=== PATIENT | female | born 1935 | race Caucasian/White ===

== ENCOUNTER → 2017-04-30 | Outpatient (CLI) | payer OTHER, BC ==
[~2017-04-30] MED LIST: ALBUAER19 INH; ASPEC81; CALC500C70; CARV3.122 PO; FURO-85 PO; LOSA100T65 PO; MELO7.5T5 PO; MESA800T6 PO; MULT-506; POTA-335
== END | disposition home or self-care (01) ==
LOC: C.PATHSPEC 10:22
PROVIDERS: ATTEND Plastic Surgery
DX: C44.612 Basal cell carcinoma of skin of right upper limb, including shoulder (principal)

== ENCOUNTER 2018-11-16 15:08 | Inpatient (IN) ==
[2018-11-16] MEDS ORDERED: DEXTROSE 50% 50 ML SYRINGE IV ONE (15:21)
[2018-11-16] MEDS ORDERED: SODIUM CHLORIDE 0.9% 1000ML 1,000 ML IV ONE ×2 (15:21→15:27)
[2018-11-16] MEDS ORDERED: SODI CHLOR 2.5MEQ/ML 14.6% 77 MEQ in DEXTROSE 10% 1,000 ML IV SCH (15:30)
[2018-11-16] MEDS ORDERED: GLUCOSE 40% GEL 15 GM TUBE PO ONE (15:48)
[2018-11-16 16:13] LABS: INR 1.1 (0.9-1.1); Partial Thromboplastin Ratio 0.9; Partial Thromboplastin Time 23.4 Seconds (21.0-31.0); Prothrombin Time 11.2 Seconds (9.0-12.0)
[2018-11-16 16:21] LABS: BUN Creatinine Ratio 37.2 (10-20); Calcium 8.3 mg/dl (8.5-10.1); Creatinine Clr Calc Pharmacy 37.2 ml/min; Est GFR (Non-African American) 46.6; Magnesium 2.5 mg/dl (1.8-2.4); Potassium 3.5 mmol/L (3.5-5.1)
[2018-11-16 16:31] LABS: Albumin Globulin Ratio 0.4 (0.9-2); Bilirubin,Total 0.4 mg/dl (0.2-1); Globulin 5.3 gm/dl (2.5-4.0); Total Protein 7.3 gm/dl (6.4-8.2); Troponin I 0.025 ng/ml (0-0.045)
[2018-11-16 16:42] LABS: Basophils # (auto) 0.03 K/uL (0-0.2); Basophils % (auto) 0.2 %; Hematocrit (blood only) 35.9 % (37-47); Hemoglobin 11.8 g/dL (12.0-16.0); Immature Granulocytes # (auto) 0.14 K/uL (0.00-0.02); Immature Granulocytes % (auto) 0.9 %; Lymphocytes # (auto) 0.44 K/uL (1.2-3.4); Lymphocytes % (auto) 2.8 %; Mean Corpuscular Hgb Conc 32.9 g/dL (32-36); Mean Corpuscular Volume 84.9 fL (80-100); Mean Platelet Volume 9.5 fL (7.4-10.4); Monocytes # (auto) 0.82 K/uL (0.11-0.59); Monocytes % (auto) 5.1 %; Neutrophils # (auto) 14.56 K/uL (1.4-6.5); Platelet Count 205 K/uL (130-400); RDW Coefficient of Variation 15.1 % (11.5-14.5); RDW Standard Deviation 46.8 fL (36.4-46.3); Red Blood Count 4.23 M/uL (4.2-5.4); White Blood Count 15.99 K/uL (4.8-10.8)
--- NOTE | 2018-11-16 16:52 | CT Scan Report ---
CT head/brain wo con CT DOSE: 537.48 mGy.cm HISTORY: Mental status change fall ams TECHNIQUE: Multiaxial CT images of the head were performed without the use of intravenous contrast. A dose lowering technique was utilized adhering to the principles of ALARA. Comparison: None. Findings: The paranasal sinuses and mastoid air cells are clear. The calvarium and skull base are int act. The ventricles and sulci are within normal limits. There is no mass, hematoma, midline shift, or acute infarct. Impression: No acute intracranial abnormality. Age-related chronic small vessel change The above report was generated using voice recognition software. It may contain grammatical, syntax or spelling errors. Electronically signed by: Lonnie Parrish M.D. 11/16/2018 4:50 PM
--- NOTE | 2018-11-16 16:55 | XRay Report ---
XR pelvis 1-2V routine CLINICAL HISTORY: ams mental status change COMPARISON: None. DISCUSSION: The bones and joint spaces appear intact. There is no evidence of fracture, dislocation o r bony disease. There is no evidence for soft tissue swelling. IMPRESSION: Negative study. Mild degenerative change. The above report was generated using voice recognition software. It may contain grammatical, syntax or spelling errors. Electronically signed by: Lonnie Parrish M.D. 11/16/2018 4:54 PM
--- NOTE | 2018-11-16 16:55 | XRay Report ---
SINGLE VIEW CHEST CLINICAL HISTORY: Change in mental status. FINDINGS: An AP, portable, upright chest radiograph is obtained. No prior studies are available for c omparison at the time of dictation. The examination is degraded by portable technique and patient rot ation. The heart is mildly enlarged, and there is atherosclerotic calcification of the thoracic aort a. The pulmonary vasculature is noncongested. Nonspecific interstitial thickening is likely chronic. No airspace consolidation or large pleural effusion is identified. No pneumothorax is seen. The skele jermaine structures are osteopenic. The bony thorax is grossly intact. Arthritic change is noted in the sh oulders. IMPRESSION: Mild cardiac enlargement with no acute cardiopulmonary abnormality. Electronically signed by: Graeme Enriquez M.D. 11/16/2018 4:54 PM
--- NOTE | 2018-11-16 17:45 | Emergency Department Note ---
Entered by Sindy Waters acting as a scribe for Flakito Miller DO History of Present Illness General Chief complaint: Fall Stated complaint: HYPOGLYCEMIA, Source: patient and EMS History of Present Illness Provider complaint: fall Onset (ago): day(s) 3 Location: left and right Quality: + other (fall) Associated symptoms: + denies other symptoms (denies diarrhea) and + other (low blood sugar glucose); no chest pain, no headaches (head pain) and no nausea/ vomiting The patient is an 82 year old female who presents to the Emergency Room with complaints of a fall occurring 3 days ago. The patient states that she fell 3 days ago and has been on the floor since then. She states that her cleaning lady found her today. She denies having chest pain, head pain, nausea, vomiting , and diarrhea. She reports a history of colitis but states that she is not diabetic. Per nursing staff, the patient was found in the bathroom with feces everywhere. Nursing staff states that the patient's blood sugar glucose was 48 and reports that the patient was confused. Per nursing staff, the patient also fell 3 days ago. History is limited. Home Medications Home Medications Medication Instructions Recorded Confirmed Type aspirin 81 mg PO DAILY 11/16/18 11/16/18 History carvedilol 3.125 mg PO BID 11/16/18 11/16/18 History furosemide 20 mg PO DAILY 11/16/18 11/16/18 History losartan 50 mg PO DAILY 11/16/18 11/16/18 History mesalamine 800 mg PO TID 11/16/18 11/16/18 History potassium chloride 20 meq PO DAILY 11/16/18 11/16/18 History Allergies Allergy/AdvReac Type Severity Reaction Status Date / Time erythromycin base Allergy Intermediate RASH Verified 11/16/18 16:33 Penicillins Allergy Intermediate HIVES Verified 11/16/18 16:33 tetracycline Allergy Intermediate HIVES Verified 11/16/18 16:33 Past Med/Surg History Medical History Colitis (Chronic) Social History Current Living Situation: Alone Feels Safe at Home: Yes Smoking Status: Former smoker Preferred Language: [place] Review of Systems See HPI for pertinent positives & negatives. and A total of 10 systems reviewed and were otherwise negative Physical Exam Vital Signs Vital Signs - 24 hr 11/16/18 15:13 11/16/18 15:18 11/16/18 15:20 Temperature 34.5 C L Temperature Source Rectal Sepsis Recent Fever Within 48 Hours No Sepsis New/Unexplained Change in Mental Status Yes Sepsis Action Taken by Nursing No Action Required Pulse Rate 83 88 86 Pulse Rhythm Regular Pulse Strength Normal Respiratory Rate 28 H 20 21 Respiratory Effort / Characteristics Non-Labored Spontaneous Respiratory Depth Normal Respiratory Pattern Regular Blood Pressure 149/68 H 149/68 H Blood Pressure Mean 95 95 Blood Pressure Position Lying Pulse Oximetry 100 97 98 Oxygen Delivery Method Room Air 11/16/18 15:30 11/16/18 15:45 11/16/18 16:00 Temperature Temperature Source Sepsis Recent Fever Within 48 Hours Sepsis New/Unexplained Change in Mental Status Sepsis Action Taken by Nursing Pulse Rate 86 82 81 Pulse Rhythm Pulse Strength Respiratory Rate 19 16 18 Respiratory Effort / Characteristics Respiratory Depth Respiratory Pattern Blood Pressure Blood Pressure Mean Blood Pressure Position Pulse Oximetry 100 98 Oxygen Delivery Method 11/16/18 16:15 11/16/18 16:30 11/16/18 16:37 Temperature Temperature Source Sepsis Recent Fever Within 48 Hours Sepsis New/Unexplained Change in Mental Status Sepsis Action Taken by Nursing Pulse Rate 90 89 90 Pulse Rhythm Pulse Strength Respiratory Rate 25 H 17 21 Respiratory Effort / Characteristics Respiratory Depth Respiratory Pattern Blood Pressure 121/56 L Blood Pressure Mean 77 Blood Pressure Position Pulse Oximetry 97 Oxygen Delivery Method GENERAL: Sitting up in bed, disheveled, slightly ill-appearing HEAD: Normocephalic, atraumatic EYE EXAM: normal conjunctiva. PERRL and EOM's grossly intact. OROPHARYNX: no exudate, no erythema, lips, buccal mucosa, and tongue normal and mucous membranes are moist NECK: supple, no nuchal rigidity, no adenopathy, non-tender LUNGS: Clear to auscultation. Normal chest wall mechanics HEART: no murmurs, S1 normal and S2 normal ABDOMEN: abdomen soft, non-tender, normo-active bowel, sounds, no masses, no rebound or guarding. BACK: Back is symmetrical on inspection and there is no deformity, no midline tenderness, no CVA tenderness. SKIN: Skin breakdown of the right heel, excoriation on the buttocks with skin breakdown on the left gluteus UPPER EXTREMITIES: upper extremities are grossly normal. LOWER EXTREMITIES: No pitting edema. NEURO EXAM: Normal sensorium, cranial nerves II-XII grossly intact, normal speech, no gross weakness of arms, no gross weakness of legs. Course ED COURSE: Vital signs were reviewed and showed hypothermia. The patients medical record was reviewed The above diagnostic studies were performed and reviewed. ED treatments and interventions as stated above. 1512: Past medical records reviewed. The patient was evaluated in room A3, and a complete history and physical examination were performed. 1613: I checked on the patient. Her BSG dropped back down to the 60s and she was given more glucose. We just got an IV and blood work and are sending her out for the CT. 1703: I updated the patient who verbalized agreement and understanding of the treatment plan. 1704: I discussed the patient's case with Kim Alvarez who will evaluate the patient for further management. Consultations Consultation #1: Kim Alvarez Time: 17:04 Administered Medications Sodium Chloride 77 meq/ (Dextrose) 1,030.8 mls @ 100 mls/hr IV .[id number] JEVON Stop: 12/16/18 15:29 Last Admin: 11/16/18 16:02 Dose: 100 mls/hr Discontinued Medications Dextrose (Dextrose 50%) 50 ml IV NOW ONE Stop: 11/16/18 15:22 Last Admin: 11/16/18 16:02 Dose: 50 ml Glucose (Glucose 40%) Confirm Administered Dose 15 gm PO .STK-MED ONE Stop: 11/16/18 15:49 Last Admin: 11/16/18 15:50 Dose: 15 gm Sodium Chloride (Nss 1000ml) 1,000 mls @ 999 mls/hr IV .[id number] ONE Stop: 11/16/18 16:21 Last Admin: 11/16/18 16:02 Dose: 999 mls/hr Medical Decision Making Differential Diagnosis Differential diagnoses includes but is not limited to toxic, metabolic, infectious, traumatic, cardiac, neurologic, hematologic, psychiatric and inflammatory etiologies. Medical Records Attestation: I reviewed the patient's medical records. Home Medications Current Medication List: was personally reviewed by me Laboratory Data Attestation: I reviewed the patient's lab results. Result diagrams: 11/16/18 16:24 11/16/18 15:45 Lab Results 11/16/18 11/16/18 11/16/18 Range/Units 15:17 15:20 15:42 WBC (4.8-10.8) K/uL RBC (4.2-5.4) M/uL Hgb (12.0-16.0) g/dL Hct (37-47) % MCV (80-100) fL MCH (25-34) pg MCHC (32-36) g/dL RDW Std Deviation (36.4-46.3) fL RDW Coeff of Ellen (11.5-14.5) % Plt Count (130-400) K/uL MPV (7.4-10.4) fL Immature Gran % (Auto) % Neut % (Auto) % Lymph % (Auto) % [place] % (Auto) % Eos % (Auto) % Baso % (Auto) % Immature Gran # (Auto) (0.00-0.02) K/uL Neut # (Auto) (1.4-6.5) K/uL Lymph # (Auto) (1.2-3.4) K/uL [place] # (Auto) (0.11-0.59) K/uL Eos # (Auto) (0-0.5) K/uL Baso # (Auto) (0-0.2) K/uL PT (9.0-12.0) Seconds INR (0.9-1.1) APTT (21.0-31.0) Seconds PTT Ratio Sodium (136-145) mmol/L Potassium (3.5-5.1) mmol/L Chloride (98-107) mmol/L Carbon Dioxide (21-32) mmol/L Anion Gap (3-11) BUN (7-18) mg/dl Creatinine (0.6-1.2) mg/dl Est Cr Clr Drug Dosing ml/min Est GFR ( Amer) Est GFR (Non-Af Amer) BUN/Creatinine Ratio (10-20) Glucose (70-99) mg/dl POC Glucose 62 L* 64 L* 71 (70-99) Calcium (8.5-10.1) mg/dl Magnesium (1.8-2.4) mg/dl Total Bilirubin (0.2-1) mg/dl AST (15-37) U/L ALT (12-78) U/L Alkaline Phosphatase (45-117) U/L Total Creatine Kinase (26-192) U/L Troponin I (0-0.045) ng/ml Total Protein (6.4-8.2) gm/dl Albumin (3.4-5.0) gm/dl Globulin (2.5-4.0) gm/dl Albumin/Globulin Ratio (0.9-2) TSH (0.300-4.500) uIu/ml Ethyl Alcohol mg/dL (0-3) mg/dl 11/16/18 11/16/18 11/16/18 Range/Units 15:45 15:45 15:59 WBC (4.8-10.8) K/uL RBC (4.2-5.4) M/uL Hgb (12.0-16.0) g/dL Hct (37-47) % MCV (80-100) fL MCH (25-34) pg MCHC (32-36) g/dL RDW Std Deviation (36.4-46.3) fL RDW Coeff of Ellen (11.5-14.5) % Plt Count (130-400) K/uL MPV (7.4-10.4) fL Immature Gran % (Auto) % Neut % (Auto) % Lymph % (Auto) % [place] % (Auto) % Eos % (Auto) % Baso % (Auto) % Immature Gran # (Auto) (0.00-0.02) K/uL Neut # (Auto) (1.4-6.5) K/uL Lymph # (Auto) (1.2-3.4) K/uL [place] # (Auto) (0.11-0.59) K/uL Eos # (Auto) (0-0.5) K/uL Baso # (Auto) (0-0.2) K/uL PT 11.2 (9.0-12.0) Seconds INR 1.1 (0.9-1.1) APTT 23.4 (21.0-31.0) Seconds PTT Ratio 0.9 Sodium 135 L (136-145) mmol/L Potassium 3.5 (3.5-5.1) mmol/L Chloride 98 (98-107) mmol/L Carbon Dioxide 24 (21-32) mmol/L Anion Gap 13.0 H (3-11) BUN 41 H (7-18) mg/dl Creatinine 1.09 (0.6-1.2) mg/dl Est Cr Clr Drug Dosing 37.2 ml/min Est GFR ( Amer) 54.0 Est GFR (Non-Af Amer) 46.6 BUN/Creatinine Ratio 37.2 H (10-20) Glucose 81 (70-99) mg/dl POC Glucose 70 (70-99) Calcium 8.3 L (8.5-10.1) mg/dl Magnesium 2.5 H (1.8-2.4) mg/dl Total Bilirubin 0.4 (0.2-1) mg/dl AST 178 H (15-37) U/L ALT 116 H (12-78) U/L Alkaline Phosphatase 117 (45-117) U/L Total Creatine Kinase 629 H (26-192) U/L Troponin I 0.025 (0-0.045) ng/ml Total Protein 7.3 (6.4-8.2) gm/dl Albumin 2.0 L (3.4-5.0) gm/dl Globulin 5.3 H (2.5-4.0) gm/dl Albumin/Globulin Ratio 0.4 L (0.9-2) TSH 0.807 (0.300-4.500) uIu/ml Ethyl Alcohol mg/dL (0-3) mg/dl 11/16/18 11/16/18 11/16/18 Range/Units 16:09 16:24 16:24 WBC 15.99 H (4.8-10.8) K/uL RBC 4.23 (4.2-5.4) M/uL Hgb 11.8 L (12.0-16.0) g/dL Hct 35.9 L (37-47) % MCV 84.9 (80-100) fL MCH 27.9 (25-34) pg MCHC 32.9 (32-36) g/dL RDW Std Deviation 46.8 H (36.4-46.3) fL RDW Coeff of Ellen 15.1 H (11.5-14.5) % Plt Count 205 (130-400) K/uL MPV 9.5 (7.4-10.4) fL Immature Gran % (Auto) 0.9 % Neut % (Auto) 91.0 % Lymph % (Auto) 2.8 % [place] % (Auto) 5.1 % Eos % (Auto) 0.0 % Baso % (Auto) 0.2 % Immature Gran # (Auto) 0.14 H (0.00-0.02) K/uL Neut # (Auto) 14.56 H (1.4-6.5) K/uL Lymph # (Auto) 0.44 L (1.2-3.4) K/uL [place] # (Auto) 0.82 H (0.11-0.59) K/uL Eos # (Auto) 0.00 (0-0.5) K/uL Baso # (Auto) 0.03 (0-0.2) K/uL PT (9.0-12.0) Seconds INR (0.9-1.1) APTT (21.0-31.0) Seconds PTT Ratio Sodium (136-145) mmol/L Potassium (3.5-5.1) mmol/L Chloride (98-107) mmol/L Carbon Dioxide (21-32) mmol/L Anion Gap (3-11) BUN (7-18) mg/dl Creatinine (0.6-1.2) mg/dl Est Cr Clr Drug Dosing ml/min Est GFR ( Amer) Est GFR (Non-Af Amer) BUN/Creatinine Ratio (10-20) Glucose (70-99) mg/dl POC Glucose 223 H (70-99) Calcium (8.5-10.1) mg/dl Magnesium (1.8-2.4) mg/dl Total Bilirubin (0.2-1) mg/dl AST (15-37) U/L ALT (12-78) U/L Alkaline Phosphatase (45-117) U/L Total Creatine Kinase (26-192) U/L Troponin I (0-0.045) ng/ml Total Protein (6.4-8.2) gm/dl Albumin (3.4-5.0) gm/dl Globulin (2.5-4.0) gm/dl Albumin/Globulin Ratio (0.9-2) TSH (0.300-4.500) uIu/ml Ethyl Alcohol mg/dL < 3.0 (0-3) mg/dl Imaging Data Radiologist's Impression: Radiology results as stated below per my review and the radiologist's interpretation: SINGLE VIEW CHEST CLINICAL HISTORY: Change in mental status. FINDINGS: An AP, portable, upright chest radiograph is obtained. No prior studies are available for comparison at the time of dictation. The examination is degraded by portable technique and patient rotation. The heart is mildly enlarged, and there is atherosclerotic calcification of the thoracic aorta. The pulmonary vasculature is noncongested. Nonspecific interstitial thickening is likely chronic. No airspace consolidation or large pleural effusion is identified. No pneumothorax is seen. The skeletal structures are osteopenic. The bony thorax is grossly intact. Arthritic change is noted in the shoulders. IMPRESSION: Mild cardiac enlargement with no acute cardiopulmonary abnormality. Electronically signed by: Graeme Enriquez M.D. 11/16/2018 4:54 PM XR pelvis 1-2V routine CLINICAL HISTORY: ams mental status change COMPARISON: None. DISCUSSION: The bones and joint spaces appear intact. There is no evidence of fracture, dislocation or bony disease. There is no evidence for soft tissue swelling. IMPRESSION: Negative study. Mild degenerative change. The above report was generated using voice recognition software. It may contain grammatical, syntax or spelling errors. Electronically signed by: Lonnie Parrish M.D. 11/16/2018 4:[address] head/brain wo con CT DOSE: 537.48 mGy.cm HISTORY: Mental status change fall ams TECHNIQUE: Multiaxial CT images of the head were performed without the use of intravenous contrast. A dose lowering technique was utilized adhering to the principles of ALARA. Comparison: None. Findings: The paranasal sinuses and mastoid air cells are clear. The calvarium and skull base are intact. The ventricles and sulci are within normal limits. There is no mass, hematoma, midline shift, or acute infarct. Impression: No acute intracranial abnormality. Age-related chronic small vessel change The above report was generated using voice recognition software. It may contain grammatical, syntax or spelling errors. Electronically signed by: Lonnie Parrish M.D. 11/16/2018 4:50 PM ECG Data Attestation: I personally reviewed and interpreted this ECG as follows: Indication: altered mental status Rate (beats per minute): 82 Rhythm: sinus rhythm Findings: + LBBB, + ST depression (high lateral leads) and + left axis deviation Blood Pressure Blood Pressure Findings: Normal blood pressure MDM Narrative Patient is an 82-year-old female who presents the ER following being found down on the floor. She notes that she thinks she fell Thursday but is uncertain and has been able to really get up since then. She is hypothermic with a temperature of 34 5. She is otherwise slightly ill-appearing. Labs were obtained and showed a leukocytosis of 16,000. No significant anemia. INR was normal. BMP was fairly unremarkable. LFTs with a mild transaminitis in the low 100s. CK was only 630. Troponin was detectable but not positive. Alcohol was negative. Blood sugar dropped several times while in the ER and patient was given amp of D50 and then placed on a D10 drip to correct the hypoglycemia. I do believe that this is likely secondary to hypothermia but cannot be certain. Patient was also given IV fluids. Chest x-ray and pelvis x-ray were unremarkable. CT head was negative. EKG was unremarkable. Patient was updated bedside and was admitted to the hospitalist for further workup on a D10 half normal saline drip. Impression & Plan Hypothermia, Weakness, Hypoglycemia, Fall Critical Care Time I have personally spent 35 minutes of critical care time in the direct management of this patient. This includes bedside care, interpretation of diagnostic studies, and testing, discussion with consultants, patient, and family members, and other required patient management activities. This 35 minutes is in excess of all separately billable procedures. Critical Care Time: Yes Total Critical Care Time: 35 Discharge Plan Visit Data Chief Complaint: Fall Stated Complaint: HYPOGLYCEMIA, ED Provider: Flakito Miller Discharge Problem: Hypothermia, Weakness, Hypoglycemia, Fall Forms Stand Alone Forms: My [facility] Prescriptions Prescriptions: No Action losartan 50 mg tablet 50 mg PO DAILY RF: 0 aspirin 81 mg Tablet,Delayed Release (Dr/Ec) 81 mg PO DAILY RF: 0 carvedilol 3.125 mg tablet 3.125 mg PO BID RF: 0 potassium chloride 20 mEq tablet,ER particles/crystals 20 meq PO DAILY RF: 0 furosemide 20 mg tablet 20 mg PO DAILY RF: 0 mesalamine 800 mg tablet,delayed release (DR/EC) 800 mg PO TID RF: 0 Referrals Referrals: PCP,FAVIOLA [Primary Care Provider] - The scribe's documentation has been prepared under my direction and personally reviewed by me in its entirety. I confirm that the note above accurately reflects all work, treatment, procedures, and medical decision making performed by me.
[2018-11-16 17:56] LABS: Appearance Urine Clear (Clear); Bacteria Urine Automated 2+ (Negative); Color Urine Dark Yellow; Epithelial Cell Urine Auto 20-30 /lpf (0-5); Glucose Urine UA Negative (Negative); Ketones Urine 1+ (Negative); Leukocyte Esterase Urine Negative (Negative); Nitrite Urine Positive (Negative); Protein Urine 1+ (Negative); Specific Gravity Urine 1.023 (1.000-1.030); Urobilinogen Urine Negative (Negative)
[2018-11-16 17:58] LABS: Bilirubin Urine Negative (Negative); Ictotest Urine Negative (Negative)
[2018-11-16 18:20] LABS: Amphetamines+Metham, Urine Neg (Neg); Barbiturates, Urine Neg (Neg); Benzodiazepine, Urine Neg (Neg); Cocaine, Urine Neg (Neg); MDMA (Ecstacy), Urine Neg (Neg); Methadone, Urine Neg (Neg); Opiate, Urine Neg (Neg); Phencyclidine, Urine Neg (Neg)
[2018-11-16] MEDS ORDERED: ALUMINUM/MAGNESIUM SUSP 30 ML UDC PO PRN (19:13)
[2018-11-16] MEDS ORDERED: ONDANSETRON INJ 2 MG/ML 2 ML VIAL IV PRN (19:13)
[2018-11-16] MEDS ORDERED: ACETAMINOPHEN 325 MG TAB PO PRN (19:13)
--- NOTE | 2018-11-16 19:29 | History & Physical Report ---
Date of Service November 16, 2018 Assessment & Plan (1) Rhabdomyolysis: (2) Fall: -Admit to telemetry -Patient presenting after a fall she experienced 4 days ago and was unable to get off the floor -In the ED, patient found to be hypothermic, hypoglycemic, total CK 629 -Body temperature improved with bear hugger -Creatinine 1.09 (baseline ~ 0.7) -Continue supportive care with IVF -Recheck CK in the morning -PT/OT, case management consults; patient may need short-term rehab stay post discharge (3) Hypoglycemia: -Likely secondary to minimal p.o. intake over the past few days -Glucose 62 on arrival, patient received glucose gel, amp of D50, placed on D10 drip with improvement in blood sugar -Continue to monitor BSGs (4) Abnormal urinalysis: -UA suggest possible UTI -will place on empiric ceftriaxone, adjust per culture results (5) Elevated LFTs: -Possible stress response -AST 178, ALT 116, normal total bili and alk phos; no abdominal complaints -Follow LFTs (6) Mild tricuspid regurgitation: (7) Moderate mitral regurgitation: (8) Nonischemic cardiomyopathy: (9) Diastolic CHF: -Holding diuretic due to rhabdomyolysis (10) Hypertension: -BP controlled, continue carvedilol and hold losartan for now (11) Ulcerative colitis: -Continue mesalamine (12) DVT prophylaxis: -SQ heparin History of Present Illness Chief Complaint: Fall Primary Care Provider: Heladio Larsen DO 82 year old female who presents to the ED for a fall. Patient thinks she fell Thursday morning (4 days ago) and has been unable to get up. She was found by her diamond die driller today. Patient reports she was bending over to pick something up when her leg gave out from under her and fell to the ground. She denies striking her head or loss of consciousness. No chest pain or shortness of breath. She denies abdominal pain, nausea, vomiting. She has chronic loose stools which are unchanged from baseline. She was incontinent of urine and stool due to inability of getting off of the floor. No fever or chills. She denies any urinary symptoms. In the ED, patient was hypothermic at 34.5. This improved with bear hugger. WBC 15K, creat 1.09, CK 629, glucose 62. For the hypoglycemia, patient received glucose gel, amp of D50, and then started on D10 drip with improvement in blood sugar. Allergies Allergy/AdvReac Type Severity Reaction Status Date / Time erythromycin base Allergy Intermediate RASH Verified 11/16/18 16:33 Penicillins Allergy Intermediate HIVES Verified 11/16/18 16:33 tetracycline Allergy Intermediate HIVES Verified 11/16/18 16:33 Home Medications Home Medications Medication Instructions Recorded Confirmed Type aspirin 81 mg PO DAILY 11/16/18 11/16/18 History carvedilol 3.125 mg PO BID 11/16/18 11/16/18 History furosemide 20 mg PO DAILY 11/16/18 11/16/18 History losartan 50 mg PO DAILY 11/16/18 11/16/18 History mesalamine 800 mg PO TID 11/16/18 11/16/18 History potassium chloride 20 meq PO DAILY 11/16/18 11/16/18 History Past Med/Surg History Medical History Mild tricuspid regurgitation (Chronic) Moderate mitral regurgitation (Chronic) Nonischemic cardiomyopathy (Chronic) Diastolic CHF (Chronic) Ulcerative colitis (Chronic) Left bundle branch block (Chronic) Venous insufficiency (Chronic) COPD, mild (Chronic) Hypertension (Chronic) Colitis (Chronic) Surgical History S/P right knee arthroscopy (Chronic) S/p bilateral carpal tunnel release (Chronic) Family History Other Family history non-contributory Social History Current Living Situation: Alone Other Information That Helps Us Care for You: No Feels Safe at Home: Yes Safety Concerns: Feels Safe At This Time Smoking Status: Former smoker Do You Dip or Chew Tobacco: No Second Hand Exposure: No Tobacco Cessation Education Requested by Patient: No Hx Alcohol Use: No Hx Substance Use: No Beliefs That Will Affect Care: None Preferred Language: Maltese Communication Ability: Effective Communication Ability Comment: Confusion Investment Associate Required: No Review of Systems ROS per HPI, all other systems reviewed and negative Physical Exam 2 Vital Signs (Past 24 Hours): Last Vital Signs Temp 37 C 11/16/18 19:02 Pulse 92 H 11/16/18 19:02 Resp 20 11/16/18 19:02 BP 108/57 L 11/16/18 19:02 Pulse Ox 97 11/16/18 19:02 Physical Exam: Please refer to Dr. Youngblood's addendum for physical exam Results & Data Laboratory Results Laboratory Last Values WBC 15.99 K/uL (4.8-10.8) H 11/16/18 16:24 RBC 4.23 M/uL (4.2-5.4) 11/16/18 16:24 Hgb 11.8 g/dL (12.0-16.0) L 11/16/18 16:24 Hct 35.9 % (37-47) L 11/16/18 16:24 MCV 84.9 fL (80-100) 11/16/18 16:24 MCH 27.9 pg (25-34) 11/16/18 16:24 MCHC 32.9 g/dL (32-36) 11/16/18 16:24 RDW Std Deviation 46.8 fL (36.4-46.3) H 11/16/18 16:24 RDW Coeff of Ellen 15.1 % (11.5-14.5) H 11/16/18 16:24 Plt Count 205 K/uL (130-400) 11/16/18 16:24 MPV 9.5 fL (7.4-10.4) 11/16/18 16:24 Immature Gran % (Auto) 0.9 % 11/16/18 16:24 Neut % (Auto) 91.0 % 11/16/18 16:24 Lymph % (Auto) 2.8 % 11/16/18 16:24 [place] % (Auto) 5.1 % 11/16/18 16:24 Eos % (Auto) 0.0 % 11/16/18 16:24 Baso % (Auto) 0.2 % 11/16/18 16:24 Immature Gran # (Auto) 0.14 K/uL (0.00-0.02) H 11/16/18 16:24 Neut # (Auto) 14.56 K/uL (1.4-6.5) H 11/16/18 16:24 Lymph # (Auto) 0.44 K/uL (1.2-3.4) L 11/16/18 16:24 [place] # (Auto) 0.82 K/uL (0.11-0.59) H 11/16/18 16:24 Eos # (Auto) 0.00 K/uL (0-0.5) 11/16/18 16:24 Baso # (Auto) 0.03 K/uL (0-0.2) 11/16/18 16:24 PT 11.2 Seconds (9.0-12.0) 11/16/18 15:45 INR 1.1 (0.9-1.1) 11/16/18 15:45 APTT 23.4 Seconds (21.0-31.0) 11/16/18 15:45 PTT Ratio 0.9 11/16/18 15:45 Sodium 135 mmol/L (136-145) L 11/16/18 15:45 Potassium 3.5 mmol/L (3.5-5.1) 11/16/18 15:45 Chloride 98 mmol/L (98-107) 11/16/18 15:45 Carbon Dioxide 24 mmol/L (21-32) 11/16/18 15:45 Anion Gap 13.0 (3-11) H 11/16/18 15:45 BUN 41 mg/dl (7-18) H 11/16/18 15:45 Creatinine 1.09 mg/dl (0.6-1.2) 11/16/18 15:45 Est Cr Clr Drug Dosing 37.2 ml/min 11/16/18 15:45 Est GFR ( Amer) 54.0 11/16/18 15:45 Est GFR (Non-Af Amer) 46.6 11/16/18 15:45 BUN/Creatinine Ratio 37.2 (10-20) H 11/16/18 15:45 Glucose 81 mg/dl (70-99) 11/16/18 15:45 POC Glucose 223 (70-99) H 11/16/18 16:24 Calcium 8.3 mg/dl (8.5-10.1) L 11/16/18 15:45 Magnesium 2.5 mg/dl (1.8-2.4) H 11/16/18 15:45 Total Bilirubin 0.4 mg/dl (0.2-1) 11/16/18 15:45 AST 178 U/L (15-37) H 11/16/18 15:45 ALT 116 U/L (12-78) H 11/16/18 15:45 Alkaline Phosphatase 117 U/L (45-117) 11/16/18 15:45 Total Creatine Kinase 629 U/L (26-192) H 11/16/18 15:45 Troponin I 0.025 ng/ml (0-0.045) 11/16/18 15:45 Total Protein 7.3 gm/dl (6.4-8.2) 11/16/18 15:45 Albumin 2.0 gm/dl (3.4-5.0) L 11/16/18 15:45 Globulin 5.3 gm/dl (2.5-4.0) H 11/16/18 15:45 Albumin/Globulin Ratio 0.4 (0.9-2) L 11/16/18 15:45 TSH 0.807 uIu/ml (0.300-4.500) 11/16/18 15:45 Urine Color Dark Yellow 11/16/18 17:24 Urine Appearance Clear (Clear) 11/16/18 17:24 Urine pH 5.0 (4.5-7.5) 11/16/18 17:24 Ur Specific [place] 1.023 (1.000-1.030) 11/16/18 17:24 Urine Protein 1+ (Negative) H 11/16/18 17:24 Urine Glucose (UA) Negative (Negative) 11/16/18 17:24 Urine Ketones 1+ (Negative) H 11/16/18 17:24 Urine Blood Negative (Negative) 11/16/18 17:24 Urine Nitrite Positive (Negative) H 11/16/18 17:24 Urine Bilirubin Negative (Negative) 11/16/18 17:24 Urine Urobilinogen Negative (Negative) 11/16/18 17:24 Ur Leukocyte Esterase Negative (Negative) 11/16/18 17:24 Urine WBC (Auto) 5-10 /hpf (0-5) H 11/16/18 17:24 Urine RBC (Auto) 0-4 /hpf (0-4) 11/16/18 17:24 U Hyaline Cast (Auto) 1-5 /lpf (0-5) 11/16/18 17:24 U Epithel Cells (Auto) 20-30 /lpf (0-5) H 11/16/18 17:24 Urine Bacteria (Auto) 2+ (Negative) H 11/16/18 17:24 Urine Opiates Screen Neg (Neg) 11/16/18 17:24 Ur Methadone, Qual Neg (Neg) 11/16/18 17:24 Urine Barbiturates Neg (Neg) 11/16/18 17:24 Ur Phencyclidine (PCP) Neg (Neg) 11/16/18 17:24 U Amphetamin/Meth Scrn Neg (Neg) 11/16/18 17:24 MDMA (Ecstasy) Screen Neg (Neg) 11/16/18 17:24 U Benzodiazepines Scrn Neg (Neg) 11/16/18 17:24 Ur Cocaine Metabolite Neg (Neg) 11/16/18 17:24 U Marijuana (THC) Screen Neg (Neg) 11/16/18 17:24 Ethyl Alcohol mg/dL < 3.0 mg/dl (0-3) 11/16/18 16:[address] Impression: No acute intracranial abnormality. Age-related chronic small vessel change PELVIS XR IMPRESSION: Negative study. Mild degenerative change. CXR IMPRESSION: Mild cardiac enlargement with no acute cardiopulmonary abnormality. Code Status & VTE Plan Code Status Patient is a full code as per my discussion with her. VTE Prophylaxis Plan VTE Prophylaxis will be ordered: Yes Supervising Physician Co-Signing Physician Notes I saw this patient with the Nurse Practioner, I participated in the history, physical, review of systems, and physical exam. I reviewed the medications with the patient and the Nurse Practioner and helped reconcile the medications. I helped take a detailed family and social history as well. I formulated the assessment and plan personally with the Nurse Practioner went over it with the patient.
[2018-11-16] MEDS: POTASSIUM CHLORIDE 40 MEQ in SODIUM CHLORIDE 0.9% 1000ML 1,000 ML IV SCH (19:32)
[2018-11-16] MEDS: cefTRIAXone SODIUM 1,000 MG in DEXTROSE 5% 50 ML IV SCH (20:06)
[2018-11-16] MEDS: CARVEDILOL 3.125 MG TAB PO SCH (21:44)
[2018-11-16] MEDS: HEPARIN SOD 5,000 UNIT/0.5 ML VIAL SQ SCH (21:45)
[2018-11-17] MEDS: POTASSIUM CHLORIDE 40 MEQ in SODIUM CHLORIDE 0.9% 1000ML 1,000 ML IV SCH ×2 (05:53→18:09)
[2018-11-17 07:02] LABS: Albumin Level 1.5 gm/dl (3.4-5.0); BUN Creatinine Ratio 40.9 (10-20); Calcium 7.4 mg/dl (8.5-10.1); Creatinine Clr Calc Pharmacy 51.9 ml/min; Est GFR (African American) 79.7; Est GFR (Non-African American) 68.7; Potassium 4.1 mmol/L (3.5-5.1)
[2018-11-17 07:05] LABS: Albumin Globulin Ratio 0.4 (0.9-2); Bilirubin,Total 0.3 mg/dl (0.2-1); Globulin 4.1 gm/dl (2.5-4.0); Total Protein 5.6 gm/dl (6.4-8.2)
--- NOTE | 2018-11-17 08:05 | Hospitalist Progress Note ---
Date of Service November 17, 2018 Assessment & Plan (1) Rhabdomyolysis: (2) Fall: -Patient presenting after a fall she experienced 4 days ago and was unable to get off the floor -In the ED, patient found to be hypothermic, hypoglycemic, total CK 629, now 129 -Body temperature improved with bear hugger -Creatinine 1.09 (baseline ~ 0.7), Now at baseline -Continue supportive care with IVF -PT/OT, case management consults; patient may need short-term rehab stay post discharge (3) Hypoglycemia: -Likely secondary to minimal p.o. intake over the past few days -Glucose 62 on arrival, patient received glucose gel, amp of D50, placed on D10 drip with improvement in blood sugar -Continue to monitor BSGs (4) Abnormal urinalysis: -UA suggest possible UTI -empiric ceftriaxone, adjust per culture results (5) Elevated LFTs: -Possible stress response -AST 178, ALT 116, normal total bili and alk phos; no abdominal complaints -Follow LFTs (6) Mild tricuspid regurgitation: (7) Moderate mitral regurgitation: (8) Nonischemic cardiomyopathy: (9) Diastolic CHF: -Holding diuretic, restart 11/18 (10) Hypertension: -BP controlled, continue carvedilol and hold losartan for now (11) Ulcerative colitis: -Continue mesalamine (12) DVT prophylaxis: -SQ heparin Subjective ROS-No Headache, No Visual Changes, No Nausea, No Vomiting, No Fever, No Chills , No Neck Pain or Stiffness, No Chest Pain, No Palpitations, No SOB, No BRAVO, No Cough, No Sputum, No Wheezing, No Abdominal Pain, No Diarrhea, No Hematemesis, No Hemoptysis, No Unexpected Weight Loss, No Flank pain, No Melena, No Hematochezia, No Frequency, No Urgency, No Burning, No Hematuria, No Rashes, No Diaphoresis. Appetite is Normal, Sore all over Physical Exam Gen-AAO x 3, NAD, Afebrile Head-NCAT, EOMI, PERRLA, Anicteric Sclera, No Posterior Pharyngeal Erythema Neck-Supple, No JVD, No Thyromegaly, No Masses, No LAD, No Bruits Lungs-Clear to Auscultation Bilaterally, No Rales, No Rhonchi, No Wheezing, No Crepitus Chest-No S4, +S1, +S2, No S3, No Murmurs, No Rubs, No Gallops, No Ectopy Abdomen-Soft, Bowel Sounds Present, Non Tender, Non Distended, No Hepatomegaly, No Splenomegaly, No Palpable Masses, No Rebound, No Rigidity, No Guarding Musculoskeletal-Full Range of Motion Bilaterally, No CVAT, Mult wound-Heel, Elbow, Butt Extremities-No Cyanosis, No Clubbing, No Edema Nuero-Cranial Nerves II-XII grossly intact, Motor WNL, DTRs WNL, Strength WNL, Non Focal Psych-Normal Mood Physical Exam 2 Vital Signs (Past 24 Hours): Last Vital Signs Temp 37.1 C 11/17/18 07:39 Pulse 78 11/17/18 07:39 Resp 20 11/17/18 07:39 BP 132/70 11/17/18 07:39 Pulse Ox 94 11/17/18 07:39 Results & Data Laboratory Results Current Diagnoses Hypoglycemia, unspecified (11/16/18) 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) Essential (primary) hypertension (11/16/18) Nonrheumatic mitral (valve) insufficiency (11/16/18) Other cardiomyopathies (11/16/18) Unspecified diastolic (congestive) heart failure (11/16/18) Ulcerative colitis, unspecified, without complications (11/16/18) Rhabdomyolysis (11/16/18) Unspecified abnormal findings in urine (11/16/18) Abnormal results of liver function studies (11/16/18) Unspecified fall, initial encounter (11/16/18) Allergies erythromycin base Allergy (Intermediate, Verified 11/16/18 16:33) RASH Penicillins Allergy (Intermediate, Verified 11/16/18 16:33) HIVES tetracycline Allergy (Intermediate, Verified 11/16/18 16:33) HIVES Height/Weight/Isolation Height 5 ft 3 in Weight 76.5 kg Chemistry 11/16/18 11/17/18 15:45 05:48 Sodium 135 L 137 Potassium 3.5 4.1 D Chloride 98 105 Carbon Dioxide 24 25 Anion Gap 13.0 H 7.0 BUN 41 H 32 H Creatinine 1.09 0.79 D Glucose 81 136 H Urinalysis 11/16/18 17:24 Urine Color Dark Yellow Urine Appearance Clear Urine pH 5.0 Ur Specific [place] 1.023 Urine Protein 1+ H Urine Glucose (UA) Negative Urine Ketones 1+ H Urine Blood Negative Urine Nitrite Positive H Urine Bilirubin Negative Microbiology 11/16/18 17:24 Urine,Indwelling Cath Urine Culture - Pending 11/16/18 16:09 Blood Blood Culture - Pending 11/16/18 15:45 Blood Blood Culture - Pending
[2018-11-17] MEDS: ASPIRIN 81 MG ECTAB PO SCH (09:27)
[2018-11-17] MEDS: CARVEDILOL 3.125 MG TAB PO SCH ×2 (09:27→22:49)
[2018-11-17] MEDS: HEPARIN SOD 5,000 UNIT/0.5 ML VIAL SQ SCH ×2 (09:28→22:49)
[2018-11-17] MEDS: cefTRIAXone SODIUM 1,000 MG in DEXTROSE 5% 50 ML IV SCH (20:51)
[2018-11-17 22:11] LABS: Appearance Urine Clear (Clear); Bacteria Urine Automated Negative (Negative); Bilirubin Urine Negative (Negative); Color Urine Yellow; Epithelial Cell Urine Auto >30 /lpf (0-5); Glucose Urine UA Negative (Negative); Ketones Urine Trace (Negative); Leukocyte Esterase Urine Trace (Negative); Nitrite Urine Positive (Negative); Protein Urine Negative (Negative); Specific Gravity Urine 1.024 (1.000-1.030); Urobilinogen Urine Negative (Negative)
[2018-11-18] MEDS: POTASSIUM CHLORIDE 40 MEQ in SODIUM CHLORIDE 0.9% 1000ML 1,000 ML IV SCH ×2 (04:44→14:29)
[2018-11-18 06:32] LABS: Hematocrit (blood only) 31.5 % (37-47); Mean Corpuscular Hgb Conc 31.7 g/dL (32-36); Mean Corpuscular Volume 86.3 fL (80-100); Mean Platelet Volume 9.6 fL (7.4-10.4); Platelet Count 195 K/uL (130-400); RDW Coefficient of Variation 15.2 % (11.5-14.5); RDW Standard Deviation 47.8 fL (36.4-46.3); Red Blood Count 3.65 M/uL (4.2-5.4); White Blood Count 9.15 K/uL (4.8-10.8)
[2018-11-18 07:09] LABS: Albumin Level 1.5 gm/dl (3.4-5.0); Calcium 7.3 mg/dl (8.5-10.1); Creatinine Clr Calc Pharmacy 65.7 ml/min; Est GFR (Non-African American) 82.8; Potassium 4.2 mmol/L (3.5-5.1)
[2018-11-18 07:12] LABS: Albumin Globulin Ratio 0.4 (0.9-2); Bilirubin,Total 0.2 mg/dl (0.2-1); Total Protein 5.5 gm/dl (6.4-8.2)
[2018-11-18] MEDS: ASPIRIN 81 MG ECTAB PO SCH (08:03)
[2018-11-18] MEDS: CARVEDILOL 3.125 MG TAB PO SCH ×2 (08:03→20:59)
[2018-11-18] MEDS: HEPARIN SOD 5,000 UNIT/0.5 ML VIAL SQ SCH ×2 (08:03→20:59)
--- NOTE | 2018-11-18 15:21 | Hospitalist Progress Note ---
Date of Service November 18, 2018 Assessment & Plan (1) Rhabdomyolysis: (2) Fall: Traumatic Rhabdo from a fall and not being able to get x 4 days, Kidneys back to Normal c IVFs, Resume Lasix, Push diet, +UTI c Pansensitive E Coli. -Patient presenting after a fall she experienced 4 days ago and was unable to get off the floor -In the ED, patient found to be hypothermic, hypoglycemic, total CK 629, and c AYAD -Body temperature resolved with bear hugger -Creatinine 1.09 (baseline ~ 0.7), Now at baseline -Continue supportive care with IVF -PT/OT, case management consults; patient may need short-term rehab stay post discharge (3) Hypoglycemia: -Likely secondary to minimal p.o. intake over the past few days -Glucose 62 on arrival, patient received glucose gel, amp of D50, placed on D10 drip with improvement in blood sugar -DC monitor BSGs (4) Abnormal urinalysis: -Continue Ceftriaxone, Urine Cx Pansensitive E Coli (5) Elevated LFTs: Resolving (6) Mild tricuspid regurgitation: Monitor (7) Moderate mitral regurgitation: Monitor (8) Nonischemic cardiomyopathy: Monitor (9) Diastolic CHF: -Chronic DCHF, Holding diuretic, restart today (10) Hypertension: -BP controlled, continue carvedilol and hold losartan for now (11) Ulcerative colitis: -Continue mesalamine (12) DVT prophylaxis: -SQ heparin Subjective ROS-No Headache, No Visual Changes, No Nausea, No Vomiting, No Fever, No Chills , No Neck Pain or Stiffness, No Chest Pain, No Palpitations, No SOB, No BRAVO, No Cough, No Sputum, No Wheezing, No Abdominal Pain, No Diarrhea, No Hematemesis, No Hemoptysis, No Unexpected Weight Loss, No Flank pain, No Melena, No Hematochezia, No Frequency, No Urgency, No Burning, No Hematuria, No Rashes, No Diaphoresis. Appetite is Normal, Still Sore all over, getting stronger. Physical Exam Gen-AAO x 3, NAD, Afebrile, eating breakfast, appetite great Head-NCAT, EOMI, PERRLA, Anicteric Sclera, No Posterior Pharyngeal Erythema Neck-Supple, No JVD, No Thyromegaly, No Masses, No LAD, No Bruits Lungs-Clear to Auscultation Bilaterally, No Rales, No Rhonchi, No Wheezing, No Crepitus Chest-No S4, +S1, +S2, No S3, No Murmurs, No Rubs, No Gallops, No Ectopy Abdomen-Soft, Bowel Sounds Present, Non Tender, Non Distended, No Hepatomegaly, No Splenomegaly, No Palpable Masses, No Rebound, No Rigidity, No Guarding Musculoskeletal-Full Range of Motion Bilaterally, No CVAT, Mult wound-Heel, Elbow, Butt Extremities-No Cyanosis, No Clubbing, No Edema Nuero-Cranial Nerves II-XII grossly intact, Motor WNL, DTRs WNL, Strength WNL, Non Focal Psych-Normal Mood Physical Exam 2 Vital Signs (Past 24 Hours): Last Vital Signs Temp 36.9 C 11/18/18 15:11 Pulse 70 11/18/18 15:11 Resp 16 11/18/18 15:11 BP 124/73 11/18/18 15:11 Pulse Ox 97 11/18/18 15:11 Results & Data Laboratory Results Current Diagnoses Hypoglycemia, unspecified (11/16/18) 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) Essential (primary) hypertension (11/16/18) Nonrheumatic mitral (valve) insufficiency (11/16/18) Other cardiomyopathies (11/16/18) Unspecified diastolic (congestive) heart failure (11/16/18) Ulcerative colitis, unspecified, without complications (11/16/18) Rhabdomyolysis (11/16/18) Unspecified abnormal findings in urine (11/16/18) Abnormal results of liver function studies (11/16/18) Unspecified fall, initial encounter (11/16/18) Allergies erythromycin base Allergy (Intermediate, Verified 11/16/18 16:33) RASH Penicillins Allergy (Intermediate, Verified 11/16/18 16:33) HIVES tetracycline Allergy (Intermediate, Verified 11/16/18 16:33) HIVES Height/Weight/Isolation Height 5 ft 3 in Weight 75.4 kg Chemistry 11/16/18 11/17/18 11/18/18 15:45 05:48 06:07 Sodium 135 L 137 139 Potassium 3.5 4.1 D 4.2 Chloride 98 105 108 H Carbon Dioxide 24 25 26 Anion Gap 13.0 H 7.0 5.0 BUN 41 H 32 H 24 H Creatinine 1.09 0.79 D 0.62 Glucose 81 136 H 104 H Urinalysis 11/16/18 11/17/18 17:24 21:30 Urine Color Dark Yellow Yellow Urine Appearance Clear Clear Urine pH 5.0 6.0 Ur Specific [place] 1.023 1.024 Urine Protein 1+ H Negative Urine Glucose (UA) Negative Negative Urine Ketones 1+ H Trace H Urine Blood Negative Negative Urine Nitrite Positive H Positive H Urine Bilirubin Negative Negative Microbiology 11/16/18 17:24 Urine,Indwelling Cath Urine Culture - Final Escherichia coli 11/16/18 16:09 Blood Blood Culture - Preliminary No growth to date. 11/16/18 15:45 Blood Blood Culture - Preliminary No growth to date.
[2018-11-18] MEDS: cefTRIAXone SODIUM 1,000 MG in DEXTROSE 5% 50 ML IV SCH (20:58)
[2018-11-19] MEDS: POTASSIUM CHLORIDE 40 MEQ in SODIUM CHLORIDE 0.9% 1000ML 1,000 ML IV SCH ×2 (00:42→08:42)
[2018-11-19 05:45] LABS: Hematocrit (blood only) 31.8 % (37-47); Hemoglobin 10.2 g/dL (12.0-16.0); Mean Corpuscular Hgb Conc 32.1 g/dL (32-36); Mean Corpuscular Volume 86.2 fL (80-100); Mean Platelet Volume 10.3 fL (7.4-10.4); Platelet Count 203 K/uL (130-400); RDW Coefficient of Variation 15.6 % (11.5-14.5); RDW Standard Deviation 49.2 fL (36.4-46.3); Red Blood Count 3.69 M/uL (4.2-5.4); White Blood Count 7.82 K/uL (4.8-10.8)
[2018-11-19 06:24] LABS: BUN Creatinine Ratio 25.4 (10-20); Calcium 7.1 mg/dl (8.5-10.1); Creatinine Clr Calc Pharmacy 79.9 ml/min; Est GFR (African American) 102.3; Est GFR (Non-African American) 88.3; Potassium 4.1 mmol/L (3.5-5.1)
[2018-11-19] MEDS: HEPARIN SOD 5,000 UNIT/0.5 ML VIAL SQ SCH ×2 (08:42→20:13)
[2018-11-19] MEDS: CARVEDILOL 3.125 MG TAB PO SCH ×2 (08:42→20:12)
[2018-11-19] MEDS: ASPIRIN 81 MG ECTAB PO SCH (08:42)
--- NOTE | 2018-11-19 10:36 | Hospitalist Progress Note ---
Date of Service November 19, 2018 Subjective (1) Rhabdomyolysis: (2) Fall: Traumatic Rhabdo from a fall and not being able to get x 4 days, Kidneys back to Normal c IVFs, Resume Lasix, Push diet, +UTI c Pansensitive E Coli. -Patient presenting after a fall she experienced 4 days ago and was unable to get off the floor -In the ED, patient found to be hypothermic, hypoglycemic, total CK 629, and c AYAD -Body temperature resolved with bear hugger -Creatinine 1.09 (baseline ~ 0.7), Now at baseline -PT/OT, case management consults; patient may need short-term rehab stay post discharge (3) Hypoglycemia: -Resolved (4) Abnormal urinalysis: -Continue Ceftriaxone, Urine Cx Pansensitive E Coli (5) Elevated LFTs: Resolving (6) Mild tricuspid regurgitation: Monitor (7) Moderate mitral regurgitation: Monitor (8) Nonischemic cardiomyopathy: Monitor (9) Diastolic CHF: -Chronic DCHF, Holding diuretic, restart today, stop IV fluids (10) Hypertension: -BP controlled, continue carvedilol and hold losartan for now (11) Ulcerative colitis: -Continue mesalamine (12) DVT prophylaxis: -SQ heparin ROS-No Headache, No Visual Changes, No Nausea, No Vomiting, No Fever, No Chills , No Neck Pain or Stiffness, No Chest Pain, No Palpitations, No SOB, No BRAVO, No Cough, No Sputum, No Wheezing, No Abdominal Pain, No Diarrhea, No Hematemesis, No Hemoptysis, No Unexpected Weight Loss, No Flank pain, No Melena, No Hematochezia, No Frequency, No Urgency, No Burning, No Hematuria, No Rashes, No Diaphoresis. Appetite is Normal, Still Sore all over, getting stronger. Physical Exam Gen-AAO x 3, NAD, Afebrile, eating breakfast, appetite great Head-NCAT, EOMI, PERRLA, Anicteric Sclera, No Posterior Pharyngeal Erythema Neck-Supple, No JVD, No Thyromegaly, No Masses, No LAD, No Bruits Lungs-Clear to Auscultation Bilaterally, No Rales, No Rhonchi, No Wheezing, No Crepitus Chest-No S4, +S1, +S2, No S3, No Murmurs, No Rubs, No Gallops, No Ectopy Abdomen-Soft, Bowel Sounds Present, Non Tender, Non Distended, No Hepatomegaly, No Splenomegaly, No Palpable Masses, No Rebound, No Rigidity, No Guarding Musculoskeletal-Full Range of Motion Bilaterally, No CVAT, Mult wound-Heel, Elbow, Butt, improving Extremities-No Cyanosis, No Clubbing, No Edema Nuero-Cranial Nerves II-XII grossly intact, Motor WNL, DTRs WNL, Strength WNL, Non Focal Psych-Normal Mood Physical Exam 2 Vital Signs (Past 24 Hours): Last Vital Signs Temp 37 C 11/19/18 08:04 Pulse 82 11/19/18 08:04 Resp 18 11/19/18 08:04 BP 171/78 H 11/19/18 08:04 Pulse Ox 97 11/19/18 08:04 Results & Data Laboratory Results Current Diagnoses Hypoglycemia, unspecified (11/16/18) 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) Essential (primary) hypertension (11/16/18) Nonrheumatic mitral (valve) insufficiency (11/16/18) Other cardiomyopathies (11/16/18) Unspecified diastolic (congestive) heart failure (11/16/18) Ulcerative colitis, unspecified, without complications (11/16/18) Rhabdomyolysis (11/16/18) Unspecified abnormal findings in urine (11/16/18) Abnormal results of liver function studies (11/16/18) Unspecified fall, initial encounter (11/16/18) Allergies erythromycin base Allergy (Intermediate, Verified 11/16/18 16:33) RASH Penicillins Allergy (Intermediate, Verified 11/16/18 16:33) HIVES tetracycline Allergy (Intermediate, Verified 11/16/18 16:33) HIVES Height/Weight/Isolation Height 5 ft 3 in Weight 76.7 kg CBC 11/16/18 11/16/18 11/16/18 15:17 15:20 15:42 WBC RBC Hgb Hct MCV MCH MCHC RDW Std Deviation RDW Coeff of Ellen Plt Count MPV Immature Gran % (Auto) Neut % (Auto) Lymph % (Auto) [place] % (Auto) Eos % (Auto) Baso % (Auto) Immature Gran # (Auto) Neut # (Auto) Lymph # (Auto) [place] # (Auto) Eos # (Auto) Baso # (Auto) PT INR APTT PTT Ratio Sodium Potassium Chloride Carbon Dioxide Anion Gap BUN Creatinine Est Cr Clr Drug Dosing Est GFR ( Amer) Est GFR (Non-Af Amer) BUN/Creatinine Ratio Glucose POC Glucose 62 L* 64 L* 71 Calcium Magnesium Total Bilirubin AST ALT Alkaline Phosphatase Total Creatine Kinase Troponin I Total Protein Albumin Globulin Albumin/Globulin Ratio TSH Specimen Hemolysis Urine Color Urine Appearance Urine pH Ur Specific [place] Urine Protein Urine Glucose (UA) Urine Ketones Urine Blood Urine Nitrite Urine Bilirubin Urine Urobilinogen Ur Leukocyte Esterase Urine WBC (Auto) Urine RBC (Auto) U Hyaline Cast (Auto) U Epithel Cells (Auto) Urine Bacteria (Auto) Ur Renal Epithelial Cell Urine Yeast Urine Opiates Screen Ur Methadone, Qual Urine Barbiturates Ur Phencyclidine (PCP) U Amphetamin/Meth Scrn MDMA (Ecstasy) Screen U Benzodiazepines Scrn Ur Cocaine Metabolite U Marijuana (THC) Screen Ethyl Alcohol mg/dL 11/16/18 11/16/18 11/16/18 15:45 15:45 15:59 WBC RBC Hgb Hct MCV MCH MCHC RDW Std Deviation RDW Coeff of Ellen Plt Count MPV Immature Gran % (Auto) Neut % (Auto) Lymph % (Auto) [place] % (Auto) Eos % (Auto) Baso % (Auto) Immature Gran # (Auto) Neut # (Auto) Lymph # (Auto) [place] # (Auto) Eos # (Auto) Baso # (Auto) PT 11.2 INR 1.1 APTT 23.4 PTT Ratio 0.9 Sodium 135 L Potassium 3.5 Chloride 98 Carbon Dioxide 24 Anion Gap 13.0 H BUN 41 H Creatinine 1.09 Est Cr Clr Drug Dosing 37.2 Est GFR ( Amer) 54.0 Est GFR (Non-Af Amer) 46.6 BUN/Creatinine Ratio 37.2 H Glucose 81 POC Glucose 70 Calcium 8.3 L Magnesium 2.5 H Total Bilirubin 0.4 AST 178 H ALT 116 H Alkaline Phosphatase 117 Total Creatine Kinase 629 H Troponin I 0.025 Total Protein 7.3 Albumin 2.0 L Globulin 5.3 H Albumin/Globulin Ratio 0.4 L TSH 0.807 Specimen Hemolysis Urine Color Urine Appearance Urine pH Ur Specific [place] Urine Protein Urine Glucose (UA) Urine Ketones Urine Blood Urine Nitrite Urine Bilirubin Urine Urobilinogen Ur Leukocyte Esterase Urine WBC (Auto) Urine RBC (Auto) U Hyaline Cast (Auto) U Epithel Cells (Auto) Urine Bacteria (Auto) Ur Renal Epithelial Cell Urine Yeast Urine Opiates Screen Ur Methadone, Qual Urine Barbiturates Ur Phencyclidine (PCP) U Amphetamin/Meth Scrn MDMA (Ecstasy) Screen U Benzodiazepines Scrn Ur Cocaine Metabolite U Marijuana (THC) Screen Ethyl Alcohol mg/dL 11/16/18 11/16/18 11/16/18 16:09 16:24 16:24 WBC 15.99 H RBC 4.23 Hgb 11.8 L Hct 35.9 L MCV 84.9 MCH 27.9 MCHC 32.9 RDW Std Deviation 46.8 H RDW Coeff of Ellen 15.1 H Plt Count 205 MPV 9.5 Immature Gran % (Auto) 0.9 Neut % (Auto) 91.0 Lymph % (Auto) 2.8 [place] % (Auto) 5.1 Eos % (Auto) 0.0 Baso % (Auto) 0.2 Immature Gran # (Auto) 0.14 H Neut # (Auto) 14.56 H Lymph # (Auto) 0.44 L [place] # (Auto) 0.82 H Eos # (Auto) 0.00 Baso # (Auto) 0.03 PT INR APTT PTT Ratio Sodium Potassium Chloride Carbon Dioxide Anion Gap BUN Creatinine Est Cr Clr Drug Dosing Est GFR ( Amer) Est GFR (Non-Af Amer) BUN/Creatinine Ratio Glucose POC Glucose 223 H Calcium Magnesium Total Bilirubin AST ALT Alkaline Phosphatase Total Creatine Kinase Troponin I Total Protein Albumin Globulin Albumin/Globulin Ratio TSH Specimen Hemolysis Urine Color Urine Appearance Urine pH Ur Specific [place] Urine Protein Urine Glucose (UA) Urine Ketones Urine Blood Urine Nitrite Urine Bilirubin Urine Urobilinogen Ur Leukocyte Esterase Urine WBC (Auto) Urine RBC (Auto) U Hyaline Cast (Auto) U Epithel Cells (Auto) Urine Bacteria (Auto) Ur Renal Epithelial Cell Urine Yeast Urine Opiates Screen Ur Methadone, Qual Urine Barbiturates Ur Phencyclidine (PCP) U Amphetamin/Meth Scrn MDMA (Ecstasy) Screen U Benzodiazepines Scrn Ur Cocaine Metabolite U Marijuana (THC) Screen Ethyl Alcohol mg/dL < 3.0 11/16/18 11/16/18 11/16/18 17:24 17:24 18:07 WBC RBC Hgb Hct MCV MCH MCHC RDW Std Deviation RDW Coeff of Ellen Plt Count MPV Immature Gran % (Auto) Neut % (Auto) Lymph % (Auto) [place] % (Auto) Eos % (Auto) Baso % (Auto) Immature Gran # (Auto) Neut # (Auto) Lymph # (Auto) [place] # (Auto) Eos # (Auto) Baso # (Auto) PT INR APTT PTT Ratio Sodium Potassium Chloride Carbon Dioxide Anion Gap BUN Creatinine Est Cr Clr Drug Dosing Est GFR ( Amer) Est GFR (Non-Af Amer) BUN/Creatinine Ratio Glucose POC Glucose 265 H Calcium Magnesium Total Bilirubin AST ALT Alkaline Phosphatase Total Creatine Kinase Troponin I Total Protein Albumin Globulin Albumin/Globulin Ratio TSH Specimen Hemolysis Urine Color Dark Yellow Urine Appearance Clear Urine pH 5.0 Ur Specific [place] 1.023 Urine Protein 1+ H Urine Glucose (UA) Negative Urine Ketones 1+ H Urine Blood Negative Urine Nitrite Positive H Urine Bilirubin Negative Urine Urobilinogen Negative Ur Leukocyte Esterase Negative Urine WBC (Auto) 5-10 H Urine RBC (Auto) 0-4 U Hyaline Cast (Auto) 1-5 U Epithel Cells (Auto) 20-30 H Urine Bacteria (Auto) 2+ H Ur Renal Epithelial Cell Urine Yeast Urine Opiates Screen Neg Ur Methadone, Qual Neg Urine Barbiturates Neg Ur Phencyclidine (PCP) Neg U Amphetamin/Meth Scrn Neg MDMA (Ecstasy) Screen Neg U Benzodiazepines Scrn Neg Ur Cocaine Metabolite Neg U Marijuana (THC) Screen Neg Ethyl Alcohol mg/dL 11/16/18 11/17/18 11/17/18 22:29 05:48 07:09 WBC RBC Hgb Hct MCV MCH MCHC RDW Std Deviation RDW Coeff of Ellen Plt Count MPV Immature Gran % (Auto) Neut % (Auto) Lymph % (Auto) [place] % (Auto) Eos % (Auto) Baso % (Auto) Immature Gran # (Auto) Neut # (Auto) Lymph # (Auto) [place] # (Auto) Eos # (Auto) Baso # (Auto) PT INR APTT PTT Ratio Sodium 137 Potassium 4.1 D Chloride 105 Carbon Dioxide 25 Anion Gap 7.0 BUN 32 H Creatinine 0.79 D Est Cr Clr Drug Dosing 51.9 Est GFR ( Amer) 79.7 Est GFR (Non-Af Amer) 68.7 BUN/Creatinine Ratio 40.9 H Glucose 136 H POC Glucose 255 H 175 H Calcium 7.4 L Magnesium Total Bilirubin 0.3 AST 88 H ALT 77 Alkaline Phosphatase 80 Total Creatine Kinase 183 Troponin I Total Protein 5.6 L D Albumin 1.5 L Globulin 4.1 H Albumin/Globulin Ratio 0.4 L TSH Specimen Hemolysis Urine Color Urine Appearance Urine pH Ur Specific [place] Urine Protein Urine Glucose (UA) Urine Ketones Urine Blood Urine Nitrite Urine Bilirubin Urine Urobilinogen Ur Leukocyte Esterase Urine WBC (Auto) Urine RBC (Auto) U Hyaline Cast (Auto) U Epithel Cells (Auto) Urine Bacteria (Auto) Ur Renal Epithelial Cell Urine Yeast Urine Opiates Screen Ur Methadone, Qual Urine Barbiturates Ur Phencyclidine (PCP) U Amphetamin/Meth Scrn MDMA (Ecstasy) Screen U Benzodiazepines Scrn Ur Cocaine Metabolite U Marijuana (THC) Screen Ethyl Alcohol mg/dL 11/17/18 11/17/18 11/17/18 11:37 16:21 20:53 WBC RBC Hgb Hct MCV MCH MCHC RDW Std Deviation RDW Coeff of Ellen Plt Count MPV Immature Gran % (Auto) Neut % (Auto) Lymph % (Auto) [place] % (Auto) Eos % (Auto) Baso % (Auto) Immature Gran # (Auto) Neut # (Auto) Lymph # (Auto) [place] # (Auto) Eos # (Auto) Baso # (Auto) PT INR APTT PTT Ratio Sodium Potassium Chloride Carbon Dioxide Anion Gap BUN Creatinine Est Cr Clr Drug Dosing Est GFR ( Amer) Est GFR (Non-Af Amer) BUN/Creatinine Ratio Glucose POC Glucose 159 H 169 H 159 H Calcium Magnesium Total Bilirubin AST ALT Alkaline Phosphatase Total Creatine Kinase Troponin I Total Protein Albumin Globulin Albumin/Globulin Ratio TSH Specimen Hemolysis Urine Color Urine Appearance Urine pH Ur Specific [place] Urine Protein Urine Glucose (UA) Urine Ketones Urine Blood Urine Nitrite Urine Bilirubin Urine Urobilinogen Ur Leukocyte Esterase Urine WBC (Auto) Urine RBC (Auto) U Hyaline Cast (Auto) U Epithel Cells (Auto) Urine Bacteria (Auto) Ur Renal Epithelial Cell Urine Yeast Urine Opiates Screen Ur Methadone, Qual Urine Barbiturates Ur Phencyclidine (PCP) U Amphetamin/Meth Scrn MDMA (Ecstasy) Screen U Benzodiazepines Scrn Ur Cocaine Metabolite U Marijuana (THC) Screen Ethyl Alcohol mg/dL 11/17/18 11/18/18 11/18/18 21:30 06:07 06:07 WBC 9.15 RBC 3.65 L Hgb 10.0 L Hct 31.5 L MCV 86.3 MCH 27.4 MCHC 31.7 L RDW Std Deviation 47.8 H RDW Coeff of Ellen 15.2 H Plt Count 195 MPV 9.6 Immature Gran % (Auto) Neut % (Auto) Lymph % (Auto) [place] % (Auto) Eos % (Auto) Baso % (Auto) Immature Gran # (Auto) Neut # (Auto) Lymph # (Auto) [place] # (Auto) Eos # (Auto) Baso # (Auto) PT INR APTT PTT Ratio Sodium 139 Potassium 4.2 Chloride 108 H Carbon Dioxide 26 Anion Gap 5.0 BUN 24 H Creatinine 0.62 Est Cr Clr Drug Dosing 65.7 Est GFR ( Amer) 96.0 Est GFR (Non-Af Amer) 82.8 BUN/Creatinine Ratio 38.0 H Glucose 104 H POC Glucose Calcium 7.3 L Magnesium Total Bilirubin 0.2 AST 48 H ALT 63 Alkaline Phosphatase 84 Total Creatine Kinase Troponin I Total Protein 5.5 L Albumin 1.5 L Globulin 4.0 Albumin/Globulin Ratio 0.4 L TSH Specimen Hemolysis Urine Color Yellow Urine Appearance Clear Urine pH 6.0 Ur Specific [place] 1.024 Urine Protein Negative Urine Glucose (UA) Negative Urine Ketones Trace H Urine Blood Negative Urine Nitrite Positive H Urine Bilirubin Negative Urine Urobilinogen Negative Ur Leukocyte Esterase Trace H Urine WBC (Auto) 10-30 H Urine RBC (Auto) 0-4 U Hyaline Cast (Auto) 5-10 H U Epithel Cells (Auto) >30 H Urine Bacteria (Auto) Negative Ur Renal Epithelial Cell Not Reportable Urine Yeast Not Reportable Urine Opiates Screen Ur Methadone, Qual Urine Barbiturates Ur Phencyclidine (PCP) U Amphetamin/Meth Scrn MDMA (Ecstasy) Screen U Benzodiazepines Scrn Ur Cocaine Metabolite U Marijuana (THC) Screen Ethyl Alcohol mg/dL 11/18/18 11/19/18 11/19/18 07:25 05:22 05:22 WBC 7.82 RBC 3.69 L Hgb 10.2 L Hct 31.8 L MCV 86.2 MCH 27.6 MCHC 32.1 RDW Std Deviation 49.2 H RDW Coeff of Ellen 15.6 H Plt Count 203 MPV 10.3 Immature Gran % (Auto) Neut % (Auto) Lymph % (Auto) [place] % (Auto) Eos % (Auto) Baso % (Auto) Immature Gran # (Auto) Neut # (Auto) Lymph # (Auto) [place] # (Auto) Eos # (Auto) Baso # (Auto) PT INR APTT PTT Ratio Sodium 138 Potassium 4.1 Chloride 108 H Carbon Dioxide 29 Anion Gap 1.0 L BUN 13 Creatinine 0.51 L Est Cr Clr Drug Dosing 79.9 Est GFR ( Amer) 102.3 Est GFR (Non-Af Amer) 88.3 BUN/Creatinine Ratio 25.4 H Glucose 87 POC Glucose 95 Calcium 7.1 L Magnesium Total Bilirubin AST ALT Alkaline Phosphatase Total Creatine Kinase Troponin I Total Protein Albumin Globulin Albumin/Globulin Ratio TSH Specimen Hemolysis Urine Color Urine Appearance Urine pH Ur Specific [place] Urine Protein Urine Glucose (UA) Urine Ketones Urine Blood Urine Nitrite Urine Bilirubin Urine Urobilinogen Ur Leukocyte Esterase Urine WBC (Auto) Urine RBC (Auto) U Hyaline Cast (Auto) U Epithel Cells (Auto) Urine Bacteria (Auto) Ur Renal Epithelial Cell Urine Yeast Urine Opiates Screen Ur Methadone, Qual Urine Barbiturates Ur Phencyclidine (PCP) U Amphetamin/Meth Scrn MDMA (Ecstasy) Screen U Benzodiazepines Scrn Ur Cocaine Metabolite U Marijuana (THC) Screen Ethyl Alcohol mg/dL Chemistry 11/18/18 11/19/18 06:07 05:22 Sodium 139 138 Potassium 4.2 4.1 Chloride 108 H 108 H Carbon Dioxide 26 29 Anion Gap 5.0 1.0 L BUN 24 H 13 Creatinine 0.62 0.51 L Glucose 104 H 87 Urinalysis 11/17/18 21:30 Urine Color Yellow Urine Appearance Clear Urine pH 6.0 Ur Specific [place] 1.024 Urine Protein Negative Urine Glucose (UA) Negative Urine Ketones Trace H Urine Blood Negative Urine Nitrite Positive H Urine Bilirubin Negative Microbiology 11/16/18 17:24 Urine,Indwelling Cath Urine Culture - Final Escherichia coli 11/16/18 16:09 Blood Blood Culture - Preliminary No growth to date. 11/16/18 15:45 Blood Blood Culture - Preliminary No growth to date.
--- NOTE | 2018-11-19 10:40 | Discharge Summary ---
Date of Service November 19, 2018 Admission HPI Per Admitting Provider 82 year old female who presents to the ED for a fall. Patient thinks she fell Saturday morning (4 days ago) and has been unable to get up. She was found by her commercial counsel today. Patient reports she was bending over to pick something up when her leg gave out from under her and fell to the ground. She denies striking her head or loss of consciousness. No chest pain or shortness of breath. She denies abdominal pain, nausea, vomiting. She has chronic loose stools which are unchanged from baseline. She was incontinent of urine and stool due to inability of getting off of the floor. No fever or chills. She denies any urinary symptoms. In the ED, patient was hypothermic at 34.5. This improved with bear hugger. WBC 15K, creat 1.09, CK 629, glucose 62. For the hypoglycemia, patient received glucose gel, amp of D50, and then started on D10 drip with improvement in blood sugar. Admission Exam Per Admitting Provider ROS-No Headache, No Visual Changes, No Nausea, No Vomiting, No Fever, No Chills , No Neck Pain or Stiffness, No Chest Pain, No Palpitations, No SOB, No BRAVO, No Cough, No Sputum, No Wheezing, No Abdominal Pain, No Diarrhea, No Hematemesis, No Hemoptysis, No Unexpected Weight Loss, No Flank pain, No Melena, No Hematochezia, No Frequency, No Urgency, No Burning, No Hematuria, No Rashes, No Diaphoresis. Appetite is Normal, Still Sore all over, getting stronger. Physical Exam Gen-AAO x 3, NAD, Afebrile, eating breakfast, appetite great Head-NCAT, EOMI, PERRLA, Anicteric Sclera, No Posterior Pharyngeal Erythema Neck-Supple, No JVD, No Thyromegaly, No Masses, No LAD, No Bruits Lungs-Clear to Auscultation Bilaterally, No Rales, No Rhonchi, No Wheezing, No Crepitus Chest-No S4, +S1, +S2, No S3, No Murmurs, No Rubs, No Gallops, No Ectopy Abdomen-Soft, Bowel Sounds Present, Non Tender, Non Distended, No Hepatomegaly, No Splenomegaly, No Palpable Masses, No Rebound, No Rigidity, No Guarding Musculoskeletal-Full Range of Motion Bilaterally, No CVAT, Mult wound-Heel, Elbow, Butt Extremities-No Cyanosis, No Clubbing, No Edema Nuero-Cranial Nerves II-XII grossly intact, Motor WNL, DTRs WNL, Strength WNL, Non Focal Psych-Normal Mood Principal Diagnosis (1) Rhabdomyolysis: (2) Fall: Traumatic Rhabdo from a fall and not being able to get x 4 days, Kidneys back to Normal c IVFs, Resume Lasix, Push diet, +UTI c Pansensitive E Coli. -Patient presenting after a fall she experienced 4 days ago and was unable to get off the floor -In the ED, patient found to be hypothermic, hypoglycemic, total CK 629, and c AYAD -Body temperature resolved with bear hugger -Creatinine 1.09 (baseline ~ 0.7), Now at baseline -PT/OT, case management consults; patient may need short-term rehab stay post discharge (3) Hypoglycemia: -Resolved (4) Abnormal urinalysis: -Continue Ceftriaxone, Urine Cx Pansensitive E Coli (5) Elevated LFTs: Resolving (6) Mild tricuspid regurgitation: Monitor (7) Moderate mitral regurgitation: Monitor (8) Nonischemic cardiomyopathy: Monitor (9) Diastolic CHF: -Chronic DCHF, Holding diuretic, restart today, stop IV fluids (10) Hypertension: -BP controlled, continue carvedilol and hold losartan for now (11) Ulcerative colitis: -Continue mesalamine Discharge Exam ROS-No Headache, No Visual Changes, No Nausea, No Vomiting, No Fever, No Chills , No Neck Pain or Stiffness, No Chest Pain, No Palpitations, No SOB, No BRAVO, No Cough, No Sputum, No Wheezing, No Abdominal Pain, No Diarrhea, No Hematemesis, No Hemoptysis, No Unexpected Weight Loss, No Flank pain, No Melena, No Hematochezia, No Frequency, No Urgency, No Burning, No Hematuria, No Rashes, No Diaphoresis. Appetite is Normal, Still Sore all over, getting stronger. Physical Exam Gen-AAO x 3, NAD, Afebrile, eating breakfast, appetite great Head-NCAT, EOMI, PERRLA, Anicteric Sclera, No Posterior Pharyngeal Erythema Neck-Supple, No JVD, No Thyromegaly, No Masses, No LAD, No Bruits Lungs-Clear to Auscultation Bilaterally, No Rales, No Rhonchi, No Wheezing, No Crepitus Chest-No S4, +S1, +S2, No S3, No Murmurs, No Rubs, No Gallops, No Ectopy Abdomen-Soft, Bowel Sounds Present, Non Tender, Non Distended, No Hepatomegaly, No Splenomegaly, No Palpable Masses, No Rebound, No Rigidity, No Guarding Musculoskeletal-Full Range of Motion Bilaterally, No CVAT, Mult wound-Heel, Elbow, Butt, improving Extremities-No Cyanosis, No Clubbing, No Edema Nuero-Cranial Nerves II-XII grossly intact, Motor WNL, DTRs WNL, Strength WNL, Non Focal Psych-Normal Mood Discharge Data Allergies Allergy/AdvReac Type Severity Reaction Status Date / Time erythromycin base Allergy Intermediate RASH Verified 11/16/18 16:33 Penicillins Allergy Intermediate HIVES Verified 11/16/18 16:33 tetracycline Allergy Intermediate HIVES Verified 11/16/18 16:33 Consultations 11/16/18 17:14 ED Decision to Admit Stat 11/16/18 17:41 Consult Case Management - Discharge Planning Routine Ordered Studies 11/16/18 15:19 CT head/brain wo con Stat Current Diagnoses Hypoglycemia, unspecified (11/16/18) 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) Essential (primary) hypertension (11/16/18) Nonrheumatic mitral (valve) insufficiency (11/16/18) Other cardiomyopathies (11/16/18) Unspecified diastolic (congestive) heart failure (11/16/18) Ulcerative colitis, unspecified, without complications (11/16/18) Rhabdomyolysis (11/16/18) Unspecified abnormal findings in urine (11/16/18) Abnormal results of liver function studies (11/16/18) Unspecified fall, initial encounter (11/16/18) Allergies erythromycin base Allergy (Intermediate, Verified 11/16/18 16:33) RASH Penicillins Allergy (Intermediate, Verified 11/16/18 16:33) HIVES tetracycline Allergy (Intermediate, Verified 11/16/18 16:33) HIVES Height/Weight/Isolation Height 5 ft 3 in Weight 76.7 kg Chemistry 11/18/18 11/19/18 06:07 05:22 Sodium 139 138 Potassium 4.2 4.1 Chloride 108 H 108 H Carbon Dioxide 26 29 Anion Gap 5.0 1.0 L BUN 24 H 13 Creatinine 0.62 0.51 L Glucose 104 H 87 Urinalysis 11/17/18 21:30 Urine Color Yellow Urine Appearance Clear Urine pH 6.0 Ur Specific [place] 1.024 Urine Protein Negative Urine Glucose (UA) Negative Urine Ketones Trace H Urine Blood Negative Urine Nitrite Positive H Urine Bilirubin Negative Microbiology 11/16/18 17:24 Urine,Indwelling Cath Urine Culture - Final Escherichia coli 11/16/18 16:09 Blood Blood Culture - Preliminary No growth to date. 11/16/18 15:45 Blood Blood Culture - Preliminary No growth to date. Hospital Course (1) Rhabdomyolysis: (2) Fall: Traumatic Rhabdo from a fall and not being able to get x 4 days, Kidneys back to Normal c IVFs, Resume Lasix, Push diet, +UTI c Pansensitive E Coli. -Patient presenting after a fall she experienced 4 days ago and was unable to get off the floor -In the ED, patient found to be hypothermic, hypoglycemic, total CK 629, and c AYAD -Body temperature resolved with bear hugger -Creatinine 1.09 (baseline ~ 0.7), Now at baseline (3) Hypoglycemia: Resolved (4) Abnormal urinalysis: -Ceftin on discharge (5) Elevated LFTs: Resolved (6) Mild tricuspid regurgitation: Monitor (7) Moderate mitral regurgitation: Monitor (8) Nonischemic cardiomyopathy: Monitor (9) Diastolic CHF: -Chronic DCHF, lasix restarted today (10) Hypertension: -BP controlled, continue carvedilol and losartan for now (11) Ulcerative colitis: -Continue mesalamine (12) DVT prophylaxis: na SNF today Total Time Total Time Spent Total Time Spent (In Minutes): 45 mins Total Time Includes: Examination of the Patient, Discharge Planning, Medication Reconciliation and Communication With Other Providers Discharge Plan Discharge Items Patient Disposition: Transfer Snf Fac Reason For Visit: FA,RHABDO,UTI Discharge Diagnosis: (1) Rhabdomyolysis: (2) Fall: Traumatic Rhabdo from a fall and not being able to get x 4 days, Kidneys back to Normal c IVFs, Resume Lasix, Push diet, +UTI c Pansensitive E Coli. -Patient presenting after a fall she experienced 4 days ago and was unable to get off the floor -In the ED, patient found to be hypothermic, hypoglycemic, total CK 629, and c AYAD -Body temperature resolved with bear hugger -Creatinine 1.09 (baseline ~ 0.7), Now at baseline -PT/OT, case management consults; patient may need short-term rehab stay post discharge (3) Hypoglycemia: -Resolved (4) Abnormal urinalysis: -Continue Ceftriaxone, Urine Cx Pansensitive E Coli (5) Elevated LFTs: Resolving (6) Mild tricuspid regurgitation: Monitor (7) Moderate mitral regurgitation: Monitor (8) Nonischemic cardiomyopathy: Monitor (9) Diastolic CHF: -Chronic DCHF, Holding diuretic, restart today, stop IV fluids (10) Hypertension: -BP controlled, continue carvedilol and hold losartan for now (11) Ulcerative colitis: -Continue mesalamine Discharge Goals: Decrease discomfort, Improve function and Improve nutritional status Activity: Resume your previous activity Lifting: Gradually increase as tolerated Bathing: No limitations Exercise/Sports: Gradually increase as tolerated Weightbearing: Left weightbearing and Right weightbearing Non-emergency contact: Primary Care Provider Call non-emergency contact if: you have any medication questions, your symptoms worsen and your pain is worsening Diet: Regular Addtl Provider Instructions: Wound monitoring Prescriptions: New acetaminophen [Mapap (acetaminophen)] 325 mg Tablet 650 mg PO Q4H PRN (Reason: fever or pain) Qty: 20 RF: 0 cefuroxime axetil 500 mg tablet 500 mg PO BID 5 Days Qty: 10 RF: 0 Continue losartan 50 mg tablet 50 mg PO DAILY RF: 0 aspirin 81 mg Tablet,Delayed Release (Dr/Ec) 81 mg PO DAILY RF: 0 carvedilol 3.125 mg tablet 3.125 mg PO BID RF: 0 potassium chloride 20 mEq tablet,ER particles/crystals 20 meq PO DAILY RF: 0 furosemide 20 mg tablet 20 mg PO DAILY RF: 0 mesalamine 800 mg tablet,delayed release (DR/EC) 800 mg PO TID RF: 0 Stand-Alone Forms: [facility] Discharge Orders: Discharge Order (Routine); Ordered 11/19/18 Ordered By: Simón Youngblood Skilled Items Patient informed of condition?: Yes DNR: No Discharge Level of Care: Skilled Communicable Disease: No Discharge Prognosis: Improving Admission Data Admit Date/Time: 11/16/18 17:33 Attending Provider: Simón Youngblood Admit Provider: Simón Youngblood Primary Care Provider: Heladio Larsen Other Providers: Simón Youngblood Service: Telemetry Other Pending Studies at Discharge: No
[2018-11-19] MEDS ORDERED: FUROSEMIDE 40 MG in SYRINGE 0 ML IV ONE (11:00)
[2018-11-19] MEDS: cefTRIAXone SODIUM 1,000 MG in DEXTROSE 5% 50 ML IV SCH (20:11)
[2018-11-20 06:58] LABS: Hematocrit (blood only) 30.5 % (37-47); Hemoglobin 9.8 g/dL (12.0-16.0); Mean Corpuscular Hgb Conc 32.1 g/dL (32-36); Mean Corpuscular Volume 85.7 fL (80-100); Mean Platelet Volume 10.5 fL (7.4-10.4); Platelet Count 278 K/uL (130-400); RDW Coefficient of Variation 15.5 % (11.5-14.5); RDW Standard Deviation 48.6 fL (36.4-46.3); Red Blood Count 3.56 M/uL (4.2-5.4)
[2018-11-20 07:32] LABS: BUN Creatinine Ratio 24.7 (10-20); Calcium 7.4 mg/dl (8.5-10.1); Creatinine Clr Calc Pharmacy 84.6 ml/min; Est GFR (African American) 104.4; Est GFR (Non-African American) 90.1; Potassium 3.2 mmol/L (3.5-5.1)
[2018-11-20] MEDS: CARVEDILOL 3.125 MG TAB PO SCH ×2 (09:26→20:16)
[2018-11-20] MEDS: ASPIRIN 81 MG ECTAB PO SCH (09:27)
[2018-11-20] MEDS: POTASSIUM CHLORIDE 20 MEQ TABCR PO SCH ×2 (09:27→20:16)
[2018-11-20] MEDS: HEPARIN SOD 5,000 UNIT/0.5 ML VIAL SQ SCH ×2 (09:27→20:17)
[2018-11-20] MEDS: cefTRIAXone SODIUM 1,000 MG in DEXTROSE 5% 50 ML IV SCH (19:52)
[2018-11-21 06:20] LABS: Hematocrit (blood only) 31.1 % (37-47); Mean Corpuscular Hgb Conc 32.2 g/dL (32-36); Mean Corpuscular Volume 86.9 fL (80-100); Platelet Count 330 K/uL (130-400); RDW Coefficient of Variation 15.5 % (11.5-14.5); RDW Standard Deviation 49.7 fL (36.4-46.3); Red Blood Count 3.58 M/uL (4.2-5.4); White Blood Count 6.49 K/uL (4.8-10.8)
[2018-11-21 06:56] LABS: Calcium 7.4 mg/dl (8.5-10.1); Creatinine Clr Calc Pharmacy 96.7 ml/min; Est GFR (African American) 109.1; Est GFR (Non-African American) 94.1; Potassium 3.8 mmol/L (3.5-5.1)
[2018-11-21] MEDS: ASPIRIN 81 MG ECTAB PO SCH (08:48)
[2018-11-21] MEDS: CARVEDILOL 3.125 MG TAB PO SCH (08:49)
[2018-11-21] MEDS: POTASSIUM CHLORIDE 20 MEQ TABCR PO SCH (08:49)
[2018-11-21] MEDS: HEPARIN SOD 5,000 UNIT/0.5 ML VIAL SQ SCH (08:51)
== END 2018-11-21 12:31 | DRG 565 ==
LOC: ED 15:08 → 2S 17:33 → 4W 11-20 15:01

== ENCOUNTER 2019-06-21 19:17 | Inpatient (IN) ==
[2019-06-21] MEDS ORDERED: VANCOMYCIN CONSULT ACTIVE PRN (19:30)
[2019-06-21] MEDS ORDERED: VANCOMYCIN HCL 1,500 MG in SODIUM CHLORIDE 0.9% 500 ML IV ONE (19:30)
[2019-06-21] MEDS ORDERED: SODIUM CHLORIDE 0.9% 1000ML 500 ML IV ONE (19:34)
[2019-06-21 19:57] LABS: Hematocrit (blood only) 26.3 % (37-47); Hemoglobin 8.5 g/dL (12.0-16.0); Mean Corpuscular Hemoglobin 26.6 pg (25-34); Mean Corpuscular Hgb Conc 32.3 g/dL (32-36); Mean Corpuscular Volume 82.2 fL (80-100); Mean Platelet Volume 8.9 fL (7.4-10.4); Platelet Count 351 K/uL (130-400); RDW Coefficient of Variation 20.2 % (11.5-14.5); RDW Standard Deviation 60.8 fL (36.4-46.3); White Blood Count 26.61 K/uL (4.8-10.8)
[2019-06-21 20:10] LABS: INR 1.1 (0.9-1.1); Partial Thromboplastin Ratio 0.9; Partial Thromboplastin Time 23.9 Seconds (21.0-31.0); Prothrombin Time 11.5 Seconds (9.0-12.0)
--- NOTE | 2019-06-21 20:14 | XRay Report ---
XR chest 1V portable CLINICAL HISTORY: Sepsis dyspnea COMPARISON STUDY: 11/16/2018 FINDINGS: The bones soft tissues and hemidiaphragms are normal. The cardiomediastinal silhouette is n ormal. The lungs are clear. The pulmonary vasculature is normal. IMPRESSION: Negative chest. The above report was generated using voice recognition software. It may contain grammatical, syntax or spelling errors. Electronically signed by: Lonnie Parrish M.D. 06/21/2019 8:13 PM
[2019-06-21 20:16] LABS: Albumin Level 1.4 gm/dl (3.4-5.0); BUN Creatinine Ratio 19.3 (10-20); Calcium 7.7 mg/dl (8.5-10.1); Est GFR (African American) 68.5; Est GFR (Non-African American) 59.1; Potassium 3.3 mmol/L (3.5-5.1)
[2019-06-21 20:19] LABS: Albumin Globulin Ratio 0.3 (0.9-2); Bilirubin,Total 0.5 mg/dl (0.2-1); Globulin 4.4 gm/dl (2.5-4.0); Total Protein 5.9 gm/dl (6.4-8.2)
[2019-06-21 20:32] LABS: Anisocytosis Present; Basophils # (auto) 0.02 K/uL (0-0.2); Basophils % (auto) 0.1 %; Echinocytes 1+; Immature Granulocytes # (auto) 0.13 K/uL (0.00-0.02); Immature Granulocytes % (auto) 0.5 %; Lymphocytes # (auto) 0.43 K/uL (1.2-3.4); Lymphocytes % (auto) 1.6 %; Monocytes # (auto) 0.51 K/uL (0.11-0.59); Monocytes % (auto) 1.9 %; Neutrophils # (auto) 25.52 K/uL (1.4-6.5); Neutrophils % (auto) 95.9 %
[2019-06-21] MEDS ORDERED: POTASSIUM CHLORIDE 20 MEQ TABCR PO STA (20:41)
[2019-06-21] MEDS ORDERED: ACETAMINOPHEN 325 MG TAB PO STA (20:42)
[2019-06-21 21:07] LABS: Reticulocyte % 2.4 % (0.5-2.0); Reticulocytes # 0.08 10^6/uL (0.02-0.10)
[2019-06-21] MEDS ORDERED: CEFEPIME 2,000 MG/20 ML VIAL IV STA (21:09)
[2019-06-21 21:35] LABS: Ferritin 98.5 ng/ml (8-388); Thyroid Stimulating Hormone 0.516 uIu/ml (0.300-4.500)
[2019-06-21 22:04] LABS: Folate (Folic Acid) 14.53 ng/ml (>5.38)
--- NOTE | 2019-06-21 22:09 | XRay Report ---
XR tibia fibula RT 2V CLINICAL HISTORY: RLE swelling pain. Edema. COMPARISON: None. DISCUSSION: The bones and joint spaces appear intact. There is no evidence of fracture, dislocation o r bony disease. Generalized soft tissue edema. Heel spur. IMPRESSION: Generalized soft tissue edema. No acute bony abnormality. The above report was generated using voice recognition software. It may contain grammatical, syntax or spelling errors. Electronically signed by: Lonnie Parrish M.D. 06/21/2019 10:08 PM
--- NOTE | 2019-06-21 22:29 | History & Physical Report ---
Date of Service June 21, 2019 Assessment & Plan (1) Sepsis: Secondary to RLE cellulitis hx venous insufficiency on chronic diuretic Rx hx Pseudomonas, Enterococcus growth on past wound cultures Rule out osteomyelitis given long-standing leg swelling/wound issues Worsening diarrhea symptoms in the last few months hx ulcerative colitis Rule out recurrent C. difficile Patient unable to follow-up with GI outpatient due to ambulatory dysfunction. Increased LE swelling secondary to chronic venous insufficiency rule out DVT chronic systolic heart failure EF 44%, TTE 2013, patient euvolemic to dry chronic LBBB COPD as per records, past tobacco abuse, pulmonary status at baseline Acute on chronic anemia, hemoglobin drop from baseline hypokalemia secondary to diuretic Rx Hyperglycemia rule out DM history skin cancer status post surgery Medical telemetry Cultures, Cefepime, Daptomycin MRI of the right lower leg RE rule out osteomyelitis Wound care nurse consult leg wounds ID consultation at some point Stool C. difficile GI consult RE worsening diarrhea, hx IBD LE venous Dopplers rule out DVT Replace potassium, hold home diuretic for now until hydration status improved Anemia work-up, transfuse PRBC if hemoglobin less than 7 and/or for symptomatic anemia Check hemoglobin A1c PT OT eval DVT prophylaxis. Lovenox subcu Full code Patient's niece requesting updates from providers. Ms. Patsy Yañez, contact #[phone]. History of Present Illness Chief Complaint: Increased leg swelling, drainage Primary Care Provider: Heladio Larsen, History obtained from patient, family, and records. Medical history significant for chronic systolic heart failure EF 44%, TTE 2013, mitral regurgitation as per records, chronic LBBB, COPD as per records, past tobacco abuse, chronic venous insufficiency on diuretic Rx, history of ulcerative colitis, chronic anemia baseline hemoglobin of 10, history skin cancer status post surgery Recent confinement November 2018 for rhabdomyolysis secondary to traumatic fall. Last few weeks patient noted worsening leg swelling more on the right, no chest pain, no S OB. Foul-smelling drainage from wound on the right leg noted the last 2 weeks. Patient denies chest pain, S OB. Worsening nonbloody diarrhea from colitis as per patient without abdominal pain the last few months. Unable to follow-up with grooving machine operator given ambulatory dysfunction. At the ER, patient given IV vancomycin for sepsis. 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 Allergies Allergy/AdvReac Type Severity Reaction Status Date / Time erythromycin base Allergy Intermediate RASH Verified 06/21/19 20:19 Penicillins Allergy Intermediate HIVES Verified 06/21/19 20:19 tetracycline Allergy Intermediate HIVES Verified 06/21/19 20:19 Home Medications Home Medications Medication Instructions Recorded Confirmed Type aspirin 81 mg PO DAILY 11/16/18 06/21/19 History carvedilol 3.125 mg PO BID 11/16/18 06/21/19 History furosemide 20 mg PO DAILY 11/16/18 06/21/19 History losartan 50 mg PO QAM 11/16/18 06/21/19 History mesalamine 800 mg PO TID 11/16/18 06/21/19 History potassium chloride 20 meq PO DAILY 11/16/18 06/21/19 History acetaminophen [Mapap 650 mg PO Q4H PRN #20 tab 11/19/18 06/21/19 Rx (acetaminophen)] glucos sul [id number] 1 cap PO BID 05/23/19 06/21/19 History [Glucosamine Chondroitin] multivitamin 1 tab PO DAILY 05/23/19 06/21/19 History albuterol sulfate [Proventil HFA] 2 puff INHALATION Q6H PRN 06/21/19 06/21/19 History Past Med/Surg History Medical History Mild tricuspid regurgitation (Chronic) Moderate mitral regurgitation (Chronic) Nonischemic cardiomyopathy (Chronic) Diastolic CHF (Chronic) Ulcerative colitis (Chronic) Left bundle branch block (Chronic) Venous insufficiency (Chronic) COPD, mild (Chronic) Hypertension (Chronic) Colitis (Chronic) Surgical History S/P right knee arthroscopy (Chronic) S/p bilateral carpal tunnel release (Chronic) Family History Other Family history non-contributory Social History Preferred Language: Bulgarian Communication Ability: Effective Manager Of Internal Audit Required: No Beliefs That Will Affect Care: None Current Living Situation: Alone Feels Safe at Home: Yes Smoking Status: Never smoker Second Hand Exposure: No ; Hx Alcohol Use: No Hx Substance Use: No Review of Systems Review of Systems: As per HPI, all 10 systems reviewed, all other ROS negative Physical Exam Physical Exam: GENERAL: Comfortable, pleasant, no respiratory distress SKIN: Pallor , warm HEENT: Pale palpebral conjunctivae, no ptosis, dry buccal mucosa NECK : Supple, no tenderness CHEST : CTA, no tenderness HEART : Tachycardic, systolic murmur ABDOMEN: Some distention, nontender EXTREMITIES : Bilateral LE swelling and erythema, R > L, fluctuance on right calf, open wound right calf with dried yellow drainage, minimal LE tenderness NEUROLOGIC : Coherent, no facial asymmetry, slightly hard of hearing, gait and stance not assessed, no other gross focality Results & Data Vital Signs (Past 12 Hours) Vital Signs Temp Pulse Pulse Resp BP BP Pulse Ox 06/21/19 21:42 102 H 16 100/63 98 06/21/19 20:58 82 20 100/63 96 06/21/19 20:21 67 16 99/51 L 96 06/21/19 19:27 37.8 C H 86 22 99/60 L 86 L Laboratory Results Laboratory Results WBC 26.61 K/uL (4.8-10.8) H 06/21/19 19:40 RBC 3.20 M/uL (4.2-5.4) L 06/21/19 19:40 Hgb 8.5 g/dL (12.0-16.0) L 06/21/19 19:40 Hct 26.3 % (37-47) L 06/21/19 19:40 MCV 82.2 fL (80-100) 06/21/19 19:40 MCH 26.6 pg (25-34) 06/21/19 19:40 MCHC 32.3 g/dL (32-36) 06/21/19 19:40 RDW Std Deviation 60.8 fL (36.4-46.3) H 06/21/19 19:40 RDW Coeff of Ellen 20.2 % (11.5-14.5) H 06/21/19 19:40 Plt Count 351 K/uL (130-400) 06/21/19 19:40 MPV 8.9 fL (7.4-10.4) 06/21/19 19:40 Immature Gran % (Auto) 0.5 % 06/21/19 19:40 Neut % (Auto) 95.9 % 06/21/19 19:40 Lymph % (Auto) 1.6 % 06/21/19 19:40 [place] % (Auto) 1.9 % 06/21/19 19:40 Eos % (Auto) 0.0 % 06/21/19 19:40 Baso % (Auto) 0.1 % 06/21/19 19:40 Reticulocyte % (Auto) 2.4 % (0.5-2.0) H 06/21/19 19:40 Immature Gran # (Auto) 0.13 K/uL (0.00-0.02) H 06/21/19 19:40 Neut # (Auto) 25.52 K/uL (1.4-6.5) H 06/21/19 19:40 Lymph # (Auto) 0.43 K/uL (1.2-3.4) L 06/21/19 19:40 [place] # (Auto) 0.51 K/uL (0.11-0.59) 06/21/19 19:40 Eos # (Auto) 0.00 K/uL (0-0.5) 06/21/19 19:40 Baso # (Auto) 0.02 K/uL (0-0.2) 06/21/19 19:40 Reticulocyte # 0.08 10^6/uL (0.02-0.10) 06/21/19 19:40 Absolute Nucleated RBC 0.00 K/uL (0-0) 06/21/19 19:40 Nucleated RBC % (auto) 0.0 % 06/21/19 19:40 Anisocytosis Present 06/21/19 19:40 Echinocytes 1+ 06/21/19 19:40 PT 11.5 Seconds (9.0-12.0) 06/21/19 19:40 INR 1.1 (0.9-1.1) 06/21/19 19:40 APTT 23.9 Seconds (21.0-31.0) 06/21/19 19:40 PTT Ratio 0.9 06/21/19 19:40 Sodium 136 mmol/L (136-145) 06/21/19 19:40 Potassium 3.3 mmol/L (3.5-5.1) L 06/21/19 19:40 Chloride 103 mmol/L (98-107) 06/21/19 19:40 Carbon Dioxide 24 mmol/L (21-32) 06/21/19 19:40 Anion Gap 9.0 (3-11) 06/21/19 19:40 BUN 17 mg/dl (7-18) 06/21/19 19:40 Creatinine 0.89 mg/dl (0.6-1.2) 06/21/19 19:40 Est Cr Clr Drug Dosing 47.0 ml/min 06/21/19 19:40 Est GFR ( Amer) 68.5 06/21/19 19:40 Est GFR (Non-Af Amer) 59.1 06/21/19 19:40 BUN/Creatinine Ratio 19.3 (10-20) 06/21/19 19:40 Glucose 132 mg/dl (70-99) H 06/21/19 19:40 Lactate 1.8 mmol/L (0.4-2.0) 06/21/19 20:06 Calcium 7.7 mg/dl (8.5-10.1) L 06/21/19 19:40 Magnesium 1.9 mg/dl (1.8-2.4) 06/21/19 19:40 Iron 11 mcg/dl (35-150) L 06/21/19 19:40 TIBC 175 mcg/dl (250-450) L 06/21/19 19:40 Transferrin 105 mg/dl (200-360) L 06/21/19 19:40 Ferritin 98.5 ng/ml (8-388) 06/21/19 19:40 Total Bilirubin 0.5 mg/dl (0.2-1) 06/21/19 19:40 AST 16 U/L (15-37) 06/21/19 19:40 ALT 17 U/L (12-78) 06/21/19 19:40 Alkaline Phosphatase 116 U/L (45-117) 06/21/19 19:40 Ammonia 26.0 umol/L (11-32) 06/21/19 21:19 Total Protein 5.9 gm/dl (6.4-8.2) L 06/21/19 19:40 Albumin 1.4 gm/dl (3.4-5.0) L 06/21/19 19:40 Globulin 4.4 gm/dl (2.5-4.0) H 06/21/19 19:40 Albumin/Globulin Ratio 0.3 (0.9-2) L 06/21/19 19:40 Vitamin B12 524 pg/ml (211-911) 06/21/19 21:19 Folate 14.53 ng/ml (>5.38) 06/21/19 21:19 TSH 0.516 uIu/ml (0.300-4.500) 06/21/19 19:40 Stool Hemoccult was negative Diagnostic Findings Chest x-ray : Negative EKG as per my interpretation : Rate 85, NSR, LAD, LAFB, left bundle branch block Tibia-fibula x-ray: Generalized soft tissue edema. No acute bony abnormality. Code Status & VTE Plan VTE Prophylaxis Plan VTE Prophylaxis will be ordered: Yes (1) Sepsis Sepsis acute organ dysfunction status: unspecified Sepsis type: sepsis due to unspecified organism Qualified Code(s): A41.9 - Sepsis, unspecified organism
--- NOTE | 2019-06-21 22:45 | Emergency Department Note ---
Entered by Tyra Salguero acting as a scribe for History of Present Illness General Chief complaint: Confusion Stated complaint: CONFUSION, R RIB PAIN, EDEMA & SEEPING LEGS Source: patient and family (niece) Limitations: no limitations History of Present Illness Onset (ago): week(s) (a few weeks) Location: lower extremity (bilateral) Pain Consistency: + other (worsening ) Quality: + other (edema, pain, and draining) Exacerbated By: + movement Associated symptoms: + chest pain and + fever/chills; no cough and no shortness of breath The patient is a 83 year old female who presents to the Emergency Room with complaints of bilateral lower extremity edema, pain, and drainage. She notes that the symptoms began a few weeks ago and have worsened over the past few days. The patient reports that movement worsens her lower extremity pain. The patient's niece, at bedside, complains that the patient has been confused over the past few days. She complains of a fever. She denies chest pain but states that when she takes a deep breath she feels a little discomfort in her lower chest. She complains of a fall that occurred a few days ago, but notes that she didn't hit her head. The patient denies any cough, SOB, and urinary symptoms. She notes a history of lymphedema and colitis. Home Medications Home Medications Medication Instructions Recorded Confirmed Type aspirin 81 mg PO DAILY 11/16/18 06/21/19 History carvedilol 3.125 mg PO BID 11/16/18 06/21/19 History furosemide 20 mg PO DAILY 11/16/18 06/21/19 History losartan 50 mg PO QAM 11/16/18 06/21/19 History mesalamine 800 mg PO TID 11/16/18 06/21/19 History potassium chloride 20 meq PO DAILY 11/16/18 06/21/19 History acetaminophen [Mapap 650 mg PO Q4H PRN #20 tab 11/19/18 06/21/19 Rx (acetaminophen)] glucos sul [id number] 1 cap PO BID 05/23/19 06/21/19 History [Glucosamine Chondroitin] multivitamin 1 tab PO DAILY 05/23/19 06/21/19 History albuterol sulfate [Proventil HFA] 2 puff INHALATION Q6H PRN 06/21/19 06/21/19 History Allergies Allergy/AdvReac Type Severity Reaction Status Date / Time erythromycin base Allergy Intermediate RASH Verified 06/21/19 20:19 Penicillins Allergy Intermediate HIVES Verified 06/21/19 20:19 tetracycline Allergy Intermediate HIVES Verified 06/21/19 20:19 Past Med/Surg History Medical History Mild tricuspid regurgitation (Chronic) Moderate mitral regurgitation (Chronic) Nonischemic cardiomyopathy (Chronic) Diastolic CHF (Chronic) Ulcerative colitis (Chronic) Left bundle branch block (Chronic) Venous insufficiency (Chronic) COPD, mild (Chronic) Hypertension (Chronic) Colitis (Chronic) Surgical History S/P right knee arthroscopy (Chronic) S/p bilateral carpal tunnel release (Chronic) Family History Other Family history non-contributory Social History Preferred Language: Azeri Communication Ability: Effective 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 and A total of 10 systems reviewed and were otherwise negative Physical Exam Vital Signs Vital Signs - 24 hr 06/21/19 19:27 06/21/19 20:21 06/21/19 20:58 Temperature 37.8 C H Temperature Source Oral Sepsis Recent Fever Within 48 Hours No Sepsis New/Unexplained Change in Mental Status No Sepsis Action Taken by Nursing No Action Required Pulse Rate 86 67 Pulse Rate [Right Finger] 82 Pulse Rhythm Regular Regular Pulse Strength Normal Respiratory Rate 22 16 20 Respiratory Effort / Characteristics Non-Labored Spontaneous Respiratory Depth Normal Normal Respiratory Pattern Regular Blood Pressure 99/60 L Blood Pressure [Right Arm] 99/51 L 100/63 Blood Pressure Mean 73 Blood Pressure Mean [Right Arm] 67 75 Blood Pressure Position Sitting Pulse Oximetry 86 L 96 96 Oxygen Delivery Method Room Air Room Air Room Air 06/21/19 21:42 Temperature Temperature Source Sepsis Recent Fever Within 48 Hours Sepsis New/Unexplained Change in Mental Status Sepsis Action Taken by Nursing Pulse Rate Pulse Rate [Right Finger] 102 H Pulse Rhythm Pulse Strength Respiratory Rate 16 Respiratory Effort / Characteristics Non-Labored Respiratory Depth Normal Respiratory Pattern Blood Pressure Blood Pressure [Right Arm] 100/63 Blood Pressure Mean Blood Pressure Mean [Right Arm] 75 Blood Pressure Position Pulse Oximetry 98 Oxygen Delivery Method Room Air Constitutional: Vital signs reviewed. Eyes: Pupils are equal round reactive to light. Conjunctiva are noninjected. ENT: Pharynx is clear without erythema or exudate. Mucous membranes are moist. Neck supple without meningeal signs. Respiratory: Clear to auscultation bilaterally. Breath sounds are equal bilaterally. Cardiovascular: Regular rate and rhythm. No rubs or gallops. GI: Soft, nondistended and nontender. Bowel sounds are present. Musculoskeletal: No peripheral edema. No lower extremity tenderness. Integumentary: No cyanosis. Lymphedema to the bilateral lower extremities with erythema and increased warmth below the knee on the right side, including the foot. Increased warmth and erythema mostly on the anterior pina of the left lower extremity. Clear drainage from both legs, no pus. Neurological: The patient is awake and alert. No focal deficits. Psychiatric: Normal affect. Course 1922: The patient was evaluated in room B10. A complete history and physical exam was performed. 2032: I spoke with Dr. Young, [facility], about the patients case. He will further evaluate the patient. 2050: I reassessed the patient, and her blood pressure was 99/51. She said she felt fine. Consultations Consultation #1: I spoke with Dr. Young, [facility], about the patients case. He will further evaluate the patient. Time: 20:33 Administered Medications Discontinued Medications Acetaminophen (Tylenol) 650 mg PO NOW STA Stop: 06/21/19 20:43 Last Admin: 06/21/19 20:52 Dose: 650 mg Documented by: [id number] Vancomycin HCl 1,500 mg/ (Sodium Chloride) 530 mls @ 200 mls/hr IV NOW ONE Stop: 06/21/19 22:08 Last Admin: 06/21/19 20:20 Dose: 200 mls/hr Documented by: [id number] Sodium Chloride (Nss 1000ml) 500 mls @ 999 mls/hr IV .Q31M ONE Stop: 06/21/19 20:04 Last Infusion: 06/21/19 21:15 Dose: 0 mls/hr Documented by: [id number] Admin: 06/21/19 20:20 Dose: 999 mls/hr Documented by: [id number] Cefepime HCl (Maxipime) 2,000 mg in 20 mls @ 5 mls/min IV NOW STA; Protocol Stop: 06/21/19 21:12 Last Admin: 06/21/19 22:28 Dose: 5 mls/min Documented by: [id number] Potassium Chloride (Klor-Con M20) 40 meq PO NOW STA Stop: 06/21/19 20:42 Last Admin: 06/21/19 20:53 Dose: 40 meq Documented by: [id number] Medical Decision Making Differential Diagnosis The differential diagnosis includes: Cellulitis, sepsis, bacteremia, MRSA, pneumonia, and UTI. Medical Records Attestation: I reviewed the patient's medical records. I did perform a limited focused review of portions of the patient's old chart on the electronic medical record. The patient was seen on May 23 after she fell at home. She was discharged after assessment and treatment. Home Medications Current Medication List: was personally reviewed by me Laboratory Data Attestation: I reviewed the patient's lab results. Result diagrams: 06/21/19 19:40 06/21/19 19:40 Lab Results 06/21/19 06/21/19 06/21/19 Range/Units 19:40 19:40 19:40 WBC 26.61 H (4.8-10.8) K/uL RBC 3.20 L (4.2-5.4) M/uL Hgb 8.5 L (12.0-16.0) g/dL Hct 26.3 L (37-47) % MCV 82.2 (80-100) fL MCH 26.6 (25-34) pg MCHC 32.3 (32-36) g/dL RDW Std Deviation 60.8 H (36.4-46.3) fL RDW Coeff of Ellen 20.2 H (11.5-14.5) % Plt Count 351 (130-400) K/uL MPV 8.9 (7.4-10.4) fL Immature Gran % (Auto) 0.5 % Neut % (Auto) 95.9 % Lymph % (Auto) 1.6 % Gosper % (Auto) 1.9 % Eos % (Auto) 0.0 % Baso % (Auto) 0.1 % Reticulocyte % (Auto) 2.4 H (0.5-2.0) % Immature Gran # (Auto) 0.13 H (0.00-0.02) K/uL Neut # (Auto) 25.52 H (1.4-6.5) K/uL Lymph # (Auto) 0.43 L (1.2-3.4) K/uL Gosper # (Auto) 0.51 (0.11-0.59) K/uL Eos # (Auto) 0.00 (0-0.5) K/uL Baso # (Auto) 0.02 (0-0.2) K/uL Reticulocyte # 0.08 (0.02-0.10) 10^6/uL Absolute Nucleated RBC 0.00 (0-0) K/uL Nucleated RBC % (auto) 0.0 % Anisocytosis Present Echinocytes 1+ PT 11.5 (9.0-12.0) Seconds INR 1.1 (0.9-1.1) APTT 23.9 (21.0-31.0) Seconds PTT Ratio 0.9 Sodium 136 (136-145) mmol/L Potassium 3.3 L (3.5-5.1) mmol/L Chloride 103 (98-107) mmol/L Carbon Dioxide 24 (21-32) mmol/L Anion Gap 9.0 (3-11) BUN 17 (7-18) mg/dl Creatinine 0.89 (0.6-1.2) mg/dl Est Cr Clr Drug Dosing 47.0 ml/min Est GFR ( Amer) 68.5 Est GFR (Non-Af Amer) 59.1 BUN/Creatinine Ratio 19.3 (10-20) Glucose 132 H (70-99) mg/dl Lactate (0.4-2.0) mmol/L Calcium 7.7 L (8.5-10.1) mg/dl Magnesium (1.8-2.4) mg/dl Iron (35-150) mcg/dl TIBC (250-450) mcg/dl Transferrin (200-360) mg/dl Ferritin (8-388) ng/ml Total Bilirubin 0.5 (0.2-1) mg/dl AST 16 (15-37) U/L ALT 17 (12-78) U/L Alkaline Phosphatase 116 (45-117) U/L Ammonia (11-32) umol/L Total Protein 5.9 L (6.4-8.2) gm/dl Albumin 1.4 L (3.4-5.0) gm/dl Globulin 4.4 H (2.5-4.0) gm/dl Albumin/Globulin Ratio 0.3 L (0.9-2) Vitamin B12 (211-911) pg/ml Folate (>5.38) ng/ml TSH (0.300-4.500) uIu/ml Blood Type Antibody Screen 06/21/19 06/21/19 06/21/19 Range/Units 19:40 19:40 20:06 WBC (4.8-10.8) K/uL RBC (4.2-5.4) M/uL Hgb (12.0-16.0) g/dL Hct (37-47) % MCV (80-100) fL MCH (25-34) pg MCHC (32-36) g/dL RDW Std Deviation (36.4-46.3) fL RDW Coeff of Ellen (11.5-14.5) % Plt Count (130-400) K/uL MPV (7.4-10.4) fL Immature Gran % (Auto) % Neut % (Auto) % Lymph % (Auto) % Gosper % (Auto) % Eos % (Auto) % Baso % (Auto) % Reticulocyte % (Auto) (0.5-2.0) % Immature Gran # (Auto) (0.00-0.02) K/uL Neut # (Auto) (1.4-6.5) K/uL Lymph # (Auto) (1.2-3.4) K/uL Gosper # (Auto) (0.11-0.59) K/uL Eos # (Auto) (0-0.5) K/uL Baso # (Auto) (0-0.2) K/uL Reticulocyte # (0.02-0.10) 10^6/uL Absolute Nucleated RBC (0-0) K/uL Nucleated RBC % (auto) % Anisocytosis Echinocytes PT (9.0-12.0) Seconds INR (0.9-1.1) APTT (21.0-31.0) Seconds PTT Ratio Sodium (136-145) mmol/L Potassium (3.5-5.1) mmol/L Chloride (98-107) mmol/L Carbon Dioxide (21-32) mmol/L Anion Gap (3-11) BUN (7-18) mg/dl Creatinine (0.6-1.2) mg/dl Est Cr Clr Drug Dosing ml/min Est GFR ( Amer) Est GFR (Non-Af Amer) BUN/Creatinine Ratio (10-20) Glucose (70-99) mg/dl Lactate 1.8 (0.4-2.0) mmol/L Calcium (8.5-10.1) mg/dl Magnesium 1.9 (1.8-2.4) mg/dl Iron 11 L (35-150) mcg/dl TIBC 175 L (250-450) mcg/dl Transferrin 105 L (200-360) mg/dl Ferritin 98.5 (8-388) ng/ml Total Bilirubin (0.2-1) mg/dl AST (15-37) U/L ALT (12-78) U/L Alkaline Phosphatase (45-117) U/L Ammonia (11-32) umol/L Total Protein (6.4-8.2) gm/dl Albumin (3.4-5.0) gm/dl Globulin (2.5-4.0) gm/dl Albumin/Globulin Ratio (0.9-2) Vitamin B12 (211-911) pg/ml Folate (>5.38) ng/ml TSH 0.516 (0.300-4.500) uIu/ml Blood Type Antibody Screen 06/21/19 06/21/19 06/21/19 Range/Units 21:19 21:19 21:19 WBC (4.8-10.8) K/uL RBC (4.2-5.4) M/uL Hgb (12.0-16.0) g/dL Hct (37-47) % MCV (80-100) fL MCH (25-34) pg MCHC (32-36) g/dL RDW Std Deviation (36.4-46.3) fL RDW Coeff of Ellen (11.5-14.5) % Plt Count (130-400) K/uL MPV (7.4-10.4) fL Immature Gran % (Auto) % Neut % (Auto) % Lymph % (Auto) % Gosper % (Auto) % Eos % (Auto) % Baso % (Auto) % Reticulocyte % (Auto) (0.5-2.0) % Immature Gran # (Auto) (0.00-0.02) K/uL Neut # (Auto) (1.4-6.5) K/uL Lymph # (Auto) (1.2-3.4) K/uL Gosper # (Auto) (0.11-0.59) K/uL Eos # (Auto) (0-0.5) K/uL Baso # (Auto) (0-0.2) K/uL Reticulocyte # (0.02-0.10) 10^6/uL Absolute Nucleated RBC (0-0) K/uL Nucleated RBC % (auto) % Anisocytosis Echinocytes PT (9.0-12.0) Seconds INR (0.9-1.1) APTT (21.0-31.0) Seconds PTT Ratio Sodium (136-145) mmol/L Potassium (3.5-5.1) mmol/L Chloride (98-107) mmol/L Carbon Dioxide (21-32) mmol/L Anion Gap (3-11) BUN (7-18) mg/dl Creatinine (0.6-1.2) mg/dl Est Cr Clr Drug Dosing ml/min Est GFR ( Amer) Est GFR (Non-Af Amer) BUN/Creatinine Ratio (10-20) Glucose (70-99) mg/dl Lactate (0.4-2.0) mmol/L Calcium (8.5-10.1) mg/dl Magnesium (1.8-2.4) mg/dl Iron (35-150) mcg/dl TIBC (250-450) mcg/dl Transferrin (200-360) mg/dl Ferritin (8-388) ng/ml Total Bilirubin (0.2-1) mg/dl AST (15-37) U/L ALT (12-78) U/L Alkaline Phosphatase (45-117) U/L Ammonia 26.0 (11-32) umol/L Total Protein (6.4-8.2) gm/dl Albumin (3.4-5.0) gm/dl Globulin (2.5-4.0) gm/dl Albumin/Globulin Ratio (0.9-2) Vitamin B12 524 (211-911) pg/ml Folate 14.53 (>5.38) ng/ml TSH (0.300-4.500) uIu/ml Blood Type O Positive Antibody Screen NEGATIVE Imaging Data Radiologist's Impression: Radiology results as stated below per my review and the radiologist's interpretation: XR chest 1V portable CLINICAL HISTORY: Sepsis dyspnea COMPARISON STUDY: 11/16/2018 FINDINGS: The bones soft tissues and hemidiaphragms are normal. The cardiomediastinal silhouette is normal. The lungs are clear. The pulmonary vasculature is normal. IMPRESSION: Negative chest. The above report was generated using voice recognition software. It may contain grammatical, syntax or spelling errors. Electronically signed by: Lonnie Parrish M.D. 06/21/2019 8:13 PM ECG Data Attestation: I personally reviewed and interpreted this ECG as follows: Indication: other (confusion) Rate (beats per minute): 86 Rhythm: sinus rhythm Findings: + LBBB; no PVC Comparison ECG Date: from (11/16/2018) Change: no significant change Blood Pressure Blood Pressure Findings: Low blood pressure Blood Pressure Disposition: further management by hospitalist IDA Narrative I did evaluate the patient as noted above. The patient is presenting with fever, mild hypotension and lower extremity cellulitis. IV access was established. The patient was placed on a continuous electronic device monitor. I did order and personally review the patient's 12-lead EKG as described above. Twelve-lead EKG shows an old left bundle branch block. I did order and personally reviewed the images of the patient's chest x-ray as described above. There is no evidence of pneumonia. I did order a urine analysis. I did order and review the patient's blood work as noted in the electronic medical record. Her white blood cell count is over 26,000. Lactate is not elevated. I did treat the patient with IV vancomycin. She was also given normal saline IV. On reassessment her blood pressure is improved. She continues to state that she feels well. She denies feeling lightheaded. I did recommend hospitalization and discussed case with the hospitalist and assistant case manager. Impression & Plan Sepsis, Cellulitis of both lower extremities, Hypotension, Lymphedema Discharge Plan Visit Data Chief Complaint: Confusion Stated Complaint: CONFUSION, R RIB PAIN, EDEMA & SEEPING LEGS ED Provider: Smooth Tellez Discharge Problem: Sepsis, Cellulitis of both lower extremities, Hypotension, Lymphedema Patient Disposition: Being Evaluated by Hospitalist Discharge Instructions Interventions: ED Discharge Assessment Last Done: 06/21/19 22:26 Forms Stand Alone Forms: My [facility] Prescriptions Prescriptions: No Action losartan 50 mg tablet 50 mg PO QAM RF: 0 aspirin 81 mg Tablet,Delayed Release (Dr/Ec) 81 mg PO DAILY RF: 0 carvedilol 3.125 mg tablet 3.125 mg PO BID RF: 0 potassium chloride 20 mEq tablet,ER particles/crystals 20 meq PO DAILY RF: 0 furosemide 20 mg tablet 20 mg PO DAILY RF: 0 mesalamine 800 mg tablet,delayed release (DR/EC) 800 mg PO TID RF: 0 acetaminophen [Mapap (acetaminophen)] 325 mg Tablet 650 mg PO Q4H PRN (Reason: fever or pain) Qty: 20 RF: 0 albuterol sulfate [Proventil HFA] 90 mcg/actuation Hfa Aerosol Inhaler 2 puff INHALATION Q6H PRN (Reason: Wheezing) RF: 0 multivitamin Tablet 1 tab PO DAILY RF: 0 Glucosamine Chondroitin 550-30-1 mg Capsule 1 cap PO BID RF: 0 Referrals Referrals: Heladio Larsen DO [Primary Care Provider] - Discharge Problem: Sepsis Qualifiers: Sepsis type: sepsis due to unspecified organism Sepsis acute organ dysfunction status: unspecified Qualified Code(s): A41.9 - Sepsis, unspecified organism Hypotension Qualifiers: Hypotension type: unspecified hypotension type Qualified Code(s): I95.9 - Hypotension, unspecified The scribe's documentation has been prepared under my direction and personally reviewed by me in its entirety. I confirm that the note above accurately reflects all work, treatment, procedures, and medical decision making performed by me.
[2019-06-21] MEDS ORDERED: POTASSIUM CHLORIDE 40 MEQ in SODIUM CHLORIDE 0.9% 1000ML 1,000 ML IV STA (22:58)
[2019-06-21] MEDS ORDERED: NITROGLYCERIN SL 0.4 MG/TAB TAB SL PRN (22:58)
[2019-06-21] MEDS ORDERED: ACETAMINOPHEN 325 MG TAB PO PRN (22:58)
[2019-06-21] MEDS ORDERED: PROMETHAZINE HCL 12.5 MG in SODIUM CHLORIDE 0.9% 50 ML IV PRN (22:58)
[2019-06-21] MEDS ORDERED: TRAMADOL HCL 50 MG TABLET PO PRN (22:58)
[2019-06-21] MEDS ORDERED: MAGNESIUM SULFATE / D5W 1 GM/100 ML BAG IV ONE (23:03)
[2019-06-21] MEDS ORDERED: DAPTOMYCIN CONSULT ACTIVE PRN (23:07)
[2019-06-22] MEDS ORDERED: GADOBUTROL 65ML VIAL IV PRN (00:48)
[2019-06-22] MEDS: DAPTOmycin 250 MG in SYRINGE 0 ML IV SCH (01:56)
[2019-06-22] MEDS ORDERED: HEPARIN SODIUM/DEXTROSE 25,000 UNITS/500 ML BAG IV SCH (02:30)
[2019-06-22 03:18] LABS: Appearance Urine Clear (Clear); Bacteria Urine Automated Negative (Negative); Bilirubin Urine Negative (Negative); Blood Urine Negative (Negative); Color Urine Yellow; Glucose Urine UA Negative (Negative); Ketones Urine Negative (Negative); Leukocyte Esterase Urine Trace (Negative); Nitrite Urine Negative (Negative); Protein Urine Negative (Negative); Specific Gravity Urine 1.014 (1.000-1.030); Urobilinogen Urine Negative (Negative)
[2019-06-22 03:37] LABS: RBC Urine Automated 0-4 /hpf (0-4)
[2019-06-22 06:04] LABS: Estimated Average Glucose 137 mg/dl; Hemoglobin A1C 6.4 % (4.5-5.6)
--- NOTE | 2019-06-22 06:48 | Magnetic Resonance Report ---
MR lower leg RT wo/w con CLINICAL HISTORY: Right leg pain and swelling. Open wound. Possible osteomyelitis. COMPARISON STUDY: X-ray study dated 06/21/2019 FINDINGS: Imaging was performed in the axial sagittal and coronal planes, before and after the admini stration of 7.5 cc of intravenous Gadavist There is diffuse right leg edema. There are no areas of marrow edema to indicate acute osteomyelitis. 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 There is muscular fatty atrophy. There is mild diffuse intramuscular edema. There are no fluid collections to indicate a focal abscess. IMPRESSION: 1. Diffuse cutaneous and subcutaneous edema 2. Muscular atrophy and mild intramuscular edema 3. No evidence of focal abscess 4. No evidence of osteomyelitis. Electronically signed by: Maximiliano Stahl M.D. 06/22/2019 6:47 AM
--- NOTE | 2019-06-22 07:17 | Ultrasound Report ---
US venous doppler LE CLINICAL HISTORY: 83 years-old Female presenting with bilateral lower extremity pain and swelling. TECHNIQUE: Real-time grayscale and color and spectral Doppler ultrasound imaging of the veins of the bilateral lower extremities was performed. Compression and augmentation were also utilized. COMPARISON: 06/15/2015. FINDINGS: RIGHT: Common femoral vein: Nonocclusive thrombus in the distal common femoral vein immediately below the co nfluence of the greater saphenous vein. Greater saphenous vein (superficial): Patent. Deep femoral vein: Patent. Femoral vein: Occlusive thrombus. Popliteal vein: Occlusive thrombus. Calf veins: Occlusive thrombus in the anterior and posterior tibial veins and peroneal vein. LEFT: Common femoral vein: Nonocclusive thrombus. Greater saphenous vein (superficial): Patent. Deep femoral vein: Patent. Femoral vein: Nonocclusive thrombus. Popliteal vein: Nonocclusive thrombus. Calf veins: Occlusive thrombus in the anterior and posterior tibial veins and peroneal vein. Other: Enlarged bilateral inguinal lymph nodes measuring 4.6 x 1.5 x 2.4 cm on the right and 3.7 x 0. 9 x 2.4 cm on the left. Subcutaneous edema noted in the bilateral lower extremities. IMPRESSION: 1. Bilateral extensive deep venous thrombosis from the calf veins to the common femoral veins, parti ally occlusive on the right and occlusive in the lower leg on the left. 2. Suspected reactive lymphadenopathy in the bilateral inguinal regions. These findings were discussed with nurse shuttle preparation supervisor Jennie by Dr. Monk on 06/22/2019 2:13 AM. Electronically signed by: Slim Cline M.D. 06/22/2019 7:16 AM
[2019-06-22] MEDS: carvediloL 3.125 MG TAB PO SCH ×2 (07:28→20:55)
[2019-06-22] MEDS: MULTIVITAMIN TAB PO SCH (07:29)
[2019-06-22] MEDS: ASPIRIN 81 MG ECTAB PO SCH (07:29)
[2019-06-22] MEDS: LOSARTAN POTASSIUM 25 MG TAB PO SCH (07:36)
[2019-06-22] MEDS ORDERED: CEFEPIME CONSULT ACTIVE PRN (09:00)
[2019-06-22] MEDS ORDERED: LOSARTAN POTASSIUM 50 MG TAB PO SCH (09:00)
[2019-06-22] MEDS ORDERED: ENOXAPARIN INJ 30 MG/0.3 ML SYR SQ SCH (09:00)
[2019-06-22] MEDS ORDERED: POTASSIUM CHLORIDE 20 MEQ TABCR PO SCH (09:00)
[2019-06-22 10:01] LABS: Hematocrit (blood only) 27.6 % (37-47); Hemoglobin 8.8 g/dL (12.0-16.0); Mean Corpuscular Hemoglobin 26.7 pg (25-34); Mean Corpuscular Hgb Conc 31.9 g/dL (32-36); Mean Corpuscular Volume 83.6 fL (80-100); Mean Platelet Volume 9.1 fL (7.4-10.4); Platelet Count 302 K/uL (130-400); RDW Coefficient of Variation 20.8 % (11.5-14.5); RDW Standard Deviation 63.5 fL (36.4-46.3); White Blood Count 11.89 K/uL (4.8-10.8)
[2019-06-22 10:11] LABS: BUN Creatinine Ratio 21.7 (10-20); C Reactive Protein 13.6 mg/dl (0-0.29); Calcium 7.6 mg/dl (8.5-10.1); Creatinine Clr Calc Pharmacy 47.5 ml/min; Est GFR (African American) 75.6; Est GFR (Non-African American) 65.3; Potassium 3.9 mmol/L (3.5-5.1)
[2019-06-22 10:18] LABS: Anisocytosis Present; Basophils # (auto) 0.01 K/uL (0-0.2); Basophils % (auto) 0.1 %; Echinocytes 2+; Eosinophils # (auto) 0.02 K/uL (0-0.5); Eosinophils % (auto) 0.2 %; Immature Granulocytes # (auto) 0.04 K/uL (0.00-0.02); Immature Granulocytes % (auto) 0.3 %; Lymphocytes # (auto) 0.43 K/uL (1.2-3.4); Lymphocytes % (auto) 3.6 %; Monocytes # (auto) 0.52 K/uL (0.11-0.59); Monocytes % (auto) 4.4 %; Neutrophils # (auto) 10.87 K/uL (1.4-6.5); Neutrophils % (auto) 91.4 %
[2019-06-22 10:35] LABS: INR 1.2 (0.9-1.1); Partial Thromboplastin Ratio 1.2; Partial Thromboplastin Time 32.1 Seconds (21.0-31.0); Prothrombin Time 11.7 Seconds (9.0-12.0)
--- NOTE | 2019-06-22 10:43 | Gastrointestinal Consultation ---
Date of Consultation June 22, 2019 Assessment & Plan (1) Sepsis: (2) Cellulitis of both lower extremities: (3) Ulcerative colitis: Pt is a 83 y/o female admitted w sepsis likely secondary to bilateral LE cellulitis, DVT. She has hx of L sided, rectal sparing UC, Cdiff and GI consulted for increased diarrhea symptoms. However per pt's report stools have been pasty, and she has some incontinence for over a year now. Denies rectal bleeding. - Infectious workup & antibx management per primary hospitalist - Check stool cx and Cdiff - Check ESR, CRP - KUB to r/o constipation which may cause overflow diarrhea - Restart Mesalamine at increased dose 1600mg TID. Upon her DC may convert to Lialda 4.8g daily - Would consider cautious use of bile binder, fiber or anti diarrheal if stools become too loose - At her age and given her refusal, would defer repeat colonoscopy Supervising Physician Co-Signing Physician Notes I saw and evaluated the patient. We are consulted for evaluation of this patient who follows with Dr. Arteaga for left-sided ulcerative colitis. The patient notes that she has had intermittent continence of stool for many years. This is been managed by my partner with a number of different strategies without success. The patient notes that she had a colonoscopy over 2 years ago and is presently not repeating this. Examination Pleasant appearing female, no obvious distress Abdomen: Soft Impression: Patient with a history of left-sided ulcerative colitis mated with bilateral lower extremity edema found to have DVTs. At this point I would recommend transition from mesalamine 800 mg/day to Lialda 4.8 gm per day. In addition we would suggest use of Rowasa enema at bedtime. This appears to be a chronic problem which we are unlikely to solve during this admission. We can certainly have the patient try alternate medications to see if this improves her symptomology. I would highly recommend that she follow-up with my partner in 6 to 8 weeks as an outpatient so that we can reassess her symptoms and further guide therapy for her. I did discuss the role of colonoscopy, the patient is presently not interested in pursuing this. Recommendations Lialda 4.8 gm per day Rowasa enema qhs Screen for C diff History of Present Illness Reason for Consultation: Increased diarrhea Requesting Physician: Dr. Luis Enrique Young Attending Physician: Dr. Alfa Galindo History of Present Illness Pt is a 83 y/o female presented w swelling on bilateral LE R>L ,associated w pain, drainage. Labs showed significant leukocytosis WBC >22K. U/S doppler showed bilateral LE DVT, suspect also LE cellulitis currently being treated w IV antibx and Heparin gtt. GI consulted for increased diarrhea. Pt w hx of L sided, rectum sparing Ulcerative Colitis, hx of Cdiff. Usually followed by Dr. Zhou but hasn't been to f/u visit due to transportation issues. She reports UC was previously in remission on Mesalamine 800mg TID. However in last year or so she noticed stools are a bit looser "pasty" and she is incontinent. Denies nocturnal awakening w diarrhea. Denies any fever, chills, abd pain, n/v, rectal bleeding or dark tarry stools. Per pt's report been tried on Miralax and Imodium to help regulate her bowel pattern, stool consistency but so far not very helpful Last colonoscopy in 2017 - active rectal sparing L colitis, diverticulosis Allergies Allergy/AdvReac Type Severity Reaction Status Date / Time erythromycin base Allergy Intermediate RASH Verified 06/21/19 20:19 Penicillins Allergy Intermediate HIVES Verified 06/21/19 20:19 tetracycline Allergy Intermediate HIVES Verified 06/21/19 20:19 Home Medications Home Medications Medication Instructions Recorded Confirmed Type aspirin 81 mg PO DAILY 11/16/18 06/21/19 History carvedilol 3.125 mg PO BID 11/16/18 06/21/19 History furosemide 20 mg PO DAILY 11/16/18 06/21/19 History losartan 50 mg PO QAM 11/16/18 06/21/19 History mesalamine 800 mg PO TID 11/16/18 06/21/19 History potassium chloride 20 meq PO DAILY 11/16/18 06/21/19 History acetaminophen [Mapap 650 mg PO Q4H PRN #20 tab 11/19/18 06/21/19 Rx (acetaminophen)] glucos sul [id number] 1 cap PO BID 05/23/19 06/21/19 History [Glucosamine Chondroitin] multivitamin 1 tab PO DAILY 05/23/19 06/21/19 History albuterol sulfate [Proventil HFA] 2 puff INHALATION Q6H PRN 06/21/19 06/21/19 History rivaroxaban [Xarelto] 1 ea PO BID 30 Days #51 ea 06/22/19 Rx Patient History Medical History Mild tricuspid regurgitation (Chronic) Moderate mitral regurgitation (Chronic) Nonischemic cardiomyopathy (Chronic) Diastolic CHF (Chronic) Ulcerative colitis (Chronic) Left bundle branch block (Chronic) Venous insufficiency (Chronic) COPD, mild (Chronic) Hypertension (Chronic) Colitis (Chronic) Surgical History S/P right knee arthroscopy (Chronic) S/p bilateral carpal tunnel release (Chronic) Family History Other Family history non-contributory Social History Preferred Language: Wolof Communication Ability: Effective Service Support Representative Required: Yes Beliefs That Will Affect Care: None Current Living Situation: Alone Other Information That Helps Us Care for You: No Feels Safe at Home: Yes Safety Concerns: Feels Safe At This Time Smoking Status: Former smoker Tobacco Type: cigarettes ; Do You Dip or Chew Tobacco: No ; Second Hand Exposure: No ; Tobacco Cessation Education Requested by Patient: No Hx Alcohol Use: Yes Hx Substance Use: No Review of Systems Review of Systems: All systems reviewed & are unremarkable except as noted in HPI & below Physical Exam Constitutional: WD/WN, vitals as above well groomed, cooperative and comfortable Eyes: PERRL, conjunctivae normal, anicteric sclerae ENMT: external ear and nose normal, oropharynx normal Respiratory: normal respiratory effort, lungs clear to auscultation Cardiovascular: RRR, no murmur, no edema Gastrointestinal (Abdomen): normal bowel sounds, soft, nontender, no hepatosplenomegaly Skin: no rashes, warm and dry no jaundice Neurologic: Motor/Sensory: no asterixis Psychiatric: A+Ox3, euthymic affect Lymphatic: Bilateral LE swelling R>L w erythema and clear drainage Results & Data Vital Signs (Past 12 Hours) Vital Signs Temp Pulse Pulse Resp BP BP Pulse Ox 06/22/19 07:43 81 06/22/19 07:34 36.6 C 73 16 128/64 97 06/22/19 04:13 36.4 C L 81 20 100/53 L 93 06/22/19 01:00 36.7 C 78 18 91/45 L 95 06/21/19 23:02 72 (1) Sepsis Sepsis acute organ dysfunction status: unspecified Sepsis type: sepsis due to unspecified organism Qualified Code(s): A41.9 - Sepsis, unspecified organism
--- NOTE | 2019-06-22 10:59 | XRay Report ---
KUB HISTORY: hx of UC; incontinent w diarrhea; r/o constipation COMPARISON: None. FINDINGS: The bowel gas pattern is unremarkable. There are no dilated loops of small bowel to suggest an obstruction. No renal calculi. No ureteral calculi. No pneumoperitoneum or pneumatosis. Small to moderate amount of well-formed stool within the colon. IMPRESSION: 1. Small to moderate amount of well-formed stool within the colon. 2. No evidence for bowel obstruction. Electronically signed by: Servando Sarkar M.D. 06/22/2019 10:57 AM
[2019-06-22] MEDS ORDERED: HEPARIN IV BOLUS 5,000 UNITS in SYRINGE 0 ML IV ONE (11:00)
[2019-06-22] MEDS ORDERED: RIVAROXABAN 15 MG TAB PO STA (12:42)
[2019-06-22] MEDS ORDERED: FUROSEMIDE 20 MG in SYRINGE 0 ML IV ONE (18:15)
[2019-06-22 18:26] LABS: Partial Thromboplastin Ratio 1.9
[2019-06-22 18:29] LABS: Partial Thromboplastin Time 50.7 Seconds (21.0-31.0)
--- NOTE | 2019-06-22 18:35 | Hospitalist Progress Note ---
Date of Service June 22, 2019 Assessment & Plan (1) Sepsis: -admission hospitalist diagnosis of sepsis secondary to right lower extremity cellulitis -wound care -PT/OT evaluations -continue cefepime and daptomycin empirically and follow blood cultures -Lower extremity MRI 1. Diffuse cutaneous and subcutaneous edema 2. Muscular atrophy and mild intramuscular edema 3. No evidence of focal abscess 4. No evidence of osteomyelitis. -ultrasound: Enlarged bilateral inguinal lymph nodes measuring 4.6 x 1.5 x 2.4 cm on the right and 3.7 x 0.9 x 2.4 cm on the left. Subcutaneous edema noted in the bilateral lower extremities; Suspected reactive lymphadenopathy in the bilateral inguinal regions. Acute Deep Vein Thrombosis of bilateral lower extremities Anticoagulated by anticoagulation Therapy -ultrasound: Bilateral extensive deep venous thrombosis from the calf veins to the common femoral veins, partially occlusive on the right and occlusive in the lower leg on the left. -heparin drip IV was transitioned to Xarelto starting on 06/22/19 day time with plans of Xarelto 15 mg twice a day for 21 days and then 20 mg daily -will need anticoagulation for at least 3 months Acute on chronic anemia -admission Hgb 8.5 and follow up as 8.8 -monitor blood counts while on systemic anticoagulation Ulcerative colitis -reports diarrhea in recent months -Gastroenterology evaluated the patient on 06/22/19 -Rowasa (mesalamine) Rectal Suspension Enema qhs -gastroenterology recommended transition from home Mesalamine to Lialda 4.8g daily and outpatient follow up -C.difficile negative chronic systolic heart failure EF 44%, TTE 2013, chronic Left bundle branch block -IV Lasix 20 mg x 1 given on 06/22/19 to prevent possibility of fluid overload because of recent IV medications -can resume 20 mg Lasix oral starting on 06/23/19 Hypokalemia, mild -serum potassium 3.3 and patient got potassium supplements -monitor while on diuretics COPD as per records, past tobacco use -breathing on room air -prn nebulizers if needed Pre-Diabetes -HbA1c 6.4 -place on diabetic diet history skin cancer status post surgery in the past DVT prophylaxis. Xarelto Full code Patient's niece Ms. Patsy Yañez, contact #[phone]. Subjective Patient able to tolerate the meals. no vomiting. breathing on room air. no chest pain. no acute shortness of breath. no headache. no dizziness. we discussed extensively about anticoagulation strategies today Physical Exam Constitutional: comfortable Eyes: PERRL, conjunctivae normal, anicteric sclerae EOM intact bilaterally ENMT: external ear and nose normal, oropharynx normal Respiratory: normal respiratory effort, lungs clear to auscultation Cardiovascular: Rate/Rhythm: regular rate and regular rhythm Gastrointestinal (Abdomen): normal bowel sounds, soft, nontender, no he patosplenomegaly Musculoskeletal: bilateral lower extremity swelling, some skin redness versus petechiae rash of right thigh,no gross drainage noted at time of exam Neurologic: PERRL, EOMI, accommodation nl, no face palsy, no dysarthria Psychiatric: A+Ox3, euthymic affect Results & Data Vital Signs (Past 12 Hours) Vital Signs Temp Pulse Pulse Resp BP Pulse Ox 06/22/19 15:21 74 06/22/19 15:10 36.3 C L 77 20 110/62 97 06/22/19 11:13 36.9 C 86 16 119/64 100 06/22/19 07:43 81 06/22/19 07:34 36.6 C 73 16 128/64 97 (1) Sepsis Sepsis acute organ dysfunction status: unspecified Sepsis type: sepsis due to unspecified organism Qualified Code(s): A41.9 - Sepsis, unspecified organism
[2019-06-22] MEDS: RIVAROXABAN 15 MG TAB PO SCH (20:55)
[2019-06-22] MEDS: MESALAMINE 4 GM/60 ML ENEMA PR SCH (20:56)
[2019-06-22] MEDS: CEFEPIME 2,000 MG in SYRINGE 7.5 ML IV SCH (21:43)
[2019-06-23] MEDS: DAPTOmycin 250 MG in SYRINGE 0 ML IV SCH ×3 (00:16→23:22)
[2019-06-23] MEDS: carvediloL 3.125 MG TAB PO SCH ×2 (07:43→20:54)
[2019-06-23] MEDS: ASPIRIN 81 MG ECTAB PO SCH (07:44)
[2019-06-23] MEDS: RIVAROXABAN 15 MG TAB PO SCH ×2 (07:44→20:54)
[2019-06-23] MEDS: MULTIVITAMIN TAB PO SCH (07:44)
[2019-06-23] MEDS: LOSARTAN POTASSIUM 25 MG TAB PO SCH (07:44)
[2019-06-23 08:06] LABS: Basophils # (auto) 0.01 K/uL (0-0.2); Basophils % (auto) 0.1 %; Eosinophils # (auto) 0.11 K/uL (0-0.5); Eosinophils % (auto) 1.3 %; Hematocrit (blood only) 26.3 % (37-47); Hemoglobin 8.6 g/dL (12.0-16.0); Immature Granulocytes # (auto) 0.03 K/uL (0.00-0.02); Immature Granulocytes % (auto) 0.4 %; Lymphocytes # (auto) 0.68 K/uL (1.2-3.4); Mean Corpuscular Hemoglobin 27.1 pg (25-34); Mean Corpuscular Hgb Conc 32.7 g/dL (32-36); Mean Platelet Volume 9.4 fL (7.4-10.4); Monocytes # (auto) 0.61 K/uL (0.11-0.59); Monocytes % (auto) 7.2 %; Neutrophils # (auto) 7.01 K/uL (1.4-6.5); Platelet Count 360 K/uL (130-400); RDW Coefficient of Variation 20.5 % (11.5-14.5); RDW Standard Deviation 61.9 fL (36.4-46.3); Red Blood Count 3.17 M/uL (4.2-5.4); White Blood Count 8.45 K/uL (4.8-10.8)
[2019-06-23 08:18] LABS: Albumin Level 1.3 gm/dl (3.4-5.0); BUN Creatinine Ratio 20.8 (10-20); Calcium 7.8 mg/dl (8.5-10.1); Creatinine Clr Calc Pharmacy 60.6 ml/min; Est GFR (African American) 94.3; Est GFR (Non-African American) 81.4; Potassium 3.5 mmol/L (3.5-5.1)
[2019-06-23 08:21] LABS: Albumin Globulin Ratio 0.3 (0.9-2); Bilirubin,Total 0.3 mg/dl (0.2-1); Globulin 4.2 gm/dl (2.5-4.0); Total Protein 5.5 gm/dl (6.4-8.2)
[2019-06-23 08:38] LABS: Anisocytosis Present; Echinocytes 1+; Schistocytes Occasional; Target Cells 1+
[2019-06-23] MEDS ORDERED: FUROSEMIDE 20 MG TAB PO SCH (09:00)
[2019-06-23] MEDS ORDERED: POTASSIUM CHLORIDE 20 MEQ TABCR PO STA (09:20)
--- NOTE | 2019-06-23 10:47 | Gastroenterology Progress Note ---
Date of Service June 23, 2019 Assessment & Plan (1) Sepsis: (2) Cellulitis of both lower extremities: (3) Ulcerative colitis: Pt is a 83 y/o female admitted w sepsis likely secondary to bilateral LE cellulitis, DVT. She has hx of L sided, rectal sparing UC, Cdiff and GI consulted for increased diarrhea symptoms.Passing 1-3 loose brown Bms/day since admission so not clinically significant diarrhea during this admission. - Review stool cx and Cdiff results when available. - Continue po Mesalamine at increased dose 1600mg TID. Upon her DC may convert to Lialda 4.8g daily - Would consider cautious use of bile binder, fiber or anti diarrheal if stools become too loose - At her age and given her refusal, would defer repeat colonoscopy - Recommend nightly mesalamine enema but pt refuses, doesn't want the messiness. - GI will s/o. Recommend that pt f/u with Dr. Zhou for UC Q 6-12 months. Supervising Physician Co-Signing Physician Notes I saw and evaluated the patient. Presently she is not interested in using a Rowasa enema as she believes this was used in the distant past. The patient does have a history of ulcerative colitis and is followed by an outpatient. She has not followed in our office in a number of years as she has chronic problems does not improve despite multiple different regimens. For the present time we would recommend increasing her mesalamine dose to 1600 mg 3 times daily. I would typically recommend use of a Rowasa enema as her disease is mostly in the left colon however the patient is not interested in this. Given this we would suggest use of mesalamine suppository Recommendations Mesalamine 1600 mg 3 times daily Canasa suppository at bedtime Please call with any questions or concerns Outpatient follow-up with Dr. Alvarez in 6 to 8 weeks. Subjective Ms. Valery Alvarez is an 83 yr old female with left sided UC admitted on 06/21 for cellulitis/sepsis. GI consulted for diarrhea. Pt reports BMs, "same as they have been, some incontinence." Nursing reports thick, loose, pasty brown BMs, one on 06/21, 3 on 06/22, non thus far today. Pt denies blood in BM or abdominal pain. Refuses mesalamine enemas. Does not want colonoscopy. Review of Systems Review of Systems: ROS: Gen: Denies weakness, fevers, weight loss Eyes: No eye redness, or pain, no recent vision changes Resp: No SOB, no cough Cardio: No palpitations/irregular beats, no chest pain GI: No abdominal pain, no nausea/vomiting/melena or hematochezia : Denies pain on urination Skin: No jaundice, itching or new rashes Physical Exam Constitutional: WD/WN, vitals as above Eyes: PERRL, conjunctivae normal, anicteric sclerae ENMT: external ear and nose normal, oropharynx normal Neck: trachea midline, no thyromegaly Respiratory: normal respiratory effort, lungs clear to auscultation Cardiovascular: RRR, no murmur, no edema Gastrointestinal (Abdomen): normal bowel sounds, soft, nontender, no hepatosplenomegaly Musculoskeletal: no cyanosis or clubbing, extremities motor strength 5/5 Skin: lower leg edema, dressings dry and intact over cellulitis sites. Neurologic: PERRL, EOMI, accommodation nl, no face palsy, no dysarthria Psychiatric: A+Ox3, euthymic affect Lymphatic: no cervical or axillary lymphadenopathy Results & Data Vital Signs (Past 12 Hours) Vital Signs Temp Pulse Resp BP Pulse Ox 06/23/19 07:00 36.3 C L 72 18 121/72 97 06/23/19 04:00 36.7 C 67 20 116/64 94 06/22/19 23:58 36.3 C L 70 20 130/76 98 Laboratory Results Hb 8.6/Hct 26.3, BUN 13, Cr 0.6, K 3.5. Stools for culture pending. Stool for C-diff not yet collected - I spoke with her nurse, asking her to obtain and send. (1) Sepsis Sepsis acute organ dysfunction status: unspecified Sepsis type: sepsis due to unspecified organism Qualified Code(s): A41.9 - Sepsis, unspecified organism
[2019-06-23] MEDS: Heparin IV Standard *NO* Bolus IV SCH ×2 (11:12→12:22)
--- NOTE | 2019-06-23 11:28 | Hospitalist Progress Note ---
Date of Service June 23, 2019 Assessment & Plan (1) Sepsis: -admission hospitalist diagnosis of sepsis secondary to right lower extremity cellulitis -wound care -PT/OT evaluations appears to be recommending short stay after hospitalization to a SNF or inpatient rehabilitation center -was started on cefepime and daptomycin empirically - blood cultures no growth to date, Wound culture with Staphylococcus aureus Corynebacterium species, white blood cells downtrended from admission 26,000 to under 10,000 by 06/23/19 while on IV antibiotics, continue cefepime and daptomycin for now -Lower extremity MRI 1. Diffuse cutaneous and subcutaneous edema 2. Muscular atrophy and mild intramuscular edema 3. No evidence of focal abscess 4. No evidence of osteomyelitis. -ultrasound: Enlarged bilateral inguinal lymph nodes measuring 4.6 x 1.5 x 2.4 cm on the right and 3.7 x 0.9 x 2.4 cm on the left. Subcutaneous edema noted in the bilateral lower extremities; Suspected reactive lymphadenopathy in the bilateral inguinal regions. Acute Deep Vein Thrombosis of bilateral lower extremities Anticoagulated by anticoagulation Therapy -ultrasound: Bilateral extensive deep venous thrombosis from the calf veins to the common femoral veins, partially occlusive on the right and occlusive in the lower leg on the left. -heparin drip IV was transitioned to Xarelto starting on 06/22/19 day time with plans of Xarelto 15 mg twice a day for 21 days and then 20 mg daily -will need anticoagulation for at least 3 months Acute on chronic anemia -admission Hgb 8.5 and follow up as 8.8 -monitor blood counts while on systemic anticoagulation Ulcerative colitis -reports diarrhea in recent months -Gastroenterology evaluated the patient on 06/22/19 -Rowasa (mesalamine) Rectal Suspension Enema qhs -would continue to hold oral mesalamine while on IV antibiotic for right leg cellulitis for now -gastroenterology recommended transition from home Mesalamine to Lialda 4.8g daily and outpatient follow up -C.difficile negative chronic systolic heart failure EF 44%, TTE 2013, chronic Left bundle branch block -IV Lasix 20 mg x 1 given on 06/22/19 to prevent possibility of fluid overload because of recent IV medications -resume 20 mg Lasix oral starting on 06/23/19 Hypokalemia, mild -replete as needed to maintain serum potassium of 3.5 to 4 COPD as per records, past tobacco use -breathing on room air -prn nebulizers if needed Pre-Diabetes -HbA1c 6.4 -on diabetic diet history skin cancer status post surgery in the past DVT prophylaxis. [place] Full code Patient's niece Ms. Patsy Yañez, contact #[phone]. Subjective patient reported she had did some ambulation with therapy since last seen by medical doctor. denies shortness of breath. denies chest pain pain. no lightheadedness. no dizziness. no vomiting. Physical Exam Constitutional: comfortable Eyes: PERRL, conjunctivae normal, anicteric sclerae EOM intact bilaterally ENMT: external ear and nose normal, oropharynx normal Neck: normal visual inspection Respiratory: normal respiratory effort, lungs clear to auscultation Cardiovascular: Rate/Rhythm: regular rate and regular rhythm Gastrointestinal (Abdomen): normal bowel sounds, soft, nontender, no hepatosplenomegaly Musculoskeletal: bilateral lower extremity swelling, there is redness of the calf that patients believes as improved slightly, here is slight fluctuance of the posterior right leg, there is dressing over healed left leg ulcer Neurologic: PERRL, EOMI, accommodation nl, no face palsy, no dysarthria Psychiatric: A+Ox3, euthymic affect Results & Data Vital Signs (Past 12 Hours) Vital Signs Temp Pulse Resp BP Pulse Ox 06/23/19 07:00 36.3 C L 72 18 121/72 97 06/23/19 04:00 36.7 C 67 20 116/64 94 06/22/19 23:58 36.3 C L 70 20 130/76 98 (1) Sepsis Sepsis acute organ dysfunction status: unspecified Sepsis type: sepsis due to unspecified organism Qualified Code(s): A41.9 - Sepsis, unspecified organism
[2019-06-23] MEDS: MESALAMINE 400 MG CAPDR PO SCH (20:54)
[2019-06-23] MEDS: MESALAMINE 4 GM/60 ML ENEMA PR SCH (20:55)
[2019-06-23] MEDS: CEFEPIME 2,000 MG in SYRINGE 7.5 ML IV SCH (21:00)
[2019-06-24 01:29] LABS: Hematocrit (blood only) 22.4 % (37-47); Hemoglobin 7.3 g/dL (12.0-16.0); Mean Corpuscular Hemoglobin 26.9 pg (25-34); Mean Corpuscular Hgb Conc 32.6 g/dL (32-36); Mean Corpuscular Volume 82.7 fL (80-100); Nucleated RBC # (auto) 0.02 K/uL (0-0); Nucleated RBC % (auto) 0.1 %; Platelet Count 346 K/uL (130-400); RDW Coefficient of Variation 20.3 % (11.5-14.5); RDW Standard Deviation 61.3 fL (36.4-46.3); Red Blood Count 2.71 M/uL (4.2-5.4); White Blood Count 15.78 K/uL (4.8-10.8)
[2019-06-24] MEDS ORDERED: SODIUM CHLORIDE 0.9% 500 ML IV SCH (01:30)
[2019-06-24 01:47] LABS: Albumin Level 1.3 gm/dl (3.4-5.0); BUN Creatinine Ratio 15.8 (10-20); Calcium 7.2 mg/dl (8.5-10.1); Creatinine Clr Calc Pharmacy 34.9 ml/min; Est GFR (African American) 52.4; Est GFR (Non-African American) 45.2; Magnesium 1.7 mg/dl (1.8-2.4)
[2019-06-24 01:49] LABS: Anisocytosis Present; Dohle Bodies 1+; Echinocytes 1+; Eosinophils # (auto) 0.01 K/uL (0-0.5); Eosinophils % (auto) 0.1 %; Immature Granulocytes # (auto) 0.06 K/uL (0.00-0.02); Immature Granulocytes % (auto) 0.4 %; Lymphocytes # (auto) 0.29 K/uL (1.2-3.4); Lymphocytes % (auto) 1.8 %; Monocytes # (auto) 0.48 K/uL (0.11-0.59); Neutrophils # (auto) 14.94 K/uL (1.4-6.5); Neutrophils % (auto) 94.7 %; Target Cells 1+
[2019-06-24 01:50] LABS: Albumin Globulin Ratio 0.3 (0.9-2); Bilirubin,Total 0.3 mg/dl (0.2-1); Globulin 4.1 gm/dl (2.5-4.0); Phosphorus 1.6 mg/dl (2.5-4.9); Total Protein 5.4 gm/dl (6.4-8.2)
[2019-06-24] MEDS ORDERED: SODIUM CHLORIDE 0.9% 250 ML IV PRN (02:08)
[2019-06-24] MEDS ORDERED: ACETAMINOPHEN 500 MG TAB PO STA (02:08)
[2019-06-24] MEDS ORDERED: MAGNESIUM SULFATE / D5W 1 GM/100 ML BAG IV ONE (02:10)
[2019-06-24] MEDS ORDERED: SODIUM PHOSPHATE 3 MMOL/1 ML INFUSION IV STA ×2 (02:10→08:33)
[2019-06-24] MEDS ORDERED: SODIUM CHLORIDE 0.9% 1000ML 1,000 ML IV SCH ×2 (02:15→06:00)
[2019-06-24] MEDS ORDERED: SODIUM PHOSPHATE 24 MMOL in SODIUM CHLORIDE 0.9% 500 ML IV ONE (02:15)
--- NOTE | 2019-06-24 03:42 | Critical Care Consultation ---
Date of Consultation June 24, 2019 Assessment & Plan (1) Admitted to intensive care unit: Reason Critically Ill: 83-year-old female presenting with acute blood loss anemia from suspected lower GI bleed source complicated by recent treatment for bilateral extensive lower extremity DVT on Xarelto. Currently treated for sepsis from skin source. NEURO - * CAM ICU: NEGATIVE CARDIAC/VASCULAR - * Hypotension: * Worrisome for acute blood loss in the setting of presumed lower GIB. * Initially received 1L NSS with minimal improvement in BP. * Plan to transfuse PRBCs. * Caution w/ transfusion in the setting of diastolic dysfunction. * Will hold on Lasix dosing until BP tolerates. * Pressors if needed. * Mentating well at this time. * Will place Bird catheter for evaluation of urine output to demonstrate adequate perfusion. * Hold HTN Rx at present. * Consider possibility of thromboembolic event resulting in massive pulmonary embolus, however patient is without any other sequela of such (i.e. hypoxia, tachycardia, elevated troponin, elevated lactate, etc.). * While the patient may benefit from PE study in the near future given her likelihood of underlying PEs given extent of DVTs, I would hold at present until patient has been resuscitated further w/ PRBCs. * Consider addition of Echo w/ acute change in BP, but again, would appreciate seeing how her hemodynamics respond to resuscitation efforts currently. * Extensive Bilateral Lower Extremity DVTs: * This certainly will be difficult to treat in the setting of Lower GIB. * Will hold on Xarelto at this time. * Consider starting agent w/ correction capabilities given her poor tolerance to Xarelto (i.e. GIB). * EKG: SR w/ LBBB, QTc 442ms. * Monitor on telemetry. RESPIRATORY - * h/o COPD: * Does not regularly use her albuterol inhaler at home. * Monitor closely for s/s of worsening Dz. GI/NUTRITION - * Gastrointestinal Bleed: * Complicated by recent Xarelto dosing. * Resuscitate w/ blood products. * Monitor for worsening bleeding. * Lactate negative and w/o significant abdominal pain to suggest significant bowel ischemia. * Consider CT Abd/Pelvis w/ IVC for thorough assessment, particularly in the UC patient. * Ulcerative Colitis: * Not regularly managed in the outpatient setting s/s patient non-compliance. * Currently on Mesalamine per GI recommendations. * Appreciate continued GI guidance. * Prophylaxis: Famotidine RENAL/LYTES - * AYAD: * Dramatic drop in GFR w/ rise in Cr in less than 24 hours. * May be 2/2 recent hypotension w/ hypoperfusion. * Received 1L IVF prior to arrival. * Continue to address blood losses w/ transfusion. * IVF once PRBCs complete. * IVF: NSS@100mL/hr - * No concerns at this time. * Bird in place - Strict I&Os. ENDO - * No h/o DM or Thyroid Dz * BSGs per unit protocol. ISS --> gtt per unit policy. HEME - * Acute Blood Loss Anemia on Chronic Anemia: * GI Losses. * Complicated by Xarelto use. * Transfuse PRBCs. * Hold on PCCs at this time. Consider administration if bleeding persists. * Extensive Bilateral DVTs: * May consider Heme consult given complexity and need for close outpatient monitoring after addition of new anticoagulation regime. * Will hold on anticoagulation at this time in the setting of lower GIB. ID - * Sepsis: * Bilateral Lower Extremity Cellulitis. * Currently on Cefepime/Daptomycin. * Will check CPK - could certainly contribute to AYAD if elevated, particularly in the patient w/ h/o Rhabdomyolysis. * Will repeat blood cultures from presentation w/ return of fever w/ hypotension. * Check ProCal. * Repeat CRP. LINES/IV ACCESS - * PIVs x2 * LEFT Brachial Endurance Catheter. DVT PROPHYLAXIS - * Hold 2/2 Lower GIB. * SCDs I have personally spent 45 minutes of critical care time in the direct management of this patient. This is a life/limb threatening event. This includes time spent evaluating patient, direct bedside care, chart review, placing orders, interpretation of diagnostic studies, discussion with consultants, patient, and family members, as well as other required patient management activities. This time is exclusive of all separately billable procedures, and teaching time and separate from and in addition to any other critical care service time. Thank you for allowing us to participate in the care of this patient. Please refer to my attending physician's documentation for any further recommendations. (2) BRBPR (bright red blood per rectum): (3) Anticoagulated by anticoagulation treatment: (4) Hypotension: (5) Cellulitis of both lower extremities: (6) Sepsis: (7) DVT prophylaxis: (8) Lymphedema: (9) Acute blood loss anemia: (10) Fall: (11) Diastolic CHF: (12) Ulcerative colitis: (13) Left bundle branch block: (14) Venous insufficiency: (15) COPD, mild: History of Present Illness Attending Physician: Simón Salinas MD History of Present Illness Patient is an 83-year-old female with a significant past medical history of ulcerative colitis, hypertension, chronic diastolic heart failure, bilateral lower extremity lymphedema, COPD, and chronic anemia who initially presented to the emergency department with concerns for sepsis stemming from bilateral lower extremity cellulitis with wounds. Upon presentation to the emergency department she had reported periods of confusion. She underwent extensive evaluation during hospitalization including MRI of the lower extremities which ruled out osteomyelitis, but findings were concerning for bilateral lower extremity extensive DVTs. She was initially started on heparin drip and subsequently started on Xarelto. She was having multiple loose stools which have been C. difficile negative. She has been taking mesalamine since being admitted. She had been doing quite well and her white blood cell count as well as inflammatory markers have been improving. She been placed on daptomycin and cefepime pending formal cultures. Last evening and into this morning, the patient developed bright red blood per rectum with multiple clots after bowel movement. She became hypotensive with systolic blood pressures in the 70s. Repeat laboratory assessment demonstrates drop in H&H. Remaining lab assessment is otherwise unremarkable. She received a liter of IV fluid and was ordered 2 units PRBCs. With concern for persistent hypotension, the patient was transferred to the ICU for further evaluation and management. Upon arrival in the ICU, the patient is awake, alert, and oriented. She reports that her abdomen feels "funny", but is unable to describe any pain or other symptoms. She reports that she had not noticed any blood in her stool and previously her stools at home and then dark brown, but without blood. She reports feeling tired, but otherwise offers no complaints, specifically, the patient denies any complaints of headaches, dizziness, lightheadedness, visual disturbances, chest pain, palpitations, pleuritic pain, nausea, vomiting, abdominal pain, hematuria, dysuria, or numbness/weakness to her extremities. Allergies Allergy/AdvReac Type Severity Reaction Status Date / Time erythromycin base Allergy Intermediate RASH Verified 06/21/19 20:19 Penicillins Allergy Intermediate HIVES Verified 06/21/19 20:19 tetracycline Allergy Intermediate HIVES Verified 06/21/19 20:19 Home Medications Home Medications Medication Instructions Recorded Confirmed Type aspirin 81 mg PO DAILY 11/16/18 06/21/19 History carvedilol 3.125 mg PO BID 11/16/18 06/21/19 History furosemide 20 mg PO DAILY 11/16/18 06/21/19 History losartan 50 mg PO QAM 11/16/18 06/21/19 History mesalamine 800 mg PO TID 11/16/18 06/21/19 History potassium chloride 20 meq PO DAILY 11/16/18 06/21/19 History acetaminophen [Mapap 650 mg PO Q4H PRN #20 tab 11/19/18 06/21/19 Rx (acetaminophen)] glucos sul [id number]-Mn 1 cap PO BID 05/23/19 06/21/19 History [Glucosamine Chondroitin] multivitamin 1 tab PO DAILY 05/23/19 06/21/19 History albuterol sulfate [Proventil HFA] 2 puff INHALATION Q6H PRN 06/21/19 06/21/19 History rivaroxaban [Xarelto] 1 ea PO BID 30 Days #51 ea 06/22/19 Rx Patient History Medical History Mild tricuspid regurgitation (Chronic) Moderate mitral regurgitation (Chronic) Nonischemic cardiomyopathy (Chronic) Diastolic CHF (Chronic) Ulcerative colitis (Chronic) Left bundle branch block (Chronic) Venous insufficiency (Chronic) COPD, mild (Chronic) Hypertension (Chronic) Colitis (Chronic) Surgical History S/P right knee arthroscopy (Chronic) S/p bilateral carpal tunnel release (Chronic) Family History Other Family history non-contributory Social History Preferred Language: Yi Communication Ability: Effective Bronc Breaker Required: Yes Beliefs That Will Affect Care: None Current Living Situation: Alone Other Information That Helps Us Care for You: No Feels Safe at Home: Yes Safety Concerns: Feels Safe At This Time Smoking Status: Former smoker Tobacco Type: cigarettes ; Do You Dip or Chew Tobacco: No ; Second Hand Exposure: No ; Tobacco Cessation Education Requested by Patient: No Hx Alcohol Use: Yes Hx Substance Use: No Review of Systems Review of Systems: A complete 10 point review of systems was reviewed with the patient with pertinent positives and negatives as per history of present illness. All else were negative. Physical Exam Physical Exam: VITAL SIGNS - Vital signs and nursing notes were reviewed. GENERAL - 83-year-old female appearing her stated age who is in no acute distress. Communicates well with provider and answers questions appropriately. SKIN - Pale appearing. Multiple areas of ecchymosis to the bilateral upper extremities. Multiple superficial ulcerative wounds noted to the bilateral lower extremities. HEAD - NC/AT. EYES - PERRL with EOMI bilaterally. Sclera anicteric. Palpebral conjunctiva pale and moist with no injection noted. EARS - No deformities of external structures noted on gross examination bilaterally. NOSE - Midline and without cyanosis. No epistaxis or purulent drainage noted. MOUTH/OROPHARYNX - Without perioral cyanosis. Buccal mucosa pink and moist and without leukoplakia. Tongue midline with equal elevation of palate bilaterally. NECK - Neck with FROM. Supple to palpation. No nuchal rigidity. LUNGS - Chest wall symmetric without accessory muscle use, intercostals retractions, or central cyanosis. Normal vesicular breath sounds CTA B/L. No wheezes, rales, or rhonchi appreciated. CARDIAC - RRR with S1/S2. No murmur, rubs, or gallops appreciated. ABDOMEN - Abdominal contour obese without pulsations or visible masses. BS nor moactive all four quadrants. Mild tenderness to palpation throughout. No palpable masses, hepatosplenomegaly, or ascites noted. EXTREMITIES - No clubbing or peripheral cyanosis. Wounds as above. Moderate bilateral lower extremity edema extending from the groin to the feet. +3/5 radial and dorsalis pedis pulses palpated throughout. +5/5 strength noted in UE/LE bilaterally. NEUROLOGIC - Cranial nerves II through XII grossly intact. Sensory intact to light touch throughout. PSYCH - A&Ox3 and cooperates fully with examiner. Pt is very pleasant and interacts well with examiner. Results & Data Vital Signs (Past 12 Hours) Vital Signs Temp Pulse Pulse Resp BP BP Pulse Ox 06/24/19 03:23 37.2 C 89 20 89/37 L 97 06/24/19 02:44 90 72/28 L 06/24/19 02:32 75/35 L 06/24/19 01:24 78/58 L 06/24/19 01:16 99 H 87/47 L 97 06/24/19 01:15 38.2 C H 94/52 L 06/23/19 23:07 38.9 C H 111 H 20 131/75 94 06/23/19 19:29 36.7 C 72 20 112/70 96 06/23/19 16:15 36.5 C 74 18 108/62 99 06/23/19 15:55 69 PG Care Time/CCT Total # of Minutes Spent Total Time Spent with Patient: Total time spent is greater than 50% in coordi nation of care (as documented) at patient's floor/unit and/or counseling patient: Critical Care Time: Yes Total Critical Care Time: 45 (1) Hypotension Hypotension type: unspecified hypotension type Qualified Code(s): I95.9 - Hypotension, unspecified (2) Sepsis Sepsis acute organ dysfunction status: unspecified Sepsis type: sepsis due to unspecified organism Qualified Code(s): A41.9 - Sepsis, unspecified organism
[2019-06-24 04:02] LABS: Hematocrit (blood only) 18.2 % (37-47)
[2019-06-24 04:17] LABS: C Reactive Protein 7.91 mg/dl (0-0.29)
[2019-06-24 04:30] LABS: Troponin I 0.024 ng/ml (0-0.045)
--- NOTE | 2019-06-24 06:23 | Procedure Note ---
Procedure Note Date of Service June 24, 2019 Procedure: Adult Day Care Worker Indwelling Peripherally Inserted IV Catheter Placement Attending: Dr. Saucedo APC: Bal Azar PA-C Indication: Need for IV Access, Poor Vascular Access Anesthesia: None Verbal consent was obtained from patient prior to performing the procedure. A time-out was completed verifying correct patient, procedure, site, positioning, and implant(s) or special equipment if applicable. Utilizing bedside ultrasound, vascularity of the LEFT upper extremity was assessed. Vessel size was noted for appropriate catheter selection and skin was marked with gentle pressure. Patients LEFT upper extremity was prepped and draped in the usual sterile fashion utilizing chlorhexidine. Ultrasound guidance was used to aid needle placement. An 18 g Endurance Catheter was introduced into the LEFT Brachial vein under direct ultrasound guidance. Guide wire was easily deployed without resistance. Catheter was threaded over the guide wire without resistance and the entire apparatus was removed intact. Good venous blood return was noted in the catheter. The IV catheter was easily flushed with sterile saline flush. Sterile clave was attached to the end of the catheter and good blood return was again noted. Tourniquet was released. StatLock device and sterile dressing were applied. The patient tolerated the procedure well. Blood Loss: Minimal Complications: None Procedural Ultrasound Guidance: Procedure Date: 06/24/2019 Indication: Poor Vascular Access Attending: Dr. Saucedo APC: Bal Azar PA-C Artery/Veins Identified: YES Access confirmed in Vein with ultrasound: YES Complications: NONE Patient tolerated procedure: WELL Coding
[2019-06-24] MEDS ORDERED: ACETAMINOPHEN 65 ML IV PRN (08:15)
--- NOTE | 2019-06-24 08:22 | Hospitalist Progress Note ---
Date of Service June 24, 2019 Assessment & Plan (1) Sepsis: -admission hospitalist diagnosis of sepsis secondary to right lower extremity cellulitis -admission leukocytosis of 26,000 -wound care -PT/OT evaluations appears to be recommending short stay after hospitalization to a SNF or inpatient rehabilitation center -Lower extremity MRI 1. Diffuse cutaneous and subcutaneous edema 2. Muscular atrophy and mild intramuscular edema 3. No evidence of focal abscess 4. No evidence of osteomyelitis. -ultrasound: Enlarged bilateral inguinal lymph nodes measuring 4.6 x 1.5 x 2.4 cm on the right and 3.7 x 0.9 x 2.4 cm on the left. Subcutaneous edema noted in the bilateral lower extremities; Suspected reactive lymphadenopathy in the bilateral inguinal regions. -was started on cefepime and daptomycin empirically on admission - blood cultures no growth to date, Wound culture with Staphylococcus aureus with results returned as MSSA and wound culture Corynebacterium species -stop daptomycin on 06/24/19, continue cefepime for now Acute Deep Vein Thrombosis of bilateral lower extremities Anticoagulated by anticoagulation Therapy -ultrasound: Bilateral extensive deep venous thrombosis from the calf veins to the common femoral veins, partially occlusive on the right and occlusive in the lower leg on the left. -heparin drip IV was transitioned to Xarelto starting on 06/22/19 day time with plans of Xarelto 15 mg twice a day for 21 days and then 20 mg daily -last dose of Xarelto was 06/23/19 evening then subsequently patient had GI bleed -discussed with patient and misti Yañez ([phone]) about obtaining vascular surgery service to evaluate for possibility of IVC filter Acute on chronic anemia acute blood loss anemia secondary to Gastrointestinal bleed -patient had stable hemoglobin above 8 on from 06/21/19 to 06/23/19 while on systemic anticoagulation -GI bleed with Hgb declined to 6 on 06/24/19 and to get total of 2 units of PRBC while in the Intensive Care Unit -Gastroenterology service recalled to re-evaluate Ulcerative colitis -Gastroenterology service was initially consulted for assistance with patient's chronic Ulcerative colitis with which symptoms were chronic diarrhea/loose stools -while being evaluated for acute GI bleed, will hold off oral and rectal enema mesalamine chronic systolic heart failure EF 44%, TTE 2013, chronic Left bundle branch block -IV Lasix 20 mg x 1 given on 06/22/19 to prevent possibility of fluid overload because of recent IV medications -was resumed 20 mg Lasix oral starting on 06/23/19 -hold further diuretic while being evaluated for acute GI bleed Electrolytes -Hypokalemia resolved -Hypomagnesemia: serum magnesium 1.7 on 06/24/19, given IV magnesium -Hypophosphatemia: serum phosphate 1.6 on 06/24/19, give IV sodium phosphate -recheck electrolytes COPD as per records, past tobacco use -breathing on room air -prn nebulizers if needed Pre-Diabetes -HbA1c 6.4 -currently NPO history skin cancer status post surgery in the past DVT prophylaxis: holding off pharmacological blood thinners due to GI bleed, avoid SCDs due to bilateral DVTs Full code Patient's niece Ms. Patsy Yañez, contact #[phone]. Subjective Overnight, patient's blood pressure declined secondary to GI bleed. patient reported recently of dark brown stools. Patient transferred to ICU level of care. Patient receiving PRBC transfusion. awake and alert. mental baseline. patient denies shortness of breath or chest pain. when palpating the abdomen, she feels like she needs to urinate. Physical Exam Constitutional: comfortable Eyes: PERRL, conjunctivae normal, anicteric sclerae EOM intact bilaterally ENMT: external ear and nose normal, oropharynx normal Neck: normal visual inspection Respiratory: normal respiratory effort, lungs clear to auscultation Cardiovascular: Rate/Rhythm: regular rate and regular rhythm Gastrointestinal (Abdomen): normal bowel sounds, soft, nontender, no hepatosplenomegaly Musculoskeletal: bilateral lower extremity swelling Neurologic: PERRL, EOMI, accommodation nl, no face palsy, no dysarthria Psychiatric: A+Ox3, euthymic affect Results & Data Vital Signs (Past 12 Hours) Vital Signs Temp Pulse Pulse Resp BP BP BP 06/24/19 07:28 36.7 C 86 20 100/56 L 06/24/19 06:58 36.6 C 80 18 99/40 L 06/24/19 06:43 36.9 C 83 18 90/51 L 06/24/19 06:26 36.6 C 80 21 95/43 L 06/24/19 06:15 36.9 C 82 18 92/47 L 06/24/19 06:12 37.2 C 82 18 92/47 L 06/24/19 05:12 36.9 C 80 17 85/37 L 06/24/19 04:42 36.9 C 85 21 91/43 L 06/24/19 04:27 36.9 C 84 20 88/42 L 06/24/19 04:15 37.3 C 83 14 93/41 L 06/24/19 04:09 36.9 C 86 20 78/43 L 06/24/19 03:23 37.2 C 89 20 89/37 L 06/24/19 02:44 90 72/28 L 06/24/19 02:32 75/35 L 06/24/19 01:24 78/58 L 06/24/19 01:16 99 H 87/47 L 06/24/19 01:15 38.2 C H 94/52 L 06/23/19 23:07 38.9 C H 111 H 20 131/75 Pulse Ox 06/24/19 07:28 97 06/24/19 06:58 98 06/24/19 06:43 97 06/24/19 06:26 99 06/24/19 06:15 98 06/24/19 06:12 98 06/24/19 05:12 97 06/24/19 04:42 98 06/24/19 04:27 98 06/24/19 04:15 98 06/24/19 04:09 98 06/24/19 03:23 97 06/24/19 02:44 06/24/19 02:32 06/24/19 01:24 06/24/19 01:16 97 06/24/19 01:15 06/23/19 23:07 94 (1) Sepsis Sepsis acute organ dysfunction status: unspecified Sepsis type: sepsis due to unspecified organism Qualified Code(s): A41.9 - Sepsis, unspecified organism
[2019-06-24] MEDS ORDERED: SODIUM PHOSPHATE 21 MMOL in SODIUM CHLORIDE 0.9% 500 ML IV ONE (08:45)
--- NOTE | 2019-06-24 08:55 | Anesthesiology Consultation ---
Date of Service June 24, 2019 The patient has a DVT and will undergo IVC filter placement this AM. She has what is thought to be a lower GI bleed due to a large amount of bright red blood in her stool. Her hgb was 6 early in the AM. She has since recieved two units of PRBC. Consent was obtained for anesthesia for and EGD later today. Assessment & Plan (1) Encounter for pre-operative examination: Chart Review Chart Review: Acceptable Risk for Surgery and Patient NOT seen in Pre Admission Testing Consults Requested none the patient is in the ICU History Surgery Operation Date: 06/24/19 08:30 Proposed Procedures p Esophagogastroduodenoscopy Dr Mateo Galindo Operation Date: 06/24/19 09:40 Proposed Procedures p Inferior Vena Cava Filter Placement - Warren Urbina MD Height/Weight Height: 5 ft 2 in Weight: 77.9 kg Allergies Allergy/AdvReac Type Severity Reaction Status Date / Time erythromycin base Allergy Intermediate RASH Verified 06/21/19 20:19 Penicillins Allergy Intermediate HIVES Verified 06/21/19 20:19 tetracycline Allergy Intermediate HIVES Verified 06/21/19 20:19 Medications Home Medications Medication Instructions Recorded Confirmed Last Taken aspirin 81 mg PO DAILY 11/16/18 06/21/19 Unknown carvedilol 3.125 mg PO BID 11/16/18 06/21/19 05/22/19 furosemide 20 mg PO DAILY 11/16/18 06/21/19 Unknown losartan 50 mg PO QAM 11/16/18 06/21/19 05/22/19 mesalamine 800 mg PO TID 11/16/18 06/21/19 05/22/19 potassium chloride 20 meq PO DAILY 11/16/18 06/21/19 05/22/19 acetaminophen [Mapap 650 mg PO Q4H PRN #20 tab 11/19/18 06/21/19 Unknown (acetaminophen)] glucos sul [id number] 1 cap PO BID 05/23/19 06/21/19 Unknown [Glucosamine Chondroitin] multivitamin 1 tab PO DAILY 05/23/19 06/21/19 Unknown albuterol sulfate [Proventil HFA] 2 puff INHALATION Q6H PRN 06/21/19 06/21/19 Unknown rivaroxaban [Xarelto] 1 ea PO BID 30 Days #51 ea 06/22/19 Unknown Active Medications Generic Name Dose Route Start Last Admin Trade Name Dave PRN Reason Stop Dose Admin Cefepime HCl 2,000 mg/ Syringe 20 mls @ 5 mls/min 06/22/19 22:00 06/23/19 21:00 IV 06/30/19 22:03 5 mls/min Q24H JEVON Administration Protocol Sodium Chloride 1,000 mls @ 100 mls/hr 06/24/19 06:00 06/24/19 08:35 Nss 1000ml IV 07/24/19 05:59 100 mls/hr .Q10H JEVON Administration Mesalamine 4 gm 06/22/19 21:00 06/23/19 20:55 Rowasa CA 07/22/19 20:59 Not Given HS JEVON Mesalamine 1,600 mg 06/23/19 21:00 06/23/19 20:54 Delzicol PO 07/23/19 20:59 1,600 mg TID JEVON Administration Past Medical History Medical History Mild tricuspid regurgitation (Chronic) Moderate mitral regurgitation (Chronic) Nonischemic cardiomyopathy (Chronic) Diastolic CHF (Chronic) Ulcerative colitis (Chronic) Left bundle branch block (Chronic) Venous insufficiency (Chronic) COPD, mild (Chronic) Hypertension (Chronic) Colitis (Chronic) Past Family History Family History Other Family history non-contributory Past Surgical History Surgical History S/P right knee arthroscopy (Chronic) S/p bilateral carpal tunnel release (Chronic) Social History Smoking Status: Former smoker tobacco type: cigarettes Do You Dip or Chew Tobacco: No Hx Alcohol Use: Yes alcohol intake frequency: holidays/special occasions only Hx Substance Use: No Physical Exam Vital Signs Last Vital Signs Temp 37 C 06/24/19 08:28 Pulse 86 06/24/19 08:28 Resp 20 06/24/19 07:28 BP 118/58 L 06/24/19 08:28 Pulse Ox 98 06/24/19 08:28 Testing Laboratory Results 06/24/19 03:43 06/24/19 01:20 PT 11.7 Seconds (9.0-12.0) 06/22/19 10:10 INR 1.2 (0.9-1.1) H 06/22/19 10:10 APTT 50.7 Seconds (21.0-31.0) H* 06/22/19 17:59 Hemoglobin A1c 6.4 % (4.5-5.6) H 06/21/19 19:40 Urine Color Yellow 06/22/19 02:45 Urine Appearance Clear (Clear) 06/22/19 02:45 Urine pH 6.0 (4.5-7.5) 06/22/19 02:45 Ur Specific [place] 1.014 (1.000-1.030) 06/22/19 02:45 Urine Protein Negative (Negative) 06/22/19 02:45 Urine Glucose (UA) Negative (Negative) 06/22/19 02:45 Urine Ketones Negative (Negative) 06/22/19 02:45 Urine Nitrite Negative (Negative) 06/22/19 02:45 Ur Leukocyte Esterase Trace (Negative) H 06/22/19 02:45 Urine WBC (Auto) 1-5 /hpf (0-5) 06/22/19 02:45 Urine RBC (Auto) 0-4 /hpf (0-4) 06/22/19 02:45 U Hyaline Cast (Auto) 1-5 /lpf (0-5) 06/22/19 02:45 U Epithel Cells (Auto) 10-20 /lpf (0-5) H 06/22/19 02:45 Urine Bacteria (Auto) Negative (Negative) 06/22/19 02:45 Blood Type O Positive 06/21/19 21:19 Antibody Screen NEGATIVE 06/21/19 21:19 06/22/19 03:15 Gram Stain - Final Leg,Right Wound Culture - Preliminary Staphylococcus aureus Corynebacterium species Staphylococcus species 06/21/19 19:40 Aerobic Blood Culture - Preliminary Blood No growth in Aerobic bottle after 48 hours. Anaerobic Blood Culture - Preliminary No growth in Anaerobic bottle after 48 hours. 06/21/19 20:06 Aerobic Blood Culture - Preliminary Blood No growth in Aerobic bottle after 48 hours. Anaerobic Blood Culture - Preliminary No growth in Anaerobic bottle after 48 hours. 06/22/19 02:45 Urine Culture - Preliminary Urine,Clean Catch No growth - Less than 1,000 colonies/mL, Final report to follow. 06/22/19 13:00 Escherichia coli Shiga Toxins Test - Preliminary Stool Stool Culture - Preliminary No Salmonella isolated to date, No Shigella isolated to date, No Campylobacter jejuni isolated to date. 06/24/19 06:45 POC Glucose 117 H Electrocardiogram Date: 06/24/19 Findings: + LBBB SR with PACs rate 86 Chest X-Ray Date: 06/21/19 XR chest 1V portable CLINICAL HISTORY: Sepsis dyspnea COMPARISON STUDY: 11/16/2018 FINDINGS: The bones soft tissues and hemidiaphragms are normal. The cardiomediastinal silhouette is normal. The lungs are clear. The pulmonary vasculature is normal. IMPRESSION: Negative chest. The above report was generated using voice recognition software. It may contain grammatical, syntax or spelling errors. Electronically signed by: Lonnie Parrish M.D. 06/21/2019 8:13 PM
--- NOTE | 2019-06-24 09:07 | Consultation ---
Date of Consultation June 24, 2019 Assessment & Plan (1) Deep vein thrombosis (DVT) of both lower extremities: Pt with acute-appearing BLE DVT and severe anemia from presumed GI bleed. Pt discussed with Dr Urbina, recommends IVC filter insertion later this morning. Procedure discussed at length with patient. She is agreeable. Patient for filter placement today. I have discussed the risks options and benefits of the procedure with the patient. The patient understands the risks options and benefits and agrees to the procedure. History of Present Illness Reason for Consultation: DVT/GI bleed Attending Physician: Simón Salinas MD History of Present Illness 83 yo f with hx of UC, chronic lymphedema, CHF, HTN, and nonischemic cardiomyopathy, admitted for BLE weeping ulcers and infection and found to have BLE DVT, now with GI bleed requiring transfusion, seen in consultation today for IVC filter insertion. Pt admits chronic edema of BLE, but states she noted worsening edema and weeping from her legs, which she does not usually experience. Was started on xarelto after venous doppler revealed BL DVT, however, this was stopped d/t severe anemia from presumed GI bleeding. Hgb 6 this AM and AC was stopped. Admits feeling fatigued today. Denies JAMIL, fever, chest pain, SOB, abd pain, N/V, rest pain, claudication, other complaints. Pt denies any hx of DVT in past. Venous doppler with RLE DVT from common fem to calf vessels, and LLE in comm fem v. Allergies Allergy/AdvReac Type Severity Reaction Status Date / Time erythromycin base Allergy Intermediate RASH Verified 06/21/19 20:19 Penicillins Allergy Intermediate HIVES Verified 06/21/19 20:19 tetracycline Allergy Intermediate HIVES Verified 06/21/19 20:19 Home Medications Home Medications Medication Instructions Recorded Confirmed Type aspirin 81 mg PO DAILY 11/16/18 06/21/19 History carvedilol 3.125 mg PO BID 11/16/18 06/21/19 History furosemide 20 mg PO DAILY 11/16/18 06/21/19 History losartan 50 mg PO QAM 11/16/18 06/21/19 History mesalamine 800 mg PO TID 11/16/18 06/21/19 History potassium chloride 20 meq PO DAILY 11/16/18 06/21/19 History acetaminophen [Mapap 650 mg PO Q4H PRN #20 tab 11/19/18 06/21/19 Rx (acetaminophen)] glucos sul [id number]-Mn 1 cap PO BID 05/23/19 06/21/19 History [Glucosamine Chondroitin] multivitamin 1 tab PO DAILY 05/23/19 06/21/19 History albuterol sulfate [Proventil HFA] 2 puff INHALATION Q6H PRN 06/21/19 06/21/19 History rivaroxaban [Xarelto] 1 ea PO BID 30 Days #51 ea 06/22/19 Rx Patient History Medical History Mild tricuspid regurgitation (Chronic) Moderate mitral regurgitation (Chronic) Nonischemic cardiomyopathy (Chronic) Diastolic CHF (Chronic) Ulcerative colitis (Chronic) Left bundle branch block (Chronic) Venous insufficiency (Chronic) COPD, mild (Chronic) Hypertension (Chronic) Colitis (Chronic) Surgical History S/P right knee arthroscopy (Chronic) S/p bilateral carpal tunnel release (Chronic) Family History Other Family history non-contributory Social History Preferred Language: Tajik Communication Ability: Effective 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 Beliefs That Will Affect Care: None Current Living Situation: Alone Other Information That Helps Us Care for You: No Feels Safe at Home: Yes Safety Concerns: Feels Safe At This Time Smoking Status: Former smoker Tobacco Type: cigarettes ; Do You Dip or Chew Tobacco: No ; Second Hand Exposure: No ; Tobacco Cessation Education Requested by Patient: No Hx Alcohol Use: Yes Hx Substance Use: No Review of Systems Review of Systems: All systems reviewed & are unremarkable except as noted in HPI & below Physical Exam Constitutional: WD/WN, vitals as above well developed, well nourished, + ill appearing (mildly. Pale), well groomed, cooperative and comfortable; not in distress and not combative Eyes: PERRL, conjunctivae normal, anicteric sclerae EOM intact bilaterally ENMT: external ear and nose normal, oropharynx normal Ears: no hearing impairment Nose: no nasal discharge Neck: trachea midline Respiratory: normal respiratory effort, lungs clear to auscultation able to speak in complete sentences; does not use accessory muscles, no cough and no audible wheezes Auscultation: lungs clear to auscultation bilaterally and + diminished lung sounds; no rhonchi and no wheezes Cardiovascular: Rate/Rhythm: regular rate and regular rhythm Heart Sounds: + murmur; no gallop Vessels: femoral pulses present, posterior tibial pulses present, dorsalis pedis pulses present, brachial pulses present and radial pulses present; no carotid bruit, no abdominal aortic bruit, no femoral bruit and + abnormal peripheral pulses Extremities: normal capillary refill and + edema Gastrointestinal (Abdomen): Inspection/Auscultation: abdomen normal to inspection and normal bowel sounds; abdomen not distended and no abdominal edema Percussion/Palpation: abdomen soft; abdomen nontender, no guarding, abdomen not rigid and no pulsatile mass Musculoskeletal: no cyanosis or clubbing, extremities motor strength 5/5 Head/Neck/Chest: normocephalic, head atraumatic and neck supple Extremities: extremities normal to inspection, strength 5/5 throughout and + lower leg abnormality; full ROM of extremities and no clubbing Skin: no rashes, warm and dry normal turgor, + wound (Multiple small shallow wounds with clear serous weeping noted BLE, R>L) and + erythema; no rashes, no lesions, no ulcers, no induration, no eschar, no excoriations and no mottling Neurologic: moves all extremities and awake; no focal motor deficits and not confused Speech / Cognition: no expressive aphasia and no receptive aphasia Motor/Sensory: no tremor and no sensory deficit Cranial Nerves: EOM intact bilaterally and normal facial strength Psychiatric: Orientation: alert, oriented x 3 and cooperative Apperance: appropriately dressed, appropriately groomed and appeared stated age Affect: euthymic affect Thought Process: goal directed thought process, linear/logical thought process and clear/coherent thought process Cognition: recent memory grossly intact, remote memory grossly intact, attention grossly intact and language grossly intact Estimated Intelligence: average estimated intelligence Lymphatic: + lymphedema (BLE) Results & Data Vital Signs (Past 12 Hours) Vital Signs Temp Pulse Pulse Resp BP BP BP 06/24/19 08:28 37 C 86 118/58 L 06/24/19 07:28 36.7 C 86 20 100/56 L 06/24/19 06:58 36.6 C 80 18 99/40 L 06/24/19 06:43 36.9 C 83 18 90/51 L 06/24/19 06:26 36.6 C 80 21 95/43 L 06/24/19 06:15 36.9 C 82 18 92/47 L 06/24/19 06:12 37.2 C 82 18 92/47 L 06/24/19 05:12 36.9 C 80 17 85/37 L 06/24/19 04:42 36.9 C 85 21 91/43 L 06/24/19 04:27 36.9 C 84 20 88/42 L 06/24/19 04:15 37.3 C 83 14 93/41 L 06/24/19 04:09 36.9 C 86 20 78/43 L 06/24/19 03:23 37.2 C 89 20 89/37 L 06/24/19 02:44 90 72/28 L 06/24/19 02:32 75/35 L 06/24/19 01:24 78/58 L 06/24/19 01:16 99 H 87/47 L 06/24/19 01:15 38.2 C H 94/52 L 06/23/19 23:07 38.9 C H 111 H 20 131/75 Pulse Ox 06/24/19 08:28 98 06/24/19 07:28 97 06/24/19 06:58 98 06/24/19 06:43 97 06/24/19 06:26 99 06/24/19 06:15 98 06/24/19 06:12 98 06/24/19 05:12 97 06/24/19 04:42 98 06/24/19 04:27 98 06/24/19 04:15 98 06/24/19 04:09 98 06/24/19 03:23 97 06/24/19 02:44 06/24/19 02:32 06/24/19 01:24 06/24/19 01:16 97 06/24/19 01:15 06/23/19 23:07 94
[2019-06-24] MEDS: FAMOTIDINE 20 MG in SYRINGE 3 ML IV SCH ×2 (09:24→21:00)
[2019-06-24] MEDS ORDERED: LIDOCAINE HCL 1% 20 ML VIAL ONE (09:30)
[2019-06-24] MEDS: LACTATED RINGER'S 1,000 ML IV SCH ×2 (09:35→23:27)
[2019-06-24 09:41] LABS: Basophils # (auto) 0.01 K/uL (0-0.2); Basophils % (auto) 0.1 %; Eosinophils # (auto) 0.02 K/uL (0-0.5); Eosinophils % (auto) 0.2 %; Hemoglobin 9.1 g/dL (12.0-16.0); Immature Granulocytes # (auto) 0.05 K/uL (0.00-0.02); Immature Granulocytes % (auto) 0.5 %; Lymphocytes # (auto) 0.41 K/uL (1.2-3.4); Lymphocytes % (auto) 3.9 %; Mean Corpuscular Hemoglobin 28.3 pg (25-34); Mean Corpuscular Hgb Conc 33.7 g/dL (32-36); Mean Corpuscular Volume 84.1 fL (80-100); Mean Platelet Volume 9.3 fL (7.4-10.4); Monocytes # (auto) 0.33 K/uL (0.11-0.59); Monocytes % (auto) 3.1 %; Neutrophils # (auto) 9.69 K/uL (1.4-6.5); Neutrophils % (auto) 92.2 %; Platelet Count 293 K/uL (130-400); RDW Coefficient of Variation 18.1 % (11.5-14.5); RDW Standard Deviation 56.2 fL (36.4-46.3); Red Blood Count 3.21 M/uL (4.2-5.4); White Blood Count 10.51 K/uL (4.8-10.8)
[2019-06-24] MEDS ORDERED: SOD PHOSPHATE/SOD BIPHOSPHATE ENEMA 132 ML BTL PR ONE (10:00)
--- NOTE | 2019-06-24 10:07 | Pre Anesthesia Assessment ---
Date of Service June 24, 2019 Pre Sedation Assessment Vital Signs Temp Pulse Pulse Resp BP BP BP 06/24/19 09:47 36.9 C 80 20 144/50 H 06/24/19 09:01 84 20 144/50 H 06/24/19 08:28 37 C 86 118/58 L 06/24/19 08:00 79 06/24/19 07:28 36.7 C 86 20 100/56 L 06/24/19 06:58 36.6 C 80 18 99/40 L 06/24/19 06:43 36.9 C 83 18 90/51 L 06/24/19 06:26 36.6 C 80 21 95/43 L 06/24/19 06:15 36.9 C 82 18 92/47 L 06/24/19 06:12 37.2 C 82 18 92/47 L 06/24/19 05:12 36.9 C 80 17 85/37 L 06/24/19 04:42 36.9 C 85 21 91/43 L 06/24/19 04:27 36.9 C 84 20 88/42 L 06/24/19 04:15 37.3 C 83 14 93/41 L 06/24/19 04:09 36.9 C 86 20 78/43 L 06/24/19 03:23 37.2 C 89 20 89/37 L 06/24/19 02:44 90 72/28 L 06/24/19 02:32 75/35 L 06/24/19 01:24 78/58 L 06/24/19 01:16 99 H 87/47 L 06/24/19 01:15 38.2 C H 94/52 L 06/23/19 23:07 38.9 C H 111 H 20 131/75 06/23/19 19:29 36.7 C 72 20 112/70 06/23/19 16:15 36.5 C 74 18 108/62 06/23/19 15:55 69 06/23/19 11:31 36.4 C L 69 18 112/64 Pulse Ox 06/24/19 09:47 98 06/24/19 09:01 94 06/24/19 08:28 98 06/24/19 08:00 06/24/19 07:28 97 06/24/19 06:58 98 06/24/19 06:43 97 06/24/19 06:26 99 06/24/19 06:15 98 06/24/19 06:12 98 06/24/19 05:12 97 06/24/19 04:42 98 06/24/19 04:27 98 06/24/19 04:15 98 06/24/19 04:09 98 06/24/19 03:23 97 06/24/19 02:44 06/24/19 02:32 06/24/19 01:24 06/24/19 01:16 97 06/24/19 01:15 06/23/19 23:07 94 06/23/19 19:29 96 06/23/19 16:15 99 06/23/19 15:55 06/23/19 11:31 99 Cardiovascular RRR, no murmur, no edema Respiratory normal respiratory effort, lungs clear to auscultation Pre-Sedation Airway Assessment Smoking Status: Former smoker Hx Sleep Apnea: No Short, Thick Neck: No Thyromental Distance: > or= 3.5 Finger Breadths Oral Cavity: + WNL Mallampati Class: I ASA: ASA3 NPO Status Date of Last Intake of Fluids: 06/23/19 Time of Last Intake of Fluids: 21:00 Date of Last Intake of Solid Food: 06/23/19 Time of Last Intake of Solid Foods: 21:00 Procedure Planning Contraindications for Sedation: none Current Medications Reviewed: Yes Notes The planned sedation has been discussed with the patient. Informed Consent was obtained. I have identified the patient, determined the appropriateness of sedation and have assessed the patient immediately prior to the procedure. All medicine(s) and interventions are by my order.
[2019-06-24] MEDS ORDERED: fentaNYL citrate 100 MCG/2 ML VIAL ONE (10:08)
[2019-06-24] MEDS ORDERED: MIDAZOLAM HCL 1 MG/ML 2ML VIAL ONE (10:08)
[2019-06-24 10:12] LABS: BUN Creatinine Ratio 21.6 (10-20); Calcium 6.7 mg/dl (8.5-10.1); Creatinine Clr Calc Pharmacy 55.2 ml/min; Est GFR (African American) 88.5; Est GFR (Non-African American) 76.4; Magnesium 1.9 mg/dl (1.8-2.4); Potassium 3.4 mmol/L (3.5-5.1)
[2019-06-24] MEDS ORDERED: VISIPAQUE IV ONE (10:29)
--- NOTE | 2019-06-24 10:31 | Procedure Note ---
Post Operative Report Pre & Post Diagnosis Operation Date: 06/24/19 08:30 <No data on this case meets the specified criteria> Operation Date: 06/24/19 09:40 Pre-Op Diagnosis: acute deep vein thrombosis, gastrointestinal bleed Post-Op Diagnosis: acute deep vein thrombosis, gastrointestinal bleed Procedure Operation Date: 06/24/19 08:30 <No data on this case meets the specified criteria> Operation Date: 06/24/19 09:40 Actual Procedures p Insertion Of Inferior Vena Cava Filter, Right Femoral Approach, Ultrasound Localization Of Right Internal Femoral Vein, Fluoroscopy For Positioning, Moderate Concious Sedation 1015 to 1032(Right) - Warren Urbina MD Surgeon Warren Urbina MD Accounts Payable Manager Jeffry Mary MD Estimated Blood Loss 0 Findings Consistent with Post-Op Diagnosis Specimens None Anesthesia Type RN Sedation Complications none Disposition Disposition: Recovery Room Indications Valery Grubbs is a 83yo women with a large bilateral DVT burden who has developed a GI bleed. She can not be anticoagulated at this time and requires a IVC filter. The risks and benefits of the procedure were discussed and the patient was consented. Description of Procedure The patient was brought to the angio suite and placed in the supine position. The right groin was prepped and draped in the usual fashion. The common femoral vein was located with ultrasound. It was patent, compressed easily, and had no filling defects. The patient was identified and a timeout performed. The vein was then punctured under ultrasound visualization. A guidewire was then passed centrally into the inferior vena cava under fluoroscopic guidance. The puncture site was then dilated and the filter sheath inserted. It was passed to the infra renal vena cava. A venacavagram was done which showed no cava clot and an acceptable size. The renal veins were identified. The filter was then passed through the sheath and deployed in the infra renal vena cava in an upright position. Satisfied with the positioning of the filter, the sheath was removed. Pressure was applied to the puncture site. Adequate hemostasis was obtained and a sterile dressing was applied. The patient left the angio suite in good condition and tolerated the procedure well. Dr. Urbina was present and scrubbed for the entire procedure. I attest to the content of the Intraoperative Record and any orders documented therein. Any exceptions are noted below.
--- NOTE | 2019-06-24 10:36 | Post Anesthesia Assessment ---
Date of Service June 24, 2019 Post Sedation Assessment Vital Signs Temp Pulse Pulse Resp BP BP BP 06/24/19 10:32 79 17 114/54 L 06/24/19 10:27 82 16 114/54 L 06/24/19 10:25 80 22 114/54 L 06/24/19 10:20 89 18 117/63 06/24/19 10:15 82 16 124/74 06/24/19 10:12 87 18 126/88 06/24/19 09:47 36.9 C 80 20 144/50 H 06/24/19 09:01 84 20 144/50 H 06/24/19 08:28 37 C 86 118/58 L 06/24/19 08:00 79 06/24/19 07:28 36.7 C 86 20 100/56 L 06/24/19 06:58 36.6 C 80 18 99/40 L 06/24/19 06:43 36.9 C 83 18 90/51 L 06/24/19 06:26 36.6 C 80 21 95/43 L 06/24/19 06:15 36.9 C 82 18 92/47 L 06/24/19 06:12 37.2 C 82 18 92/47 L 06/24/19 05:12 36.9 C 80 17 85/37 L 06/24/19 04:42 36.9 C 85 21 91/43 L 06/24/19 04:27 36.9 C 84 20 88/42 L 06/24/19 04:15 37.3 C 83 14 93/41 L 06/24/19 04:09 36.9 C 86 20 78/43 L 06/24/19 03:23 37.2 C 89 20 89/37 L 06/24/19 02:44 90 72/28 L 06/24/19 02:32 75/35 L 06/24/19 01:24 78/58 L 06/24/19 01:16 99 H 87/47 L 06/24/19 01:15 38.2 C H 94/52 L 06/23/19 23:07 38.9 C H 111 H 20 131/75 06/23/19 19:29 36.7 C 72 20 112/70 06/23/19 16:15 36.5 C 74 18 108/62 06/23/19 15:55 69 06/23/19 11:31 36.4 C L 69 18 112/64 Pulse Ox 06/24/19 10:32 95 06/24/19 10:27 98 06/24/19 10:25 98 06/24/19 10:20 98 06/24/19 10:15 98 06/24/19 10:12 96 06/24/19 09:47 98 06/24/19 09:01 94 06/24/19 08:28 98 06/24/19 08:00 06/24/19 07:28 97 06/24/19 06:58 98 06/24/19 06:43 97 06/24/19 06:26 99 06/24/19 06:15 98 06/24/19 06:12 98 06/24/19 05:12 97 06/24/19 04:42 98 06/24/19 04:27 98 06/24/19 04:15 98 06/24/19 04:09 98 06/24/19 03:23 97 06/24/19 02:44 06/24/19 02:32 06/24/19 01:24 06/24/19 01:16 97 06/24/19 01:15 06/23/19 23:07 94 06/23/19 19:29 96 06/23/19 16:15 99 06/23/19 15:55 06/23/19 11:31 99 Recovery Score Activity: Moves 4 extremities Respiration: Deep Breath/Cough Circulation: +/-20% PreAnes Value Consciousness: Arouseable (by name) Oxygen Saturation: O2 needed for >90% Post Anesthesia Score: 8 Discharge Sedation Level of Care: Fast Track Phase II Post Sedation Plan On clinical assessment, the patient appears to have tolerated the sedation without complications. Patient is recovering as anticipated. Patient will continue to be monitored by nursing and may be discharged when sedation discharge criteria are met per below protocol. Upon Completions of procedure and additional 15 minutes continue every 5 minute vital signs and the P.A.R. score; then discharge to a Phase I or Fast Track to Phase II per the following guidelines: * Discharge Patient to appropriate Phase II area if PAR is 8 or greater or return to pre- procedure baseline. The post - procedure orders will be as directed. * If PAR score is less than 8 or not return to pre-procedure baseline then patient will follow Phase I monitoring till PAR is reached for Phase II. The Phase I may be done in procedure room or may call to secure a Phase I area. * If naloxone or flumazenil are used for reversal, hold in Phase I for continued monitoring from when last reversal dose was given for a minimum of 60 minutes or longer pending the nurse and/or physician discretion of patient condition before discharge to Phase II. Please call the Sedation Physician to re-evaluate and complete post-note for discharge to Phase II area. Do NOT discharge from procedure sedation or Phase 1 until post- sedation evaluation note is complete by procedure /sedation MD Sedation Discharge Instructions to be given to the patient at discharge to home.
--- NOTE | 2019-06-24 10:37 | Gastroenterology Progress Note ---
Date of Service June 24, 2019 Assessment & Plan (1) Sepsis: (2) Cellulitis of both lower extremities: (3) Ulcerative colitis: Pt is a 83 y/o female with a hx of UC is admitted w sepsis likely secondary to bilateral LE cellulitis, DVT. She has hx of L sided, rectal sparing UC, Cdiff and GI consulted for increased diarrhea symptoms.Passing 1-3 loose brown Bms/day since admission so not clinically significant diarrhea during this admission. - Review stool cx and Cdiff results when available. - Continue po Mesalamine at increased dose 1600mg TID. Upon her DC may convert to Lialda 4.8g daily - Would consider cautious use of bile binder, fiber or anti diarrheal if stools become too loose - At her age and given her refusal, would defer repeat colonoscopy - Recommend nightly mesalamine enema but pt refuses, doesn't want the messiness. (4) Acute blood loss anemia: Pt is a 83 y/o female with a hx of left sided UC is admitted w sepsis likely secondary to bilateral LE cellulitis, DVT. Now with acute blood loss anemia from a rectal bleed. likely the Xarelto potentiated mucosa bleeding caused by the UC. 1. Plan for EGD and fleg sig or possibly even full unprepped colonoscopy this afternoon. 2. Fleets enema x 1 prior to endoscopy. 3. NPO. 4. Agree with stopping Xarelto and getting an IVC. Appreciate management of fluids/blood resuscitation by primary and acupuncturist. 5. Pt has been hesitant to agree to maximum medical tx for UC. Will talk with her about changing/adding UC meds dependent on results of endoscopy. Supervising Physician Co-Signing Physician Notes I saw and evaluated the patient. We are asked to see the patient this morning as she developed significant hematochezia overnight after starting anticoagulation. Given the degree of her drop in hemoglobin and hematocrit we would recommend upper endoscopy to rule out an upper gastrointestinal source. We will also have the patient have an enema to attempt a sigmoidoscopy for f urther evaluation of the hematochezia. Patient and I have discussed the risks of the procedures to include need for follow-up studies Subjective Ms. Valery Alvarez is an 83 yr old female with left sided UC admitted on 06/21 for cellulitis/sepsis. GI was consulted for diarrhea which has not been significant. Xarelto was initiated on 06/22 for DVT However, last night, she passed a large red bowel movement with clots. This morning she also passed a small amt of bright red blood and small clot. Hemogram hemoglobin is dropped from 10 in February to 8.5 on arrival to 6 this morning. BUN remains normal. She denies any abdominal pain other than suprapubic area after insertion of Bird catheter, however she is tender on the exam in the epigastric area. She was mildly hypotensive last evening but today is normotensive and remains awake, alert, oriented. Review of Systems Review of Systems: ROS: Gen: Denies weakness, fevers, weight loss Eyes: No eye redness, or pain, no recent vision changes Resp: No SOB, no cough Cardio: No palpitations/irregular beats, no chest pain GI: +Rectal bleeding, see HPI; Denies abdominal pain, no nausea/vomiting : Denies pain on urination Skin: No jaundice, itching or new rashes Physical Exam Constitutional: WD/WN, vitals as above Eyes: PERRL, conjunctivae normal, anicteric sclerae ENMT: external ear and nose normal, oropharynx normal Neck: trachea midline, no thyromegaly Respiratory: normal respiratory effort, lungs clear to auscultation Cardiovascular: RRR, no murmur, no edema Gastrointestinal (Abdomen): Inspection/Auscultation: abdomen normal to inspection and normal bowel sounds (hypoactive); abdomen not distended Percussion/Palpation: + abdomen tender (in the epigastric and suprapubic areas) and abdomen soft; no hepatosplenomegaly Musculoskeletal: no cyanosis or clubbing, extremities motor strength 5/5 Neurologic: PERRL, EOMI, accommodation nl, no face palsy, no dysarthria Psychiatric: A+Ox3, euthymic affect Lymphatic: no cervical or axillary lymphadenopathy Results & Data Vital Signs (Past 12 Hours) Vital Signs Temp Pulse Pulse Resp BP BP BP 06/24/19 10:15 82 16 124/74 06/24/19 10:12 87 18 126/88 06/24/19 09:47 36.9 C 80 20 144/50 H 06/24/19 09:01 84 20 144/50 H 06/24/19 08:28 37 C 86 118/58 L 06/24/19 08:00 79 06/24/19 07:28 36.7 C 86 20 100/56 L 06/24/19 06:58 36.6 C 80 18 99/40 L 06/24/19 06:43 36.9 C 83 18 90/51 L 06/24/19 06:26 36.6 C 80 21 95/43 L 06/24/19 06:15 36.9 C 82 18 92/47 L 06/24/19 06:12 37.2 C 82 18 92/47 L 06/24/19 05:12 36.9 C 80 17 85/37 L 06/24/19 04:42 36.9 C 85 21 91/43 L 06/24/19 04:27 36.9 C 84 20 88/42 L 06/24/19 04:15 37.3 C 83 14 93/41 L 06/24/19 04:09 36.9 C 86 20 78/43 L 06/24/19 03:23 37.2 C 89 20 89/37 L 06/24/19 02:44 90 72/28 L 06/24/19 02:32 75/35 L 06/24/19 01:24 78/58 L 06/24/19 01:16 99 H 87/47 L 06/24/19 01:15 38.2 C H 94/52 L 06/23/19 23:07 38.9 C H 111 H 20 131/75 Pulse Ox 06/24/19 10:15 98 06/24/19 10:12 96 06/24/19 09:47 98 06/24/19 09:01 94 06/24/19 08:28 98 06/24/19 08:00 06/24/19 07:28 97 06/24/19 06:58 98 06/24/19 06:43 97 06/24/19 06:26 99 06/24/19 06:15 98 06/24/19 06:12 98 06/24/19 05:12 97 06/24/19 04:42 98 06/24/19 04:27 98 06/24/19 04:15 98 06/24/19 04:09 98 06/24/19 03:23 97 06/24/19 02:44 06/24/19 02:32 06/24/19 01:24 06/24/19 01:16 97 06/24/19 01:15 06/23/19 23:07 94 Laboratory Results Hb 8.5 on arrival ->6.0 ->9.1 after transfusion of 2 units of RBCs. (1) Sepsis Sepsis acute organ dysfunction status: unspecified Sepsis type: sepsis due to unspecified organism Qualified Code(s): A41.9 - Sepsis, unspecified organism
[2019-06-24] MEDS: cefTRIAXone SODIUM 1,000 MG in DEXTROSE 5% 50 ML IV SCH (10:50)
[2019-06-24] MEDS ORDERED: PROPOFOL IV EMULSION 10 MG/ML 20 ML VIAL IV ONE (12:59)
[2019-06-24] MEDS ORDERED: LIDOCAINE HCL 2% 2 ML VIAL/AMP(20MG/ML) INFIL ONE (12:59)
--- NOTE | 2019-06-24 14:40 | Anesthesiology Progress Note ---
Date of Service June 24, 2019 Anesthesia Post Procedure Vital Signs Vital Signs: Temp Pulse Pulse Resp BP BP BP 06/24/19 13:09 36.9 C 83 19 114/74 06/24/19 12:31 86 22 113/52 L 06/24/19 12:15 78 20 104/49 L 06/24/19 12:00 37.3 C 82 31 H 116/54 L 06/24/19 11:45 80 21 118/54 L 06/24/19 11:30 81 20 97/47 L 06/24/19 11:15 77 17 95/37 L 06/24/19 11:00 37.1 C 77 18 105/45 L 06/24/19 10:48 86 24 104/49 L 06/24/19 10:32 79 17 114/54 L 06/24/19 10:27 82 16 114/54 L 06/24/19 10:25 80 22 114/54 L 06/24/19 10:20 89 18 117/63 06/24/19 10:15 82 16 124/74 06/24/19 10:12 87 18 126/88 06/24/19 09:47 36.9 C 80 20 144/50 H 06/24/19 09:01 84 20 144/50 H 06/24/19 08:28 37 C 86 118/58 L 06/24/19 08:00 79 06/24/19 07:28 36.7 C 86 20 100/56 L 06/24/19 06:58 36.6 C 80 18 99/40 L 06/24/19 06:43 36.9 C 83 18 90/51 L 06/24/19 06:26 36.6 C 80 21 95/43 L 06/24/19 06:15 36.9 C 82 18 92/47 L 06/24/19 06:12 37.2 C 82 18 92/47 L 06/24/19 05:12 36.9 C 80 17 85/37 L 06/24/19 04:42 36.9 C 85 21 91/43 L 06/24/19 04:27 36.9 C 84 20 88/42 L 06/24/19 04:15 37.3 C 83 14 93/41 L 06/24/19 04:09 36.9 C 86 20 78/43 L 06/24/19 03:23 37.2 C 89 20 89/37 L 06/24/19 02:44 90 72/28 L 06/24/19 02:32 75/35 L 06/24/19 01:24 78/58 L 06/24/19 01:16 99 H 87/47 L 06/24/19 01:15 38.2 C H 94/52 L 06/23/19 23:07 38.9 C H 111 H 20 131/75 06/23/19 19:29 36.7 C 72 20 112/70 06/23/19 16:15 36.5 C 74 18 108/62 06/23/19 15:55 69 Pulse Ox 06/24/19 13:09 100 06/24/19 12:31 06/24/19 12:15 06/24/19 12:00 96 06/24/19 11:45 06/24/19 11:30 95 06/24/19 11:15 96 06/24/19 11:00 97 06/24/19 10:48 06/24/19 10:32 95 06/24/19 10:27 98 06/24/19 10:25 98 06/24/19 10:20 98 06/24/19 10:15 98 06/24/19 10:12 96 06/24/19 09:47 98 06/24/19 09:01 94 06/24/19 08:28 98 06/24/19 08:00 06/24/19 07:28 97 06/24/19 06:58 98 06/24/19 06:43 97 06/24/19 06:26 99 06/24/19 06:15 98 06/24/19 06:12 98 06/24/19 05:12 97 06/24/19 04:42 98 06/24/19 04:27 98 06/24/19 04:15 98 06/24/19 04:09 98 06/24/19 03:23 97 06/24/19 02:44 06/24/19 02:32 06/24/19 01:24 06/24/19 01:16 97 06/24/19 01:15 06/23/19 23:07 94 06/23/19 19:29 96 06/23/19 16:15 99 06/23/19 15:55 Transfer of Care Handoff Completed per policy Notes Mental Status: alert / awake / arousable Patient Amnestic to Procedure: Yes Nausea / Vomiting: adequately controlled Pain: adequately controlled Airway Patency, RR, SpO2: stable & adequate BP & HR: stable & adequate Hydration State: stable & adequate Anesthetic Complications: no major complications apparent and Pt Satisfied with anesthetic care Notes: The patient is back in her ICU room. She is awake and stable.
[2019-06-24] MEDS ORDERED: PHENYLEPHRINE 100MCG/ML 5ML SYR ONE ×2 (14:45)
--- NOTE | 2019-06-24 14:47 | GI REPORT ---
Patient Name: Valery Alvarez Procedure Date: 06/24/2019 1:17 PM Date of : 1935 Admit Type: Inpatient Age: 83 Gender: Female Attending MD: Alfa Galindo DO Procedure: Upper GI endoscopy Providers: Alfa Galindo DO Referring MD: Simón Salinas M.d., Marialuisa Zhou MD Indications: Hematochezia Medicines: Monitored Anesthesia Care Complications: No immediate complications. Estimated blood loss: Minimal. Estimated Blood Loss: Estimated blood loss was minimal. Procedure: Pre-Anesthesia Assessment: - Prior to the procedure, a History and Physical was performed, and patient medications, allergies and sensitivities were reviewed. The patient's tolerance of previous anesthesia was reviewed. - The risks and benefits of the procedure and the sedation options and risks were discussed with the patient. All questions were answered and informed consent was obtained. - Patient identification and proposed procedure were verified prior to the procedure by the physician, the nurse and the salon assistant. The procedure was verified in the procedure room. - Pre-procedure physical examination revealed no contraindications to sedation. - ASA Grade Assessment: IV - A patient with severe systemic disease that is a constant threat to life. - After reviewing the risks and benefits, the patient was deemed in satisfactory condition to undergo the procedure. - The anesthesia plan was to use monitored anesthesia care (MAC). - Immediately prior to administration of medications, the patient was re-assessed for adequacy to receive sedatives. - The heart rate, respiratory rate, oxygen saturations, blood pressure, adequacy of pulmonary ventilation, and response to care were monitored throughout the procedure. - The physical status of the patient was re-assessed after the procedure. After obtaining informed consent, the endoscope was passed under direct vision. Throughout the procedure, the patient's blood pressure, pulse, and oxygen saturations were monitored continuously. The Endoscope was introduced through the mouth, and advanced to the third part of duodenum. The upper GI endoscopy was accomplished without difficulty. The patient tolerated the procedure well. Findings: The examined esophagus was normal. The entire examined stomach was normal. A 20 mm non-bleeding diverticulum was found in the area of the papilla. The examined duodenum was normal. Impression: - Normal esophagus. - Normal stomach. - Non-bleeding duodenal diverticulum. - Normal examined duodenum. - No specimens collected. Recommendation: - Perform a colonoscopy today. Alfa Galindo D.O. Alfa Galindo, 06/24/2019 2:47:13 PM This report has been signed electronically. Note Initiated On: 06/24/2019 1:17 PM Number of Addenda: 0 I attest to the content of the Intraoperative Record and orders documented therein, exceptions below {[id number]}
--- NOTE | 2019-06-24 15:54 | Communication Note ---
Date of Service: June 24, 2019 EGD w/o abnormalities Colon with large amt of blood, unable to advance past the splenic flexure due to severe inflammation. Bleeding appears to be diffuse related to IBD. NM bleeding scan and CT ordered. If significant bleeding on bleeding scan, then consider transfer to [place] for interventional radiology procedure to stop bleeding. Will order Solumedrol 20mg IV Q 8 hrs for tx of IBD - though pt will need to be watched carefully because of admitting dx of sepsis. Hold diet for now.
--- NOTE | 2019-06-24 16:04 | GI REPORT ---
Patient Name: Valery Alvarez Procedure Date: 06/24/2019 1:41 PM Date of : 1935 Admit Type: Inpatient Age: 83 Gender: Female Attending MD: Alfa Galindo DO Procedure: Flexible Sigmoidoscopy Providers: Alfa Galindo DO Referring MD: Simón Salinas M.d., Marialuisa Zhou MD Indications: Hematochezia Medicines: Monitored Anesthesia Care Complications: No immediate complications. Estimated blood loss: Minimal. Estimated Blood Loss: Estimated blood loss was minimal. Procedure: Pre-Anesthesia Assessment: - Prior to the procedure, a History and Physical was performed, and patient medications, allergies and sensitivities were reviewed. The patient's tolerance of previous anesthesia was reviewed. - The risks and benefits of the procedure and the sedation options and risks were discussed with the patient. All questions were answered and informed consent was obtained. - Patient identification and proposed procedure were verified prior to the procedure by the physician, the nurse and the boot turner. The procedure was verified in the procedure room. - Pre-procedure physical examination revealed no contraindications to sedation. - ASA Grade Assessment: IV - A patient with severe systemic disease that is a constant threat to life. - After reviewing the risks and benefits, the patient was deemed in satisfactory condition to undergo the procedure. - The anesthesia plan was to use monitored anesthesia care (MAC). - Immediately prior to administration of medications, the patient was re-assessed for adequacy to receive sedatives. - The heart rate, respiratory rate, oxygen saturations, blood pressure, adequacy of pulmonary ventilation, and response to care were monitored throughout the procedure. - The physical status of the patient was re-assessed after the procedure. After obtaining informed consent, the endoscope was passed under direct vision. Throughout the procedure, the patient's blood pressure, pulse, and oxygen saturations were monitored continuously. The Endoscope was introduced through the anus and advanced to the splenic flexure for evaluation. This was the intended extent. The scope was introduced through the anus and advanced to the splenic flexure for evaluation. This was the intended extent. The colonoscopy was performed with difficulty due to poor bowel prep. Successful completion of the procedure was aided by lavage. After obtaining informed consent, the endoscope was passed under direct vision. Throughout the procedure, the patient's blood pressure, pulse, and oxygen saturations were monitored continuously. Findings: The perianal and digital rectal examinations were normal. Pertinent negatives include normal sphincter tone. Internal hemorrhoids were found during retroflexion. The hemorrhoids were moderate. Clotted blood was found in the sigmoid colon and in the descending colon. Patchy areas of moderately friable (with spontaneous bleeding), granular and plaque covered mucosa was found in the sigmoid colon and in the descending colon. Biopsies were taken with a cold forceps for histology. The pathology specimen was placed into Bottle A. Estimated blood loss was minimal. Impression: - Internal hemorrhoids. - Blood in the sigmoid colon and in the descending colon. - Friable (with spontaneous bleeding), granular and plaque covered mucosa in the sigmoid colon and in the descending colon. Biopsied. Recommendation: - Return to ICU for ongoing care. - Begin Solumedrol (empiric therapy for her history of IBD) - Perform CT scan (computed tomography) of the abdomen with contrast today. - Do a GI bleeding (tagged RBC) scan today. Alfa Galindo DO 06/24/2019 4:04:16 PM Note Initiated On: 06/24/2019 1:41 PM Number of Addenda: 0 I attest to the content of the Intraoperative Record and orders documented therein, exceptions below {[id number]}
[2019-06-24 16:05] LABS: Hematocrit (blood only) 28.1 % (37-47); Hemoglobin 9.2 g/dL (12.0-16.0)
--- NOTE | 2019-06-24 16:05 | Communication Note ---
Date of Service: June 24, 2019 The patient underwent both upper endoscopy and sigmoidoscopy this afternoon for hematochezia. Upper endoscopy findings Normal upper digestive tract to the third portion of the duodenum Colonoscopy findings Blood in the lumen Inflammatory changes in the left colon consistent with underlying inflammatory bowel disease Recommendations Begin Solu-Medrol 3 times daily Tagged RBC study, if significant bleeding occurring with a definitive site patient may need surgical referral or transfer to a tertiary center for IR support. CT scan of the abdomen
--- NOTE | 2019-06-24 18:21 | Nuclear Medicine Report ---
NM GI bleeding CLINICAL HISTORY: 83 years-old Female presenting with rectal bleeding, acute blood loss anemia. TECHNIQUE: Following the IV administration of 25 mCi of technetium 99m UltraTag labeled red blood keyshawn ls, nuclear bleeding scan was performed. Anterior flow images were obtained every 2 seconds for a tot al 48 seconds. Anterior static images were obtained every 5 minutes for a total of 60 minutes. COMPARISON: None. FINDINGS: Initial angiographic phase demonstrates expected distribution of radiotracer within the vasculature a nd cardiac blood pool. There is also expected enhancement of liver parenchyma. No abnormal blush of r adiotracer avidity. Delayed static phases also demonstrate expected blood pool distribution of radiotracer. The portal ve nous system and the liver are prominently displayed. Urinary bladder progressively demonstrates accum ulation of radiotracer. No convincing evidence of an unexpected focus of radiotracer avidity or anteg rade or retrograde movement of radiotracer to suggest an intraluminal peristaltic motion. IMPRESSION: No evidence of gastrointestinal bleed. Electronically signed by: Slim Cline M.D. 06/24/2019 6:20 PM
[2019-06-24] MEDS: methylPREDNISolone 20 MG in SYRINGE 0 ML IV SCH (20:59)
[2019-06-24 21:31] LABS: Hematocrit (blood only) 25.6 % (37-47); Hemoglobin 8.4 g/dL (12.0-16.0)
[2019-06-25 03:29] LABS: Hematocrit (blood only) 24.8 % (37-47); Hemoglobin 8.3 g/dL (12.0-16.0); Mean Corpuscular Hemoglobin 28.1 pg (25-34); Mean Corpuscular Hgb Conc 33.5 g/dL (32-36); Mean Corpuscular Volume 84.1 fL (80-100); Mean Platelet Volume 9.2 fL (7.4-10.4); Platelet Count 288 K/uL (130-400); RDW Coefficient of Variation 18.4 % (11.5-14.5); RDW Standard Deviation 56.5 fL (36.4-46.3); Red Blood Count 2.95 M/uL (4.2-5.4); White Blood Count 9.66 K/uL (4.8-10.8)
[2019-06-25 03:52] LABS: Dohle Bodies 1+; Immature Granulocytes # (auto) 0.03 K/uL (0.00-0.02); Immature Granulocytes % (auto) 0.3 %; Lymphocytes % (auto) 4.1 %; Monocytes # (auto) 0.17 K/uL (0.11-0.59); Monocytes % (auto) 1.8 %; Neutrophils # (auto) 9.06 K/uL (1.4-6.5); Neutrophils % (auto) 93.8 %
[2019-06-25 03:55] LABS: Albumin Level 1.1 gm/dl (3.4-5.0); BUN Creatinine Ratio 28.2 (10-20); Calcium 7.2 mg/dl (8.5-10.1); Creatinine Clr Calc Pharmacy 68.5 ml/min; Est GFR (African American) 97.4; Magnesium 2.1 mg/dl (1.8-2.4); Potassium 3.5 mmol/L (3.5-5.1)
[2019-06-25 04:06] LABS: Albumin Globulin Ratio 0.3 (0.9-2); Bilirubin,Total 0.2 mg/dl (0.2-1); Globulin 3.6 gm/dl (2.5-4.0); Phosphorus 4.1 mg/dl (2.5-4.9); Total Protein 4.7 gm/dl (6.4-8.2)
[2019-06-25] MEDS: methylPREDNISolone 20 MG in SYRINGE 0 ML IV SCH ×3 (06:10→21:40)
[2019-06-25] MEDS: POTASSIUM CHLORIDE / WTR 10 MEQ/100 ML PLCT IV SCH ×5 (08:25→12:55)
--- NOTE | 2019-06-25 08:33 | Critical Care Progress Note ---
Date of Service June 25, 2019 Assessment & Plan (1) Admitted to intensive care unit: This patient was discussed on multidisciplinary rounds. I personally evaluated and examined this patient and I agree with the assessment and plan of [] aside for any additions/exceptions noted below: Assessment and Plan: -Acute blood loss anemia likely secondary to lower GI bleed -History is ulcerative colitis -Large bilateral DVTs -Intermittent hypotension Neurologic: No issues at present. Continue delirium precautions. Pulmonary: No issues Cardiovascular: Holding her home furosemide and carvedilol at this time. Continue to hold her losartan as well. Blood pressure has been stable. Gastrointestinal: She needs a CT abdomen/pelvis with IV and p.o. contrast. Hopefully this will help delineate the etiology of her bleeding. Flex Sig yesterday did not demonstrate any overt signs of bleeding. There was friable mucosa seen per gastroenterology. EGD was normal. I suspect likely her source of bleeding is related to the ulcerative colitis in the setting of anticoagulant use. Continue H2 jenny prophylaxis. N.p.o. for now. Renal: No issues. Continue IV fluids while n.p.o. Infectious disease: Continue ceftriaxone for total of 7 days for presumptive cellulitis of the lower extremity. Hematologic: CBC every 8. She has not required any blood transfusions overnight or yester day. Endocrine: F/E/N: Continue fluids as above. Electrolytes with mild hypokalemia. Replete potassium. N.p.o. for now. Lines and tubes: IV lines in place VTE prophylaxis: None. She does have a IVC filter in place CODE STATUS: Full code Family at bedside: None at bedside Disposition: If her 9:00 CBC looks stable, she can be transferred to floor with telemetry. I have personally spent 40 minutes of critical care time in the direct management of this patient. This is a life/limb threatening event. This includes time spent evaluating patient, direct bedside care, chart review, placing orders, interpretation of diagnostic studies, discussion with consultants, patient, and family members, as well as other required patient management activities. This time is exclusive of all separately billable procedures, and teaching time and separate from and in addition to any other critical care service time. Thank you for allowing us to participate in the care of this patient. (2) Acute blood loss anemia: (3) Deep vein thrombosis (DVT) of both lower extremities: (4) Elevated LFTs: (5) Hypotension: (6) Cellulitis of both lower extremities: (7) Diastolic CHF: Subjective Patient is feeling well this morning. She is a little sleepy. She denies any bloody bowel movements overnight. She has mild abdominal tenderness when you press on her belly. She denies any nausea. She denies any night sweats. She denies any chest pain shortness of breath. Review of Systems Review of Systems: All systems reviewed & are unremarkable except as noted in HPI & below Physical Exam Constitutional: Elderly appearing. Frail. No acute distress Eyes: PERRL, conjunctivae normal, anicteric sclerae normal visual dodson by confrontation ENMT: external ear and nose normal, oropharynx normal Ears: + hearing impairment Neck: trachea midline, no thyromegaly normal visual inspection Respiratory: normal respiratory effort, lungs clear to auscultation normal respiratory effort; no labored breathing Cardiovascular: RRR, no murmur, no edema 3-4+ pitting edema in the lower extremities. Gastrointestinal (Abdomen): normal bowel sounds, soft, nontender, no hep atosplenomegaly Inspection/Auscultation: no abdominal edema Musculoskeletal: no cyanosis or clubbing, extremities motor strength 5/5 Neurologic: PERRL, EOMI, accommodation nl, no face palsy, no dysarthria CN's II-XI intact bilaterally Psychiatric: A+Ox3, euthymic affect Apperance: appeared stated age Lymphatic: no cervical or axillary lymphadenopathy Results & Data Vital Signs (Past 12 Hours) Vital Signs Temp Pulse Resp BP Pulse Ox 06/25/19 06:02 97.7 F 81 18 113/49 L 98 06/25/19 05:00 64 15 94/51 L 99 06/25/19 04:30 67 15 92/50 L 98 06/25/19 04:00 70 11 L 104/50 L 99 06/25/19 03:30 65 13 104/58 L 99 06/25/19 03:00 71 12 101/51 L 95 06/25/19 02:30 75 12 96/48 L 95 06/25/19 03:23 06/25/19 03:23 06/25/19 02:00 75 15 92/46 L 97 06/25/19 01:30 78 16 100/51 L 98 06/25/19 01:00 79 12 100/55 L 98 06/25/19 00:30 78 14 96/50 L 99 06/25/19 00:00 99.5 F 82 16 110/60 96 06/24/19 23:30 84 15 104/50 L 98 06/24/19 23:00 91 H 22 98/51 L 92 06/24/19 22:30 86 10 L 99/46 L 95 06/24/19 22:00 88 16 97/42 L 93 06/24/19 21:46 98 H 06/24/19 21:30 93 H 19 102/46 L 94 06/24/19 21:00 92 H 22 99/49 L 95 06/24/19 20:31 101 H 21 108/41 L 80 L 06/24/19 20:30 98 H 28 H 96 CBC and chemistries were reviewed. Ultrasound lower extremities reviewed with large bilateral DVTs. Tagged RBC scan reviewed which did not reveal any signs of bleeding. PG Care Time/CCT Total # of Minutes Spent Total Time Spent with Patient: Total time spent is greater than 50% in coordination of care (as documented) at patient's floor/unit and/or counseling patient: Critical Care Time: Yes Total Critical Care Time: 40 (1) Hypotension Hypotension type: unspecified hypotension type Qualified Code(s): I95.9 - Hypotension, unspecified
[2019-06-25] MEDS: FAMOTIDINE 20 MG in SYRINGE 3 ML IV SCH ×2 (08:38→21:40)
[2019-06-25] MEDS: cefTRIAXone SODIUM 1,000 MG in DEXTROSE 5% 50 ML IV SCH (09:32)
[2019-06-25] MEDS ORDERED: IOVERSOL 100ml IV PRN (10:38)
--- NOTE | 2019-06-25 10:59 | CT Scan Report ---
CT OF THE ABDOMEN AND PELVIS WITH CONTRAST CLINICAL HISTORY: rectal bleeding, UC vs. Crohn's colitis, r/o mass COMPARISON STUDY: KUB June 22, 2019. Nuclear medicine bleeding scan June 24, 2019. TECHNIQUE: Following IV administration of 94 mL of Optiray-320, axial images of the abdomen and pelvi s were obtained from the lung bases to the proximal femurs. Images were reviewed in the axial, sagitt al, and coronal planes. IV contrast was administered without complication. Automated exposure contro l was utilized for the study. A dose lowering technique was utilized adhering to the principles of A COLE. CT DOSE: 478.27 mGy.cm FINDINGS: Imaged portions of the lower chest demonstrate possible pulmonary emboli within segmental b ranches of the right lower lobe. Small right and trace left pleural effusions are noted. There is sofi sarca. The gallbladder is moderately distended. There are suspected adenomyomatosis of the gallbladde r fundus. No pneumatosis, free air or portal venous gas is present. There is a small amount of abdomi nal and pelvic ascites. A 4.1 cm hypoenhancing focus within the upper pole of the spleen suggests an infarct. The spleen is diminutive and irregular. The adrenal glands and pancreas are unremarkable. IV C filters in place. There is no biliary or pancreatic ductal dilatation. Multifocal scarring within t he left kidney is noted. There is no hydronephrosis. There is no evidence for a bowel obstruction. Mo derate wall thickening of the descending colon is noted with adjacent infiltration and evidence for h yperemia. No mass is identified although sensitivity is significantly diminished given CT technique. There is also mild wall thickening of the remainder of the colon. Prominent bilateral inguinal and il iac lymph nodes are noted. There is extensive deep venous thrombus within visualized portions of the bilateral femoral veins. Bird balloon is present within the bladder. There are no suspicious osseous lesions. IMPRESSION: 1. Moderate wall thickening of the descending colon and mild wall thickening of the remainder of the colon which represents a nonspecific colitis. No free air or abscess. Sensitivity for detection mucos al lesions significantly diminished given CT technique but none identified. 2. Extensive deep venous thrombus within visualized portions of the bilateral femoral veins as shown on previous lower extremity Doppler. Possible right lower lobe segmental pulmonary emboli. 3. 4.1 cm hypoenhancing splenic focus which favors an infarct. 4. Evidence for volume overload with anasarca, small right and trace left pleural effusions and trace ascites. 5. Prominent bilateral inguinal and external lymph nodes which are probably reactive. 6. Moderate gallbladder distention without adjacent infiltration. Suspected adenomyomatosis of the ga llbladder fundus. Electronically signed by: Masood Urbano M.D. 06/25/2019 10:57 AM
[2019-06-25 11:26] LABS: Hematocrit (blood only) 24.8 % (37-47); Hemoglobin 8.1 g/dL (12.0-16.0); Mean Corpuscular Hemoglobin 27.5 pg (25-34); Mean Corpuscular Hgb Conc 32.7 g/dL (32-36); Mean Corpuscular Volume 84.1 fL (80-100); Mean Platelet Volume 9.4 fL (7.4-10.4); Platelet Count 284 K/uL (130-400); RDW Coefficient of Variation 18.5 % (11.5-14.5); RDW Standard Deviation 57.5 fL (36.4-46.3); Red Blood Count 2.95 M/uL (4.2-5.4); White Blood Count 8.53 K/uL (4.8-10.8)
--- NOTE | 2019-06-25 12:08 | Hospitalist Progress Note ---
Date of Service June 25, 2019 Assessment & Plan (1) Sepsis: -admission hospitalist diagnosis of sepsis secondary to right lower extremity cellulitis -admission leukocytosis of 26,000 -wound care -PT/OT evaluations appears to be recommending short stay after hospitalization to a SNF or inpatient rehabilitation center -Lower extremity MRI 1. Diffuse cutaneous and subcutaneous edema 2. Muscular atrophy and mild intramuscular edema 3. No evidence of focal abscess 4. No evidence of osteomyelitis. -ultrasound: Enlarged bilateral inguinal lymph nodes measuring 4.6 x 1.5 x 2.4 cm on the right and 3.7 x 0.9 x 2.4 cm on the left. Subcutaneous edema noted in the bilateral lower extremities; Suspected reactive lymphadenopathy in the bilateral inguinal regions. -was started on cefepime and daptomycin empirically on admission - blood cultures no growth to date, Wound culture with Staphylococcus aureus with results returned as MSSA and wound culture Corynebacterium species -daptomycin and cefepime stopped on 06/24/19, continue ceftriaxone as started by ICU physician on 06/24/19 Acute Deep Vein Thrombosis of bilateral lower extremities Anticoagulated by anticoagulation Therapy Possible right lower lobe segmental pulmonary embol -ultrasound: Bilateral extensive deep venous thrombosis from the calf veins to the common femoral veins, partially occlusive on the right and occlusive in the lower leg on the left. -heparin drip IV was transitioned to Xarelto starting on 06/22/19 day time -last dose of Xarelto was 06/23/19 evening then subsequently patient had GI bleed -s/p Insertion Of Inferior Vena Cava Filter, Right Femoral Approach, by Dr. Urbina on 06/24/19 -Possible right lower lobe segmental pulmonary emboli on CT abdomen on 06/25/19; at this point in time the patient is a bleed risk from systemic anticoagulation, can consider further review with CTA of the lungs when clinically more improved and blood counts more stable Acute on chronic anemia acute blood loss anemia secondary to Gastrointestinal bleed -patient had stable hemoglobin above 8 on from 06/21/19 to 06/23/19 while on systemic anticoagulation -GI bleed with Hgb declined to 6 on 06/24/19 and to get total of 2 units of PRBC while in the Intensive Care Unit -s/p upper endoscopy on 06/24/[address] Galindo: normal esophagus, normal stomach, non-bleeding duodenal diverticulum, normal examined duodenum, no specimens collected -s/p flexible sigmoidoscopy on 06/24/[address] Galindo: Internal hemorrhoids, blood in the sigmoid colon and descending colon, friable (with spontaneous bleeding), granular and plaque covered mucosa in the sigmoid colon and in the descending colon and biopsies were taken -Gastroenterology service ordered methylprednisone 20 mg IV q8 hours to treat the Inflammatory Bowel Disease on 06/24/19 and tagged RBC scan did not find a active source of GI bleed -trending CBC Ulcerative colitis (Inflammatory Bowel Disease) -Gastroenterology service was initially consulted for assistance with patient's chronic Ulcerative colitis with which symptoms were chronic diarrhea/loose sto ols -methylprednisone 20 mg IV q8 hours to treat the Inflammatory Bowel Disease on 06/24/19 -holding mesalamine for now CT scan of the abdomen with contrast performed on 06/25/19 with following results 1. Moderate wall thickening of the descending colon and mild wall thickening of the remainder of the colon which represents a nonspecific colitis. No free air or abscess. Sensitivity for detection mucosal lesions significantly diminished given CT technique but none identified. 2. Extensive deep venous thrombus within visualized portions of the bilateral femoral veins as shown on previous lower extremity Doppler. Possible right lower lobe segmental pulmonary emboli. 3. 4.1 cm hypoenhancing splenic focus which favors an infarct. 4. Evidence for volume overload with anasarca, small right and trace left pleural effusions and trace ascites. 5. Prominent bilateral inguinal and external lymph nodes which are probably reactive. 6. Moderate gallbladder distention without adjacent infiltration. 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 Green to discuss findings 06/25/19 CT scan and he does not believe there is need for surgery for these issues regarding the spleen or gallbladder. General surgery to perform formal consultation chronic systolic heart failure EF 44%, TTE 2013, chronic Left bundle branch block -IV Lasix 20 mg x 1 given on 06/22/19 to prevent possibility of fluid overload because of recent IV medications -was resumed 20 mg Lasix oral starting on 06/23/19 -hold further diuretic while being evaluated for acute GI bleed Electrolytes -Hypokalemia resolved -Hypomagnesemia: serum magnesium 1.7 on 06/24/19, given IV magnesium, hypomagnesemia corrected -Hypophosphatemia: serum phosphate 1.6 on 06/24/19, give IV sodium phosphate, hypophosphatemia corrected -recheck electrolytes COPD as per records, past tobacco use -breathing on room air -prn nebulizers if needed Pre-Diabetes -HbA1c 6.4 -currently NPO, may start to advance to liquid diet if blood counts stable and no acute surgical interventions today history skin cancer status post surgery in the past DVT prophylaxis: holding off pharmacological blood thinners due to GI bleed, avoid SCDs due to bilateral DVTs Full code will try to transfer patient from ICU to telemetry on 06/25/19 Patient's niece Ms. Patsy Yañez, contact #[phone]. Subjective Patient seen and examined in the ICU. No reported gross bleeding. Hgb is trending down slight to the 8s. Patient denies acute abdomen pain. but when discussed the splenic infract noted on the CT abdomen scan today she reports she could have fell and landed on the right side of the abdomen prior to this hospitalization. no vomiting. we discussed the IVC filter and the upper endoscopy and colonoscopy yesterday and those results. Patient reports she feels much better today since the anesthesia. Patient denies chest pain or shortness of breath. breathing on room air. no dizziness reported. no headache Physical Exam Constitutional: comfortable Eyes: PERRL, conjunctivae normal, anicteric sclerae EOM intact bilaterally ENMT: external ear and nose normal, oropharynx normal Neck: normal visual inspection Respiratory: normal respiratory effort, lungs clear to auscultation Cardiovascular: Rate/Rhythm: regular rate and regular rhythm Gastrointestinal (Abdomen): normal bowel sounds, soft, nontender, no hepatosplenomegaly Musculoskeletal: bilateral enlarged legs Neurologic: PERRL, EOMI, accommodation nl, no face palsy, no dysarthria Psychiatric: A+Ox3, euthymic affect Results & Data Vital Signs (Past 12 Hours) Vital Signs Temp Pulse Resp BP Pulse Ox 06/25/19 10:00 69 22 123/61 99 06/25/19 09:00 71 17 96/49 L 97 06/25/19 08:11 36.4 C L 70 20 116/64 98 06/25/19 08:00 66 13 84/52 L 99 06/25/19 07:30 64 18 111/51 L 100 06/25/19 07:01 66 4 L 97/46 L 98 06/25/19 06:02 36.5 C 81 18 113/49 L 98 06/25/19 05:00 64 15 94/51 L 99 06/25/19 04:30 67 15 92/50 L 98 06/25/19 04:00 70 11 L 104/50 L 99 06/25/19 03:30 65 13 104/58 L 99 06/25/19 03:00 71 12 101/51 L 95 06/25/19 02:30 75 12 96/48 L 95 06/25/19 02:00 75 15 92/46 L 97 06/25/19 01:30 78 16 100/51 L 98 06/25/19 01:00 79 12 100/55 L 98 06/25/19 00:30 78 14 96/50 L 99 (1) Sepsis Sepsis acute organ dysfunction status: unspecified Sepsis type: sepsis due to unspecified organism Qualified Code(s): A41.9 - Sepsis, unspecified organism
[2019-06-25] MEDS: LACTATED RINGER'S 1,000 ML IV SCH (12:23)
--- NOTE | 2019-06-25 17:24 | Surgery Consultation ---
Date of Consultation June 25, 2019 Assessment & Plan (1) Abnormal abdominal CT scan: The patient underwent a CT scan of the abdomen and pelvis to evaluate for GI issue that may have been related to the GI blood loss. Hypoechoic area of the spleen was identified most consistent with a splenic infarct. This is asymptomatic. There is no surgical intervention indicated. Her gallbladder was mildly dilated but she has been n.p.o. for a prolonged period of time and denies right upper quadrant abdominal pain and has not had any previous history of gallbladder issues. I do not feel any further work-up or surgical intervention is necessary for that either. We will continue to follow. History of Present Illness Reason for Consultation: Splenic infarct Requesting Physician: Simón Salinas MD Attending Physician: Simón Salinas MD History of Present Illness I been asked by Dr. Salinas to see this 83-year-old female who presented to the emergency room with sepsis felt due to cellulitis. During her work-up she was found to have bilateral deep venous thrombosis and possible pulmonary embolus. She also has a history of ulcerative colitis and developed what was felt to be lower GI bleeding. She underwent an EGD that did not demonstrate an etiology. On sigmoidoscopy she was found to have some friable mucosa but there was no clearly identifiable etiology for the bleeding. She then had a CAT scan of the abdomen and pelvis. It demonstrated a hypoechoic area in the spleen most likely consistent with infarct. She also had a distended gallbladder. She denies abdominal pain. She has no nausea or vomiting. She has no intolerance to fatty foods. There is no history of cholelithiasis. She slid out of bed onto the floor a few weeks ago. She does not remember striking her abdomen. Her bowel habits recently have been very loose felt to be due to the ulcerative colitis. She has been seeing a customer relations representative however she stated that her ulcerative colitis has been difficult to control. Allergies Allergy/AdvReac Type Severity Reaction Status Date / Time erythromycin base Allergy Intermediate RASH Verified 06/21/19 20:19 Penicillins Allergy Intermediate HIVES Verified 06/21/19 20:19 tetracycline Allergy Intermediate HIVES Verified 06/21/19 20:19 Home Medications Home Medications Medication Instructions Recorded Confirmed Type aspirin 81 mg PO DAILY 11/16/18 06/21/19 History carvedilol 3.125 mg PO BID 11/16/18 06/21/19 History furosemide 20 mg PO DAILY 11/16/18 06/21/19 History losartan 50 mg PO QAM 11/16/18 06/21/19 History mesalamine 800 mg PO TID 11/16/18 06/21/19 History potassium chloride 20 meq PO DAILY 11/16/18 06/21/19 History acetaminophen [Mapap 650 mg PO Q4H PRN #20 tab 11/19/18 06/21/19 Rx (acetaminophen)] glucos sul 1TJj-lby-scpes-C-Mn 1 cap PO BID 05/23/19 06/21/19 History [Glucosamine Chondroitin] multivitamin 1 tab PO DAILY 05/23/19 06/21/19 History albuterol sulfate [Proventil HFA] 2 puff INHALATION Q6H PRN 06/21/19 06/21/19 History Patient History Medical History Mild tricuspid regurgitation (Chronic) Moderate mitral regurgitation (Chronic) Nonischemic cardiomyopathy (Chronic) Diastolic CHF (Chronic) Ulcerative colitis (Chronic) Left bundle branch block (Chronic) Venous insufficiency (Chronic) COPD, mild (Chronic) Hypertension (Chronic) Colitis (Chronic) Surgical History S/P right knee arthroscopy (Chronic) S/p bilateral carpal tunnel release (Chronic) Family History Other Family history non-contributory Social History Preferred Language: Czech Communication Ability: Effective Escapement Maker Required: Yes Beliefs That Will Affect Care: None Current Living Situation: Alone Other Information That Helps Us Care for You: No Feels Safe at Home: Yes Safety Concerns: Feels Safe At This Time Smoking Status: Former smoker Tobacco Type: cigarettes ; Do You Dip or Chew Tobacco: No ; Second Hand Exposure: No ; Tobacco Cessation Education Requested by Patient: No Hx Alcohol Use: Yes Hx Substance Use: No Physical Exam Constitutional: no acute distress Neck: trachea midline Respiratory: normal respiratory effort, lungs clear to auscultation Cardiovascular: Rate/Rhythm: regular rate and regular rhythm Gastrointestinal (Abdomen): Inspection/Auscultation: abdomen normal to inspection and normal bowel sounds; abdomen not distended Percussion/Palpation: abdomen soft; abdomen nontender Skin: no rashes, warm and dry Results & Data Vital Signs (Past 12 Hours) Vital Signs Temp Pulse Resp BP Pulse Ox 06/25/19 15:25 64 06/25/19 12:00 36.6 C 60 16 106/57 L 98 06/25/19 10:00 69 22 123/61 99 06/25/19 09:00 71 17 96/49 L 97 06/25/19 08:11 36.4 C L 70 20 116/64 98 06/25/19 08:00 66 13 84/52 L 99 06/25/19 07:30 64 18 111/51 L 100 06/25/19 07:01 66 4 L 97/46 L 98 06/25/19 06:02 36.5 C 81 18 113/49 L 98 Laboratory Results 06/25/19 06/25/19 06/25/19 Range/Units 16:33 11:16 11:13 WBC 8.53 (4.8-10.8) K/uL RBC 2.95 L (4.2-5.4) M/uL Hgb 8.1 L (12.0-16.0) g/dL Hct 24.8 L (37-47) % MCV 84.1 (80-100) fL MCH 27.5 (25-34) pg MCHC 32.7 (32-36) g/dL RDW Std Deviation 57.5 H (36.4-46.3) fL RDW Coeff of Ellen 18.5 H (11.5-14.5) % Plt Count 284 (130-400) K/uL MPV 9.4 (7.4-10.4) fL Immature Gran % (Auto) % Neut % (Auto) % Lymph % (Auto) % [place] % (Auto) % Eos % (Auto) % Baso % (Auto) % Immature Gran # (Auto) (0.00-0.02) K/uL Neut # (Auto) (1.4-6.5) K/uL Lymph # (Auto) (1.2-3.4) K/uL [place] # (Auto) (0.11-0.59) K/uL Eos # (Auto) (0-0.5) K/uL Baso # (Auto) (0-0.2) K/uL Dohle Bodies Sodium (136-145) mmol/L Potassium (3.5-5.1) mmol/L Chloride (98-107) mmol/L Carbon Dioxide (21-32) mmol/L Anion Gap (3-11) BUN (7-18) mg/dl Creatinine (0.6-1.2) mg/dl Est Cr Clr Drug Dosing ml/min Est GFR ( Amer) Est GFR (Non-Af Amer) BUN/Creatinine Ratio (10-20) Glucose (70-99) mg/dl POC Glucose 90 149 H (70-99) Calcium (8.5-10.1) mg/dl Phosphorus (2.5-4.9) mg/dl Magnesium (1.8-2.4) mg/dl Total Bilirubin (0.2-1) mg/dl AST (15-37) U/L ALT (12-78) U/L Alkaline Phosphatase (45-117) U/L Total Protein (6.4-8.2) gm/dl Albumin (3.4-5.0) gm/dl Globulin (2.5-4.0) gm/dl Albumin/Globulin Ratio (0.9-2) 06/25/19 06/25/19 06/24/19 Range/Units 03:23 03:23 21:19 WBC 9.66 (4.8-10.8) K/uL RBC 2.95 L (4.2-5.4) M/uL Hgb 8.3 L (12.0-16.0) g/dL Hct 24.8 L (37-47) % MCV 84.1 (80-100) fL MCH 28.1 (25-34) pg MCHC 33.5 (32-36) g/dL RDW Std Deviation 56.5 H (36.4-46.3) fL RDW Coeff of Ellen 18.4 H (11.5-14.5) % Plt Count 288 (130-400) K/uL MPV 9.2 (7.4-10.4) fL Immature Gran % (Auto) 0.3 % Neut % (Auto) 93.8 % Lymph % (Auto) 4.1 % [place] % (Auto) 1.8 % Eos % (Auto) 0.0 % Baso % (Auto) 0.0 % Immature Gran # (Auto) 0.03 H (0.00-0.02) K/uL Neut # (Auto) 9.06 H (1.4-6.5) K/uL Lymph # (Auto) 0.40 L (1.2-3.4) K/uL [place] # (Auto) 0.17 (0.11-0.59) K/uL Eos # (Auto) 0.00 (0-0.5) K/uL Baso # (Auto) 0.00 (0-0.2) K/uL Dohle Bodies 1+ Sodium 140 (136-145) mmol/L Potassium 3.5 (3.5-5.1) mmol/L Chloride 107 (98-107) mmol/L Carbon Dioxide 29 (21-32) mmol/L Anion Gap 4.0 (3-11) BUN 16 (7-18) mg/dl Creatinine 0.58 L (0.6-1.2) mg/dl Est Cr Clr Drug Dosing 68.5 ml/min Est GFR ( Amer) 97.4 Est GFR (Non-Af Amer) 84.0 BUN/Creatinine Ratio 28.2 H (10-20) Glucose 91 (70-99) mg/dl POC Glucose 88 (70-99) Calcium 7.2 L (8.5-10.1) mg/dl Phosphorus 4.1 D (2.5-4.9) mg/dl Magnesium 2.1 (1.8-2.4) mg/dl Total Bilirubin 0.2 (0.2-1) mg/dl AST 14 L (15-37) U/L ALT 13 (12-78) U/L Alkaline Phosphatase 83 (45-117) U/L Total Protein 4.7 L (6.4-8.2) gm/dl Albumin 1.1 L (3.4-5.0) gm/dl Globulin 3.6 (2.5-4.0) gm/dl Albumin/Globulin Ratio 0.3 L (0.9-2) 06/24/19 Range/Units 21:16 WBC (4.8-10.8) K/uL RBC (4.2-5.4) M/uL Hgb 8.4 L (12.0-16.0) g/dL Hct 25.6 L (37-47) % MCV (80-100) fL MCH (25-34) pg MCHC (32-36) g/dL RDW Std Deviation (36.4-46.3) fL RDW Coeff of Ellen (11.5-14.5) % Plt Count (130-400) K/uL MPV (7.4-10.4) fL Immature Gran % (Auto) % Neut % (Auto) % Lymph % (Auto) % [place] % (Auto) % Eos % (Auto) % Baso % (Auto) % Immature Gran # (Auto) (0.00-0.02) K/uL Neut # (Auto) (1.4-6.5) K/uL Lymph # (Auto) (1.2-3.4) K/uL [place] # (Auto) (0.11-0.59) K/uL Eos # (Auto) (0-0.5) K/uL Baso # (Auto) (0-0.2) K/uL Dohle Bodies Sodium (136-145) mmol/L Potassium (3.5-5.1) mmol/L Chloride (98-107) mmol/L Carbon Dioxide (21-32) mmol/L Anion Gap (3-11) BUN (7-18) mg/dl Creatinine (0.6-1.2) mg/dl Est Cr Clr Drug Dosing ml/min Est GFR ( Amer) Est GFR (Non-Af Amer) BUN/Creatinine Ratio (10-20) Glucose (70-99) mg/dl POC Glucose (70-99) Calcium (8.5-10.1) mg/dl Phosphorus (2.5-4.9) mg/dl Magnesium (1.8-2.4) mg/dl Total Bilirubin (0.2-1) mg/dl AST (15-37) U/L ALT (12-78) U/L Alkaline Phosphatase (45-117) U/L Total Protein (6.4-8.2) gm/dl Albumin (3.4-5.0) gm/dl Globulin (2.5-4.0) gm/dl Albumin/Globulin Ratio (0.9-2) Diagnostic Findings [place], [place] [phone] CT Scan Report Patient: DERICK GRAHAM AAdmit Date: 06/21/19 MR#: [id number]: [id number] [facility] Acct ID:[id number]: Date: 1935ity Zip: [place] [id number] Age: 83Location: 1E Sex: F Room/Bed: [facility] Att Phy: Simón Salinas, MDDiagnosis: SEPSIS Madeline Phy: Heladio Larsen, DOService Date: 06/24/19 Fam Phy:Interpreting Phy: Masood Urbano MD Admit Phy: Luis Enrique Young MD Ordering Phy: Galilea Rebollar cc: ~ CT OF THE ABDOMEN AND PELVIS WITH CONTRAST CLINICAL HISTORY: rectal bleeding, UC vs. Crohn's colitis, r/o mass COMPARISON STUDY: KUB June 22, 2019. Nuclear medicine bleeding scan June 24, 2019. TECHNIQUE: Following IV administration of 94 mL of Optiray-320, axial images of the abdomen and pelvis were obtained from the lung bases to the proximal femurs. Images were reviewed in the axial, sagittal, and coronal planes. IV contrast was administered without complication. Automated exposure control was utilized for the study. A dose lowering technique was utilized adhering to the principles of ALARA. CT DOSE: 478.27 mGy.cm FINDINGS: Imaged portions of the lower chest demonstrate possible pulmonary emboli within segmental branches of the right lower lobe. Small right and trace left pleural effusions are noted. There is anasarca. The gallbladder is moderately distended. There are suspected adenomyomatosis of the gallbladder fundus. No pneumatosis, free air or portal venous gas is present. There is a small amount of abdominal and pelvic ascites. A 4.1 cm hypoenhancing focus within the upper pole of the spleen suggests an infarct. The spleen is diminutive and irregular. The adrenal glands and pancreas are unremarkable. IVC filters in place. There is no biliary or pancreatic ductal dilatation. Multifocal scarring within the left kidney is noted. There is no hydronephrosis. There is no evidence for a bowel obstruction. Moderate wall thickening of the descending colon is noted with adjacent infiltration and evidence for hyperemia. No mass is identified although sensitivity is significantly diminished given CT technique. There is also mild wall thickening of the remainder of the colon. Prominent bilateral inguinal and iliac lymph nodes are noted. There is extensive deep venous thrombus within visualized portions of the bilateral femoral veins. Bird balloon is present within the bladder. There are no suspicious osseous lesions. IMPRESSION: 1. Moderate wall thickening of the descending colon and mild wall thickening of the remainder of the colon which represents a nonspecific colitis. No free air or abscess. Sensitivity for detection mucosal lesions significantly diminished given CT technique but none identified. 2. Extensive deep venous thrombus within visualized portions of the bilateral femoral veins as shown on previous lower extremity Doppler. Possible right lower lobe segmental pulmonary emboli. 3. 4.1 cm hypoenhancing splenic focus which favors an infarct. 4. Evidence for volume overload with anasarca, small right and trace left pleural effusions and trace ascites. 5. Prominent bilateral inguinal and external lymph nodes which are probably reactive. 6. Moderate gallbladder distention without adjacent infiltration. 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
[2019-06-26] MEDS: LACTATED RINGER'S 1,000 ML IV SCH (01:22)
[2019-06-26] MEDS: methylPREDNISolone 20 MG in SYRINGE 0 ML IV SCH ×3 (06:16→21:26)
[2019-06-26 07:55] LABS: Basophils # (auto) 0.01 K/uL (0-0.2); Basophils % (auto) 0.1 %; Hematocrit (blood only) 30.2 % (37-47); Hemoglobin 9.9 g/dL (12.0-16.0); Immature Granulocytes # (auto) 0.06 K/uL (0.00-0.02); Immature Granulocytes % (auto) 0.7 %; Lymphocytes # (auto) 0.53 K/uL (1.2-3.4); Mean Corpuscular Hemoglobin 27.6 pg (25-34); Mean Corpuscular Volume 84.1 fL (80-100); Mean Platelet Volume 9.5 fL (7.4-10.4); Monocytes # (auto) 0.34 K/uL (0.11-0.59); Monocytes % (auto) 3.9 %; Neutrophils # (auto) 7.86 K/uL (1.4-6.5); Neutrophils % (auto) 89.3 %; Platelet Count 290 K/uL (130-400); RDW Coefficient of Variation 18.8 % (11.5-14.5); Red Blood Count 3.59 M/uL (4.2-5.4)
[2019-06-26 08:11] LABS: Mean Corpuscular Hgb Conc 32.8 g/dL (32-36)
[2019-06-26 08:14] LABS: Albumin Level 1.2 gm/dl (3.4-5.0); BUN Creatinine Ratio 45.5 (10-20); Calcium 8.3 mg/dl (8.5-10.1); Creatinine Clr Calc Pharmacy 79.7 ml/min; Est GFR (African American) 102.3; Est GFR (Non-African American) 88.3; Magnesium 2.3 mg/dl (1.8-2.4); Potassium 4.1 mmol/L (3.5-5.1)
[2019-06-26 08:15] LABS: Albumin Globulin Ratio 0.3 (0.9-2); Bilirubin,Total 0.2 mg/dl (0.2-1); Globulin 4.1 gm/dl (2.5-4.0); Total Protein 5.3 gm/dl (6.4-8.2)
[2019-06-26] MEDS: FAMOTIDINE 20 MG in SYRINGE 3 ML IV SCH ×2 (08:31→21:33)
--- NOTE | 2019-06-26 09:19 | Hospitalist Progress Note ---
Date of Service June 26, 2019 Assessment & Plan (1) Sepsis: -admission hospitalist diagnosis of sepsis secondary to right lower extremity cellulitis -admission leukocytosis of 26,000 -wound care of the legs -PT/OT evaluations appears to be recommending short stay after hospitalization t o a SNF or inpatient rehabilitation center -Lower extremity MRI 1. Diffuse cutaneous and subcutaneous edema 2. Muscular atrophy and mild intramuscular edema 3. No evidence of focal abscess 4. No evidence of osteomyelitis. -ultrasound: Enlarged bilateral inguinal lymph nodes measuring 4.6 x 1.5 x 2.4 cm on the right and 3.7 x 0.9 x 2.4 cm on the left. Subcutaneous edema noted in the bilateral lower extremities; Suspected reactive lymphadenopathy in the bilateral inguinal regions. -was started on cefepime and daptomycin empirically on admission - blood cultures no growth to date, Wound culture with Staphylococcus aureus with results returned as MSSA and wound culture Corynebacterium species -daptomycin and cefepime stopped on 06/24/19, continue ceftriaxone as started by ICU physician on 06/24/19 Acute Deep Vein Thrombosis of bilateral lower extremities Anticoagulated by anticoagulation Therapy Possible right lower lobe segmental pulmonary embolism -ultrasound: Bilateral extensive deep venous thrombosis from the calf veins to the common femoral veins, partially occlusive on the right and occlusive in the lower leg on the left. -heparin drip IV was transitioned to Xarelto starting on 06/22/19 day time -last dose of Xarelto was 06/23/19 evening then subsequently patient had GI bleed -s/p Insertion Of Inferior Vena Cava Filter, Right Femoral Approach, by Dr. Urbina on 06/24/19 -Possible right lower lobe segmental pulmonary emboli on CT abdomen on 06/25/19; at this point in time the patient is a bleed risk from systemic anticoagulation, will order dedicated CT chest angio protocol to rule out pulmonary embolism however the results may not change control manager to avoid systemic anticoagulation at this time Acute on chronic anemia acute blood loss anemia secondary to Gastrointestinal bleed -patient had stable hemoglobin above 8 on from 06/21/19 to 06/23/19 while on systemic anticoagulation -GI bleed with Hgb declined to 6 on 06/24/19 and to get total of 2 units of PRBC while in the Intensive Care Unit -s/p upper endoscopy on 06/24/[address] Galindo: normal esophagus, normal stomach, non-bleeding duodenal diverticulum, normal examined duodenum, no specimens collected -s/p flexible sigmoidoscopy on 06/24/[address] Galindo: Internal hemorrhoids, blood in the sigmoid colon and descending colon, friable (with spontaneous bleeding), granular and plaque covered mucosa in the sigmoid colon and in the descending colon and biopsies were taken -Gastroenterology service ordered methylprednisone 20 mg IV q8 hours to treat the Inflammatory Bowel Disease on 06/24/19 and tagged RBC scan did not find a active source of GI bleed -trending CBC Ulcerative colitis (Inflammatory Bowel Disease) -Gastroenterology service was initially consulted for assistance with patient's chronic Ulcerative colitis with which symptoms were chronic diarrhea/loose stools -methylprednisone 20 mg IV q8 hours to treat the Inflammatory Bowel Disease on 06/24/19 -resuming oral mesalamine CT scan of the abdomen with contrast performed on 06/25/19 with following results 1. Moderate wall thickening of the descending colon and mild wall thickening of the remainder of the colon which represents a nonspecific colitis. No free air or abscess. Sensitivity for detection mucosal lesions significantly diminished given CT technique but none identified. 2. Extensive deep venous thrombus within visualized portions of the bilateral femoral veins as shown on previous lower extremity Doppler. Possible right lower lobe segmental pulmonary emboli. 3. 4.1 cm hypoenhancing splenic focus which favors an infarct. 4. Evidence for volume overload with anasarca, small right and trace left pleural effusions and trace ascites. 5. Prominent bilateral inguinal and external lymph nodes which are probably reactive. 6. Moderate gallbladder distention without adjacent infiltration. 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 Green to discuss findings 06/25/19 CT scan and he does not believe there is need for surgery for these issues regarding the spleen or gallbladder. no surgical interventions needed at this time as per General surgery formal consultation notes on 06/25/19 chronic systolic heart failure EF 44%, TTE 2013, chronic Left bundle branch block -IV Lasix 20 mg x 1 given on 06/22/19 to prevent possibility of fluid overload because of recent IV medications -was resumed 20 mg Lasix oral starting on 06/23/19 -continue to hold diuretics for now, continue to hold aspirin for now because of recent GI bleed, continue to hold losartan and carvedilol as heart rates and blood pressures are within normal limits Electrolytes -Hypokalemia resolved -Hypomagnesemia: serum magnesium 1.7 on 06/24/19 was given IV magnesium, hypomagnesemia corrected -Hypophosphatemia: serum phosphate 1.6 on 06/24/19 was given IV sodium phosphate, hypophosphatemia corrected COPD as per records, past tobacco use -breathing on room air -prn nebulizers if needed Pre-Diabetes -HbA1c 6.4 -currently NPO, may start to advance to liquid diet if blood counts stable and no acute surgical interventions today history skin cancer status post surgery in the past DVT prophylaxis: holding off pharmacological blood thinners due to recent GI bleed, avoid SCDs due to bilateral DVTs Full code Patient's niece Ms. Patsy Yañez, contact #[phone]. Subjective Patient seen and examined on telemetry. Hemoglobin improving. Patient has browning. denies acute pain of the abdomen. no chest pain. breathing on room air. no shortness of breath. no headache. no dizziness Physical Exam Constitutional: comfortable Eyes: PERRL, conjunctivae normal, anicteric sclerae EOM intact bilaterally ENMT: external ear and nose normal, oropharynx normal Neck: normal visual inspection Respiratory: normal respiratory effort, lungs clear to auscultation Cardiovascular: Rate/Rhythm: regular rate and regular rhythm Gastrointestinal (Abdomen): normal bowel sounds, soft, nontender, no hepatosplenomegaly Musculoskeletal: bilateral lower extremity enlargement, leg in waffle boots Neurologic: PERRL, EOMI, accommodation nl, no face palsy, no dysarthria Psychiatric: A+Ox3, euthymic affect Genitourinary: browning Results & Data Vital Signs (Past 12 Hours) Vital Signs Temp Pulse Resp BP Pulse Ox 06/26/19 07:02 36.2 C L 67 18 135/78 97 06/26/19 05:05 67 17 145/80 H 97 06/26/19 00:00 35 C L 73 20 119/75 99 (1) Sepsis Sepsis acute organ dysfunction status: unspecified Sepsis type: sepsis due to unspecified organism Qualified Code(s): A41.9 - Sepsis, unspecified organism
[2019-06-26] MEDS ORDERED: ALBUT/IPRATROP 3MG/0.5MG NEB 3 ML VIAL NEB PRN (09:20)
[2019-06-26] MEDS: cefTRIAXone SODIUM 1,000 MG in DEXTROSE 5% 50 ML IV SCH (09:40)
[2019-06-26] MEDS ORDERED: OPTIRAY 320 125ml IV PRN (11:02)
--- NOTE | 2019-06-26 11:40 | CT Scan Report ---
CT angio chest PE protocol CLINICAL HISTORY: 83 years-old Female presenting with atypical chest pain, extensive DVT, concern for right lower lobe segmental pulmonary emboli on CT of abdomen and pelvis from yesterday, clinical con cern for pulmonary embolus. TECHNIQUE: Multidetector CT angiography of the chest was performed after administration of intravenou s contrast. 3-D volumetric and/or maximum intensity projection (MIP) images were subsequently reconst ructed for review. IV contrast: 86 mL of Optiray 320. One or more dose lowering techniques were used consistent with the principles of ALARA (as low as reasonably achievable), including automatic exposu re control, mA or kV adjustment to individual patient size, and/or use of iterative reconstruction. COMPARISON: Chest x-ray from 06/21/2019. CT DOSE (mGy.cm): The estimated cumulative dose is 269.22 mGy.cm. FINDINGS: Information Assurance Analyst topogram: IVC filter in place. Pulmonary vasculature: The study is adequate for assessment of the pulmonary vascular tree. Lobar, segmental, subsegmental p ulmonary emboli in the right lower lobe and to a lesser extent the left lower lobe. Minimal segmental and subsegmental pulmonary emboli in the right upper lobe. Main pulmonary artery top normal in size. No flattening of the interventricular septum. No intracardiac filling defect. No reflux of contrast into the hepatic veins. Remaining chest: Soft tissues: Normal thyroid. Diffuse body wall edema. No axillary, supraclavicular, mediastinal, or hilar lymphadenopathy. Atherosclerosis of the aorta. Multichamber enlargement of the heart. Coronary artery and aortic valve calcification. Moderate right and [id number] left pleural effusions, w hich are simple appearing. Trace pericardial effusion. Upper abdomen normal. Lungs and airways: No pneumothorax. Central airways patent. Mild bronchial wall thickening diffusely though more prominently in the lower lobes. Pulmonary arteries enlarged relative to adjacent bronchi. No interlobular septal thickening. Dependent consolidation and volume loss in the lower lobes consis tent with passive atelectasis. No additional focal infiltrate or nodule. Musculoskeletal: Degenerative changes of the spine. Degenerative changes of the glenohumeral joints. Prominent loose body noted in the right glenohumeral joint. IMPRESSION: 1. Acute pulmonary emboli in lobar, segmental, and subsegmental pulmonary arteries of the right lowe r lobe and segmental and subsegmental pulmonary emboli in the right upper and left lower lobes to a l kimberly extent. No CT evidence of right heart strain. 2. No evidence of pulmonary infarct. 3. Cardiomegaly and volume overload evidence by bilateral pleural effusions and body wall edema. Electronically signed by: Slim Cline M.D. 06/26/2019 11:38 AM
--- NOTE | 2019-06-26 11:48 | Surgery Progress Note ---
Date of Service June 26, 2019 Assessment & Plan (1) Abnormal abdominal CT scan: Patient had abnormal CT scan showing evidence of splenic infarct which does not require surgical intervention. She had a dilated gallbladder but pain. There is minimal tenderness but her LFTs are normal. Her white blood cell count is normal and her H&H is stable. And will feel that there is any need for further surgical intervention related to that either. Subjective Denies abdominal pain Has not had any nausea or vomiting Diarrhea Has been afebrile Physical Exam Gastrointestinal (Abdomen): Inspection/Auscultation: normal bowel sounds; abdomen not distended Percussion/Palpation: + abdomen tender (Minimal upper abdominal) and abdomen soft Results & Data Vital Signs (Past 12 Hours) Vital Signs Temp Pulse Resp BP Pulse Ox 06/26/19 11:30 36.2 C L 72 18 126/75 98 06/26/19 07:02 36.2 C L 67 18 135/78 97 06/26/19 05:05 67 17 145/80 H 97 06/26/19 00:00 35 C L 73 20 119/75 99 Laboratory Results 06/26/19 06/26/19 06/26/19 Range/Units 07:37 07:37 07:37 WBC 8.80 (4.8-10.8) K/uL RBC 3.59 L (4.2-5.4) M/uL Hgb 9.9 L (12.0-16.0) g/dL Hct 30.2 L (37-47) % MCV 84.1 (80-100) fL MCH 27.6 (25-34) pg MCHC 32.8 (32-36) g/dL RDW Std Deviation 58.0 H (36.4-46.3) fL RDW Coeff of Ellen 18.8 H (11.5-14.5) % Plt Count 290 (130-400) K/uL MPV 9.5 (7.4-10.4) fL Immature Gran % (Auto) 0.7 % Neut % (Auto) 89.3 % Lymph % (Auto) 6.0 % Beauregard % (Auto) 3.9 % Eos % (Auto) 0.0 % Baso % (Auto) 0.1 % Immature Gran # (Auto) 0.06 H (0.00-0.02) K/uL Neut # (Auto) 7.86 H (1.4-6.5) K/uL Lymph # (Auto) 0.53 L (1.2-3.4) K/uL Beauregard # (Auto) 0.34 (0.11-0.59) K/uL Eos # (Auto) 0.00 (0-0.5) K/uL Baso # (Auto) 0.01 (0-0.2) K/uL Sodium 138 (136-145) mmol/L Potassium 4.1 D (3.5-5.1) mmol/L Chloride 105 (98-107) mmol/L Carbon Dioxide 29 (21-32) mmol/L Anion Gap 4.0 (3-11) BUN 23 H (7-18) mg/dl Creatinine 0.50 L (0.6-1.2) mg/dl Est Cr Clr Drug Dosing 79.7 ml/min Est GFR ( Amer) 102.3 Est GFR (Non-Af Amer) 88.3 BUN/Creatinine Ratio 45.5 H (10-20) Glucose 127 H (70-99) mg/dl POC Glucose (70-99) Calcium 8.3 L D (8.5-10.1) mg/dl Magnesium 2.3 (1.8-2.4) mg/dl Total Bilirubin 0.2 (0.2-1) mg/dl AST 16 (15-37) U/L ALT 15 (12-78) U/L Alkaline Phosphatase 95 (45-117) U/L Total Protein 5.3 L (6.4-8.2) gm/dl Albumin 1.2 L (3.4-5.0) gm/dl Globulin 4.1 H (2.5-4.0) gm/dl Albumin/Globulin Ratio 0.3 L (0.9-2) Blood Type O Positive Antibody Screen NEGATIVE 06/25/19 Range/Units 16:33 WBC (4.8-10.8) K/uL RBC (4.2-5.4) M/uL Hgb (12.0-16.0) g/dL Hct (37-47) % MCV (80-100) fL MCH (25-34) pg MCHC (32-36) g/dL RDW Std Deviation (36.4-46.3) fL RDW Coeff of Ellen (11.5-14.5) % Plt Count (130-400) K/uL MPV (7.4-10.4) fL Immature Gran % (Auto) % Neut % (Auto) % Lymph % (Auto) % Beauregard % (Auto) % Eos % (Auto) % Baso % (Auto) % Immature Gran # (Auto) (0.00-0.02) K/uL Neut # (Auto) (1.4-6.5) K/uL Lymph # (Auto) (1.2-3.4) K/uL Beauregard # (Auto) (0.11-0.59) K/uL Eos # (Auto) (0-0.5) K/uL Baso # (Auto) (0-0.2) K/uL Sodium (136-145) mmol/L Potassium (3.5-5.1) mmol/L Chloride (98-107) mmol/L Carbon Dioxide (21-32) mmol/L Anion Gap (3-11) BUN (7-18) mg/dl Creatinine (0.6-1.2) mg/dl Est Cr Clr Drug Dosing ml/min Est GFR ( Amer) Est GFR (Non-Af Amer) BUN/Creatinine Ratio (10-20) Glucose (70-99) mg/dl POC Glucose 90 (70-99) Calcium (8.5-10.1) mg/dl Magnesium (1.8-2.4) mg/dl Total Bilirubin (0.2-1) mg/dl AST (15-37) U/L ALT (12-78) U/L Alkaline Phosphatase (45-117) U/L Total Protein (6.4-8.2) gm/dl Albumin (3.4-5.0) gm/dl Globulin (2.5-4.0) gm/dl Albumin/Globulin Ratio (0.9-2) Blood Type Antibody Screen
[2019-06-26] MEDS: SODIUM CHLORIDE 0.9% 1000ML 1,000 ML IV SCH (12:44)
[2019-06-26] MEDS: MESALAMINE 400 MG CAPDR PO SCH ×2 (15:12→21:26)
[2019-06-27] MEDS: SODIUM CHLORIDE 0.9% 1000ML 1,000 ML IV SCH ×2 (00:11→14:39)
[2019-06-27] MEDS: methylPREDNISolone 20 MG in SYRINGE 0 ML IV SCH (05:09)
[2019-06-27 07:15] LABS: Basophils # (auto) 0.01 K/uL (0-0.2); Basophils % (auto) 0.2 %; Hematocrit (blood only) 27.6 % (37-47); Hemoglobin 9.1 g/dL (12.0-16.0); Immature Granulocytes # (auto) 0.03 K/uL (0.00-0.02); Immature Granulocytes % (auto) 0.5 %; Lymphocytes # (auto) 0.48 K/uL (1.2-3.4); Lymphocytes % (auto) 8.2 %; Mean Corpuscular Hemoglobin 27.7 pg (25-34); Mean Corpuscular Volume 84.1 fL (80-100); Mean Platelet Volume 9.8 fL (7.4-10.4); Monocytes # (auto) 0.26 K/uL (0.11-0.59); Monocytes % (auto) 4.5 %; Neutrophils # (auto) 5.05 K/uL (1.4-6.5); Neutrophils % (auto) 86.6 %; Platelet Count 218 K/uL (130-400); RDW Coefficient of Variation 18.6 % (11.5-14.5); RDW Standard Deviation 58.2 fL (36.4-46.3); Red Blood Count 3.28 M/uL (4.2-5.4); White Blood Count 5.83 K/uL (4.8-10.8)
[2019-06-27] MEDS: MESALAMINE 400 MG CAPDR PO SCH ×3 (07:58→21:24)
[2019-06-27] MEDS: FAMOTIDINE 20 MG in SYRINGE 3 ML IV SCH (07:59)
[2019-06-27 08:20] LABS: Albumin Level 1.3 gm/dl (3.4-5.0); BUN Creatinine Ratio 34.7 (10-20); Creatinine Clr Calc Pharmacy 81.7 ml/min; Est GFR (Non-African American) 88.8
[2019-06-27 08:23] LABS: Albumin Globulin Ratio 0.3 (0.9-2); Bilirubin,Total 0.2 mg/dl (0.2-1); Total Protein 5.3 gm/dl (6.4-8.2)
[2019-06-27] MEDS: cefTRIAXone SODIUM 1,000 MG in DEXTROSE 5% 50 ML IV SCH (11:00)
[2019-06-27] MEDS ORDERED: FUROSEMIDE 40 MG/4 ML VIAL IV STA (15:04)
--- NOTE | 2019-06-27 15:04 | Hospitalist Progress Note ---
Date of Service June 27, 2019 Assessment & Plan (1) Sepsis: -admission hospitalist diagnosis of sepsis secondary to right lower extremity cellulitis -admission leukocytosis of 26,000 -wound care of the legs -PT/OT evaluations appears to be recommending short stay after hospitalization t o a SNF or inpatient rehabilitation center -Lower extremity MRI 1. Diffuse cutaneous and subcutaneous edema 2. Muscular atrophy and mild intramuscular edema 3. No evidence of focal abscess 4. No evidence of osteomyelitis. -ultrasound: Enlarged bilateral inguinal lymph nodes measuring 4.6 x 1.5 x 2.4 cm on the right and 3.7 x 0.9 x 2.4 cm on the left. Subcutaneous edema noted in the bilateral lower extremities; Suspected reactive lymphadenopathy in the bilateral inguinal regions. -was started on cefepime and daptomycin empirically on admission - blood cultures no growth to date, Wound culture with Staphylococcus aureus with results returned as MSSA and wound culture Corynebacterium species -daptomycin and cefepime stopped on 06/24/19, continue ceftriaxone as started by ICU physician on 06/24/19 and to Continue ceftriaxone for total of 7 days Acute Deep Vein Thrombosis of bilateral lower extremities Anticoagulated by anticoagulation Therapy Possible right lower lobe segmental pulmonary embolism -ultrasound: Bilateral extensive deep venous thrombosis from the calf veins to the common femoral veins, partially occlusive on the right and occlusive in the lower leg on the left. -heparin drip IV was transitioned to Xarelto starting on 06/22/19 day time -last dose of Xarelto was 06/23/19 evening then subsequently patient had GI bleed -s/p Insertion Of Inferior Vena Cava Filter, Right Femoral Approach, by Dr. Urbina on 06/24/19 ACUTE PULMONARY EMBOLISM WITHOUT EVIDENCE OF COR PULMONALE -s/p Insertion Of Inferior Vena Cava Filter, Right Femoral Approach, by Dr. Urbina on 06/24/19 because of lower extremity DVT and with GI bleed from Xarelto -since being transferred from ICU, patient breathing comfortably on room air and not in distress -dedicated CT chest angio protocol to investigate pulmonary embolism noted on CT abdomen on 06/26/19 -CT chest angio on 06/26/19: Acute pulmonary emboli in lobar, segmental, and subsegmental pulmonary arteries of the right lower lobe and segmental and subsegmental pulmonary emboli in the right upper and left lower lobes to a lesser extent. No CT evidence of right heart strain.No evidence of pulmonary infarct. -discussed with ICU physician Dr. Saucedo on 06/26/19 and he agrees that patient is too high of GI bleed and potential exsanguination if placed on systemic blood thinners at this time and he recommends that patient should be at least 5 days hemoglobin stable before considering easily reversible blood thinners; we also discussed potential respiratory complications of not treating known pulmonary embolism without blood thinners -because patient is considered to be high risk of GI bleed due to ulcerative colitis regardless of when anticoagulation can be considered to be resumed, have discussed with patient and her niece Patsy on the telephone about co-morbid conditions; palliative care consult is sought to help clarify goals of care, plan to have family meeting with patient and niece in person on 06/28/19 Acute on chronic anemia acute blood loss anemia secondary to Gastrointestinal bleed -patient had stable hemoglobin above 8 on from 06/21/19 to 06/23/19 while on systemic anticoagulation -GI bleed with Hgb declined to 6 on 06/24/19 and to get total of 2 units of PRBC while in the Intensive Care Unit -s/p upper endoscopy on 06/24/[address] Galindo: normal esophagus, normal stomach, non-bleeding duodenal diverticulum, normal examined duodenum, no specimens collected -s/p flexible sigmoidoscopy on 06/24/[address] Galindo: Internal hemorrhoids, blood in the sigmoid colon and descending colon, friable (with spontaneous bleeding), granular and plaque covered mucosa in the sigmoid colon and in the descending colon and biopsies were taken -Gastroenterology service ordered methylprednisone 20 mg IV q8 hours to treat the Inflammatory Bowel Disease on 06/24/19 and tagged RBC scan did not find a active source of GI bleed -stop methylprednisone on 06/27/19 as blood counts are stable and no further acute blood loss at this time Ulcerative colitis (Inflammatory Bowel Disease) -Gastroenterology service was initially consulted for assistance with patient's chronic Ulcerative colitis with which symptoms were chronic diarrhea/loose stools -methylprednisone 20 mg IV q8 hours to treat the Inflammatory Bowel Disease on 06/24/19 -stop methylprednisone on 06/27/19 as blood counts are stable and no further acute blood loss at this time, continue oral mesalamine CT scan of the abdomen with contrast performed on 06/25/19 with following results 1. Moderate wall thickening of the descending colon and mild wall thickening of the remainder of the colon which represents a nonspecific colitis. No free air or abscess. Sensitivity for detection mucosal lesions significantly diminished given CT technique but none identified. 2. Extensive deep venous thrombus within visualized portions of the bilateral femoral veins as shown on previous lower extremity Doppler. Possible right lower lobe segmental pulmonary emboli. 3. 4.1 cm hypoenhancing splenic focus which favors an infarct. 4. Evidence for volume overload with anasarca, small right and trace left pleural effusions and trace ascites. 5. Prominent bilateral inguinal and external lymph nodes which are probably reactive. 6. Moderate gallbladder distention without adjacent infiltration. 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 Green to discuss findings 06/25/19 CT scan and he does not believe there is need for surgery for these issues regarding the spleen or gallbladder. no surgical interventions needed at this time as per General surgery formal consultation notes on 06/25/19 chronic systolic heart failure EF 44%, TTE 2013, chronic Left bundle branch block -continue to hold aspirin for now because of recent GI bleed, continue to hold losartan and carvedilol as heart rates and blood pressures are within normal limits -lower extremity appears somewhat worse due to fluid resuscitation from GI bleed treatment and hypotension -IV lasix 40 mg x 1 to be given on 06/27/19 Electrolytes -Hypokalemia resolved -Hypomagnesemia; hypomagnesemia corrected -Hypophosphatemia;hypophosphatemia corrected COPD as per records, past tobacco use -breathing on room air -prn nebulizers if needed Pre-Diabetes -HbA1c 6.4 -diabetic diet history skin cancer status post surgery in the past DVT prophylaxis: holding off pharmacological blood thinners due to recent GI bleed, avoid SCDs due to bilateral DVTs Full code Patient's niece Ms. Patsy Yañez, contact #[phone] Disposition: continue monitoring on telemetry mejia; because patient is considered to be high risk of GI bleed due to ulcerative colitis regardless of when anticoagulation can be considered to be resumed, have discussed with patient and her niece Patsy on the telephone about co-morbid conditions; palliative care consult is sought to help clarify goals of care, plan to have family meeting with patient and niece in person on 06/28/19 Subjective Patient seen and examined this AM. No reported gross bleeding. Blood counts stable. Patient denies abdominal pain. breathing on room air. no chest pain. no abdominal pain. lower extremities are very swollen. Physical Exam Constitutional: comfortable Eyes: PERRL, conjunctivae normal, anicteric sclerae EOM intact bilaterally ENMT: external ear and nose normal, oropharynx normal Neck: normal visual inspection Respiratory: normal respiratory effort, lungs clear to auscultation Cardiovascular: Rate/Rhythm: regular rate and regular rhythm Gastrointestinal (Abdomen): normal bowel sounds, soft, nontender, no hepatosplenomegaly Musculoskeletal: bilateral lower extremity swelling Neurologic: PERRL, EOMI, accommodation nl, no face palsy, no dysarthria Psychiatric: A+Ox3, euthymic affect Results & Data Vital Signs (Past 12 Hours) Vital Signs Temp Pulse Resp BP Pulse Ox 06/27/19 11:31 36.5 C 79 19 128/73 97 06/27/19 07:32 36.4 C L 87 18 154/84 H 99 06/27/19 03:49 36.4 C L 69 18 132/79 98 (1) Sepsis Sepsis acute organ dysfunction status: unspecified Sepsis type: sepsis due to unspecified organism Qualified Code(s): A41.9 - Sepsis, unspecified organism
[2019-06-27] MEDS ORDERED: FUROSEMIDE 40 MG in SYRINGE 0 ML IV ONE (15:15)
[2019-06-27] MEDS: FAMOTIDINE 20 MG TAB PO SCH (21:25)
[2019-06-28] MEDS: MESALAMINE 400 MG CAPDR PO SCH ×3 (07:33→21:16)
[2019-06-28] MEDS: FAMOTIDINE 20 MG TAB PO SCH ×2 (07:33→21:16)
[2019-06-28] MEDS ORDERED: FUROSEMIDE 20 MG in SYRINGE 0 ML IV SCH (11:00)
[2019-06-28] MEDS: cefTRIAXone SODIUM 1,000 MG in DEXTROSE 5% 50 ML IV SCH (11:02)
--- NOTE | 2019-06-28 11:27 | Surgery Progress Note ---
Date of Service June 28, 2019 Assessment & Plan (1) Abnormal abdominal CT scan: Patient had abnormal CT scan showing evidence of splenic infarct which does not require surgical intervention. She had a dilated gallbladder on CT scan however has no leukocytosis and LFTs wnl. No abdominal pain and tolerating diabetic diet. Plan: No surgical intervention required at this time Will sign off , thank you for involving us in the care of this patient Discussed with Dr. Green who agrees with above. Subjective no abdominal pain no nausea or vomiting tolerated regular diet this morning had a formed bowel movement this morning that was somewhat darker brown Physical Exam Constitutional: WD/WN, vitals as above no acute distress Gastrointestinal (Abdomen): Inspection/Auscultation: abdomen normal to inspection; abdomen not distended and + abnormal bowel sounds (hypoactive) Percussion/Palpation: abdomen soft; abdomen nontender, no guarding and abdomen not rigid Psychiatric: A+Ox3, euthymic affect Results & Data Vital Signs (Past 12 Hours) Vital Signs Temp Pulse Resp BP Pulse Ox 06/28/19 08:05 36.2 C L 84 16 119/71 99 06/28/19 03:34 36.9 C 80 16 142/73 H 80 L 06/28/19 00:05 36.9 C 86 16 144/79 H 99
[2019-06-28] MEDS ORDERED: methylPREDNISolone 20 MG in SYRINGE 0 ML IV SCH (12:00)
[2019-06-28] MEDS: predniSONE 20 MG TAB PO SCH (13:35)
--- NOTE | 2019-06-28 17:34 | Palliative Care Consultation ---
Date of Consultation June 28, 2019 Assessment & Plan (1) Palliative care encounter: Patient is an 83-year-old female with a past medical history significant for falls-3 in the past year, lower extremity weeping edema, and ICMO, diastolic CHF, and ulcerative colitis. She was admitted on 06/21 for weeping edema and increased shortness of breath, she was found to have acute bilateral DVTs -she was started on heparin and had a subsequent GI bleed. Status post IV filter placement and bilateral PEs. Patient denies any respiratory distress, her only current complaints are her generalized weakness and weeping edema. Had plan to meet with family after 2 PM-they had not come by 4 PM. Patient is awake and alert and stated that makes her own decisions. Patient is single, has never , has no children, and has no siblings. Patient did name Zandra Yañez as her emergency contact and healthcare surrogate. She is the daughter of patient's half nephew. Patient states she does have advanced directives. Patient stated she would want everything done temporarily to see if she could improve including intubation, shock, and chest compressions. Patient states she has discussed this with her POA. Patient's goal is to live at home as long as possible-she is starting to realize that this may no longer be possible. The patient states she has had 3 recent falls-the first in November where she was hospitalized and then sent to rehab. Patient returned home in December and has had 2 other falls. Patient is unable to get up from the floor on her own-she did have a life alert and was able to summon help. Patient uses a walker at home at baseline. Patient's goal is to go to rehab and regain some strength in hopes of returning home but is not against possible placement if needed. Patient considers Zandra and her 4 other siblings as family-they are distantly related children of patient's half nephew. -CODE STATUS-patient wishes to remain a full code, she did state that she would want everything done , including intubation but only temporarily. She would not want to be kept alive on life support. -Goals-patient is agreeable to a rehab stay to regain strength and improve ambulation with ultimate goal of returning home if possible. Patient is not against facility placement if needed after rehab -Falls-safety awareness education, patient would benefit from PT/OT -Lower extremity edema-patient with chronic lymphedema, currently on IV Lasix twice daily -Nonischemic cardiomyopathy-continue diuresis for fluid overload, attending to discuss anticoagulation in light of recent GI bleed and uncontrolled ulcerative colitis -Diastolic CHF-continue IV diuresis -Ulcerative colitis-patient states she was diagnosed 30 years ago, had been well controlled up until 2 years ago. Patient now incontinent of bowel and bladder. Continue Rowasa and mesalamine as per GI Will ask service excellence to assist patient with paper work stating Zandra Yañez is her healthcare surrogate Will continue to follow and assist patient with medical decision making (2) Lymphedema: (3) Deep vein thrombosis (DVT) of both lower extremities: (4) Diastolic CHF: (5) Ulcerative colitis: (6) BRBPR (bright red blood per rectum): History of Present Illness Reason for Consultation: Discussed CODE STATUS and goals of care Requesting Physician: Dr. Simón Salinas Attending Physician: Simón Salinas MD History of Present Illness Patient is an 83-year-old female with a past medical history significant for falls-3 in the past year, lower extremity weeping edema, and ICMO, diastolic CHF, and ulcerative colitis. She was admitted on 06/21 for weeping edema and increased shortness of breath, she was found to have acute bilateral DVTs -she was started on heparin and had a subsequent GI bleed. Status post IV filter placement and bilateral PEs. Patient denies any respiratory distress, her only current complaints are her generalized weakness and weeping edema. Had plan to meet with family after 2 PM-they had not come by 4 PM. Patient is awake and al ert and stated that makes her own decisions. Patient is single, has never , has no children, and has no siblings. Patient did name Zandra Yañez as her emergency contact and healthcare surrogate. She is the daughter of patient's half nephew. Patient states she does have advanced directives. Patient stated she would want everything done temporarily to see if she could improve including intubation, shock, and chest compressions. Patient states she has discussed this with her POA. Patient's goal is to live at home as long as possible-she is starting to realize that this may no longer be possible. The patient states she has had 3 recent falls-the first in November where she was found down by her cleaning lady, unknown downtime-she was hospitalized and then sent to rehab. Patient returned home in December and has had 2 other falls-1 in the doorway as she was walking with her walker to the car, the other one she slid off the bed and was able to use her life alert to call for help. Patient uses a walker at home at baseline. Patient's goal is to go to rehab and regain some strength in hopes of returning home but is not against possible placement if needed. Patient considers Zandra and her 4 other siblings as family-they are distantly related children of patient's half nephew. Allergies Allergy/AdvReac Type Severity Reaction Status Date / Time erythromycin base Allergy Intermediate RASH Verified 06/21/19 20:19 Penicillins Allergy Intermediate HIVES Verified 06/21/19 20:19 tetracycline Allergy Intermediate HIVES Verified 06/21/19 20:19 Home Medications Home Medications Medication Instructions Recorded Confirmed Type aspirin 81 mg PO DAILY 11/16/18 06/21/19 History carvedilol 3.125 mg PO BID 11/16/18 06/21/19 History furosemide 20 mg PO DAILY 11/16/18 06/21/19 History losartan 50 mg PO QAM 11/16/18 06/21/19 History mesalamine 800 mg PO TID 11/16/18 06/21/19 History potassium chloride 20 meq PO DAILY 11/16/18 06/21/19 History acetaminophen [Mapap 650 mg PO Q4H PRN #20 tab 11/19/18 06/21/19 Rx (acetaminophen)] glucos sul [id number] 1 cap PO BID 05/23/19 06/21/19 History [Glucosamine Chondroitin] multivitamin 1 tab PO DAILY 05/23/19 06/21/19 History albuterol sulfate [Proventil HFA] 2 puff INHALATION Q6H PRN 06/21/19 06/21/19 History Patient History Medical History Mild tricuspid regurgitation (Chronic) Moderate mitral regurgitation (Chronic) Nonischemic cardiomyopathy (Chronic) Diastolic CHF (Chronic) Ulcerative colitis (Chronic) Left bundle branch block (Chronic) Venous insufficiency (Chronic) COPD, mild (Chronic) Hypertension (Chronic) Colitis (Chronic) Surgical History S/P right knee arthroscopy (Chronic) S/p bilateral carpal tunnel release (Chronic) Family History Other Family history non-contributory Social History Preferred Language: Georgian Communication Ability: Effective Trauma Registrar Required: Yes Beliefs That Will Affect Care: None Current Living Situation: Alone Other Information That Helps Us Care for You: No Feels Safe at Home: Yes Safety Concerns: Feels Safe At This Time Smoking Status: Former smoker Tobacco Type: cigarettes ; Do You Dip or Chew Tobacco: No ; Second Hand Exposure: No ; Tobacco Cessation Education Requested by Patient: No Hx Alcohol Use: Yes Hx Substance Use: No Review of Systems Review of Systems: Patient denies recent fever, chills, increased shortness of breath, or abdominal pain. Positive for weeping edema and generalized weakness Physical Exam Physical Exam: PE: Patient awake and alert, appears comfortable at rest HEENT: EOMI, hearing within normal limits Respir: Clear breath sounds CV: Regular rate, positive bilateral weeping edema, pitting to the level of groin Abdomen: Soft, nontender Neuro: Alert and oriented, positive mild memory deficits, able to make her own medical decisions. Results & Data Vital Signs (Past 12 Hours) Vital Signs Temp Pulse Pulse Resp BP Pulse Ox 06/28/19 16:00 82 06/28/19 15:08 97.7 F 80 20 121/75 98 06/28/19 11:48 98.2 F 84 20 114/68 94 06/28/19 08:05 97.2 F L 84 16 119/71 99 PG Care Time/CCT Total # of Minutes Spent Total Time Spent with Patient: Total time spent is greater than 50% in coordination of care (as documented) at patient's floor/unit and/or counseling patient: Time Spent Attending Time spent 70 minutes with greater than 50% of the time spent at bedside discussing patient's goals of care as well as her understanding of her current condition and ability to live alone
[2019-06-28] MEDS: FUROSEMIDE 20 MG in SYRINGE 0 ML IV SCH (17:41)
--- NOTE | 2019-06-28 17:46 | Hospitalist Progress Note ---
Date of Service June 28, 2019 Assessment & Plan (1) Sepsis: -admission hospitalist diagnosis of sepsis secondary to right lower extremity cellulitis -admission leukocytosis of 26,000 -wound care of the legs -PT/OT evaluations appears to be recommending short stay after hospitalization t o a SNF or inpatient rehabilitation center -Lower extremity MRI 1. Diffuse cutaneous and subcutaneous edema 2. Muscular atrophy and mild intramuscular edema 3. No evidence of focal abscess 4. No evidence of osteomyelitis. -ultrasound: Enlarged bilateral inguinal lymph nodes measuring 4.6 x 1.5 x 2.4 cm on the right and 3.7 x 0.9 x 2.4 cm on the left. Subcutaneous edema noted in the bilateral lower extremities; Suspected reactive lymphadenopathy in the bilateral inguinal regions. -was started on cefepime and daptomycin empirically on admission - blood cultures no growth to date, Wound culture with Staphylococcus aureus with results returned as MSSA and wound culture Corynebacterium species -daptomycin and cefepime stopped on 06/24/19, continue ceftriaxone as started by ICU physician on 06/24/19 and to Continue ceftriaxone for total of 7 days Acute Deep Vein Thrombosis of bilateral lower extremities Anticoagulated by anticoagulation Therapy Possible right lower lobe segmental pulmonary embolism -ultrasound: Bilateral extensive deep venous thrombosis from the calf veins to the common femoral veins, partially occlusive on the right and occlusive in the lower leg on the left. -heparin drip IV was transitioned to Xarelto starting on 06/22/19 day time -last dose of Xarelto was 06/23/19 evening then subsequently patient had GI bleed -s/p Insertion Of Inferior Vena Cava Filter, Right Femoral Approach, by Dr. Urbina on 06/24/19 ACUTE PULMONARY EMBOLISM WITHOUT EVIDENCE OF COR PULMONALE -s/p Insertion Of Inferior Vena Cava Filter, Right Femoral Approach, by Dr. Urbina on 06/24/19 because of lower extremity DVT and with GI bleed from Xarelto -since being transferred from ICU, patient breathing comfortably on room air and not in distress -dedicated CT chest angio protocol to investigate pulmonary embolism noted on CT abdomen on 06/26/19 -CT chest angio on 06/26/19: Acute pulmonary emboli in lobar, segmental, and subsegmental pulmonary arteries of the right lower lobe and segmental and subsegmental pulmonary emboli in the right upper and left lower lobes to a lesser extent. No CT evidence of right heart strain.No evidence of pulmonary infarct. -discussed with ICU physician Dr. Saucedo on 06/26/19 and he agrees that patient is too high of GI bleed and potential exsanguination if placed on systemic blood thinners at this time and he recommends that patient should be at least 5 days hemoglobin stable before considering easily reversible blood thinners; we also discussed potential respiratory complications of not treating known pulmonary embolism without blood thinners -06/28/19: Patient seen by Dr. Higuera on palliative care. Patient also visited by Patsy Yañez and patient allowed medical doctor to discuss current medical course and updates. Discussed with patient that hospitalist colleague Dr. Peña will be follow her care starting on 06/29/19. We talked about benefits of being off anticoagulation to prevent any gastrointestinal bleed from ulcerative colitis if on blood thinners and risks of worsening thromboembolism with potential future respiratory symptoms if off anticoagulation. Patient says she understands everything that is being explained to her. Her decisions on further treatments will be forthcoming Acute on chronic anemia acute blood loss anemia secondary to Gastrointestinal bleed -patient had stable hemoglobin above 8 on from 06/21/19 to 06/23/19 while on systemic anticoagulation -GI bleed with Hgb declined to 6 on 06/24/19 and to get total of 2 units of PRBC while in the Intensive Care Unit -s/p upper endoscopy on 06/24/[address] Galindo: normal esophagus, normal stomach, non-bleeding duodenal diverticulum, normal examined duodenum, no specimens collected -s/p flexible sigmoidoscopy on 06/24/[address] Galindo: Internal hemorrhoids, blood in the sigmoid colon and descending colon, friable (with spontaneous bleeding), granular and plaque covered mucosa in the sigmoid colon and in the descending colon and biopsies were taken -Gastroenterology service ordered methylprednisone 20 mg IV q8 hours to treat the Inflammatory Bowel Disease on 06/24/19 and tagged RBC scan did not find a active source of GI bleed Ulcerative colitis (Inflammatory Bowel Disease) -Gastroenterology service was initially consulted for assistance with patient's chronic Ulcerative colitis with which symptoms were chronic diarrhea/loose stools -methylprednisone 20 mg IV q8 hours to treat the Inflammatory Bowel Disease on 06/24/19 -stop methylprednisone on 06/27/19 and patient started on 06/28/19 prednisone 40 mg daily for 1 week with the next week as 35 mg daily for 1 week and continue titrating down the daily dosing by 5 mg every week until completion -continue oral mesalamine 1600 mg TID and consider outpatient transition of mesalamine to Lialda 4.8g daily as previously recommended by gastroenterology service CT scan of the abdomen with contrast performed on 06/25/19 with following results 1. Moderate wall thickening of the descending colon and mild wall thickening of the remainder of the colon which represents a nonspecific colitis. No free air or abscess. Sensitivity for detection mucosal lesions significantly diminished given CT technique but none identified. 2. Extensive deep venous thrombus within visualized portions of the bilateral femoral veins as shown on previous lower extremity Doppler. Possible right lower lobe segmental pulmonary emboli. 3. 4.1 cm hypoenhancing splenic focus which favors an infarct. 4. Evidence for volume overload with anasarca, small right and trace left pleural effusions and trace ascites. 5. Prominent bilateral inguinal and external lymph nodes which are probably reactive. 6. Moderate gallbladder distention without adjacent infiltration. 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 Green to discuss findings 06/25/19 CT scan and he does not believe there is need for surgery for these issues regarding the spleen or gallbladder. no surgical interventions needed at this time as per General surgery formal consultation notes on 06/25/19 chronic systolic heart failure EF 44%, TTE 2013, chronic Left bundle branch block -continue to hold aspirin for now because of recent GI bleed, continue to hold losartan and carvedilol as heart rates and blood pressures are within normal limits -lower extremity appears somewhat worse due to fluid resuscitation from GI bleed treatment and hypotension -IV Lasix 40 mg x 1 given on 06/27/19, IV 20 mg BID Lasix for 06/28/19 and ongoing to try to reduce some lower extremity edema Electrolytes -Hypokalemia resolved -Hypomagnesemia; hypomagnesemia corrected -Hypophosphatemia;hypophosphatemia corrected COPD as per records, past tobacco use -breathing on room air -prn nebulizers if needed Pre-Diabetes -HbA1c 6.4 -diabetic diet history skin cancer status post surgery in the past DVT prophylaxis: holding off pharmacological blood thinners due to recent GI bleed, avoid SCDs due to bilateral DVTs Full code Patient's niece Ms. Patsy Yañez, contact #[phone] Disposition: continue monitoring on telemetry mejia; because patient is considered to be high risk of GI bleed due to ulcerative colitis regardless of when anticoagulation can be considered to be resumed, have discussed with patient and her niece Patsy on the telephone about co-morbid conditions; palliative care consult is sought to help clarify goals of care, plan to have family meeting with patient and niece in person on 06/28/19 Subjective Patient today with continued stable blood counts. no shortness of breath. breathing on room air. no chest pain. no palpitations. no headache. no dizziness. no lightheadedness. The bilateral lower extremities are still very enlarged. Patient seen by Dr. Higuera on palliative care. Patient also visited by Patsy Yañez and patient allowed medical doctor to discuss current medical course and updates. Discussed with patient that hospitalist colleague Dr. Peña will be follow her care starting on 06/29/19. We talked about benefits of being off anticoagulation to prevent any gastrointestinal bleed from ulcerative colitis if on blood thinners and risks of worsening thromboembolism with potential future respiratory symptoms if off anticoagulation. Patient says she understands everything that is being explained to her. Her decisions on further treatments will be forthcoming. Physical Exam Constitutional: comfortable Eyes: PERRL, conjunctivae normal, anicteric sclerae EOM intact bilaterally ENMT: external ear and nose normal, oropharynx normal Neck: normal visual inspection Respiratory: normal respiratory effort, lungs clear to auscultation Cardiovascular: Rate/Rhythm: regular rate and regular rhythm Gastrointestinal (Abdomen): normal bowel sounds, soft, nontender, no hepatosplenomegaly Musculoskeletal: bilateral lower extremity enlargement Neurologic: PERRL, EOMI, accommodation nl, no face palsy, no dysarthria Psychiatric: A+Ox3, euthymic affect Results & Data Vital Signs (Past 12 Hours) Vital Signs Temp Pulse Pulse Resp BP Pulse Ox 06/28/19 16:00 82 06/28/19 15:08 36.5 C 80 20 121/75 98 06/28/19 11:48 36.8 C 84 20 114/68 94 06/28/19 08:05 36.2 C L 84 16 119/71 99 (1) Sepsis Sepsis acute organ dysfunction status: unspecified Sepsis type: sepsis due to unspecified organism Qualified Code(s): A41.9 - Sepsis, unspecified organism
[2019-06-29 05:54] LABS: Basophils # (auto) 0.01 K/uL (0-0.2); Basophils % (auto) 0.1 %; Eosinophils # (auto) 0.01 K/uL (0-0.5); Eosinophils % (auto) 0.1 %; Hemoglobin 8.6 g/dL (12.0-16.0); Immature Granulocytes # (auto) 0.07 K/uL (0.00-0.02); Immature Granulocytes % (auto) 0.7 %; Lymphocytes # (auto) 0.97 K/uL (1.2-3.4); Lymphocytes % (auto) 9.5 %; Mean Corpuscular Hemoglobin 27.5 pg (25-34); Mean Corpuscular Hgb Conc 31.9 g/dL (32-36); Mean Corpuscular Volume 86.3 fL (80-100); Mean Platelet Volume 10.2 fL (7.4-10.4); Monocytes # (auto) 0.58 K/uL (0.11-0.59); Monocytes % (auto) 5.7 %; Neutrophils # (auto) 8.59 K/uL (1.4-6.5); Neutrophils % (auto) 83.9 %; Platelet Count 198 K/uL (130-400); RDW Coefficient of Variation 18.4 % (11.5-14.5); RDW Standard Deviation 57.7 fL (36.4-46.3); Red Blood Count 3.13 M/uL (4.2-5.4); White Blood Count 10.23 K/uL (4.8-10.8)
[2019-06-29 06:29] LABS: Albumin Globulin Ratio 0.4 (0.9-2); Albumin Level 1.6 gm/dl (3.4-5.0); BUN Creatinine Ratio 25.2 (10-20); Bilirubin,Total 0.3 mg/dl (0.2-1); Calcium 7.6 mg/dl (8.5-10.1); Creatinine Clr Calc Pharmacy 64.8 ml/min; Est GFR (African American) 96.9; Est GFR (Non-African American) 83.6; Globulin 3.7 gm/dl (2.5-4.0); Potassium 3.1 mmol/L (3.5-5.1); Total Protein 5.3 gm/dl (6.4-8.2)
[2019-06-29] MEDS: FAMOTIDINE 20 MG TAB PO SCH ×2 (08:45→20:55)
[2019-06-29] MEDS: MESALAMINE 400 MG CAPDR PO SCH ×3 (08:45→20:54)
[2019-06-29] MEDS: predniSONE 20 MG TAB PO SCH (08:45)
[2019-06-29] MEDS: FUROSEMIDE 20 MG in SYRINGE 0 ML IV SCH (08:46)
[2019-06-29] MEDS: cefTRIAXone SODIUM 1,000 MG in DEXTROSE 5% 50 ML IV SCH (10:12)
[2019-06-29] MEDS: POTASSIUM CHLORIDE 20 MEQ TABCR PO SCH ×2 (12:03→17:09)
--- NOTE | 2019-06-29 12:49 | Hospitalist Progress Note ---
Date of Service June 29, 2019 Assessment & Plan (1) Pulmonary emboli: She has been off blood thinners for approximately 1 week after failing a trial of Xarelto. She did well on a heparin drip. Consideration is being given to treating her current pulmonary emboli with blood thinners again, preferable regimen would be heparin drip with transition to Coumadin as these are reversible agents and can be monitored in the hospital. Will need to discuss the likelihood of rebleeding with GI who is had her on ulcerative colitis therapy for only few days. Additionally appreciate pulmonary recommendations regarding the need to anticoagulate from a pulmonary perspective. IVC filter is in place this admission. She is breathing well without evidence of hypoxia. (2) Deep vein thrombosis (DVT) of both lower extremities: As above, anticoagulation relatively contraindicated in setting of GI bleed. IVC filter is in place. Encourage ambulation. (3) Ulcerative colitis: Recently restarted on mesalamine and steroids after sigmoid endoscopy revealed friable mucosa. Continue this treatment now with outpatient transition of mesalamine to Lialda and continued long-term steroid taper per GI recommendations. (4) Acute blood loss anemia: Acute blood loss anemia is present but stable. No active bleeding is ongoing per patient's report and she is hemodynamically stable. Continue to monitor H&H. (5) Cellulitis of both lower extremities: Ceftriaxone. (6) Chronic venous insufficiency: On Lasix 20 milligrams p.o. daily at home. Currently taking IV Lasix but no further need for this and she is also uncomfortable urinating so frequently. This is why the reason she is staying in bed mostly. Will discontinue this now. Lower extremity ulcer is present with superficial infection as above. The wound was evaluated and looks clean and dry. (7) Nonischemic cardiomyopathy: Appears compensated. Restarting daily Lasix tomorrow as above. Continue medical management with losartan and carvedilol. Aspirin is currently contraindicated in setting of GI bleed. (8) Mitral regurgitation: Chronic stable heart murmur. (9) Sepsis: Resuscitated. Continue treatment of lower extremity cellulitis above. (10) Splenic infarct: Incidental finding on CT scan. Per general surgery no further surgical indication is necessary as patient is asymptomatic. (11) Hypokalemia: Secondary to diuretics. IV diuresis is being switched to her home oral dosing today. Potassium replacement was given. Repeat BMP in a.m. (12) Discharge planning issues: Treatment of DVT is relatively contraindicated in setting of poorly controlled ulcerative colitis. Encourage ambulation with assistance 3 times daily. Full code Disposition-pending recommendations from GI and pulmonary regarding re- challenging her with the blood thinner. Salome Peña DO [facility] Hospitalist Subjective 83-year-old female with a history of ulcerative colitis presented with sepsis. This was thought secondary to her right lower extremity cellulitis. She was started on cefepime and daptomycin and an MRI was performed revealing no evidence of osteomyelitis and no focal abscess. She also reported some wor sening diarrhea in the past few months and GI was consulted. Mesalamine was restarted at an increased dose of 1600 mg 3 times daily. Mesalamine enema was also recommended to the patient refuses based on the messiness factor. She was found to have bilateral extensive deep venous thromboses on ultrasound extending from the calf to the femoral veins. A heparin drip was started with transition to Xarelto on 06/22. After 2 doses the patient developed a lower GI bleed and was transfused blood products with transferred to the ICU. Vascular surgery was consulted and an IVC filter was recommended and inserted on 06/24. An EGD was performed on 07/02 revealing a normal esophagus, normal stomach, nonbleeding duodenal diverticulum. A flexible sigmoidoscopy was performed the same day revealing evidence of an, blood in the sigmoid colon and the descending colon with friable spontaneously bleeding, granular and plaque covered mucosa in the sigmoid colon and in the descending colon. Biopsies were taken. Solu-Medrol was started this day. A tagged red blood cell was performed revealing no evidence of ongoing active bleeding. She continues on steroid therapy. An abdominal CT scan was performed revealing a splenic infarct. General surgery was consulted. Based on the fact that this was asymptomatic there was no surgical intervention indicated. Review of Systems Review of Systems: All systems reviewed & are unremarkable except as noted in HPI & below Physical Exam Physical Exam: CONSTITUTIONAL: WNWD, vitals as above, generally well- appearing EYES: nnormal conjunctivae, no scleral icterus ENT: MMM RESPIRATORY: clear to auscultation bilaterally, no crackles, rales or wheezes, normal respiratory effort CARDIOVASCULAR: regular rate and rhythm, 3/6 NEVILLE heard, no gallops or rubs, no peripheral edema but there is some swelling in her legs R>L GASTROINTESTINAL: normal bowel sounds, soft, nontender, nondistended. MUSCULOSKELETAL: strength 5/5 throughout, head is normocephalic and atraumatic SKIN: warm and dry, open leg ulcer-stage II on lower right leg, covered with Optifoam, no surrounding erythema. NEUROLOGIC: CN 2-12 grossly intact, no sensory deficit, normal cognition, normal speech, no gross focal deficits. PSYCHIATRIC: alert cooperative and oriented to person, place and time. Results & Data Vital Signs (Past 12 Hours) Vital Signs Temp Pulse Resp BP Pulse Ox 06/29/19 11:13 36.4 C L 70 18 123/71 97 06/29/19 08:00 77 06/29/19 07:05 36.4 C L 84 18 144/69 H 98 06/29/19 04:02 36.4 C L 80 18 137/70 97 Laboratory Results Short CBC 06/29/19 Range/Units 05:25 WBC 10.23 (4.8-10.8) K/uL Hgb 8.6 L (12.0-16.0) g/dL Hct 27.0 L (37-47) % Plt Count 198 (130-400) K/uL BMP 06/29/19 05:25 Sodium 141 Potassium 3.1 L D Chloride 102 Carbon Dioxide 34 H BUN 15 Creatinine 0.59 L Glucose 94 Calcium 7.6 L Liver Function 06/29/19 Range/Units 05:25 Total Bilirubin 0.3 (0.2-1) mg/dl AST 20 (15-37) U/L ALT 23 (12-78) U/L Alkaline Phosphatase 93 (45-117) U/L Albumin 1.6 L (3.4-5.0) gm/dl Medications Administered Current Inpatient Medications Albuterol (Duoneb) 3 ml NEB Q6H PRN PRN Reason: shortness of breath or wheezing Stop: 07/26/19 09:29 Famotidine (Pepcid) 20 mg PO BID JEVON Stop: 07/27/19 20:59 Last Admin: 06/29/19 08:45 Dose: 20 mg Documented by: Acetaminophen (Ofirmev) 65 mls @ 200 mls/hr IV Q8H PRN PRN Reason: fever or pain Stop: 07/24/19 08:14 Ceftriaxone Sodium 1,000 mg/ (Dextrose) 60 mls @ 100 mls/hr IV Q24H JEVON; Protocol Stop: 07/04/19 09:59 Last Infusion: 06/29/19 10:55 Dose: Infused Documented by: Furosemide 20 mg/ Syringe 2 mls @ 4 mls/min IV BID@0900,1700 JEVON Stop: 07/28/19 16:59 Last Admin: 06/29/19 08:46 Dose: 4 mls/min Documented by: Ioversol (Optiray 320 125ml) 86 ml IV ONCE PRN PRN Reason: Interaction Checking Stop: 06/30/19 11:01 Last Admin: 06/26/19 11:03 Dose: 86 ml Documented by: Mesalamine (Rowasa) 4 gm [place] HS JEVON Stop: 07/22/19 20:59 Last Admin: 06/23/19 20:55 Dose: Not Given Documented by: Mesalamine (Delzicol) 1,600 mg PO TID JEVON Stop: 07/23/19 20:59 Last Admin: 06/29/19 08:45 Dose: 1,600 mg Documented by: Potassium Chloride (Klor-Con M20) 40 meq PO Q6H JEVON Stop: 06/29/19 15:31 Last Admin: 06/29/19 12:03 Dose: 40 meq Documented by: Prednisone (Prednisone) 40 mg PO DAILY JEVON Stop: 07/28/19 12:59 Last Admin: 06/29/19 08:45 Dose: 40 mg Documented by: Tramadol HCl (Ultram) 25 mg PO Q4H PRN PRN Reason: Pain Stop: 07/21/19 22:57 (1) Sepsis Sepsis acute organ dysfunction status: unspecified Sepsis type: sepsis due to unspecified organism Qualified Code(s): A41.9 - Sepsis, unspecified organism
--- NOTE | 2019-06-29 15:53 | Pulmonary Consultation ---
Date of Consultation June 29, 2019 Assessment & Plan (1) Splenic infarct: (2) Mitral regurgitation: (3) Chronic venous insufficiency: (4) Nonischemic cardiomyopathy: (5) Pulmonary emboli: Apparently the multiple pulmonary emboli were picked up by serendipity after the CAT scan of the abdomen was performed. I totally agree with the insertion of a vena cava filter given the presence of significant acute or even subacute deep venous thrombosis bilaterally in the face of chronic lymphedema in a patient with a complex medical history. Inflammatory bowel disease like Crohn's disease or ulcerative colitis are associated with an increased risk of thrombogenesis with resultant DVT and pulmonary emboli. The presence of bright red bleeding per rectum with the most likely explanation result of her ulcerative colitis make anticoagulation problematic. Impossible to date the timing of the acute pulmonary emboli but certainly suspected to be prior to insertion of the vena cava filter. Further anticoagulation therapy in the form of Coumadin could only be instituted with clearance from gastroenterology. Patient remains essentially asymptomatic from a respiratory standpoint at this point in time. 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 Patient had to be transferred to the critical care unit on 06/24/2019 she has a history of bilateral lower extremity DVT and had been on anticoagulant therapy. She initially was placed on IV daptomycin and cefepime pending cultures on admission. She then developed bright red rectal bleeding. He became hypotensive and had a drop in her H&H. She responded to packed red blood cell transfusion and hydration apparently her symptoms from her ulcerative colitis have been under control at that point. Dr. Urbina was consulted because of the acute appearing bilateral lower extremity DVT and presumed GI bleed and an IVC filter insertion was contemplated and inserted without difficulties on 06/24/2019. EGD performed was negative. A lower GI bleed was suggested with clot found in the sigmoid colon and descending colon. Biopsies were taken . Her admission diagnosis was ulcerative colitis presenting with sepsis with the latter felt to be secondary to her right lower extremity cellulitis thus the need for IV cefepime and daptomycin. Was no evidence for osteomyelitis or focal abscess. Patient has been on mesalamine for her ulcerative colitis. Dose has been titrated. The heparin drip was started with transition to Xarelto on 06/22. That is when she developed a GI bleed after 2 days of the latter. Solu-Medrol was started following the flexible sigmoidoscopy with presumptively no additional bleeding. Abdominal CT scan suggested a splenic infarct. CTA of the chest was performed on 06/26/2019 which showed acute pulmonary emboli in the lobar, segmental, subsegmental pulmonary arteries of the right lower lobe right upper lobe and left lower lobe. CT evidence of right heart strain no evidence of pulmonary infarct but cardiomegaly and volume overload with bilateral pleural effusions was suggested. Apparently the abdominal CT scan on 06/25/2019 suggested right lower lobe segmental pulmonary emboli and thus a CTA was performed the next day. Patient denies to me any symptoms of dyspnea pleuritic pain hemoptysis or cough. Denies history of COPD or pulmonary disease or even dyspnea with exertion although admittedly is not very active given the presence of her significant lymphedema. Once again ultrasound of the bilateral lower extremities showed extensive deep venous thrombosis from the calf veins to the common femoral veins, partially occlusive on the right and occlusive of the lower leg on the left. There also are enlarged bilateral inguinal lymph nodes both right and left with subcutaneous edema and it was felt that this represented reactive lymphadenopathy. The cefepime and daptomycin started on admission were stopped on 06/24/2019 with ceftriaxone continued. Blood cultures were negative wound culture grew staph aureus MSSA. Allergies Allergy/AdvReac Type Severity Reaction Status Date / Time erythromycin base Allergy Intermediate RASH Verified 06/21/19 20:19 Penicillins Allergy Intermediate HIVES Verified 06/21/19 20:19 tetracycline Allergy Intermediate HIVES Verified 06/21/19 20:19 Home Medications Home Medications Medication Instructions Recorded Confirmed Type aspirin 81 mg PO DAILY 11/16/18 06/21/19 History carvedilol 3.125 mg PO BID 11/16/18 06/21/19 History furosemide 20 mg PO DAILY 11/16/18 06/21/19 History losartan 50 mg PO QAM 11/16/18 06/21/19 History mesalamine 800 mg PO TID 11/16/18 06/21/19 History potassium chloride 20 meq PO DAILY 11/16/18 06/21/19 History acetaminophen [Mapap 650 mg PO Q4H PRN #20 tab 11/19/18 06/21/19 Rx (acetaminophen)] glucos sul [id number] 1 cap PO BID 05/23/19 06/21/19 History [Glucosamine Chondroitin] multivitamin 1 tab PO DAILY 05/23/19 06/21/19 History albuterol sulfate [Proventil HFA] 2 puff INHALATION Q6H PRN 06/21/19 06/21/19 History Patient History Medical History Mild tricuspid regurgitation (Chronic) Moderate mitral regurgitation (Chronic) Nonischemic cardiomyopathy (Chronic) Diastolic CHF (Chronic) Ulcerative colitis (Chronic) Left bundle branch block (Chronic) Venous insufficiency (Chronic) COPD, mild (Chronic) Hypertension (Chronic) Colitis (Chronic) Surgical History S/P right knee arthroscopy (Chronic) S/p bilateral carpal tunnel release (Chronic) Family History Other Family history non-contributory Social History Preferred Language: Panamanian Communication Ability: Effective 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 Network 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: Yes Beliefs That Will Affect Care: None Current Living Situation: Alone Other Information That Helps Us Care for You: No Feels Safe at Home: Yes Safety Concerns: Feels Safe At This Time Smoking Status: Former smoker Tobacco Type: cigarettes ; Do You Dip or Chew Tobacco: No ; Second Hand Exposure: No ; Tobacco Cessation Education Requested by Patient: No Hx Alcohol Use: Yes Hx Substance Use: No Review of Systems Constitutional: no problem reported Eyes: no problem reported Ear, Nose, Mouth, Throat: no problem reported Respiratory: no problem reported Cardiovascular: no problem reported Gastrointestinal: no problem reported Genitourinary: no problem reported Musculoskeletal: no problem reported Integumentary: no problem reported Neurologic: no problem reported Psychiatric: no problem reported Endocrine: no problem reported Hematologic / Lymphatic: no problem reported Allergy / Immunological: no problem reported Physical Exam Constitutional: well developed and well nourished; no acute distress Eyes: PERRL, conjunctivae normal, anicteric sclerae ENMT: external ear and nose normal, oropharynx normal Neck: trachea midline, no thyromegaly Respiratory: normal respiratory effort Auscultation: lungs clear to auscultation bilaterally, + diminished lung sounds (Bilaterally) and + crackles (Bibasilar crackles) Cardiovascular: RRR, no murmur, no edema Palpation: normal PMI; no thrill Gastrointestinal (Abdomen): normal bowel sounds, soft, nontender, no hepatosplenomegaly Musculoskeletal: no cyanosis or clubbing, extremities motor strength 5/5 Gait: normal gait Skin: no rashes, warm and dry + ulcer (Several stasis ulcers on both lower extremity bandaged) Lymphedema bilaterally Neurologic: PERRL, EOMI, accommodation nl, no face palsy, no dysarthria Psychiatric: A+Ox3, euthymic affect Lymphatic: no cervical or axillary lymphadenopathy Results & Data Vital Signs (Past 12 Hours) Vital Signs Temp Pulse Resp BP Pulse Ox 06/29/19 15:03 36.5 C 79 18 106/66 97 06/29/19 11:13 36.4 C L 70 18 123/71 97 06/29/19 08:00 77 06/29/19 07:05 36.4 C L 84 18 144/69 H 98 06/29/19 04:02 36.4 C L 80 18 137/70 97 Laboratory Results Abnormal Labs 06/21/19 06/21/19 06/21/19 19:40 19:40 19:40 WBC 26.61 H RBC 3.20 L Hgb 8.5 L Hct 26.3 L MCHC RDW Std Deviation 60.8 H RDW Coeff of Ellen 20.2 H Reticulocyte % (Auto) 2.4 H Immature Gran # (Auto) 0.13 H Neut # (Auto) 25.52 H Lymph # (Auto) 0.43 L Winn # (Auto) Absolute Nucleated RBC ESR INR APTT Potassium 3.3 L Chloride Carbon Dioxide BUN Creatinine BUN/Creatinine Ratio Glucose 132 H POC Glucose Hemoglobin A1c Calcium 7.7 L Phosphorus Magnesium Iron 11 L TIBC 175 L Transferrin 105 L AST Total Creatine Kinase C-Reactive Protein Total Protein 5.9 L Albumin 1.4 L Globulin 4.4 H Albumin/Globulin Ratio 0.3 L Lipase Ur Leukocyte Esterase U Epithel Cells (Auto) Crossmatch 06/21/19 06/21/19 06/22/19 19:40 21:19 02:45 WBC RBC Hgb Hct MCHC RDW Std Deviation RDW Coeff of Ellen Reticulocyte % (Auto) Immature Gran # (Auto) Neut # (Auto) Lymph # (Auto) Winn # (Auto) Absolute Nucleated RBC ESR INR APTT Potassium Chloride Carbon Dioxide BUN Creatinine BUN/Creatinine Ratio Glucose POC Glucose Hemoglobin A1c 6.4 H Calcium Phosphorus Magnesium Iron TIBC Transferrin AST Total Creatine Kinase C-Reactive Protein Total Protein Albumin Globulin Albumin/Globulin Ratio Lipase Ur Leukocyte Esterase Trace H U Epithel Cells (Auto) 10-20 H Crossmatch See Detail 06/22/19 06/22/19 06/22/19 09:34 09:34 09:34 WBC 11.89 H D RBC 3.30 L Hgb 8.8 L Hct 27.6 L MCHC 31.9 L RDW Std Deviation 63.5 H RDW Coeff of Ellen 20.8 H Reticulocyte % (Auto) Immature Gran # (Auto) 0.04 H Neut # (Auto) 10.87 H Lymph # (Auto) 0.43 L Winn # (Auto) Absolute Nucleated RBC ESR 43 H INR APTT Potassium Chloride Carbon Dioxide BUN Creatinine BUN/Creatinine Ratio 21.7 H Glucose 165 H POC Glucose Hemoglobin A1c Calcium 7.6 L Phosphorus Magnesium Iron TIBC Transferrin AST Total Creatine Kinase C-Reactive Protein 13.60 H Total Protein Albumin Globulin Albumin/Globulin Ratio Lipase Ur Leukocyte Esterase U Epithel Cells (Auto) Crossmatch 06/22/19 06/22/19 06/23/19 10:10 17:59 06:49 WBC RBC 3.17 L Hgb 8.6 L Hct 26.3 L MCHC RDW Std Deviation 61.9 H RDW Coeff of Ellen 20.5 H Reticulocyte % (Auto) Immature Gran # (Auto) 0.03 H Neut # (Auto) 7.01 H Lymph # (Auto) 0.68 L Winn # (Auto) 0.61 H Absolute Nucleated RBC ESR INR 1.2 H APTT 32.1 H 50.7 H* Potassium Chloride Carbon Dioxide BUN Creatinine BUN/Creatinine Ratio Glucose POC Glucose Hemoglobin A1c Calcium Phosphorus Magnesium Iron TIBC Transferrin AST Total Creatine Kinase C-Reactive Protein Total Protein Albumin Globulin Albumin/Globulin Ratio Lipase Ur Leukocyte Esterase U Epithel Cells (Auto) Crossmatch 06/23/19 06/24/19 06/24/19 06:49 01:20 01:20 WBC 15.78 H RBC 2.71 L Hgb 7.3 L Hct 22.4 L MCHC RDW Std Deviation 61.3 H RDW Coeff of Ellen 20.3 H Reticulocyte % (Auto) Immature Gran # (Auto) 0.06 H Neut # (Auto) 14.94 H Lymph # (Auto) 0.29 L Winn # (Auto) Absolute Nucleated RBC 0.02 H ESR INR APTT Potassium Chloride Carbon Dioxide BUN Creatinine BUN/Creatinine Ratio 20.8 H Glucose 140 H POC Glucose Hemoglobin A1c Calcium 7.8 L 7.2 L Phosphorus 1.6 L Magnesium 1.7 L Iron TIBC Transferrin AST 11 L 13 L Total Creatine Kinase 25 L C-Reactive Protein Total Protein 5.5 L 5.4 L Albumin 1.3 L 1.3 L Globulin 4.2 H 4.1 H Albumin/Globulin Ratio 0.3 L 0.3 L Lipase Ur Leukocyte Esterase U Epithel Cells (Auto) Crossmatch 06/24/19 06/24/19 06/24/19 03:43 03:43 06:45 WBC RBC Hgb 6.0 L* Hct 18.2 L* MCHC RDW Std Deviation RDW Coeff of Ellen Reticulocyte % (Auto) Immature Gran # (Auto) Neut # (Auto) Lymph # (Auto) Winn # (Auto) Absolute Nucleated RBC ESR INR APTT Potassium Chloride Carbon Dioxide BUN Creatinine BUN/Creatinine Ratio Glucose POC Glucose 117 H Hemoglobin A1c Calcium Phosphorus Magnesium Iron TIBC Transferrin AST Total Creatine Kinase 17 L C-Reactive Protein 7.91 H Total Protein Albumin Globulin Albumin/Globulin Ratio Lipase Ur Leukocyte Esterase U Epithel Cells (Auto) Crossmatch 06/24/19 06/24/19 06/24/19 09:16 09:16 15:54 WBC RBC 3.21 L Hgb 9.1 L D 9.2 L Hct 27.0 L 28.1 L MCHC RDW Std Deviation 56.2 H RDW Coeff of Ellen 18.1 H Reticulocyte % (Auto) Immature Gran # (Auto) 0.05 H Neut # (Auto) 9.69 H Lymph # (Auto) 0.41 L Winn # (Auto) Absolute Nucleated RBC ESR INR APTT Potassium 3.4 L Chloride 108 H Carbon Dioxide BUN Creatinine BUN/Creatinine Ratio 21.6 H Glucose POC Glucose Hemoglobin A1c Calcium 6.7 L Phosphorus Magnesium Iron TIBC Transferrin AST Total Creatine Kinase C-Reactive Protein Total Protein Albumin Globulin Albumin/Globulin Ratio Lipase 29 L Ur Leukocyte Esterase U Epithel Cells (Auto) Crossmatch 06/24/19 06/25/19 06/25/19 21:16 03:23 03:23 WBC RBC 2.95 L Hgb 8.4 L 8.3 L Hct 25.6 L 24.8 L MCHC RDW Std Deviation 56.5 H RDW Coeff of Ellen 18.4 H Reticulocyte % (Auto) Immature Gran # (Auto) 0.03 H Neut # (Auto) 9.06 H Lymph # (Auto) 0.40 L Winn # (Auto) Absolute Nucleated RBC ESR INR APTT Potassium Chloride Carbon Dioxide BUN Creatinine 0.58 L BUN/Creatinine Ratio 28.2 H Glucose POC Glucose Hemoglobin A1c Calcium 7.2 L Phosphorus Magnesium Iron TIBC Transferrin AST 14 L Total Creatine Kinase C-Reactive Protein Total Protein 4.7 L Albumin 1.1 L Globulin Albumin/Globulin Ratio 0.3 L Lipase Ur Leukocyte Esterase U Epithel Cells (Auto) Crossmatch 06/25/19 06/25/19 06/26/19 11:13 11:16 07:37 WBC RBC 2.95 L 3.59 L Hgb 8.1 L 9.9 L Hct 24.8 L 30.2 L MCHC RDW Std Deviation 57.5 H 58.0 H RDW Coeff of Ellen 18.5 H 18.8 H Reticulocyte % (Auto) Immature Gran # (Auto) 0.06 H Neut # (Auto) 7.86 H Lymph # (Auto) 0.53 L Winn # (Auto) Absolute Nucleated RBC ESR INR APTT Potassium Chloride Carbon Dioxide BUN Creatinine BUN/Creatinine Ratio Glucose POC Glucose 149 H Hemoglobin A1c Calcium Phosphorus Magnesium Iron TIBC Transferrin AST Total Creatine Kinase C-Reactive Protein Total Protein Albumin Globulin Albumin/Globulin Ratio Lipase Ur Leukocyte Esterase U Epithel Cells (Auto) Crossmatch 06/26/19 06/27/19 06/27/19 07:37 06:40 06:40 WBC RBC 3.28 L Hgb 9.1 L Hct 27.6 L MCHC RDW Std Deviation 58.2 H RDW Coeff of Ellen 18.6 H Reticulocyte % (Auto) Immature Gran # (Auto) 0.03 H Neut # (Auto) Lymph # (Auto) 0.48 L Winn # (Auto) Absolute Nucleated RBC ESR INR APTT Potassium Chloride Carbon Dioxide BUN 23 H Creatinine 0.50 L 0.49 L BUN/Creatinine Ratio 45.5 H 34.7 H Glucose 127 H 132 H POC Glucose Hemoglobin A1c Calcium 8.3 L D 8.0 L Phosphorus Magnesium Iron TIBC Transferrin AST 13 L Total Creatine Kinase C-Reactive Protein Total Protein 5.3 L 5.3 L Albumin 1.2 L 1.3 L Globulin 4.1 H Albumin/Globulin Ratio 0.3 L 0.3 L Lipase Ur Leukocyte Esterase U Epithel Cells (Auto) Crossmatch 06/29/19 06/29/19 05:25 05:25 WBC RBC 3.13 L Hgb 8.6 L Hct 27.0 L MCHC 31.9 L RDW Std Deviation 57.7 H RDW Coeff of Ellen 18.4 H Reticulocyte % (Auto) Immature Gran # (Auto) 0.07 H Neut # (Auto) 8.59 H Lymph # (Auto) 0.97 L Winn # (Auto) Absolute Nucleated RBC ESR INR APTT Potassium 3.1 L D Chloride Carbon Dioxide 34 H BUN Creatinine 0.59 L BUN/Creatinine Ratio 25.2 H Glucose POC Glucose Hemoglobin A1c Calcium 7.6 L Phosphorus Magnesium Iron TIBC Transferrin AST Total Creatine Kinase C-Reactive Protein Total Protein 5.3 L Albumin 1.6 L Globulin Albumin/Globulin Ratio 0.4 L Lipase Ur Leukocyte Esterase U Epithel Cells (Auto) Crossmatch Diagnostic Findings DERICK GRAHAM AAdmit Date: 06/21/19 MR#: [id number]: [id number] [facility] Acct ID:[id number]: [facility] Zip: [place] [address] Age: 83Location: 2S Sex: F Room/Bed: [facility] Att Phy: Simón Salinas, MDDiagnosis: SEPSIS Madeline Phy: Heladio Larsen, DOService Date: 06/26/19 Fam Phy:Interpreting Phy: Slim Cline MD Admit Phy: Luis Enrique Young MD Ordering Phy: Simón Salinas MD cc: ~ CT angio chest PE protocol CLINICAL HISTORY: 83 years-old Female presenting with atypical chest pain, extensive DVT, concern for right lower lobe segmental pulmonary emboli on CT of abdomen and pelvis from yesterday, clinical concern for pulmonary embolus. TECHNIQUE: Multidetector CT angiography of the chest was performed after administration of intravenous contrast. 3-D volumetric and/or maximum intensity projection (MIP) images were subsequently reconstructed for review. IV contrast: 86 mL of Optiray 320. One or more dose lowering techniques were used consistent with the principles of ALARA (as low as reasonably achievable), including automatic exposure control, mA or kV adjustment to individual patient size, and/or use of iterative reconstruction. COMPARISON: Chest x-ray from 06/21/2019. CT DOSE (mGy.cm): The estimated cumulative dose is 269.22 mGy.cm. FINDINGS: Jacket Changer topogram: IVC filter in place. Pulmonary vasculature: The study is adequate for assessment of the pulmonary vascular tree. Lobar, segmental, subsegmental pulmonary emboli in the right lower lobe and to a lesser extent the left lower lobe. Minimal segmental and subsegmental pulmonary emboli in the right upper lobe. Main pulmonary artery top normal in size. No flattening of the interventricular septum. No intracardiac filling defect. No reflux of contrast into the hepatic veins. Remaining chest: Soft tissues: Normal thyroid. Diffuse body wall edema. No axillary, supraclavicular, mediastinal, or hilar lymphadenopathy. Atherosclerosis of the aorta. Multichamber enlargement of the heart. Coronary artery and aortic valve calcification. Moderate right and [id number] left pleural effusions, which are simple appearing. Trace pericardial effusion. Upper abdomen normal. Lungs and airways: No pneumothorax. Central airways patent. Mild bronchial wall thickening diffusely though more prominently in the lower lobes. Pulmonary arteries enlarged relative to adjacent bronchi. No interlobular septal thickening. Dependent consolidation and volume loss in the lower lobes consistent with passive atelectasis. No additional focal infiltrate or nodule. Musculoskeletal: Degenerative changes of the spine. Degenerative changes of the glenohumeral joints. Prominent loose body noted in the right glenohumeral joint. IMPRESSION: 1. Acute pulmonary emboli in lobar, segmental, and subsegmental pulmonary arteries of the right lower lobe and segmental and subsegmental pulmonary emboli in the right upper and left lower lobes to a lesser extent. No CT evidence of right heart strain. 2. No evidence of pulmonary infarct. 3. Cardiomegaly and volume overload evidence by bilateral pleural effusions and body wall edema. Electronically signed by: Slim Cline M.D. 06/26/2019 11:38 AM Dictated: 06/26/19 1132 Transcribed: 06/26/19 1132 Medications Administered Current Inpatient Medications Albuterol (Duoneb) 3 ml NEB Q6H PRN PRN Reason: shortness of breath or wheezing Stop: 07/26/19 09:29 Famotidine (Pepcid) 20 mg PO BID JEVON Stop: 07/27/19 20:59 Last Admin: 06/29/19 08:45 Dose: 20 mg Documented by: Furosemide (Lasix) 20 mg PO QAM JEVON Stop: 07/30/19 08:59 Acetaminophen (Ofirmev) 65 mls @ 200 mls/hr IV Q8H PRN PRN Reason: fever or pain Stop: 07/24/19 08:14 Ceftriaxone Sodium 1,000 mg/ (Dextrose) 60 mls @ 100 mls/hr IV Q24H JEVON; Protocol Stop: 07/04/19 09:59 Last Infusion: 06/29/19 10:55 Dose: Infused Documented by: Methylprednisolone 20 mg/ (Syringe) 0.32 mls @ 1.5 mls/min IV Q8H JEVON Stop: 07/29/19 15:59 Ioversol (Optiray 320 125ml) 86 ml IV ONCE PRN PRN Reason: Interaction Checking Stop: 06/30/19 11:01 Last Admin: 06/26/19 11:03 Dose: 86 ml Documented by: Mesalamine (Rowasa) 4 gm MT HS JEVON Stop: 07/22/19 20:59 Last Admin: 06/23/19 20:55 Dose: Not Given Documented by: Mesalamine (Delzicol) 1,600 mg PO TID JEVON Stop: 07/23/19 20:59 Last Admin: 06/29/19 14:07 Dose: 1,600 mg Documented by: Tramadol HCl (Ultram) 25 mg PO Q4H PRN PRN Reason: Pain Stop: 07/21/19 22:57 PG Care Time/CCT Total # of Minutes Spent Total Time Spent with Patient: Total time spent is greater than 50% in coordination of care (as documented) at patient's floor/unit and/or counseling patient:
[2019-06-29] MEDS: methylPREDNISolone 20 MG in SYRINGE 0 ML IV SCH (17:09)
[2019-06-30] MEDS: methylPREDNISolone 20 MG in SYRINGE 0 ML IV SCH ×3 (00:30→16:30)
[2019-06-30 06:08] LABS: Hematocrit (blood only) 27.7 % (37-47); Hemoglobin 8.9 g/dL (12.0-16.0); Mean Corpuscular Hemoglobin 28.1 pg (25-34); Mean Corpuscular Hgb Conc 32.1 g/dL (32-36); Mean Corpuscular Volume 87.4 fL (80-100); Mean Platelet Volume 10.4 fL (7.4-10.4); Platelet Count 220 K/uL (130-400); RDW Coefficient of Variation 18.6 % (11.5-14.5); RDW Standard Deviation 58.6 fL (36.4-46.3); Red Blood Count 3.17 M/uL (4.2-5.4); White Blood Count 8.72 K/uL (4.8-10.8)
[2019-06-30 06:42] LABS: BUN Creatinine Ratio 23.4 (10-20); Calcium 7.9 mg/dl (8.5-10.1); Creatinine Clr Calc Pharmacy 67.1 ml/min; Est GFR (Non-African American) 84.5; Potassium 3.9 mmol/L (3.5-5.1)
[2019-06-30] MEDS: FAMOTIDINE 20 MG TAB PO SCH ×2 (08:16→19:50)
[2019-06-30] MEDS: FUROSEMIDE 20 MG TAB PO SCH (08:17)
[2019-06-30] MEDS: MESALAMINE 400 MG CAPDR PO SCH ×3 (08:17→19:50)
[2019-06-30] MEDS: cefTRIAXone SODIUM 1,000 MG in DEXTROSE 5% 50 ML IV SCH (08:19)
[2019-06-30] MEDS ORDERED: Heparin IV Low Dose *NO* Bolus IV SCH (10:05)
[2019-06-30 11:17] LABS: Partial Thromboplastin Ratio 0.8; Partial Thromboplastin Time 21.9 Seconds (21.0-31.0); Prothrombin Time 10.6 Seconds (9.0-12.0)
[2019-06-30] MEDS: HEPARIN SODIUM/DEXTROSE 25,000 UNITS/500 ML BAG IV SCH (11:28)
--- NOTE | 2019-06-30 15:37 | Hospitalist Progress Note ---
Date of Service June 30, 2019 Assessment & Plan (1) Pulmonary emboli: She has been off blood thinners for approximately 1 week after failing a trial of Xarelto. She did well on a heparin drip. Consideration is being given to treating her current pulmonary emboli with blood thinners again, preferable regimen would be heparin drip with transition to Coumadin as these are reversible agents and can be monitored in the hospital. IVC filter is in place this admission. She is breathing well without evidence of hypoxia. Will start low dose heparin drip now. If stable overnight will start coumadin tomorrow and continue to bridge. Cont IV solumedrol at this time. (2) Deep vein thrombosis (DVT) of both lower extremities: As above, anticoagulation relatively contraindicated in setting of GI bleed. IVC filter is in place. Encourage ambulation. Low dose heparin started. (3) Ulcerative colitis: Recently restarted on mesalamine and steroids after sigmoid endoscopy revealed friable mucosa. Continue this treatment now with steroid taper per GI recommendations. Will trend inflammatory markers to help guide the transition to oral steroids. (4) Acute blood loss anemia: Acute blood loss anemia is present but stable. No active bleeding is ongoing per patient's report and she is hemodynamically stable. Continue to monitor H&H. (5) Cellulitis of both lower extremities: Resolved, finish course of Ceftriaxone. (6) Chronic venous insufficiency: Cont Lasix 20mg PO dialy per home regimen. (7) Nonischemic cardiomyopathy: Appears compensated. Lasix 20mg PO daily. Continue medical management with losartan and carvedilol. Aspirin is currently contraindicated in setting of GI bleed. (8) Mitral regurgitation: Chronic stable heart murmur. (9) Sepsis: Resuscitated. Continue treatment of lower extremity cellulitis above. (10) Splenic infarct: Incidental finding on CT scan. Per general surgery no further surgical indication is necessary as patient is asymptomatic. (11) Discharge planning issues: Encourage ambulation with assistance 3 times daily. Full code Disposition-will be hospitalized for another 4-5 days in order to bridge her with appropriate monitoring after recent GIB after Xarelto challenge. Salome Peña DO [facility] Hospitalist Subjective Patient did well overnight, feeling well. Denies any pain. Denies any blood per rectum or other bleeding issues. Denies any difficulty breathing. Bradycardia noted on telemetry overnight with a 2.3-second pause. Review of Systems Review of Systems: All systems reviewed & are unremarkable except as noted in HPI & below Physical Exam Physical Exam: CONSTITUTIONAL: WNWD, vitals as above, generally well- appearing EYES: normal conjunctivae, no scleral icterus ENT: MMM RESPIRATORY: clear to auscultation bilaterally, no crackles, rales or wheezes, normal respiratory effort CARDIOVASCULAR: regular rate and rhythm, 3/6 NEVILLE heard, no gallops or rubs, no peripheral edema GASTROINTESTINAL: normal bowel sounds, soft, nontender, nondistended. MUSCULOSKELETAL: strength 5/5 throughout, head is normocephalic and atraumatic SKIN: warm and dry, open leg ulcer-stage II on lower right leg, covered with Optifoam, no surrounding erythema. NEUROLOGIC: CN 2-12 grossly intact, no sensory deficit, normal cognition, normal speech, no gross focal deficits. PSYCHIATRIC: alert cooperative and oriented to person, place and time. Results & Data Vital Signs (Past 12 Hours) Vital Signs Temp Pulse Resp BP Pulse Ox 06/30/19 15:22 36.4 C L 84 21 130/74 96 06/30/19 15:00 67 06/30/19 11:13 36.5 C 70 18 145/71 H 98 06/30/19 08:06 36.5 C 94 H 19 129/71 98 06/30/19 08:00 45 L 06/30/19 03:48 36.8 C 55 L 18 158/82 H 99 Laboratory Results Short CBC 06/30/19 Range/Units 05:51 WBC 8.72 (4.8-10.8) K/uL Hgb 8.9 L (12.0-16.0) g/dL Hct 27.7 L (37-47) % Plt Count 220 (130-400) K/uL BMP 06/30/19 05:51 Sodium 139 Potassium 3.9 D Chloride 102 Carbon Dioxide 33 H BUN 13 Creatinine 0.57 L Glucose 143 H Calcium 7.9 L Medications Administered Current Inpatient Medications Albuterol (Duoneb) 3 ml NEB Q6H PRN PRN Reason: shortness of breath or wheezing Stop: 07/26/19 09:29 Famotidine (Pepcid) 20 mg PO BID JEVON Stop: 07/27/19 20:59 Last Admin: 06/30/19 08:16 Dose: 20 mg Documented by: Furosemide (Lasix) 20 mg PO QAM JEVON Stop: 07/30/19 08:59 Last Admin: 06/30/19 08:17 Dose: 20 mg Documented by: Acetaminophen (Ofirmev) 65 mls @ 200 mls/hr IV Q8H PRN PRN Reason: fever or pain Stop: 07/24/19 08:14 Ceftriaxone Sodium 1,000 mg/ (Dextrose) 60 mls @ 100 mls/hr IV Q24H [facility]; Protocol Stop: 07/04/19 09:59 Last Infusion: 06/30/19 09:29 Dose: Infused Documented by: Methylprednisolone 20 mg/ (Syringe) 0.32 mls @ 1.5 mls/min IV Q8H [facility] Stop: 07/29/19 15:59 Last Admin: 06/30/19 08:16 Dose: 1.5 mls/min Documented by: Heparin Sodium/Dextrose (Heparin Sodium/Dextrose) 25,000 units in 500 mls @ 14 mls/hr IV .Q24H [facility]; Protocol Stop: 07/30/19 09:59 Last Admin: 06/30/19 11:28 Dose: 700 units/hr, 14 mls/hr Documented by: Mesalamine (Rowasa) 4 gm MA HS JEVON Stop: 07/22/19 20:59 Last Admin: 06/23/19 20:55 Dose: Not Given Documented by: Mesalamine (Delzicol) 1,600 mg PO TID JEVON Stop: 07/23/19 20:59 Last Admin: 06/30/19 13:22 Dose: 1,600 mg Documented by: Tramadol HCl (Ultram) 25 mg PO Q4H PRN PRN Reason: Pain Stop: 07/21/19 22:57 (1) Sepsis Sepsis acute organ dysfunction status: unspecified Sepsis type: sepsis due to unspecified organism Qualified Code(s): A41.9 - Sepsis, unspecified organism
--- NOTE | 2019-06-30 16:01 | Pulmonology Progress Note ---
Date of Service June 30, 2019 Assessment & Plan (1) Splenic infarct: (2) Mitral regurgitation: (3) Chronic venous insufficiency: (4) Pulmonary emboli: Patient's cardiopulmonary status is stable. Patient is to be started back on low-dose heparin and conversion to Coumadin. Will speak with Dr. Peña. 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 Steroids have been started but would remain cautious with anticoagulation unless specifically cleared by gastroenterology to fully anticoagulate. 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 She was sitting by bedside asymptomatic and bored. He denied pulmonary symptoms, pleuritic pain or cough or shortness of breath. She underwent insertion of a vena cava filter in the presence of an acute DVT and chronic lymphedema with inflammatory bowel disease and recent history of rectal bleeding. Review of Systems Constitutional: no problem reported Eyes: no problem reported Ear, Nose, Mouth, Throat: no problem reported Respiratory: no problem reported Cardiovascular: no problem reported Gastrointestinal: no problem reported Genitourinary: no problem reported Musculoskeletal: no problem reported Integumentary: no problem reported Neurologic: no problem reported Psychiatric: no problem reported Endocrine: no problem reported Hematologic / Lymphatic: no problem reported Allergy / Immunological: no problem reported Physical Exam Constitutional: well developed and well nourished; no acute distress Eyes: PERRL, conjunctivae normal, anicteric sclerae ENMT: external ear and nose normal, oropharynx normal Neck: trachea midline, no thyromegaly Respiratory: normal respiratory effort Auscultation: lungs clear to auscultation bilaterally Cardiovascular: RRR, no murmur, no edema Palpation: normal PMI; no thrill Gastrointestinal (Abdomen): normal bowel sounds, soft, nontender, no hepatosplenomegaly Musculoskeletal: no cyanosis or clubbing, extremities motor strength 5/5 Gait: normal gait Skin: no rashes, warm and dry Neurologic: PERRL, EOMI, accommodation nl, no face palsy, no dysarthria Psychiatric: A+Ox3, euthymic affect Lymphatic: no cervical or axillary lymphadenopathy Results & Data Vital Signs (Past 12 Hours) Vital Signs Temp Pulse Resp BP Pulse Ox 06/30/19 15:22 36.4 C L 84 21 130/74 96 06/30/19 15:00 67 06/30/19 11:13 36.5 C 70 18 145/71 H 98 06/30/19 08:06 36.5 C 94 H 19 129/71 98 06/30/19 08:00 45 L PG Care Time/CCT Total # of Minutes Spent Total Time Spent with Patient: Total time spent is greater than 50% in coordination of care (as documented) at patient's floor/unit and/or counseling patient:
[2019-06-30 18:17] LABS: Partial Thromboplastin Ratio 0.8; Partial Thromboplastin Time 22.2 Seconds (21.0-31.0)
[2019-06-30] MEDS ORDERED: HEPARIN IV BOLUS 4,000 UNITS in SYRINGE 0 ML IV ONE (19:00)
[2019-07-01] MEDS: methylPREDNISolone 20 MG in SYRINGE 0 ML IV SCH ×3 (00:45→15:55)
[2019-07-01 01:17] LABS: Hematocrit (blood only) 25.4 % (37-47); Hemoglobin 8.2 g/dL (12.0-16.0); Mean Corpuscular Hemoglobin 28.1 pg (25-34); Mean Corpuscular Hgb Conc 32.3 g/dL (32-36); Platelet Count 279 K/uL (130-400); RDW Coefficient of Variation 18.8 % (11.5-14.5); RDW Standard Deviation 58.4 fL (36.4-46.3); Red Blood Count 2.92 M/uL (4.2-5.4); White Blood Count 10.36 K/uL (4.8-10.8)
[2019-07-01 01:35] LABS: BUN Creatinine Ratio 19.5 (10-20); C Reactive Protein 1.24 mg/dl (0-0.29); Calcium 8.1 mg/dl (8.5-10.1); Creatinine Clr Calc Pharmacy 45.7 ml/min; Est GFR (African American) 73.5; Est GFR (Non-African American) 63.4; Potassium 3.7 mmol/L (3.5-5.1)
[2019-07-01 01:41] LABS: Partial Thromboplastin Ratio 1.8
[2019-07-01 01:42] LABS: Partial Thromboplastin Time 49.7 Seconds (21.0-31.0)
[2019-07-01] MEDS: MESALAMINE 400 MG CAPDR PO SCH ×3 (08:17→19:59)
[2019-07-01] MEDS: FUROSEMIDE 20 MG TAB PO SCH (08:18)
[2019-07-01] MEDS: FAMOTIDINE 20 MG TAB PO SCH ×2 (08:18→19:58)
[2019-07-01] MEDS: cefTRIAXone SODIUM 1,000 MG in DEXTROSE 5% 50 ML IV SCH (08:19)
--- NOTE | 2019-07-01 13:58 | Palliative Care Progress Note ---
Date of Service July 01, 2019 Assessment & Plan (1) Palliative care encounter: Patient is an 83-year-old female with a past medical history significant for falls-3 in the past year, lower extremity weeping edema, and ICMO, diastolic CHF, and ulcerative colitis. She was admitted on 06/21 for weeping edema and increased shortness of breath, she was found to have acute bilateral DVTs -she was started on heparin and had a subsequent GI bleed. Status post IV filter placement and bilateral PEs. Patient denies any respiratory distress, her only current complaints are her generalized weakness and weeping edema. Patient is awake and alert and stated that makes her own decisions. Patient is single, has never , has no children, and has no siblings. Patient did name Zandra Yañez as her emergency contact and healthcare surrogate. She is the daughter of patient's half nephew. Patient states she does have advanced directives. Patient stated she would want everything done temporarily to see if she could improve including intubation, shock, and chest compressions. Patient states she has discussed this with her POA. Patient's goal is to live at home as long as possible-she is starting to realize that this may no longer be possible. The patient states she has had 3 recent falls-the first in November where she was hospitalized and then sent to rehab. Patient returned home in December and has had 2 other falls. Patient is unable to get up from the floor on her own-she did have a life alert and was able to summon help. Patient uses a walker at home at baseline. Patient's goal is to go to rehab and regain some strength in hopes of returning home but is not against possible placement if needed. Patient considers Zandra and her 4 other siblings as family-they are distantly related children of patient's half nephew. -CODE STATUS-patient wishes to remain a full code, she did state that she would want everything done , including intubation but only temporarily. She would not want to be kept alive on life support. -Goals-patient is agreeable to a rehab stay to regain strength and improve ambulation with ultimate goal of returning home if possible. Patient is not against facility placement if needed after rehab -Falls-safety awareness education, patient would benefit from PT/OT -Lower extremity edema-patient with chronic lymphedema, transitioned to p.o. Lasix -Nonischemic cardiomyopathy-continue diuresis for fluid overload, plan is to continue heparin and bridged to Coumadin. Will require close observation for any recurrent GI bleeding -Diastolic CHF-continue diuresis -Ulcerative colitis-patient states she was diagnosed 30 years ago, had been well controlled up until 2 years ago. Patient now incontinent of bowel and bladder. Continue Rowasa and mesalamine as per GI Will ask service excellence to assist patient with paper work stating Zandra Yañez is her healthcare surrogate Will continue to follow and assist patient with medical decision making (2) Lymphedema: (3) Deep vein thrombosis (DVT) of both lower extremities: (4) Diastolic CHF: (5) Ulcerative colitis: (6) BRBPR (bright red blood per rectum): Subjective Patient awake alert, no acute distress. Patient agreeable to current plan of heparin bridging to Coumadin. Will need to monitor closely for any recurrent GI bleed given her ulcerative colitis-not in remission. Review of Systems Review of Systems: Patient denies fever, chills, chest pain, shortness of breath, or abdominal pain. Patient denies any increased lower extremity dep endent edema. Physical Exam Physical Exam: PE: Patient awake and alert, no acute distress. Patient sitting up in a chair at bedside HEENT: EOMI, hearing within normal limits Respirations: Unlabored, no rhonchi CV: Regular rate, no increased lower extremity edema Abdomen: Soft, nontender Neuro: Alert and oriented Results & Data Vital Signs (Past 12 Hours) Vital Signs Temp Pulse Resp BP Pulse Ox 07/01/19 11:40 98.1 F 86 20 131/74 94 07/01/19 08:00 54 L 07/01/19 07:25 97.9 F 94 H 20 128/78 07/01/19 04:16 98.1 F 58 L 16 135/79 98 PG Care Time/CCT Total # of Minutes Spent Total Time Spent with Patient: Total time spent is greater than 50% in coordination of care (as documented) at patient's floor/unit and/or counseling patient: Time Spent Attending Total time spent 25 minutes with greater than 50% of the time spent at bedside assessing patient's current status and confirming goals of care.
[2019-07-01] MEDS: WARFARIN SOD 2 MG TAB PO SCH (15:54)
[2019-07-01] MEDS: HEPARIN SODIUM/DEXTROSE 25,000 UNITS/500 ML BAG IV SCH (16:01)
--- NOTE | 2019-07-01 18:57 | Hospitalist Progress Note ---
Date of Service July 01, 2019 Assessment & Plan (1) Pulmonary emboli: She has been off blood thinners for approximately 1 week after failing a trial of Xarelto. She did well on a heparin drip. IVC filter is in place this admission. She is breathing well without evidence of hypoxia depsite finding multiple PEs. Doing well on rechallenge with heparin. Start coumadin 2mg today and monitor INR daily. Cont IV solumedrol. (2) Deep vein thrombosis (DVT) of both lower extremities: As above, anticoagulation relatively contraindicated in setting of GI bleed. IVC filter is in place. Encourage ambulation. Low dose heparin with transition to coumadin. (3) Ulcerative colitis: Recently restarted on mesalamine and steroids after sigmoidoscopy revealed friable mucosa. Continue this treatment now with steroid taper per GI recommendations. (4) Acute blood loss anemia: Acute blood loss anemia is present but stable. No active bleeding is ongoing per patient's report and she is hemodynamically stable. Continue to monitor H&H. (5) Cellulitis of both lower extremities: Resolved, completed course of antibiotics. (6) Chronic venous insufficiency: Cont Lasix 20mg PO daily per home regimen. (7) Nonischemic cardiomyopathy: Appears compensated. Lasix 20mg PO daily. Continue medical management with losartan and carvedilol. Aspirin is currently contraindicated in setting of GI bleed. (8) Mitral regurgitation: Chronic stable heart murmur. (9) Sepsis: Resuscitated. Continue treatment of lower extremity cellulitis above. (10) Splenic infarct: Incidental finding on CT scan. Per general surgery no further surgical indication is necessary as patient is asymptomatic. (11) Discharge planning issues: Encourage ambulation with assistance 3 times daily. Full code Disposition-will be hospitalized for another 4-5 days in order to bridge her with appropriate monitoring after recent GIB after Xarelto challenge. Salome Peña DO [facility] Hospitalist Subjective feels well today denies SOB or bleeding issues fighting boredom would like to ambulate more Review of Systems Review of Systems: All systems reviewed & are unremarkable except as noted in HPI & below Physical Exam Physical Exam: CONSTITUTIONAL: WNWD, vitals as above, generally well- appearing EYES: normal conjunctivae, no scleral icterus ENT: MMM RESPIRATORY: clear to auscultation bilaterally, no crackles, rales or wheezes, normal respiratory effort CARDIOVASCULAR: regular rate and rhythm, 3/6 NEVILLE heard, no gallops or rubs, no peripheral edema GASTROINTESTINAL: normal bowel sounds, soft, nontender, nondistended. MUSCULOSKELETAL: strength 5/5 throughout, head is normocephalic and atraumatic SKIN: warm and dry, open leg ulcer-stage II on lower right leg, covered with Optifoam, no surrounding erythema. NEUROLOGIC: CN 2-12 grossly intact, no sensory deficit, normal cognition, normal speech, no gross focal deficits. PSYCHIATRIC: alert cooperative and oriented to person, place and time. Results & Data Vital Signs (Past 12 Hours) Vital Signs Temp Pulse Resp BP Pulse Ox 07/01/19 17:51 36.5 C 79 18 149/77 H 95 07/01/19 15:52 36.6 C 79 19 152/73 H 91 07/01/19 11:40 36.7 C 86 20 131/74 94 07/01/19 08:00 54 L 07/01/19 07:25 36.6 C 94 H 20 128/78 Laboratory Results Short CBC 07/01/19 Range/Units 01:09 WBC 10.36 (4.8-10.8) K/uL Hgb 8.2 L (12.0-16.0) g/dL Hct 25.4 L (37-47) % Plt Count 279 (130-400) K/uL BMP 07/01/19 01:09 Sodium 138 Potassium 3.7 Chloride 100 Carbon Dioxide 34 H BUN 16 Creatinine 0.84 Glucose 167 H Calcium 8.1 L Medications Administered Current Inpatient Medications Albuterol (Duoneb) 3 ml NEB Q6H PRN PRN Reason: shortness of breath or wheezing Stop: 07/26/19 09:29 Carvedilol (Coreg) 3.125 mg PO BID JEVON Stop: 07/31/19 20:59 Famotidine (Pepcid) 20 mg PO BID JEVON Stop: 07/27/19 20:59 Last Admin: 07/01/19 08:18 Dose: 20 mg Documented by: Furosemide (Lasix) 20 mg PO QAM JEVON Stop: 07/30/19 08:59 Last Admin: 07/01/19 08:18 Dose: 20 mg Documented by: Acetaminophen (Ofirmev) 65 mls @ 200 mls/hr IV Q8H PRN PRN Reason: fever or pain Stop: 07/24/19 08:14 Methylprednisolone 20 mg/ (Syringe) 0.32 mls @ 1.5 mls/min IV Q8H [facility] Stop: 07/29/19 15:59 Last Admin: 07/01/19 15:55 Dose: 1.5 mls/min Documented by: Heparin Sodium/Dextrose (Heparin Sodium/Dextrose) 25,000 units in 500 mls @ 16 mls/hr IV .Q24H [facility]; Protocol Stop: 07/30/19 09:59 Last Admin: 07/01/19 16:01 Dose: 800 units/hr, 16 mls/hr Documented by: Losartan Potassium (Cozaar) 25 mg PO QAM [facility] Stop: 08/01/19 08:59 Mesalamine (Rowasa) 4 gm [place] HS [facility] Stop: 07/22/19 20:59 Last Admin: 06/23/19 20:55 Dose: Not Given Documented by: Mesalamine (Delzicol) 1,600 mg PO TID [facility] Stop: 07/23/19 20:59 Last Admin: 07/01/19 14:24 Dose: 1,600 mg Documented by: Tramadol HCl (Ultram) 25 mg PO Q4H PRN PRN Reason: Pain Stop: 07/21/19 22:57 Warfarin Sodium (Coumadin) 2 mg PO DAILY@1600 [facility] Stop: 07/31/19 15:59 Last Admin: 07/01/19 15:54 Dose: 2 mg Documented by: (1) Sepsis Sepsis acute organ dysfunction status: unspecified Sepsis type: sepsis due to unspecified organism Qualified Code(s): A41.9 - Sepsis, unspecified organism
[2019-07-01] MEDS: carvediloL 3.125 MG TAB PO SCH (19:58)
[2019-07-02] MEDS: methylPREDNISolone 20 MG in SYRINGE 0 ML IV SCH ×3 (00:37→16:32)
[2019-07-02 04:21] LABS: Partial Thromboplastin Ratio 1.3; Partial Thromboplastin Time 36.1 Seconds (21.0-31.0)
[2019-07-02] MEDS ORDERED: HEPARIN IV BOLUS 5,000 UNITS in SYRINGE 0 ML IV ONE ×2 (05:00→18:22)
[2019-07-02] MEDS: carvediloL 3.125 MG TAB PO SCH ×2 (10:01→22:04)
[2019-07-02] MEDS: LOSARTAN POTASSIUM 25 MG TAB PO SCH (10:02)
[2019-07-02] MEDS: MESALAMINE 400 MG CAPDR PO SCH ×3 (10:03→22:02)
[2019-07-02] MEDS: FUROSEMIDE 20 MG TAB PO SCH (10:04)
[2019-07-02] MEDS: FAMOTIDINE 20 MG TAB PO SCH ×2 (10:05→22:03)
[2019-07-02 10:10] LABS: Hematocrit (blood only) 29.2 % (37-47); Hemoglobin 9.1 g/dL (12.0-16.0); Mean Corpuscular Hemoglobin 27.8 pg (25-34); Mean Corpuscular Hgb Conc 31.2 g/dL (32-36); Mean Corpuscular Volume 89.3 fL (80-100); Mean Platelet Volume 10.5 fL (7.4-10.4); Platelet Count 406 K/uL (130-400); RDW Coefficient of Variation 19.8 % (11.5-14.5); RDW Standard Deviation 61.2 fL (36.4-46.3); Red Blood Count 3.27 M/uL (4.2-5.4); White Blood Count 10.07 K/uL (4.8-10.8)
[2019-07-02 10:32] LABS: INR 1.1 (0.9-1.1); Partial Thromboplastin Ratio 3.3
[2019-07-02 10:41] LABS: Partial Thromboplastin Time 90.3 Seconds (21.0-31.0)
--- NOTE | 2019-07-02 13:20 | Hospitalist Progress Note ---
Date of Service July 02, 2019 Assessment & Plan (1) Pulmonary emboli: She has been off blood thinners for approximately 1 week after failing a trial of Xarelto. She did well on a heparin drip. IVC filter is in place this admission. She is breathing well without evidence of hypoxia despite multiple PEs. Doing well on rechallenge with heparin and coumadin 2mg PO daily. Cont to monitor INR daily. Cont IV solumedrol. (2) Deep vein thrombosis (DVT) of both lower extremities: As above, anticoagulation relatively contraindicated in setting of GI bleed. IVC filter is in place. Encourage ambulation. Low dose heparin with transition to coumadin. (3) Ulcerative colitis: Recently restarted on mesalamine and steroids after sigmoidoscopy revealed friable mucosa. Continue this treatment now with steroid taper per GI recommendations. (4) Acute blood loss anemia: Acute blood loss anemia is present but stable. No active bleeding is ongoing per patient's report and she is hemodynamically stable. Continue to monitor H&H. (5) Cellulitis of both lower extremities: Resolved, completed course of antibiotics. (6) Chronic venous insufficiency: Cont Lasix 20mg PO daily per home regimen. (7) Nonischemic cardiomyopathy: Appears compensated. Lasix 20mg PO daily. Continue medical management with losartan and carvedilol. Aspirin is currently contraindicated in setting of GI bleed. (8) Mitral regurgitation: Chronic stable heart murmur. (9) Sepsis: Resuscitated. Continue treatment of lower extremity cellulitis above. (10) Splenic infarct: Incidental finding on CT scan. Per general surgery no further surgical indication is necessary as patient is asymptomatic. (11) Discharge planning issues: Encourage ambulation with assistance 3 times daily. Full code Disposition-will be hospitalized for another 4-5 days in order to bridge her with appropriate monitoring after recent GIB after Xarelto challenge. I discussed the plan with her janett Patsy Chang, and all questions were answered to her satisfaction. Salome Peña DO [facility] Hospitalist Subjective No bleeding Tolerating anticoagulation thus far Tolerating PO Afebrile Denies fevers or pain Review of Systems Review of Systems: All systems reviewed & are unremarkable except as noted in HPI & below Physical Exam Physical Exam: CONSTITUTIONAL: WNWD, vitals as above, generally well- appearing EYES: normal conjunctivae, no scleral icterus ENT: MMM RESPIRATORY: clear to auscultation bilaterally, no crackles, rales or wheezes, normal respiratory effort CARDIOVASCULAR: regular rate and rhythm, 3/6 NEVILLE heard, no gallops or rubs, no peripheral edema GASTROINTESTINAL: normal bowel sounds, soft, nontender, nondistended. MUSCULOSKELETAL: strength 5/5 throughout, head is normocephalic and atraumatic SKIN: warm and dry, open leg ulcer-stage II on lower right leg, covered with Optifoam, no surrounding erythema. NEUROLOGIC: CN 2-12 grossly intact, no sensory deficit, normal cognition, normal speech, no gross focal deficits. PSYCHIATRIC: alert cooperative and oriented to person, place and time. Results & Data Vital Signs (Past 12 Hours) Vital Signs Temp Pulse Resp BP Pulse Ox 07/02/19 07:00 36.5 C 71 18 153/82 H 96 Laboratory Results Short CBC 07/02/19 Range/Units 09:44 WBC 10.07 (4.8-10.8) K/uL Hgb 9.1 L (12.0-16.0) g/dL Hct 29.2 L (37-47) % Plt Count 406 H (130-400) K/uL Medications Administered Current Inpatient Medications Albuterol (Duoneb) 3 ml NEB Q6H PRN PRN Reason: shortness of breath or wheezing Stop: 07/26/19 09:29 Carvedilol (Coreg) 3.125 mg PO BID JEVON Stop: 07/31/19 20:59 Last Admin: 07/02/19 10:01 Dose: 3.125 mg Documented by: Famotidine (Pepcid) 20 mg PO BID JEVON Stop: 07/27/19 20:59 Last Admin: 07/02/19 10:05 Dose: 20 mg Documented by: Furosemide (Lasix) 20 mg PO QAM JEVON Stop: 07/30/19 08:59 Last Admin: 07/02/19 10:04 Dose: 20 mg Documented by: Acetaminophen (Ofirmev) 65 mls @ 200 mls/hr IV Q8H PRN PRN Reason: fever or pain Stop: 07/24/19 08:14 Methylprednisolone 20 mg/ (Syringe) 0.32 mls @ 1.5 mls/min IV Q8H J[facility]ON Stop: 07/29/19 15:59 Last Admin: 07/02/19 10:01 Dose: 1.5 mls/min Documented by: Heparin Sodium/Dextrose (Heparin Sodium/Dextrose) 25,000 units in 500 mls @ 19 mls/hr IV .Q24H [facility]; Protocol Stop: 07/30/19 09:59 Last Titration: 07/02/19 11:30 Dose: 950 units/hr, 19 mls/hr Documented by: Losartan Potassium (Cozaar) 25 mg PO QAM JEVON Stop: 08/01/19 08:59 Last Admin: 07/02/19 10:02 Dose: 25 mg Documented by: Mesalamine (Rowasa) 4 gm [place] HS JEVON Stop: 07/22/19 20:59 Last Admin: 06/23/19 20:55 Dose: Not Given Documented by: Mesalamine (Delzicol) 1,600 mg PO TID [facility] Stop: 07/23/19 20:59 Last Admin: 07/02/19 10:03 Dose: 1,600 mg Documented by: Tramadol HCl (Ultram) 25 mg PO Q4H PRN PRN Reason: Pain Stop: 07/21/19 22:57 Warfarin Sodium (Coumadin) 2 mg PO DAILY@1600 [facility] Stop: 07/31/19 15:59 Last Admin: 07/01/19 15:54 Dose: 2 mg Documented by: (1) Sepsis Sepsis acute organ dysfunction status: unspecified Sepsis type: sepsis due to unspecified organism Qualified Code(s): A41.9 - Sepsis, unspecified organism
[2019-07-02] MEDS: WARFARIN SOD 2 MG TAB PO SCH (16:31)
[2019-07-02 17:36] LABS: Partial Thromboplastin Ratio 1.3; Partial Thromboplastin Time 35.5 Seconds (21.0-31.0)
[2019-07-02] MEDS ORDERED: HEPARIN IV BOLUS 4,000 UNITS in SYRINGE 0 ML IV ONE (20:00)
[2019-07-02] MEDS: HEPARIN SODIUM/DEXTROSE 25,000 UNITS/500 ML BAG IV SCH (22:27)
[2019-07-03] MEDS: methylPREDNISolone 20 MG in SYRINGE 0 ML IV SCH ×2 (00:14→07:54)
[2019-07-03 01:37] LABS: Partial Thromboplastin Ratio 3.2
[2019-07-03 01:43] LABS: Partial Thromboplastin Time 85.6 Seconds (21.0-31.0)
[2019-07-03] MEDS: carvediloL 3.125 MG TAB PO SCH (07:57)
[2019-07-03] MEDS: FAMOTIDINE 20 MG TAB PO SCH ×2 (07:57→20:49)
[2019-07-03] MEDS: LOSARTAN POTASSIUM 25 MG TAB PO SCH (07:57)
[2019-07-03] MEDS: MESALAMINE 400 MG CAPDR PO SCH ×3 (07:57→20:49)
[2019-07-03] MEDS: FUROSEMIDE 20 MG TAB PO SCH (07:57)
[2019-07-03 08:40] LABS: Partial Thromboplastin Ratio 2.2
[2019-07-03 08:46] LABS: INR 1.1 (0.9-1.1); Prothrombin Time 10.9 Seconds (9.0-12.0)
--- NOTE | 2019-07-03 15:00 | Hospitalist Progress Note ---
Date of Service July 03, 2019 Assessment & Plan (1) Pulmonary emboli: She was off blood thinners for approximately 1 week after failing a trial of heparin bridge to Xarelto. IVC filter was placed. Mutliple PEs seen on imaging. She is breathing well despite this and is not hypoxic. Rechallenge with heparin and coumadin 2mg PO daily (potentially reversible agents) in the settiing of PEs. INR 1.1 and PTT 85 this am. IV solumedrol continues to help control inflammation from UC. However, she had a bloody BM and blood thinners were stopped. Switching into supportive gear at this point. Will cont diet unless she continues to bleed or has abdominal pain (not present this entire admission). Will recheck H/H in a couple of hours and watch for tachycardia or other hemodynamic instability. No reversible agents given at this time because she is stable, but will consider protamine or vitamin K if unstable or profusely bleeding. Cont off anticoagulation and IVC filter in place. (2) Deep vein thrombosis (DVT) of both lower extremities: As above, anticoagulation contraindicated in setting of repeat GI bleed. IVC filter is in place. Encourage ambulation. Encourage TEDs. (3) Ulcerative colitis: Remains on increased mesalamine dose, declines mesalamine enema. Will plan to switch IV solumedrol to prednisone 40mg daily tomorrow and proceed with steroid taper per GI. (4) Acute blood loss anemia: Acute blood loss anemia is present but stable. Active bleeding this morning. Trend H/H (5) Cellulitis of both lower extremities: Resolved, completed course of antibiotics. (6) Chronic venous insufficiency: Cont Lasix 20mg PO daily per home regimen. (7) Nonischemic cardiomyopathy: Appears compensated. Lasix 20mg PO daily. Continue medical management with losartan and carvedilol. Aspirin is currently contraindicated in setting of GI bleed. (8) Mitral regurgitation: Chronic stable heart murmur. (9) Sepsis: Resuscitated. (10) Splenic infarct: Incidental finding on CT scan. Per general surgery no further surgical indication is necessary as patient is asymptomatic. (11) Discharge planning issues: Encourage ambulation with assistance 3 times daily. Full code Disposition-likely to SNF in am as long as bleeding ceases and she remains hemodynamically stable overnight. Salome Peña DO [facility] Hospitalist Subjective +bright red blood per rectum this am x 2 back to back episodes not associated with pain or hemodynamic instability. patient is otherwise asymptomatic including no lightheadedness heparin drip was stopped and warfarin dc'd INR this am was 1.1 tolerating PO and asking specifically to not be put on a clear liquid diet. She is hungry Review of Systems Review of Systems: All systems reviewed & are unremarkable except as noted in HPI & below Physical Exam Physical Exam: CONSTITUTIONAL: WNWD, vitals as above, generally well- appearing EYES: normal conjunctivae, no scleral icterus ENT: MMM RESPIRATORY: clear to auscultation bilaterally, no crackles, rales or wheezes, normal respiratory effort CARDIOVASCULAR: regular rate and rhythm, 3/6 NEVILLE heard, no gallops or rubs, no peripheral edema GASTROINTESTINAL: normal bowel sounds, soft, nontender, nondistended. MUSCULOSKELETAL: strength 5/5 throughout, head is normocephalic and atraumatic SKIN: warm and dry, open leg ulcer-stage II on lower right leg, covered with Optifoam, no surrounding erythema. NEUROLOGIC: CN 2-12 grossly intact, no sensory deficit, normal cognition, normal speech, no gross focal deficits. PSYCHIATRIC: alert cooperative and oriented to person, place and time. Results & Data Vital Signs (Past 12 Hours) Vital Signs Temp Pulse Resp BP Pulse Ox 07/03/19 07:27 36.5 C 76 17 114/66 96 Laboratory Results PTT-85-->60 INR 1.1 Medications Administered Current Inpatient Medications Albuterol (Duoneb) 3 ml NEB Q6H PRN PRN Reason: shortness of breath or wheezing Stop: 07/26/19 09:29 Carvedilol (Coreg) 3.125 mg PO BID JEVON Stop: 07/31/19 20:59 Last Admin: 07/03/19 07:57 Dose: 3.125 mg Documented by: Famotidine (Pepcid) 20 mg PO BID JEVON Stop: 07/27/19 20:59 Last Admin: 07/03/19 07:57 Dose: 20 mg Documented by: Furosemide (Lasix) 20 mg PO QAM JEVON Stop: 07/30/19 08:59 Last Admin: 07/03/19 07:57 Dose: 20 mg Documented by: Acetaminophen (Ofirmev) 65 mls @ 200 mls/hr IV Q8H PRN PRN Reason: fever or pain Stop: 07/24/19 08:14 Methylprednisolone 20 mg/ (Syringe) 0.32 mls @ 1.5 mls/min IV Q8H JEVON Stop: 07/29/19 15:59 Last Admin: 07/03/19 07:54 Dose: 1.5 mls/min Documented by: Losartan Potassium (Cozaar) 25 mg PO QAM JEVON Stop: 08/01/19 08:59 Last Admin: 07/03/19 07:57 Dose: 25 mg Documented by: Mesalamine (Rowasa) 4 gm [place] HS JEVON Stop: 07/22/19 20:59 Last Admin: 06/23/19 20:55 Dose: Not Given Documented by: Mesalamine (Delzicol) 1,600 mg PO TID JEVON Stop: 07/23/19 20:59 Last Admin: 07/03/19 13:51 Dose: 1,600 mg Documented by: Tramadol HCl (Ultram) 25 mg PO Q4H PRN PRN Reason: Pain Stop: 07/21/19 22:57 (1) Sepsis Sepsis acute organ dysfunction status: unspecified Sepsis type: sepsis due to unspecified organism Qualified Code(s): A41.9 - Sepsis, unspecified organism
[2019-07-03 16:13] LABS: Hematocrit (blood only) 26.6 % (37-47)
[2019-07-03] MEDS: HEPARIN SODIUM/DEXTROSE 25,000 UNITS/500 ML BAG IV SCH (18:39)
[2019-07-03 20:40] LABS: Hematocrit (blood only) 24.8 % (37-47); Hemoglobin 7.4 g/dL (12.0-16.0)
[2019-07-04] MEDS: SODIUM CHLORIDE 0.9% 1000ML 1,000 ML IV SCH ×2 (00:38→08:28)
[2019-07-04 06:14] LABS: Hemoglobin 7.3 g/dL (12.0-16.0); Mean Corpuscular Hemoglobin 28.9 pg (25-34); Mean Corpuscular Hgb Conc 31.7 g/dL (32-36); Mean Corpuscular Volume 90.9 fL (80-100); Mean Platelet Volume 10.5 fL (7.4-10.4); Nucleated RBC # (auto) 0.02 K/uL (0-0); Nucleated RBC % (auto) 0.2 %; Platelet Count 289 K/uL (130-400); RDW Coefficient of Variation 20.4 % (11.5-14.5); RDW Standard Deviation 66.5 fL (36.4-46.3); Red Blood Count 2.53 M/uL (4.2-5.4); White Blood Count 12.87 K/uL (4.8-10.8)
[2019-07-04 06:22] LABS: INR 1.1 (0.9-1.1); Prothrombin Time 10.9 Seconds (9.0-12.0)
[2019-07-04 06:41] LABS: BUN Creatinine Ratio 31.5 (10-20); C Reactive Protein 0.75 mg/dl (0-0.29); Calcium 7.7 mg/dl (8.5-10.1); Est GFR (African American) 92.9; Est GFR (Non-African American) 80.2; Potassium 3.3 mmol/L (3.5-5.1)
[2019-07-04] MEDS ORDERED: POTASSIUM CHLORIDE 20 MEQ TABCR PO ONE ×2 (07:45→23:00)
[2019-07-04] MEDS: MESALAMINE 400 MG CAPDR PO SCH ×3 (08:30→21:07)
[2019-07-04] MEDS: predniSONE 20 MG TAB PO SCH (08:31)
[2019-07-04] MEDS: FAMOTIDINE 20 MG TAB PO SCH ×2 (08:31→21:07)
[2019-07-04] MEDS ORDERED: predniSONE 20 MG TAB PO SCH (09:00)
[2019-07-04] MEDS ORDERED: SODIUM CHLORIDE 0.9% 250 ML IV PRN (10:29)
--- NOTE | 2019-07-04 10:33 | Hospitalist Progress Note ---
Date of Service July 04, 2019 Assessment & Plan (1) LGI bleed: Multiple bloody BMs in the last 24 hours with drop in H/H. Two units of blood today and will re-engage with GI team. (2) Pulmonary emboli: She was off blood thinners for approximately 1 week after failing a trial of heparin bridge to Xarelto. IVC filter was placed. Mutliple PEs seen on imaging. She is breathing well despite this and is not hypoxic. Rechallenge with heparin and coumadin 2mg PO daily (potentially reversible agents) in the setting of PEs. INR normal this am. Cont off anticoagulation and IVC filter in place. (3) Deep vein thrombosis (DVT) of both lower extremities: As above, anticoagulation contraindicated in setting of repeat GI bleed. IVC filter is in place. Encourage ambulation. Encourage TEDs. (4) Ulcerative colitis: Remains on increased mesalamine dose, declines mesalamine enema. Cont prednisone 40mg PO daily, and proceed with steroid taper per GI. (5) Acute blood loss anemia: Acute blood loss anemia is present 2/2 GIB. Transfuse this morning. (6) Cellulitis of both lower extremities: Resolved, completed course of antibiotics. (7) Chronic venous insufficiency: Lasix on hold in setting of GI bleed. (8) Nonischemic cardiomyopathy: Appears compensated. Lasix, Coreg and Losartan held. Aspirin is currently contraindicated in setting of GI bleed. (9) Mitral regurgitation: Chronic stable heart murmur. (10) Sepsis: Resuscitated. (11) Splenic infarct: Incidental finding on CT scan. Per general surgery no further surgical indication is necessary as patient is asymptomatic. (12) Discharge planning issues: Encourage ambulation with assistance 3 times daily. Full code Disposition-to SNF when hemodynamically stable and GIB resolves. [facility] Subject[facility] doing well asymptomatic multiple dark red stools yesterday tolerating PO and would like a regular diet as soon as possible. Review of Systems Review of Systems: All systems reviewed & are unremarkable except as noted in HPI & below Physical Exam Physical Exam: CONSTITUTIONAL: WNWD, vitals as above, generally well- appearing EYES: normal conjunctivae, no scleral icterus ENT: MMM RESPIRATORY: clear to auscultation bilaterally, no crackles, rales or wheezes, normal respiratory effort CARDIOVASCULAR: regular rate and rhythm, 3/6 NEVILLE heard, no gallops or rubs, no peripheral edema GASTROINTESTINAL: normal bowel sounds, soft, nontender, nondistended. MUSCULOSKELETAL: strength 5/5 throughout, head is normocephalic and atraumatic SKIN: warm and dry, open leg ulcer-stage II on lower right leg, covered with Optifoam, no surrounding erythema. NEUROLOGIC: CN 2-12 grossly intact, no sensory deficit, normal cognition, normal speech, no gross focal deficits. PSYCHIATRIC: alert cooperative and oriented to person, place and time Results & Data Vital Signs (Past 12 Hours) Vital Signs Temp Pulse Resp BP Pulse Ox 07/04/19 08:00 82 07/04/19 07:21 36.3 C L 75 17 108/59 L 97 07/04/19 04:43 36.3 C L 79 18 155/84 H 95 07/04/19 01:03 36.6 C 79 18 137/76 97 Laboratory Results Short CBC 07/03/19 07/03/19 07/04/19 Range/Units 15:45 20:13 05:49 WBC 12.87 H (4.8-10.8) K/uL Hgb 8.0 L 7.4 L 7.3 L (12.0-16.0) g/dL Hct 26.6 L 24.8 L 23.0 L (37-47) % Plt Count 289 (130-400) K/uL BMP 07/04/19 05:49 Sodium 140 Potassium 3.3 L Chloride 103 Carbon Dioxide 32 BUN 21 H Creatinine 0.67 Glucose 85 Calcium 7.7 L Medications Administered Current Inpatient Medications Acetaminophen (Tylenol) 650 mg PO PRE-TREAT JEVON Albuterol (Duoneb) 3 ml NEB Q6H PRN PRN Reason: shortness of breath or wheezing Stop: 07/26/19 09:29 Carvedilol (Coreg) 3.125 mg PO BID JEVON Stop: 07/31/19 20:59 Last Admin: 07/03/19 07:57 Dose: 3.125 mg Documented by: Diphenhydramine HCl (Benadryl Capsule) 12.5 mg PO PRE-TREAT JEVON Famotidine (Pepcid) 20 mg PO BID JEVON Stop: 07/27/19 20:59 Last Admin: 07/04/19 08:31 Dose: 20 mg Documented by: Furosemide (Lasix) 20 mg PO QAM JEVON Stop: 07/30/19 08:59 Last Admin: 07/03/19 07:57 Dose: 20 mg Documented by: Furosemide 20 mg/ Syringe 2 mls @ 4 mls/min IV UD ONE Stop: 07/04/19 10:32 Sodium Chloride (Nss) 250 mls @ 15 mls/hr IV .[id number] PRN PRN Reason: For Transfusion Stop: 08/03/19 10:28 Losartan Potassium (Cozaar) 25 mg PO QAM JEVON Stop: 08/01/19 08:59 Last Admin: 07/03/19 07:57 Dose: 25 mg Documented by: Mesalamine (Rowasa) 4 gm HI HS JEVON Stop: 07/22/19 20:59 Last Admin: 06/23/19 20:55 Dose: Not Given Documented by: Mesalamine (Delzicol) 1,600 mg PO TID JEVON Stop: 07/23/19 20:59 Last Admin: 07/04/19 08:30 Dose: 1,600 mg Documented by: Prednisone (Prednisone) 40 mg PO DAILY JEVON Stop: 08/03/19 08:59 Last Admin: 07/04/19 08:31 Dose: 40 mg Documented by: Tramadol HCl (Ultram) 25 mg PO Q4H PRN PRN Reason: Pain Stop: 07/21/19 22:57 (1) Sepsis Sepsis acute organ dysfunction status: unspecified Sepsis type: sepsis due to unspecified organism Qualified Code(s): A41.9 - Sepsis, unspecified organism
[2019-07-04] MEDS ORDERED: diphenhydrAMINE HCl 12.5 MG/5 ML UDC PO SCH (10:45)
[2019-07-04] MEDS ORDERED: ACETAMINOPHEN 325 MG TAB PO SCH (10:45)
--- NOTE | 2019-07-04 11:48 | Gastroenterology Progress Note ---
Date of Service July 04, 2019 Assessment & Plan (1) LGI bleed: Hemodynamically significant bleeding from UC during anticoagulation. 1. Offered full colonoscopy to restage UC, pt declines. 2. Would continue UC tx with prednisone, mesalamine. Hesitate to start a TNF due to age. 3. Avoid NSAIDs as they cause UC flares. 4. Low residual diet (per pt request). 5. Will continue to follow along. Attg add: I interviewed and examined pt, reviewed chart and labs. Pt without further bleeding, denies diarrhea. Cont pred today, low residual diet. OK to resume a/c if needed. Present on Admission?: Yes Subjective Ms. Valery Grubbs is an 83 yr old female pt of Dr. Larsen with a hx of lymphedema and UC, admitted on 06/21 for septic cellulitis, Bilateral lower ext DVTs. Experienced rectal bleeding on heparin/ Xarelto, KS'ed, flex sig with friable (with spontaneous bleeding), granular and plaque covered mucosa in the sigmoid colon and in the descending colon. IV solumedrol initiated and Xarelto held. IVC filter placed. PEs on imaging. Rechallenged anticoagulation with heparin/warfarin starting 6 days ago. Yesterday with large blood BM at 1PM. Anticoagulation held. Current UC tx: prednisone 40mg po daily, mesalamine po. Refuses mesalamine enemas. Review of Systems Review of Systems: ROS: Gen: Denies weakness, fevers, weight loss Eyes: No eye redness, or pain, no recent vision changes Resp: No SOB, no cough Cardio: No palpitations/irregular beats, no chest pain GI: No abdominal pain, no nausea/vomiting : Denies pain on urination Skin: No jaundice, itching or new rashes Constitutional: no fever, no body aches and no weakness Eyes: no problem reported Ear, Nose, Mouth, Throat: no problem reported Respiratory: no cough, no dyspnea, no pain on inspiration and no wheezing Cardiovascular: + edema (chronic); no chest pain and no syncope Gastrointestinal: + blood in stools; no abdominal pain Genitourinary: + urinary incontinence (chronic) Integumentary: + rash and + skin swelling was weeping cloudy fluid from lower leg lesions prior to admission, now dressings in place Neurologic: no falls, no tremor(s) and no syncope Psychiatric: no confusion and no problem reported Hematologic / Lymphatic: + unexplained weight loss (50 lbs in the past 6 months) Allergy / Immunological: + tongue swelling; no cough and no problem reported Physical Exam Constitutional: WD/WN, vitals as above Eyes: PERRL, conjunctivae normal, anicteric sclerae ENMT: external ear and nose normal, oropharynx normal Neck: trachea midline, no thyromegaly Respiratory: normal respiratory effort, lungs clear to auscultation Cardiovascular: Rate/Rhythm: regular rate and regular rhythm Bilateral lower leg marked edema; Dressings in place over weeping lesions. Gastrointestinal (Abdomen): normal bowel sounds, soft, nontender, no hepatosplenomegaly Skin: no rashes, warm and dry (no rashes; + lower leg chronic lymphedema) Neurologic: PERRL, EOMI, accommodation nl, no face palsy, no dysarthria Psychiatric: A+Ox3, euthymic affect Lymphatic: + lymphedema (marked, bilateral lower legs) Results & Data Vital Signs (Past 12 Hours) Vital Signs Temp Pulse Resp BP Pulse Ox 07/04/19 08:00 82 07/04/19 07:21 36.3 C L 75 17 108/59 L 97 07/04/19 04:43 36.3 C L 79 18 155/84 H 95 07/04/19 01:03 36.6 C 79 18 137/76 97 Laboratory Results WBC 12, Hb 7.3, (down from 8.5 on arrival ->6 with initial episode of rectal bleeding -> 9.1 after a 2 unit transfusion then back down to 7.3). Diagnostic Findings CT abd/pelvis on 06/24 with IV contrast: 1. Moderate wall thickening of the descending colon and mild wall thickening of the remainder of the colon which represents a nonspecific colitis. No free air or abscess. Sensitivity for detection mucosal lesions significantly diminished given CT technique but none identified. 2. Extensive deep venous thrombus within visualized portions of the bilateral femoral veins as shown on previous lower extremity Doppler. Possible right lower lobe segmental pulmonary emboli. 3. 4.1 cm hypoenhancing splenic focus which favors an infarct. 4. Evidence for volume overload with anasarca, small right and trace left pleural effusions and trace ascites. 5. Prominent bilateral inguinal and external lymph nodes which are probably reactive. 6. Moderate gallbladder distention without adjacent infiltration. 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 Medications Administered Currently on Prednisone 40mg po daily.
[2019-07-04] MEDS ORDERED: FUROSEMIDE 20 MG in SYRINGE 0 ML IV SCH (12:00)
[2019-07-04] MEDS ORDERED: ATROPINE SULFATE 0.1 MG/ML 5ML SYR IV PRN (22:46)
--- NOTE | 2019-07-04 22:50 | Hospitalist Progress Note ---
Date of Service July 04, 2019 Subjective Patient earlier had transient bradycardia, CR 40s, 2-second pause on the monitor as per RN. Patient asymptomatic as per RN. We relay to AM provider. Results & Data Vital Signs (Past 12 Hours) Vital Signs Temp Pulse Resp BP Pulse Ox 07/04/19 18:35 37.0 C 69 16 139/60 07/04/19 17:29 37.2 C 84 16 127/67 99 07/04/19 17:10 36.5 C 55 L 16 146/69 H 95 07/04/19 16:45 36.4 C L 79 16 141/88 H 07/04/19 16:28 36.9 C 81 18 139/68 99 07/04/19 15:48 36.9 C 69 14 116/66 98 07/04/19 15:45 36.4 C L 73 16 115/63 07/04/19 14:38 36.6 C 69 18 104/60 98 07/04/19 13:30 36.9 C 82 18 116/64 97 07/04/19 13:05 36.9 C 80 18 120/66 98 07/04/19 12:32 36.9 C 80 18 120/66 98 07/04/19 12:30 36.5 C 80 18 100/47 L 97 07/04/19 12:17 36.6 C 80 18 111/61 97 07/04/19 11:59 36.4 C L 77 18 133/63 97
[2019-07-04] MEDS ORDERED: MAGNESIUM SULFATE / D5W 1 GM/100 ML BAG IV ONE (23:00)
[2019-07-04 23:33] LABS: Hematocrit (blood only) 28.5 % (37-47); Hemoglobin 9.3 g/dL (12.0-16.0)
[2019-07-04] MEDS ORDERED: EMOLLIENT OINTMENT 1 GM EXT PRN (23:38)
[2019-07-04 23:52] LABS: BUN Creatinine Ratio 24.8 (10-20); Calcium 7.7 mg/dl (8.5-10.1); Creatinine Clr Calc Pharmacy 37.9 ml/min; Est GFR (African American) 60.2; Magnesium 2.4 mg/dl (1.8-2.4); Potassium 3.6 mmol/L (3.5-5.1)
[2019-07-05 00:15] LABS: Albumin Level 1.9 gm/dl (3.4-5.0)
[2019-07-05] MEDS ORDERED: POTASSIUM CHLORIDE 20 MEQ TABCR PO ONE (01:00)
[2019-07-05 04:57] LABS: Hematocrit (blood only) 34.6 % (37-47); Hemoglobin 11.1 g/dL (12.0-16.0); Mean Corpuscular Hemoglobin 28.2 pg (25-34); Mean Corpuscular Hgb Conc 32.1 g/dL (32-36); Mean Corpuscular Volume 87.8 fL (80-100); Mean Platelet Volume 10.4 fL (7.4-10.4); Nucleated RBC # (auto) 0.07 K/uL (0-0); Nucleated RBC % (auto) 0.6 %; Platelet Count 244 K/uL (130-400); RDW Coefficient of Variation 19.4 % (11.5-14.5); RDW Standard Deviation 59.9 fL (36.4-46.3); Red Blood Count 3.94 M/uL (4.2-5.4); White Blood Count 12.31 K/uL (4.8-10.8)
[2019-07-05] MEDS: FAMOTIDINE 20 MG TAB PO SCH ×2 (08:33→20:30)
[2019-07-05] MEDS: MESALAMINE 400 MG CAPDR PO SCH ×3 (08:33→20:29)
[2019-07-05] MEDS: predniSONE 20 MG TAB PO SCH (08:33)
--- NOTE | 2019-07-05 12:48 | Gastroenterology Progress Note ---
Date of Service July 05, 2019 Assessment & Plan (1) LGI bleed: Hemodynamically significant bleeding from UC during anticoagulation. 1. Offered full colonoscopy to restage UC, pt declines. 2. Would continue UC tx with prednisone, mesalamine. Hesitate to start a TNF due to age. 3. Avoid NSAIDs as they cause UC flares. 4. Low residual diet. 5. OK to resume anticoagulation if required. Attg add: I interviewed and examined pt, reviewd chart and labs. Pt has clearly improved with no abd pain, few bowel movements, and near resolution of bleeding. OK for a/c, cont prednisone, will begin taper tomorrow. Likely will need anti- resorptive therapy as well. Subjective Ms. Valery Grubbs is an 83 yr old female pt of Dr. Larsen with a hx of lymphedema and UC, admitted on 06/21 for septic cellulitis, bilateral lower ext DVTs. Experienced rectal bleeding on heparin/Xarelto (DC'ed). Flex sig with friable (with spontaneous bleeding), granular and plaque covered mucosa in the sigmoid colon and in the descending colon. IV solumedrol initiated. IVC filter placed. PEs on imaging. Rechallenged anticoagulation with heparin/warfarin starting 6 days ago. Bleed on anticoagulation rechallenge. Heparin/warfarin held. Today: bleeding decreased. Hb stable post transfusion at 9.3 and pt reports one blood BM in past 24 hrs. Decreased amt of blood, increased amt of fecal material compare to the prior day. Review of Systems Review of Systems: ROS: Gen: Denies weakness, fevers, weight loss Eyes: No eye redness, or pain, no recent vision changes Resp: No SOB, no cough Cardio: No palpitations/irregular beats, no chest pain GI: + rectal bleeding; no abdominal pain, no nausea/vomiting : Denies pain on urination Skin: No jaundice, itching or new rashes Physical Exam Constitutional: WD/WN, vitals as above Eyes: PERRL, conjunctivae normal, anicteric sclerae ENMT: external ear and nose normal, oropharynx normal Neck: trachea midline, no thyromegaly Respiratory: normal respiratory effort, lungs clear to auscultation Cardiovascular: RRR, no murmur, no edema Rate/Rhythm: regular rate and regular rhythm Gastrointestinal (Abdomen): normal bowel sounds, soft, nontender, no hepatosplenomegaly Inspection/Auscultation: abdomen normal to inspection and normal bowel sounds (hypoactive); abdomen not distended Musculoskeletal: no cyanosis or clubbing, extremities motor strength 5/5 Skin: no rashes, warm and dry (no rashes; + lower leg chronic lymphedema) Neurologic: PERRL, EOMI, accommodation nl, no face palsy, no dysarthria Psychiatric: A+Ox3, euthymic affect Lymphatic: no cervical or axillary lymphadenopathy + lymphedema (marked, bilateral lower legs) Results & Data Vital Signs (Past 12 Hours) Vital Signs Temp Pulse Pulse Resp BP Pulse Ox 07/05/19 11:56 36.6 C 76 18 118/62 97 07/05/19 07:42 108 H 07/05/19 07:34 36.4 C L 72 18 115/70 95 07/05/19 04:26 36.4 C L 54 L 20 144/87 H 99
[2019-07-05] MEDS: carvediloL 3.125 MG TAB PO SCH ×2 (14:07→20:28)
[2019-07-05] MEDS: LOSARTAN POTASSIUM 25 MG TAB PO SCH (14:07)
--- NOTE | 2019-07-05 17:04 | Hospitalist Progress Note ---
Date of Service July 05, 2019 Assessment & Plan (1) LGI bleed: 2/2 uncontrolled UC with recent second attempt at anticoagulation. Bleeding improved overnight. Remains stable. Blood transfusion overnight with appropriate response in H/H. Cont prednisone taper at this time and avoid furt her anticoagulation. IVC filter in place. (2) Pulmonary emboli: She was off blood thinners for approximately 1 week after failing a trial of heparin bridge to Xarelto. IVC filter was placed. Mutliple PEs seen on imaging. She is breathing well despite this and is not hypoxic. Rechallenge with heparin and coumadin 2mg PO daily. Cont off anticoagulation and IVC filter in place. (3) Deep vein thrombosis (DVT) of both lower extremities: As above, anticoagulation contraindicated in setting of repeat GI bleed. IVC filter is in place. Encourage ambulation. Encourage TEDs. (4) Ulcerative colitis: Remains on increased mesalamine dose, declines mesalamine enema. Declines colonoscopy offer as inpatient. Cont prednisone 40mg PO daily, and proceed with steroid taper per GI. (5) Acute blood loss anemia: Acute blood loss anemia is present 2/2 GIB. improved with blood transfusion. (6) Cellulitis of both lower extremities: Resolved, completed course of antibiotics. (7) Chronic venous insufficiency: Lasix on hold in setting of GI bleed. (8) Nonischemic cardiomyopathy: Appears compensated. Lasix, Coreg and Losartan held. Aspirin is currently contraindicated in setting of GI bleed. (9) Mitral regurgitation: Chronic stable heart murmur. (10) Sepsis: Resuscitated. (11) Splenic infarct: Incidental finding on CT scan. Per general surgery no further surgical indication is necessary as patient is asymptomatic. (12) Discharge planning issues: Encourage ambulation with assistance 3 times daily. Full code Disposition-to SNF when hemodynamically stable and GIB resolves. Salome Peña, [facility]ist Subjective doing well some blood in stool this am after breakfast hemodynamically stable and looks well with appropriate response to blood transfusion yesterday. Review of Systems Review of Systems: All systems reviewed & are unremarkable except as noted in HPI & below Physical Exam Physical Exam: CONSTITUTIONAL: WNWD, vitals as above, generally well- appearing EYES: normal conjunctivae, no scleral icterus ENT: MMM RESPIRATORY: clear to auscultation bilaterally, no crackles, rales or wheezes, normal respiratory effort CARDIOVASCULAR: regular rate and rhythm, 3/6 NEVILLE heard, no gallops or rubs, no peripheral edema GASTROINTESTINAL: normal bowel sounds, soft, nontender, nondistended. MUSCULOSKELETAL: strength 5/5 throughout, head is normocephalic and atraumatic SKIN: warm and dry, open leg ulcer-stage II on lower right leg, covered with Optifoam, no surrounding erythema. NEUROLOGIC: CN 2-12 grossly intact, no sensory deficit, normal cognition, normal speech, no gross focal deficits. PSYCHIATRIC: alert cooperative and oriented to person, place and time Results & Data Vital Signs (Past 12 Hours) Vital Signs Temp Pulse Pulse Resp BP BP Pulse Ox 07/05/19 16:00 36.6 C 59 L 18 121/78 91 07/05/19 11:56 36.6 C 76 18 118/62 97 07/05/19 07:42 108 H 07/05/19 07:34 36.4 C L 72 18 115/70 95 Laboratory Results Short CBC 07/04/19 07/05/19 Range/Units 23:09 04:23 WBC 12.31 H (4.8-10.8) K/uL Hgb 9.3 L 11.1 L (12.0-16.0) g/dL Hct 28.5 L 34.6 L (37-47) % Plt Count 244 (130-400) K/uL BMP 07/04/19 23:09 Sodium 140 Potassium 3.6 Chloride 103 Carbon Dioxide 34 H BUN 25 H Creatinine 0.99 D Glucose 129 H Calcium 7.7 L Liver Function 07/04/19 Range/Units 23:09 Albumin 1.9 L (3.4-5.0) gm/dl Medications Administered Current Inpatient Medications Albuterol (Duoneb) 3 ml NEB Q6H PRN PRN Reason: shortness of breath or wheezing Stop: 07/26/19 09:29 Atropine Sulfate (Atropine Sulfate) 0.5 mg IV Q3M PRN PRN Reason: symptomatic bradycardia Stop: 08/03/19 22:45 Carvedilol (Coreg) 3.125 mg PO BID [facility] Stop: 07/31/19 20:59 Last Admin: 07/05/19 14:07 Dose: 3.125 mg Documented by: Famotidine (Pepcid) 20 mg PO BID [facility] Stop: 07/27/19 20:59 Last Admin: 07/05/19 08:33 Dose: 20 mg Documented by: Furosemide (Lasix) 20 mg PO QAM JEVON Stop: 07/30/19 08:59 Last Admin: 07/03/19 07:57 Dose: 20 mg Documented by: Sodium Chloride (Nss) 250 mls @ 15 mls/hr IV .[id number] PRN PRN Reason: For Transfusion Stop: 08/03/19 10:28 Losartan Potassium (Cozaar) 25 mg PO QAM JEVON Stop: 08/01/19 08:59 Last Admin: 07/05/19 14:07 Dose: 25 mg Documented by: Mesalamine (Rowasa) 4 gm [place] HS JEVON Stop: 07/22/19 20:59 Last Admin: 06/23/19 20:55 Dose: Not Given Documented by: Mesalamine (Delzicol) 1,600 mg PO TID JEVON Stop: 07/23/19 20:59 Last Admin: 07/05/19 14:09 Dose: 1,600 mg Documented by: Prednisone (Prednisone) 40 mg PO DAILY JEVON Stop: 08/03/19 08:59 Last Admin: 07/05/19 08:33 Dose: 40 mg Documented by: Tramadol HCl (Ultram) 25 mg PO Q4H PRN PRN Reason: Pain Stop: 07/21/19 22:57 (1) Sepsis Sepsis acute organ dysfunction status: unspecified Sepsis type: sepsis due to unspecified organism Qualified Code(s): A41.9 - Sepsis, unspecified organism
[2019-07-06] MEDS ORDERED: MAGNESIUM SULFATE / D5W 1 GM/100 ML BAG IV ONE (01:00)
[2019-07-06] MEDS ORDERED: POTASSIUM CHLORIDE 20 MEQ TABCR PO ONE (01:00)
[2019-07-06] MEDS: LOSARTAN POTASSIUM 25 MG TAB PO SCH (07:31)
[2019-07-06] MEDS: carvediloL 3.125 MG TAB PO SCH ×2 (07:31→19:01)
[2019-07-06] MEDS: MESALAMINE 400 MG CAPDR PO SCH ×3 (07:31→19:01)
[2019-07-06] MEDS: predniSONE 20 MG TAB PO SCH (07:31)
[2019-07-06] MEDS: FAMOTIDINE 20 MG TAB PO SCH ×2 (07:31→19:01)
[2019-07-06 11:06] LABS: Basophils # (auto) 0.01 K/uL (0-0.2); Basophils % (auto) 0.1 %; Eosinophils # (auto) 0.02 K/uL (0-0.5); Eosinophils % (auto) 0.2 %; Hematocrit (blood only) 32.8 % (37-47); Hemoglobin 10.4 g/dL (12.0-16.0); Immature Granulocytes # (auto) 0.05 K/uL (0.00-0.02); Immature Granulocytes % (auto) 0.5 %; Lymphocytes # (auto) 0.43 K/uL (1.2-3.4); Lymphocytes % (auto) 4.1 %; Mean Corpuscular Hemoglobin 28.2 pg (25-34); Mean Corpuscular Volume 88.9 fL (80-100); Mean Platelet Volume 10.4 fL (7.4-10.4); Monocytes # (auto) 0.36 K/uL (0.11-0.59); Monocytes % (auto) 3.4 %; Neutrophils # (auto) 9.68 K/uL (1.4-6.5); Neutrophils % (auto) 91.7 %; Platelet Count 219 K/uL (130-400); RDW Coefficient of Variation 19.6 % (11.5-14.5); RDW Standard Deviation 61.8 fL (36.4-46.3); Red Blood Count 3.69 M/uL (4.2-5.4); White Blood Count 10.55 K/uL (4.8-10.8)
[2019-07-06 11:22] LABS: Mean Corpuscular Hgb Conc 31.7 g/dL (32-36)
[2019-07-06 11:23] LABS: Albumin Level 2.1 gm/dl (3.4-5.0); BUN Creatinine Ratio 23.5 (10-20); Creatinine Clr Calc Pharmacy 43.9 ml/min; Est GFR (African American) 73.5; Est GFR (Non-African American) 63.4; Magnesium 2.7 mg/dl (1.8-2.4); Potassium 4.6 mmol/L (3.5-5.1)
[2019-07-06 11:27] LABS: Albumin Globulin Ratio 0.5 (0.9-2); Bilirubin,Total 0.3 mg/dl (0.2-1); Globulin 4.1 gm/dl (2.5-4.0); Total Protein 6.2 gm/dl (6.4-8.2)
--- NOTE | 2019-07-06 12:12 | Gastroenterology Progress Note ---
Date of Service July 06, 2019 Assessment & Plan (1) LGI bleed: Hemodynamically significant bleeding from UC during anticoagulation, now resolving off anticoagulation. 1. Taper Prednisone: 40mg daily for a wk, 30 daily for a wk, 25 daily for a week, then continue to decrease by 5mg each week. 2. Avoid NSAIDs as they cause UC flares. 3. Continue Low residual diet. 4. OK to resume anticoagulation if required. 5. Will arrange OP GI fu in the next month with Dr. Zhou. 6. GI will sign off. Please notify us if new/worrisome GI issues. Attg add; I interviewed and examined pt, reviewed chart and labs. Pt with persistent tenesmus, small volume BM's 3-4 elsy this am. Pred taper as above. Subjective Ms. Alvarez is a an 83 yr old female patient of Dr. Larsen with a hx of lymphedema and UC, admitted on 06/21 for septic cellulitis, bilateral lower ext DVTs. Experienced rectal bleeding on heparin/Xarelto (WA'ed). Flex sig with friable (with spontaneous bleeding), granular and plaque covered mucosa in the sigmoid colon and in the descending colon. IV solumedrol initiated. IVC filter placed. PEs on imaging. Rechallenged anticoagulation with heparin/warfarin starting 7 days ago. Bled on anticoagulation rechallenge. Heparin/warfarin held. Today:Pt reports one brown BM this morning w/o any blood on the toilet paper or the toilet bowl. She did have BMs with blood on the toilet paper two days ago and yesterday a very small amt on the toilet paper. Pt ambulating in the room. Review of Systems Review of Systems: ROS: Gen: Denies weakness, fevers, weight loss Eyes: No eye redness, or pain, no recent vision changes Resp: No SOB, no cough Cardio: No palpitations/irregular beats, no chest pain GI: today no rectal bleeding; no abdominal pain, no nausea/vomiting : Denies pain on urination Skin: No jaundice, itching or new rashes Cardiovascular: + edema (chronic); no chest pain and no syncope Gastrointestinal: + blood in stools; no abdominal pain Genitourinary: + urinary incontinence (chronic) Integumentary: + rash and + skin swelling was weeping cloudy fluid from lower leg lesions prior to admission, now dressings in place Hematologic / Lymphatic: + unexplained weight loss (50 lbs in the past 6 months) Physical Exam Constitutional: WD/WN, vitals as above Eyes: PERRL, conjunctivae normal, anicteric sclerae ENMT: external ear and nose normal, oropharynx normal Neck: trachea midline, no thyromegaly Respiratory: normal respiratory effort, lungs clear to auscultation Cardiovascular: RRR, no murmur, no edema Rate/Rhythm: regular rate and regular rhythm Gastrointestinal (Abdomen): normal bowel sounds, soft, nontender, no hepatosp lenomegaly Musculoskeletal: no cyanosis or clubbing, extremities motor strength 5/5 Skin: no rashes, warm and dry (no rashes; + lower leg chronic lymphedema) Neurologic: PERRL, EOMI, accommodation nl, no face palsy, no dysarthria Psychiatric: A+Ox3, euthymic affect Lymphatic: no cervical or axillary lymphadenopathy + lymphedema (marked, bilateral lower legs) Results & Data Vital Signs (Past 12 Hours) Vital Signs Temp Pulse Pulse Resp BP BP Pulse Ox 07/06/19 11:28 36.7 C 67 20 102/59 L 96 07/06/19 10:14 57 L 07/06/19 07:34 36.5 C 66 18 134/80 100 07/06/19 04:48 36.3 C L 73 20 129/75 98
--- NOTE | 2019-07-06 14:24 | Hospitalist Progress Note ---
Date of Service July 06, 2019 Assessment & Plan (1) Sepsis: Sepsis: -patient initially presented on 06/21/19 for wound care of the legs -admission hospitalist diagnosis of sepsis secondary to right lower extremity cellulitis -admission leukocytosis of 26,000 (2) Cellulitis of both lower extremities: -was started on cefepime and daptomycin empirically on admission - blood cultures no growth, Wound culture with Staphylococcus aureus with results returned as MSSA and wound culture Corynebacterium species -daptomycin and cefepime stopped on 06/24/19 -Hospital course was complicated by gastrointestinal bleed and patient required ICU transfer -antibiotics was then switched to ceftriaxone as started by ICU physician on 06/24/19 for total 7 day completion -patient has completed IV antibiotics on this hospital stay (3) Deep vein thrombosis (DVT) of both lower extremities: -ultrasound 06/21/19: Bilateral extensive deep venous thrombosis from the calf veins to the common femoral veins, partially occlusive on the right and occlusive in the lower leg on the left. -heparin drip IV was transitioned to Xarelto starting on 06/22/19 day time -last dose of Xarelto was 06/23/19 evening then subsequently patient had GI bleed and needed 2 units of PRBC on 06/24/19 -s/p Insertion Of Inferior Vena Cava Filter, Right Femoral Approach, by Dr. Urbina on 06/24/19 -subsequently found on further abdominal imaging to have had Acute pulmonary embolism without evidence of cor pulmonale (4) Pulmonary emboli: Acute pulmonary embolism without evidence of cor pulmonale -dedicated CT chest angio protocol to investigate pulmonary embolism noted on CT abdomen on 06/26/19; CT chest angio on 06/26/19: Acute pulmonary emboli in lobar, segmental, and subsegmental pulmonary arteries of the right lower lobe and segmental and subsegmental pulmonary emboli in the right upper and left lower lobes to a lesser extent. No CT evidence of right heart strain.No evidence of pulmonary infarct. -given that there are existing pulmonary emboli despite IVC filter and patient may potentially have worsening emboli or pulmonary hypertension from pulmonary embolism, discussions were made between patient, hospitalists, ICU physician, and gastroenterology team on risks and benefits re-attempting systemic anticoagulation once GI bleed from Ulcerative colitis flare resolves -after around 1 week from initial GI bleed, subsequent hospitalist attempted to rechallenge patient with heparin drip and coumadin. This did not work out as patient's hemoglobin again declined with patient needing blood transfusions of 2 units PRBC on 07/04/19 -at this time, the patient does not want further systemic anticoagulation and it would appear that the risks of anticoagulation outweighs the benefits (5) LGI bleed: -Patient had GI bleed while on Xarelto and needed 2 units of PRBC on 06/24/19 -presumably the cause of the GI bleed is due to friable mucosa from ulcerative colitis flare and exacerbated by blood thinners -Patient had both upper EGD and colonoscopy performed on 06/24/19 -after around 1 week from initial GI bleed, subsequent hospitalist attempted to rechallenge patient with heparin drip and coumadin. This did not work out as patient's hemoglobin again declined with patient needing blood transfusions of 2 units PRBC on 07/04/19 (6) Ulcerative colitis: -after the GI bleed on 06/24/19, patient received IV solumedrol. -was then transitioned to prednisone 40 mg daily -Taper Prednisone: from 40 mg to 30mg daily for a week, 25 mg daily for a week, then continue to daily dose by 5mg each week. -Avoid NSAIDs -Continue Low residual diet. -on mesalamine (7) Acute blood loss anemia: -Acute blood loss anemia from GI bleeds -Hemoglobin stabilizing and stool is more brown (8) Chronic venous insufficiency: -holding oral Lasix for now (9) Nonischemic cardiomyopathy: -on Losartan 25 mg daily -on carvedilol 3.125 mg BID -Lasix held for now (10) Mitral regurgitation: Chronic stable heart murmur. 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 -CT scan of the abdomen with contrast performed on 06/25/19 with: Moderate gallbladder distention without adjacent infiltration. 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 -general surgery evaluated the patient and did not recommend any surgical interventions -patient does not have abdominal pain symptoms (12) Discharge planning issues: Encourage ambulation with assistance 3 times daily. Full code Subjective Patient reports brown stool today so far. no abdomen pain. no vomiting. no chest pain. no shortness of breath. no lightheadedness. no dizziness Physical Exam Constitutional: comfortable Eyes: PERRL, conjunctivae normal, anicteric sclerae EOM intact bilaterally ENMT: external ear and nose normal, oropharynx normal Neck: normal visual inspection Respiratory: normal respiratory effort, lungs clear to auscultation Cardiovascular: Rate/Rhythm: regular rate and regular rhythm Gastrointestinal (Abdomen): normal bowel sounds, soft, nontender, no hepatosplenomegaly Musculoskeletal: Extremities: + lower leg abnormality (bilateral calf swelling) Neurologic: PERRL, EOMI, accommodation nl, no face palsy, no dysarthria Psychiatric: A+Ox3, euthymic affect Results & Data Vital Signs (Past 12 Hours) Vital Signs Temp Pulse Pulse Resp BP BP Pulse Ox 07/06/19 11:28 36.7 C 67 20 102/59 L 96 07/06/19 10:14 57 L 07/06/19 07:34 36.5 C 66 18 134/80 100 07/06/19 04:48 36.3 C L 73 20 129/75 98 (1) Sepsis Sepsis acute organ dysfunction status: unspecified Sepsis type: sepsis due to unspecified organism Qualified Code(s): A41.9 - Sepsis, unspecified organism
[2019-07-07 06:39] LABS: Basophils # (auto) 0.01 K/uL (0-0.2); Basophils % (auto) 0.1 %; Eosinophils # (auto) 0.11 K/uL (0-0.5); Hematocrit (blood only) 33.9 % (37-47); Hemoglobin 10.9 g/dL (12.0-16.0); Immature Granulocytes # (auto) 0.05 K/uL (0.00-0.02); Immature Granulocytes % (auto) 0.4 %; Lymphocytes % (auto) 13.8 %; Mean Corpuscular Hemoglobin 29.1 pg (25-34); Mean Corpuscular Hgb Conc 32.2 g/dL (32-36); Mean Corpuscular Volume 90.4 fL (80-100); Monocytes # (auto) 0.66 K/uL (0.11-0.59); Monocytes % (auto) 5.7 %; Neutrophils # (auto) 9.14 K/uL (1.4-6.5); Platelet Count 196 K/uL (130-400); RDW Coefficient of Variation 19.9 % (11.5-14.5); RDW Standard Deviation 64.8 fL (36.4-46.3); Red Blood Count 3.75 M/uL (4.2-5.4); White Blood Count 11.57 K/uL (4.8-10.8)
[2019-07-07 07:22] LABS: Albumin Globulin Ratio 0.5 (0.9-2); Albumin Level 2.3 gm/dl (3.4-5.0); BUN Creatinine Ratio 35.9 (10-20); Bilirubin,Total 0.3 mg/dl (0.2-1); Calcium 8.2 mg/dl (8.5-10.1); Creatinine Clr Calc Pharmacy 45.2 ml/min; Est GFR (African American) 75.6; Est GFR (Non-African American) 65.3; Globulin 4.2 gm/dl (2.5-4.0); Total Protein 6.5 gm/dl (6.4-8.2)
[2019-07-07] MEDS: MESALAMINE 400 MG CAPDR PO SCH ×2 (07:42→13:10)
[2019-07-07] MEDS: carvediloL 3.125 MG TAB PO SCH (07:42)
[2019-07-07] MEDS: FAMOTIDINE 20 MG TAB PO SCH (07:42)
[2019-07-07] MEDS: LOSARTAN POTASSIUM 25 MG TAB PO SCH (07:42)
[2019-07-07] MEDS ORDERED: predniSONE 10 MG TABLET PO SCH (09:00)
--- NOTE | 2019-07-07 11:07 | Hospitalist Progress Note ---
Date of Service July 07, 2019 Assessment & Plan (1) Sepsis: Sepsis: -patient initially presented on 06/21/19 for wound care of the legs -admission hospitalist diagnosis of sepsis secondary to right lower extremity cellulitis -admission leukocytosis of 26,000 (2) Cellulitis of both lower extremities: -was started on cefepime and daptomycin empirically on admission - blood cultures no growth, Wound culture with Staphylococcus aureus with results returned as MSSA and wound culture Corynebacterium species -daptomycin and cefepime stopped on 06/24/19 -Hospital course was complicated by gastrointestinal bleed and patient required ICU transfer -antibiotics was then switched to ceftriaxone as started by ICU physician on 06/24/19 for total 7 day completion -patient has completed IV antibiotics on this hospital stay (3) Deep vein thrombosis (DVT) of both lower extremities: -ultrasound 06/21/19: Bilateral extensive deep venous thrombosis from the calf veins to the common femoral veins, partially occlusive on the right and occlusive in the lower leg on the left. -heparin drip IV was transitioned to Xarelto starting on 06/22/19 day time -last dose of Xarelto was 06/23/19 evening then subsequently patient had GI bleed and needed 2 units of PRBC on 06/24/19 -s/p Insertion Of Inferior Vena Cava Filter, Right Femoral Approach, by Dr. Urbina on 06/24/19 -subsequently found on further abdominal imaging to have had Acute pulmonary embolism without evidence of cor pulmonale (4) Pulmonary emboli: Acute pulmonary embolism without evidence of cor pulmonale -dedicated CT chest angio protocol to investigate pulmonary embolism noted on CT abdomen on 06/26/19; CT chest angio on 06/26/19: Acute pulmonary emboli in lobar, segmental, and subsegmental pulmonary arteries of the right lower lobe and segmental and subsegmental pulmonary emboli in the right upper and left lower lobes to a lesser extent. No CT evidence of right heart strain.No evidence of pulmonary infarct. -given that there are existing pulmonary emboli despite IVC filter and patient may potentially have worsening emboli or pulmonary hypertension from pulmonary embolism, discussions were made between patient, hospitalists, ICU physician, and gastroenterology team on risks and benefits re-attempting systemic anticoagulation once GI bleed from Ulcerative colitis flare resolves -after around 1 week from initial GI bleed, subsequent hospitalist attempted to rechallenge patient with heparin drip and coumadin. This did not work out as patient's hemoglobin again declined with patient needing blood transfusions of 2 units PRBC on 07/04/19 -at this time, the patient does not want further systemic anticoagulation and it would appear that the risks of anticoagulation outweighs the benefits (5) LGI bleed: -Patient had GI bleed while on Xarelto and needed 2 units of PRBC on 06/24/19 -presumably the cause of the GI bleed is due to friable mucosa from ulcerative colitis flare and exacerbated by blood thinners -Patient had both upper EGD and colonoscopy performed on 06/24/19 -after around 1 week from initial GI bleed, subsequent hospitalist attempted to rechallenge patient with heparin drip and coumadin. This did not work out as patient's hemoglobin again declined with patient needing blood transfusions of 2 units PRBC on 07/04/19 (6) Ulcerative colitis: -after the GI bleed on 06/24/19, patient received IV solumedrol. -was then transitioned to prednisone 40 mg daily -Taper Prednisone: from 40 mg to 30mg daily for a week, 25 mg daily for a week, then continue to daily dose by 5mg each week. -Avoid NSAIDs -Continue Low residual diet. -on mesalamine (7) Acute blood loss anemia: -Acute blood loss anemia from GI bleeds -Hemoglobin stabilized and stool is more brown -Hgb on 07/07/19 is 10.9 (8) Chronic venous insufficiency: -can resume Lasix 20 mg every 48 hours (9) Nonischemic cardiomyopathy: -on Losartan 25 mg daily -on carvedilol 3.125 mg BID -can resume Lasix 20 mg every 48 hours (10) Mitral regurgitation: Chronic stable heart murmur. 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 -CT scan of the abdomen with contrast performed on 06/25/19 with: Moderate gallbladder distention without adjacent infiltration. 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 -general surgery evaluated the patient and did not recommend any surgical interventions -patient does not have abdominal pain symptoms (12) Discharge planning issues: Brief Summary -patient initially presented on 06/21/19 for wound care of the legs -admission hospitalist diagnosis of sepsis secondary to right lower extremity cellulitis -the found to have bilateral lower extremity Deep Vein Thrombosis -Patient had GI bleed while on Xarelto and needed 2 units of PRBC on 06/24/19 -s/p Insertion Of Inferior Vena Cava Filter on 06/24/19 -Patient had both upper EGD and colonoscopy performed on 06/24/19 -presumably the cause of the GI bleed is due to friable mucosa from ulcerative colitis flare and exacerbated by blood thinners -subsequently found on further imaging to have had Acute pulmonary embolism -given that there are existing pulmonary emboli despite IVC filter and patient may potentially have worsening emboli or pulmonary hypertension from pulmonary embolism, discussions were made between patient, hospitalists, ICU physician, and gastroenterology team on risks and benefits re-attempting systemic anticoagulation once GI bleed from Ulcerative colitis flare resolves -after around 1 week from initial GI bleed, subsequent hospitalist attempted to rechallenge patient with heparin drip and coumadin. This did not work out as patient's hemoglobin again declined with patient needing blood transfusions of 2 units PRBC on 07/04/19 -at this time, the patient does not want further systemic anticoagulation and it would appear that the risks of anticoagulation outweighs the benefits Discharge Diagnosis admission hospitalist diagnosis of sepsis secondary to right lower extremity cellulitis, Acute Deep Vein Thrombosis of bilateral lower extremities, was initially Anticoagulated by anticoagulation Therapy, then had acute blood loss anemia secondary to Gastrointestinal bleed while on anticoagulation therapy of Xarelto, Ulcerative colitis (Inflammatory Bowel Disease), s/p Inferior Vena Cava Filter insertion on 06/24/19, ACUTE PULMONARY EMBOLISM WITHOUT EVIDENCE OF COR PULMONALE, Splenic infarct, adenomyomatosis of the gallbladder fundus Discharge Instructions (Discharge to [facility] discharge medications include: prednisone 30mg daily x 1 week,then 25mg daily x 1 week,then continue decrease daily dose by 5mg each week (20 mg daily x 1 week, 15 mg daily x 1 week, 10 mg daily x 1 week, 5 mg daily x 1 week) mesalamine 1600 mg three time a day furosemide 20 mg every 48 hours Avoid NSAIDs. Do not start any blood thinners unless instructed by a doctor Primary care doctor follow up in 1 week to check complete blood count and electrolytes Regular primary care doctor appointment 07/22/2019 1:00 PM Provider Heladio Larsen DO Department General Internal Medicine [facility] 08/11/2019 11:40 AM Provider Lizbet James DO Department Gastroenterology, [facility]) Subjective Patient denies acute pain. There is some seepage of the lower extremities but they are in dressings. breathing on room air. no shortness of breath. no headache. no dizziness. no vomiting. no abdominal pain. she is able to ambulate. reports that her stools are normal brown color Physical Exam Constitutional: comfortable Eyes: PERRL, conjunctivae normal, anicteric sclerae EOM intact bilaterally ENMT: external ear and nose normal, oropharynx normal Neck: normal visual inspection Respiratory: normal respiratory effort, lungs clear to auscultation Cardiovascular: Rate/Rhythm: regular rate and regular rhythm Gastrointestinal (Abdomen): normal bowel sounds, soft, nontender, no hepatosplenomegaly Musculoskeletal: Extremities: + lower leg abnormality (bilateral calf swelling) Neurologic: PERRL, EOMI, accommodation nl, no face palsy, no dysarthria Psychiatric: A+Ox3, euthymic affect Results & Data Vital Signs (Past 12 Hours) Vital Signs Temp Pulse Pulse Resp BP Pulse Ox 07/07/19 08:00 65 07/07/19 07:15 36.5 C 60 20 107/66 98 07/07/19 05:06 36.5 C 68 20 99/54 L 95 07/07/19 00:00 71 (1) Sepsis Sepsis acute organ dysfunction status: unspecified Sepsis type: sepsis due to unspecified organism Qualified Code(s): A41.9 - Sepsis, unspecified organism
--- NOTE | 2019-07-07 11:16 | Discharge Summary ---
Date of Service July 07, 2019 Admission HPI Per Admitting Provider History obtained from patient, family, and records. Medical history significant for chronic systolic heart failure EF 44%, TTE 2014, mitral regurgitation as per records, chronic LBBB, COPD as per records, past tobacco abuse, chronic venous insufficiency on diuretic Rx, history of ulcerative colitis, chronic anemia baseline hemoglobin of 10, history skin cancer status post surgery Recent confinement November 2018 for rhabdomyolysis secondary to traumatic fall. Last few weeks patient noted worsening leg swelling more on the right, no chest pain, no S OB. Foul-smelling drainage from wound on the right leg noted the last 2 weeks. Patient denies chest pain, S OB. Worsening nonbloody diarrhea from colitis as per patient without abdominal pain the last few months. Unable to follow-up with electrician deck given ambulatory dysfunction. At the ER, patient given IV vancomycin for sepsis. 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 Admission Exam Per Admitting Provider GENERAL: Comfortable, pleasant, no respiratory distress SKIN: Pallor , warm HEENT: Pale palpebral conjunctivae, no ptosis, dry buccal mucosa NECK : Supple, no tenderness CHEST : CTA, no tenderness HEART : Tachycardic, systolic murmur ABDOMEN: Some distention, nontender EXTREMITIES : Bilateral LE swelling and erythema, R > L, fluctuance on right calf, open wound right calf with dried yellow drainage, minimal LE tenderness NEUROLOGIC : Coherent, no facial asymmetry, slightly hard of hearing, gait and stance not assessed, no other gross focality Principal Diagnosis admission hospitalist diagnosis of sepsis secondary to right lower extremity cellulitis, Acute Deep Vein Thrombosis of bilateral lower extremities, was initially Anticoagulated by anticoagulation Therapy, then had acute blood loss anemia secondary to Gastrointestinal bleed while on anticoagulation therapy of Xarelto, Ulcerative colitis (Inflammatory Bowel Disease), s/p Inferior Vena Cava Filter insertion on 06/24/19, ACUTE PULMONARY EMBOLISM WITHOUT EVIDENCE OF COR PULMONALE, Splenic infarct, adenomyomatosis of the gallbladder fundus Discharge Exam Constitutional comfortable Eyes PERRL, conjunctivae normal, anicteric sclerae EOM intact bilaterally ENMT external ear and nose normal, oropharynx normal Neck normal visual inspection Respiratory normal respiratory effort, lungs clear to auscultation Cardiovascular Rate/Rhythm: regular rate and regular rhythm Gastrointestinal (Abdomen) normal bowel sounds, soft, nontender, no hepatosplenomegaly Musculoskeletal Extremities: + lower leg abnormality (bilateral calf swelling) Neurologic PERRL, EOMI, accommodation nl, no face palsy, no dysarthria Psychiatric A+Ox3, euthymic affect Discharge Data Allergies Allergy/AdvReac Type Severity Reaction Status Date / Time erythromycin base Allergy Intermediate RASH Verified 06/21/19 20:19 Penicillins Allergy Intermediate HIVES Verified 06/21/19 20:19 tetracycline Allergy Intermediate HIVES Verified 06/21/19 20:19 Consultations 06/21/19 20:33 ED Decision to Admit Stat 06/21/19 22:58 Consult Case Management - Discharge Planning Routine Consult Gastroenterology Routine 06/24/19 03:17 Consult Supervisor Sewer System Routine 06/24/19 07:39 Consult Vascular Surgery Routine 06/25/19 11:12 Consult General Surgery Routine 06/27/19 11:10 Consult Palliative Care Routine 06/28/19 17:06 Consult Patient Services Routine 06/29/19 09:21 Consult Pulmonology Routine Procedures Performed Operation Date: 06/24/19 08:30 Actual Procedures p Esophagogastroduodenoscopy - Alfa Galindo s Colonoscopy Biopsy Cytology - Alfa Galindo Operation Date: 06/24/19 09:40 Actual Procedures p Insertion Of Inferior Vena Cava Filter, Right Femoral Approach, Ultrasound Localization Of Right Internal Femoral Vein, Fluoroscopy For Positioning, Moderate Concious Sedation 1015 to 1032(Right) - Warren Urbina MD Ordered Studies 06/21/19 21:52 US venous doppler LE BI Urgent 06/22/19 22:58 MR lower leg RT wo/w con Routine 06/24/19 08:51 EV IVC filter placement Urgent 06/24/19 14:34 CT abd pelvis oral and IV con Routine 06/26/19 09:14 CT angio chest PE protocol Routine Hospital Course (1) Sepsis: Sepsis: -patient initially presented on 06/21/19 for wound care of the legs -admission hospitalist diagnosis of sepsis secondary to right lower extremity cellulitis -admission leukocytosis of 26,000 (2) Cellulitis of both lower extremities: -was started on cefepime and daptomycin empirically on admission - blood cultures no growth, Wound culture with Staphylococcus aureus with results returned as MSSA and wound culture Corynebacterium species -daptomycin and cefepime stopped on 06/24/19 -Hospital course was complicated by gastrointestinal bleed and patient required ICU transfer -antibiotics was then switched to ceftriaxone as started by ICU physician on 06/24/19 for total 7 day completion -patient has completed IV antibiotics on this hospital stay (3) Deep vein thrombosis (DVT) of both lower extremities: -ultrasound 06/21/19: Bilateral extensive deep venous thrombosis from the calf veins to the common femoral veins, partially occlusive on the right and occlusive in the lower leg on the left. -heparin drip IV was transitioned to Xarelto starting on 06/22/19 day time -last dose of Xarelto was 06/23/19 evening then subsequently patient had GI bleed and needed 2 units of PRBC on 06/24/19 -s/p Insertion Of Inferior Vena Cava Filter, Right Femoral Approach, by Dr. Urbina on 06/24/19 -subsequently found on further abdominal imaging to have had Acute pulmonary embolism without evidence of cor pulmonale (4) Pulmonary emboli: Acute pulmonary embolism without evidence of cor pulmonale -dedicated CT chest angio protocol to investigate pulmonary embolism noted on CT abdomen on 06/26/19; CT chest angio on 06/26/19: Acute pulmonary emboli in lobar, segmental, and subsegmental pulmonary arteries of the right lower lobe and segmental and subsegmental pulmonary emboli in the right upper and left lower lobes to a lesser extent. No CT evidence of right heart strain.No evidence of pulmonary infarct. -given that there are existing pulmonary emboli despite IVC filter and patient may potentially have worsening emboli or pulmonary hypertension from pulmonary embolism, discussions were made between patient, hospitalists, ICU physician, and gastroenterology team on risks and benefits re-attempting systemic anticoagulation once GI bleed from Ulcerative colitis flare resolves -after around 1 week from initial GI bleed, subsequent hospitalist attempted to rechallenge patient with heparin drip and coumadin. This did not work out as patient's hemoglobin again declined with patient needing blood transfusions of 2 units PRBC on 07/04/19 -at this time, the patient does not want further systemic anticoagulation and it would appear that the risks of anticoagulation outweighs the benefits (5) LGI bleed: -Patient had GI bleed while on Xarelto and needed 2 units of PRBC on 06/24/19 -presumably the cause of the GI bleed is due to friable mucosa from ulcerative colitis flare and exacerbated by blood thinners -Patient had both upper EGD and colonoscopy performed on 06/24/19 -after around 1 week from initial GI bleed, subsequent hospitalist attempted to rechallenge patient with heparin drip and coumadin. This did not work out as patient's hemoglobin again declined with patient needing blood transfusions of 2 units PRBC on 07/04/19 (6) Ulcerative colitis: -after the GI bleed on 06/24/19, patient received IV solumedrol. -was then transitioned to prednisone 40 mg daily -Taper Prednisone: from 40 mg to 30mg daily for a week, 25 mg daily for a week, then continue to daily dose by 5mg each week. -Avoid NSAIDs -Continue Low residual diet. -on mesalamine (7) Acute blood loss anemia: -Acute blood loss anemia from GI bleeds -Hemoglobin stabilized and stool is more brown -Hgb on 07/07/19 is 10.9 (8) Chronic venous insufficiency: -can resume Lasix 20 mg every 48 hours (9) Nonischemic cardiomyopathy: -on Losartan 25 mg daily -on carvedilol 3.125 mg BID -can resume Lasix 20 mg every 48 hours (10) Mitral regurgitation: Chronic stable heart murmur. 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 -CT scan of the abdomen with contrast performed on 06/25/19 with: Moderate gallbladder distention without adjacent infiltration. 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 -general surgery evaluated the patient and did not recommend any surgical interventions -patient does not have abdominal pain symptoms (12) Discharge planning issues: Brief Summary -patient initially presented on 06/21/19 for wound care of the legs -admission hospitalist diagnosis of sepsis secondary to right lower extremity cellulitis -the found to have bilateral lower extremity Deep Vein Thrombosis -Patient had GI bleed while on Xarelto and needed 2 units of PRBC on 06/24/19 -s/p Insertion Of Inferior Vena Cava Filter on 06/24/19 -Patient had both upper EGD and colonoscopy performed on 06/24/19 -presumably the cause of the GI bleed is due to friable mucosa from ulcerative colitis flare and exacerbated by blood thinners -subsequently found on further imaging to have had Acute pulmonary embolism -given that there are existing pulmonary emboli despite IVC filter and patient may potentially have worsening emboli or pulmonary hypertension from pulmonary embolism, discussions were made between patient, hospitalists, ICU physician, and gastroenterology team on risks and benefits re-attempting systemic anticoagulation once GI bleed from Ulcerative colitis flare resolves -after around 1 week from initial GI bleed, subsequent hospitalist attempted to rechallenge patient with heparin drip and coumadin. This did not work out as patient's hemoglobin again declined with patient needing blood transfusions of 2 units PRBC on 07/04/19 -at this time, the patient does not want further systemic anticoagulation and it would appear that the risks of anticoagulation outweighs the benefits Discharge Diagnosis admission hospitalist diagnosis of sepsis secondary to right lower extremity cellulitis, Acute Deep Vein Thrombosis of bilateral lower extremities, was initially Anticoagulated by anticoagulation Therapy, then had acute blood loss anemia secondary to Gastrointestinal bleed while on anticoagulation therapy of Xarelto, Ulcerative colitis (Inflammatory Bowel Disease), s/p Inferior Vena Cava Filter insertion on 06/24/19, ACUTE PULMONARY EMBOLISM WITHOUT EVIDENCE OF COR PULMONALE, Splenic infarct, adenomyomatosis of the gallbladder fundus Discharge Instructions (Discharge to [facility] discharge medications include: prednisone 30mg daily x 1 week,then 25mg daily x 1 week,then continue decrease daily dose by 5mg each week (20 mg daily x 1 week, 15 mg daily x 1 week, 10 mg daily x 1 week, 5 mg daily x 1 week) mesalamine 1600 mg three time a day furosemide 20 mg every 48 hours Avoid NSAIDs. Do not start any blood thinners unless instructed by a doctor Primary care doctor follow up in 1 week to check complete blood count and electrolytes Regular primary care doctor appointment 07/22/2019 1:00 PM Provider Heladio Larsen DO Department General Internal Medicine [facility] 08/11/2019 11:40 AM Provider Lizbet James DO Department Gastroenterology, [facility]) Total Time Total Time Spent Total Time Spent (In Minutes): 40 minutes Total Time Includes: Examination of the Patient, Discharge Planning, Medication Reconciliation and Communication With Other Providers Discharge Plan Discharge Items Patient Disposition: Transfer Care Home [facility] Reason For Visit: SEPSIS Discharge Diagnosis: admission hospitalist diagnosis of sepsis secondary to right lower extremity cellulitis, Acute Deep Vein Thrombosis of bilateral lower extremities, was initially Anticoagulated by anticoagulation Therapy, then had acute blood loss anemia secondary to Gastrointestinal bleed while on anticoagulation therapy of Xarelto, Ulcerative colitis (Inflammatory Bowel Disease), s/p Inferior Vena Cava Filter insertion on 06/24/19, ACUTE PULMONARY EMBOLISM WITHOUT EVIDENCE OF COR PULMONALE, Splenic infarct, adenomyomatosis of the gallbladder fundus Condition on Discharge: Good Activity: Per Instructions section Non-emergency contact: Primary Care Provider and Insurance Territory Manager Call non-emergency contact if: you have any medication questions Follow-up/Referrals: Heladio Larsen DO [Primary Care Provider] - Diet: Carb Consistent or DM2 and Low Fiber Addtl Attending Provider Instructions: Discharge to [facility] discharge medications include: prednisone 30mg daily x 1 week,then 25mg daily x 1 week,then continue decrease daily dose by 5mg each week (20 mg daily x 1 week, 15 mg daily x 1 week, 10 mg daily x 1 week, 5 mg daily x 1 week) mesalamine 1600 mg three time a day furosemide 20 mg every 48 hours Primary care doctor follow up in 1 week to check complete blood count and electrolytes Avoid NSAIDs. Do not start any blood thinners unless instructed by a doctor Regular primary care doctor appointment 07/22/2019 1:00 PM Provider Heladio Larsen DO Department General Internal Medicine [facility] 08/11/2019 11:40 AM Provider Lizbet James DO Department Gastroenterology, [facility] Javier Hub Bander Provider Instructions: -patient initially presented on 06/21/19 for wound care of the legs -admission hospitalist diagnosis of sepsis secondary to right lower extremity cellulitis -the found to have bilateral lower extremity Deep Vein Thrombosis -Patient had GI bleed while on Xarelto and needed 2 units of PRBC on 06/24/19 -s/p Insertion Of Inferior Vena Cava Filter on 06/24/19 -Patient had both upper EGD and colonoscopy performed on 06/24/19 -presumably the cause of the GI bleed is due to friable mucosa from ulcerative colitis flare and exacerbated by blood thinners -subsequently found on further imaging to have had Acute pulmonary embolism -given that there are existing pulmonary emboli despite IVC filter and patient may potentially have worsening emboli or pulmonary hypertension from pulmonary embolism, discussions were made between patient, hospitalists, ICU physician, and gastroenterology team on risks and benefits re-attempting systemic anticoagulation once GI bleed from Ulcerative colitis flare resolves -after around 1 week from initial GI bleed, subsequent hospitalist attempted to rechallenge patient with heparin drip and coumadin. This did not work out as patient's hemoglobin again declined with patient needing blood transfusions of 2 units PRBC on 07/04/19 -at this time, the patient does not want further systemic anticoagulation and it would appear that the risks of anticoagulation outweighs the benefits Pending Studies at Discharge: No Stand-Alone Forms: My [facility] Skilled Items Patient informed of condition?: Yes DNR: No Discharge Level of Care: Skilled Communicable Disease: No Discharge Prognosis: Stable Lines: None Urinary Catheter: No Medications and DC Order Prescriptions: New carvedilol 3.125 mg Tablet 3.125 mg PO BID 30 Days Qty: 60 RF: 0 losartan 25 mg Tablet 25 mg PO QAM 30 Days Qty: 30 RF: 0 mesalamine [Delzicol] 400 mg Capsule (With Del Rel Tablets) 1,600 mg PO TID 30 Days Qty: 360 RF: 0 prednisone 10 mg Tablet 30 mg PO DAILY 42 Days Qty: 74 RF: 0 furosemide 20 mg Tablet 20 mg PO Q48H 30 Days Qty: 15 RF: 0 Continued carvedilol 3.125 mg tablet 3.125 mg PO BID RF: 0 furosemide 20 mg tablet 20 mg PO DAILY RF: 0 albuterol sulfate [Proventil HFA] 90 mcg/actuation Hfa Aerosol Inhaler 2 puff INHALATION Q6H PRN (Reason: Wheezing) RF: 0 multivitamin Tablet 1 tab PO DAILY RF: 0 Glucosamine Chondroitin 550-30-1 mg Capsule 1 cap PO BID RF: 0 Discontinued losartan 50 mg tablet 50 mg PO QAM RF: 0 aspirin 81 mg Tablet,Delayed Release (Dr/Ec) 81 mg PO DAILY RF: 0 potassium chloride 20 mEq tablet,ER particles/crystals 20 meq PO DAILY RF: 0 mesalamine 800 mg tablet,delayed release (DR/EC) 800 mg PO TID RF: 0 acetaminophen [Mapap (acetaminophen)] 325 mg Tablet 650 mg PO Q4H PRN (Reason: fever or pain) Qty: 20 RF: 0 Discharge Orders: Discharge Order (Routine); Ordered 07/07/19 Ordered By: Simón Salinas Admission Data Admit Date/Time: 06/21/19 22:05 Attending Provider: Simón Salinas Admit Provider: Luis Enrique Young Primary Care Provider: Heladio aLrsen Other Providers: Luis Enrique Young ; Galilea Rebollar ; Melecio Hughes ; Mikaela Melo ; Daniel Mcdowell ; Alfa Galindo ; Marialuisa Zhou ; Genna Salter ; Yariel Zamorano ; Francisco Leyva ; Kaur Ruffin ; Lizbet James ; Cee Ji ; Ana M Mcneal ; Jose David Espino ; Nura Castro ; Warren Urbina ; Lonnie Green ; Yariel Mak
--- NOTE | 2019-07-07 15:44 | Hospitalist Progress Note ---
Date of Service July 07, 2019 Subjective THERE IS A NURSING CHART ERROR. have discussed with nurse traffic personnel supervisor on [address] that there is a blood pressure charting error. Patient had discharge order on 11:12 AM on 07/07/19. Blood pressures were measured at 11:48 AM of left arm 115/80, right arm 107/66. However, the chart a lso documents at 11:54 AM a left arm blood pressure allegedly to be 75/48. Have discussed with nurse traffic personnel supervisor that this is a charting error as medical doctor was never informed that patient had low blood pressure and that it would be unlikely that patient had a true low blood pressure 6 minutes after normal pressures and then successfully discharged by nurse. Nursing notes reflect that patient was discharged after 2 PM. And I also discussed with nurse traffic personnel supervisor that in any case, even if blood pressure was indeed recorded to be low in reality, then blood pressures should be rechecked before patient is discharged. Results & Data Vital Signs (Past 12 Hours) Vital Signs Temp Pulse Pulse Resp BP BP Pulse Ox 07/07/19 11:54 36.6 C 62 20 75/48 L 98 07/07/19 11:48 36.5 C 60 20 115/80 107/66 98 07/07/19 11:14 36.5 C 60 20 115/80 107/66 98 07/07/19 08:00 65 07/07/19 07:15 36.5 C 60 20 107/66 98 07/07/19 05:06 36.5 C 68 20 99/54 L 95
== END 2019-07-07 15:31 | DRG 853 ==
LOC: ED 19:17 → 2W 22:05 → SUATTDRO 22:05 → 2W 22:26 → 1E 06-24 03:08 → 2S 06-25 23:09 → 2N 07-01 17:19